=== PATIENT | male | born 1980 | race Caucasian/White ===

== ENCOUNTER 2019-06-06 10:28 | Outpatient (REF) | payer BC, SELFPAY ==
[2019-06-06 12:51] LABS: Bilirubin Negative (Negative); Blood Trace-intact (Negative); Clarity Clear (Clear); Glucose Negative (Negative); Ketones Negative (Negative); Leukocyte Esterase Negative (Negative); Nitrite Negative (Negative); Specific Gravity 1.015 (1.005-1.025); Urobilinogen 0.2 EU/dL (Up TO 0.2)
[2019-06-06 13:00] LABS: Bacteria Negative HPF (Negative); Casts Negative LPF (Negative); Crystals Negative HPF (Negative); Epithelial Cells Negative HPF (Negative); Mucus Negative (Negative); RBC 0-2 HPF (0-2); WBC 0-2 HPF (0-5)
[2019-06-06 13:01] LABS: C & S Indicated? No
== END 2019-06-06 10:48 ==
LOC: LBN 10:28
PROVIDERS: PCP Emergency Medicine; Visit Provider Emergency Medicine
DX: R31.9 Hematuria, unspecified (principal); R32 Unspecified urinary incontinence; D01.0 Carcinoma in situ of colon
CPT/HCPCS: 81003; 81015

== ENCOUNTER 2020-03-27 13:56 | Outpatient (CLI) | payer BC, SELFPAY ==
--- NOTE | 2020-03-27 13:15 | DI.RAD_ITS ---
EXAM: XR SHOULDER RT COMPLETE 2+V CLINICAL HISTORY: right shoulder. TECHNIQUE: 2D digital imaging was performed. COMPARISON: No exams were available for comparison FINDINGS: BONES: No acute fracture is present. No bony destructive lesion is seen. There is minimal spurring at the tip of the acromion. JOINTS: No dislocation present. SOFT TISSUE: Normal. No calcifications. Visualized portions of the right lung are clear. IMPRESSION: Minimal degenerative changes. DATA REPOSITORY: RADIATION DOSE DELIVERED:
== END 2020-03-27 14:16 ==
PROVIDERS: PCP Emergency Medicine; Referring Provider Emergency Medicine; Visit Provider Student in an Organized Health Care Education/Training Program
DX: M19.011 Primary osteoarthritis, right shoulder (principal); M25.511 Pain in right shoulder
CPT/HCPCS: 73030

== ENCOUNTER 2021-01-22 02:13 | Outpatient (CLI) | payer BC, SELFPAY ==
--- NOTE | 2021-01-22 07:37 | DI.US_ITS ---
APPROVED REPORT EXAM: Comprehensive 2D, Doppler, and color-flow Echocardiogram Patient Location: Out-Patient Motorcycle Assembler: Lauren Velázquez RDCS (AE) Indications: SOB, HTN, COVID Other Information Study Quality: Good Conclusion Left Ventricle : The left ventricular systolic function is normal. The left ventricle is normal size . There is normal left ventricular wall thickness. The left ventricular diastolic function is normal. LVEF is 60%. Right Ventricle : The right ventricle is normal size. The right ventricular systolic function is norm al. The RVSP is 23.9 mmHg. Atria : The left atrium size is normal. The right atrium size is normal. Aortic Valve : Aortic valve is bicuspid. Moderate aortic regurgitation. No hemodynamically significan t valvular aortic stenosis. Great Vessels : The aortic root is normal in size. The ascending aorta is normal in size. Aortic arch is normal in caliber. IVC is normal in size and collapses >50% with inspiration. There is no prior study available for comparison. Wall motion Left Ventricle The left ventricle is normal size. The left ventricular systolic function is normal. There is normal left ventricular wall thickness. There is normal LV segmental wall motion. The left ventricular diast olic function is normal. There is no ventricular septal defect visualized. LVEF is 60%. Right Ventricle The right ventricle is normal size. The right ventricular systolic function is normal. The RVSP is 23 .9 mmHg. Atria The left atrium size is normal. The right atrium size is normal. The interatrial septum is intact wit h no evidence for an atrial septal defect. Aortic Valve Aortic valve is bicuspid. No hemodynamically significant valvular aortic stenosis. Moderate aortic re gurgitation. Mitral Valve The mitral valve is normal in structure. No evidence of mitral valve stenosis. Trace mitral regurgita tion. Tricuspid Valve The tricuspid valve is normal in structure. There is no tricuspid valve stenosis. Trace tricuspid reg urgitation. Pulmonic Valve The pulmonary valve is normal in structure. There is no pulmonic valvular stenosis. Trace pulmonic re gurgitation. Great Vessels The aortic root is normal in size. The ascending aorta is normal in size. Aortic arch is normal in ca liber. IVC is normal in size and collapses >50% with inspiration. Pericardium There is no pericardial effusion. 2D Dimensions IVSD d PLAX 1.00 cm M: 0.6-1.2 LV Vol A2C d MOD 189.3 mL LVPW d PLAX 1.02 cm M: 0.6 - 1.2 LV Vol A4C d MOD 168.8 mL LVID d PLAX 5.52 cm M: 4.2 - 5.8 LA vol/ BSA A2C s A-L 29.9 mL/m2 LVDs 3.65 cm M: 2.5 - 4.0 LA vol/ BSA A4C s A-L 28.0 mL/m2 Ao Root d 3.51 cm M: 3.1 - 3.7 LA Vol/ BSA Biplane s A-L 31.4 mL/m2 RA Area A4C 18.44 cm2 LA Area A4C s MOD 20.91 cm2 RA Vol/ BSA A4C s A-L 23.0 mL/m2 LA Area A2C s MOD 19.95 cm2 Ao Asc Diam d 3.47 cm M: 2.6 - 3.4 LV EF A4C MOD 60.6 % LV EF Teichholz 62.0 % LV EF A2C MOD 59.7 % LVEF (Patricio's) 58.70 % M: 52 - 72 LV EF Biplane MOD 58.7 % LV Volume 131.61 mL M: 62 - 150 SV 107.12 mL LV Volume Index 58.23 mL/m2 M: 34 - 74 SV Index 47.38 mL/m2 LV Vol Biplane MOD 182.5 mL FS 33.75 % M-Mode TAPSE 3.05 cm (M/F) >1.7 LV Diastology MV E' medial 0.092 (>0.07 m/s) E/A Ratio 1.6 LV E/e MED 11.00 (<14) MV E Vmax 1.01 (0.4-1.3 m/s) MV E' lateral 0.105 (>0.1 m/s) MV A Vmax 0.65 (0.4-1.3 m/s) LV E/e LAT 9.60 (<14) MV E/A Ratio 1.52 MV E/E' medial 11.04 MV E/E' lateral 9.63 Aortic Valve LVOT Area 3.63 cm2 AoV Area Vmax 2.31 cm2 LVOT Vmax 1.27 m/s AoV Area/ BSA (Vmax) 1.02 cm2/m2 LVOT Mean Lennox. 0.85 m/s SHRUTI Mean Lennox. 2.13 cm2 LVOT Peak Grad 6.4 mmHg SHRUTI Mean Lennox. Index 0.94 cm2/m2 LVOT Mean Grad 3.4 mmHg AR DT 1982 msec LVOT VTI 0.292 m AR PHT 575 msec LVOT Diam s 2.10 cm AoV Vmax 1.99 m/s Velocity Ratio 0.63 AoV Mean Lennox. 1.46 m/s AoV Peak Grad 15.8 mmHg LVOT SV 105.92 mL AoV Mean Grad 9.3 mmHg AoV VTI 0.412 m AoV Area VTI 2.57 cm2 AoV Area/ BSA (VTI) 1.14 cm/m2 Mitral Valve MV DT 262 (160-240 msec) MV PHT 76 msec MV Area PHT 2.89 cm2 MV VTI 0.360 m MV Area VTI 2.94 (4.0-6.0 cm2) Pulmonary Valve PV Vmax 1.11 (0.5-1.5 m/s) RVOT Peak Gr. 3.88 mmHg PV Peak Grad 4.9 mmHg RVOT Mean Gr. 1.80 mmHg PV Mean Grad 2.5 mmHg RVOT VTI 0.210 m PV VTI 0.252 m RVOT Vmax 0.98 m/s Tricuspid Valve TR Peak Grad 20.8 mmHg TR Vmax 2.29 m/s RA Pressure 3.00 mmHg RVSP (TR) 23.9 mmHg
== END 2021-01-22 02:33 ==
PROVIDERS: PCP Emergency Medicine; Visit Provider Emergency Medicine
DX: I10 Essential (primary) hypertension (principal); U07.1 COVID-19; R06.02 Shortness of breath; I35.1 Nonrheumatic aortic (valve) insufficiency; Q23.1 Congenital insufficiency of aortic valve
CPT/HCPCS: 93306

== ENCOUNTER 2021-03-13 03:01 | Outpatient (CLI) | payer BC, SELFPAY ==
[2021-03-13 09:05] LABS: Anion Gap 9.3 mmol/L (3-11); BUN 16 mg/dL (7-18); C-Reactive Protein 0.08 mg/dL (0.0-0.3); CO2 26.7 mmol/L (21.0-32.0); CREATININE 0.9 mg/dL (0.70-1.30); Calcium 8.7 mg/dL (8.5-10.1); Chloride 108 mmol/L (98-107); Glucose 109 mg/dL (74-106); Potassium 4.1 mmol/L (3.5-5.1); Sodium 144 mmol/L (136-145)
[2021-03-13 09:35] LABS: Calculated LDL 87 mg/dL (<100); Cholesterol 134 mg/dL (<200); HDL Cholesterol 36 mg/dL (40-60); Triglyceride 56 mg/dL (<150)
== END 2021-03-13 03:02 | disposition home or self-care (01) ==
LOC: LBO 03:01
PROVIDERS: PCP Emergency Medicine; Visit Provider Emergency Medicine
DX: I35.1 Nonrheumatic aortic (valve) insufficiency; U07.1 COVID-19; I10 Essential (primary) hypertension
CPT/HCPCS: 36415; 80048; 80061; 86140

== ENCOUNTER 2022-07-22 20:26 | Emergency (ER) | payer BC, SELFPAY ==
[2022-07-22] VITALS (20 sets, daily range): BP systolic 132–175; BP diastolic 85–96; PULSE 69–109; RESP 12–24; TEMP 37.2; O2SAT 94–100
--- NOTE | 2022-07-22 20:15 | RT.EKG_ITS ---
APPROVED REPORT Exam: Resting ECG Reason for Exam: chest pain Patient Location: E HR:90 bpm ECG Measurements Heart Rate 90 AXIS MO 188 P 57 QRSd 97 QRS 15 QT 378 T 37 QTc 464 Conclusion Sinus rhythm...normal P axis, V-rate 60- 99 Physician: no stemi, unchanged
--- NOTE | 2022-07-22 20:37 | ED.GENADUL_ITS ---
Discharge Plan Disposition Patient Disposition: Home Condition: Good Discharge Details Chief Complaint: Chest Pain Clinical Impression: Hypertension, Chest discomfort Primary Care Provider: Efrain Goel ED Provider: Jaylen Fine Home Meds and New Rx's Prescriptions: No Action triamcinolone acetonide 0.1 % cream 1 applic topical BID tacrolimus 0.1 % ointment 1 applic topical BID Discharge Instructions Instructions: Hypertension (ED) Additional Instructions: At this time your cardiac work-up is very reassuring. Your heart markers are all normal. In regards to your blood pressure he can certainly be made worse and elevated by stress, lack of sleep, and diminished diet or exercise. As your blood pressure has notably normalized just during your time here, I do not think that antihypertensive medication is indicated at this stage. Please follow-up closely with your primary care provider for reassessment. If you notice any worsening of your symptoms, or any new symptoms such as vomiting, diarrhea, fever, chills, shortness of breath, chest pain, numbness, weakness, or fainting , please return immediately to the emergency department for reevaluation. Please follow up with your primary care provider as soon as possible for reassessment and reevaluation. As always, it was a pleasure participating in your medical care today. Referrals: Efrain Goel [Primary Care Provider] - Medical Decision Making 41-year-old male with no significant past medical history except for bicuspid aortic valve, previous appendiceal cancer, who presents today for evaluation of elevated blood pressure. 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 Over the last day or so he has noticed his blood pressure has been increasing slightly, he states that he has been taking his blood pressure every 30 minutes to every hour to monitor it. This is also been going on tonight, his blood pressure at 180 systolic, and he states that this made him notably nervous and concerned. At the same time he also got what he described as a few quick brief twinges of pain in the left chest. These lasted just a few seconds and resolved on their own. No exertional component, no dyspnea, no shortness of breath, no tearing or ripping sensation. Symptoms completely resolved after those initial brief events and he is symptom-free now. Denies PE risk factors such as recent long car rides, immobilization, recent surgery, prior history of DVT or PE, family history of PE or DVT, morbid obesity, exogenous estrogen and smoking, hemoptysis, history of cancer. Patient denies any history of tobacco use. No other complaints at this time. No previous or family history of cardiac ischemia or disease. Exam demonstrates a well-appearing, albeit nervous male. Vital signs stable aside from mild hypertension. No evidence clinically to suggest aortic dissection, PE or aneurysm based on symptoms and clinical appearance. Suspect stress is a component of his symptoms, however out of an abundance of precaution we will evaluate for other cardiac etiology. EKG is notably benign with no evidence of STEMI or significant ST changes whatsoever. We will monitor closely and reassess. HPI General Date/Time Provider Initiated Documentation: 07/22/22 20:29 . HPI Narrative: 41-year-old male with no significant past medical history except for bicuspid aortic valve, previous appendiceal cancer, who presents today for evaluation of elevated blood pressure. 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 Over the last day or so he has noticed his blood pressure has been increasing slightly, he states that he has been taking his blood pressure every 30 minutes to every hour to monitor it. This is also been going on tonight, his blood pressure at 180 systolic, and he states that this made him notably nervous and concerned. At the same time he also got what he described as a few quick brief twinges of pain in the left chest. These lasted just a few seconds and resolved on their own. No exertional component, no dyspnea, no shortness of breath, no tearing or ripping sensation. Symptoms completely resolved after those initial brief events and he is symptom-free now. Denies PE risk factors such as recent long car rides, immobilization, recent surgery, prior history of DVT or PE, family history of PE or DVT, morbid obesity, exogenous estrogen and smoking, hemoptysis, history of cancer. Patient denies any history of tobacco use. No other complaints at this time. No previous or family history of cardiac ischemia or disease. Related Data Home Medications Medication Instructions Recorded Confirmed tacrolimus 0.1 % topical ointment 1 applic topical BID 01/06/21 07/22/22 triamcinolone acetonide 0.1 % 1 applic topical BID 01/06/21 07/22/22 topical cream Allergies Allergy/AdvReac Type Severity Reaction Status Date / Time No Known Allergies Allergy Verified 03/10/22 18:46 Review of Systems All systems reviewed & are unremarkable except as noted in HPI and below PFSH All Active Problems (Updated 07/22/22 @ 22:01 by Jaylen Fine DO) Hypertension (Chronic) Chest discomfort (Acute) Aortic regurgitation (Acute) needs yearly echo COVID-19 (Acute) Hypertension (Chronic) Impingement syndrome of right shoulder (Acute) Biceps tendinitis of right shoulder (Acute) Nontraumatic type 1 superior labral [id number] (SLAP) tear of right shoulder (Acute) No-show for appointment (Acute) Vasectomy evaluation (Acute) Bilateral shoulder pain (Acute) Bilateral knee pain (Acute) Shoulder pain, right (Acute) 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 Needs yearly CT and f/u Family History Son Asthma Social History Smoking/Tobacco Use Status: Never Second Hand Exposure: No Smoking risk assessment performed?: Yes Alcohol Intake: current Alcohol Intake frequency: a few times a week Alcohol type: beer and hard liquor Drug use: Never Substance use type: does not use Caregiver/Support person: No Household members: spouse and children Housing: house Communication Needs: None Pets and animals: Yes Pets and animals: dog(s) Sexually active: Yes Do you think of yourself as: straight/heterosexual Current gender identity: male What is your relationship status?: How often do you talk on the phone with friends or family?: decline to answer How often do you get together with friends or relatives?: decline to answer How often do you attend episcopalian or roman catholic services?: decline to answer Do you belong to any clubs or organized social groups?: decline to answer Panel score (0-1 are the most socially isolated patients): 1 Negrita/Shinto: none Special negrita needs: No Seatbelt use: always Helmet use: Yes Helmet use: sometimes Drive intox or ride w/intox fuel oil truck 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 3.ENT: Atraumatic external nose and ears. Moist MM. Neck: Symmetric, trachea midline, No thyromegaly. 4.CVS: +S1/S2, No murmurs or gallops. Peripheral pulses 2+ and equal in all extremities. Brisk capillary refill in all extremities. 5.RESP: Unlabored respiratory effort. Clear to auscultation bilaterally. No wheezes rales or rhonchi 6.GI: Soft, Nontender/Nondistended, No hepatosplenomegaly. No guarding or rebound. 7.MSK: Normocephalic/Atraumatic, Extremities w/o deformity or ttp No cyanosis or clubbing, Normal movement of all extremities 8.Skin: Warm, Dry. No rashes or lesions. 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 Sensation grossly intact, no focal neurologic deficits. 10.Psych: (AAO) x3. Appropriate mood and affect
[2022-07-22 20:52] LABS: Abs Immature Grans 0.02 10^3/uL (0.0-0.06); Absolute Basophil Count 0.06 10^3/uL (0.0-0.2); Absolute Eosinophil Count 0.18 10^3/uL (0.0-0.7); Absolute Lymphocyte Count 3.17 10^3/uL (1.2-3.4); Absolute Monocyte Count 0.51 10^3/uL (0.1-0.8); Absolute Neutrophil Count 5.26 10^3/uL (1.2-6.7); Basophils % 0.7; HGB 14.2 g/dL (13.5-17.5); Immature Grans % 0.2; Lymphocytes % 34.5; MCH 30.2 pg (27.0-33.0); MCHC 34.6 % (32.0-36.0); MCV 87 fL (80-95); MPV 9.3 fL (8.0-11.0); Monocytes % 5.5; Neutrophils % 57.1; Platelet Count 268 10^3/uL (130-400); RDW 11.6 % (11.8-14.1); RDW-SD 37.4 fL
[2022-07-22 21:11] LABS: ALT 29 U/L (16-63); AST 15 U/L (15-37); Albumin 4.4 g/dL (3.4-5.0); Alkaline Phosphatase 65 U/L (46-116); Anion Gap 9.3 mmol/L (3-11); BUN 17 mg/dL (7-18); Bilirubin, Total 0.5 mg/dL (0.2-1.0); CO2 27.7 mmol/L (21.0-32.0); Chloride 103 mmol/L (98-107); Estimated GFR 97.58 (mL/min/1.73m2); Glucose 141 mg/dL (74-106); Potassium 3.4 mmol/L (3.5-5.1); Sodium 140 mmol/L (136-145); Total Protein 8.1 g/dL (6.4-8.2); Troponin I < 50 ng/L (<or=60)
[2022-07-22 21:21] LABS: Lipase 86 U/L (73-393); NT-proBNP 54 pg/mL (<300); TSH (W/Ref FT4) 4.53 uIU/mL (0.36-3.74)
[2022-07-22 22:24] LABS: FREE T4 0.79 ng/dL (0.76-1.46)
== END 2022-07-22 22:13 | disposition home or self-care (01) ==
PROVIDERS: Emergency Provider Student in an Organized Health Care Education/Training Program; PCP Physician Assistant
DX: I10 Essential (primary) hypertension (principal); R07.89 Other chest pain
CPT/HCPCS: 80053; 83690; 93005; 99283; 83880; 84439; 84443; 84484; 85025; 93010; 99284

== ENCOUNTER 2024-02-29 10:28 | Outpatient (REF) | payer BC, SELFPAY | END 2024-02-29 10:29 | disposition home or self-care (01) | LOC: LBN 10:28 | PROVIDERS: PCP Physician Assistant; Visit Provider Physician Assistant | DX: J02.9 Acute pharyngitis, unspecified (principal); R68.89 Other general symptoms and signs | CPT/HCPCS: 87070 ==

== ENCOUNTER 2024-05-12 09:17 | Outpatient (CLI) | payer BC, SELFPAY ==
[2024-05-12 08:20] LABS: BUN 20 mg/dL (7-18); CREATININE 1.1 mg/dL (0.70-1.30); Chloride 106 mmol/L (98-107); Estimated GFR 85.95 (mL/min/1.73m2); Glucose 117 mg/dL (74-106); Potassium 3.8 mmol/L (3.5-5.1); Sodium 143 mmol/L (136-145)
== END 2024-05-12 09:18 | disposition home or self-care (01) ==
LOC: LBO 09:17
PROVIDERS: PCP Physician Assistant; Visit Provider Internal Medicine Cardiovascular Disease
DX: I35.1 Nonrheumatic aortic (valve) insufficiency (principal)
CPT/HCPCS: 36415; 80048

== ENCOUNTER 2024-05-26 11:03 | Outpatient (CLI) | payer BC, SELFPAY ==
[2024-05-26 09:25] LABS: Anion Gap 10.8 mmol/L (3-11); BUN 17 mg/dL (7-18); CO2 26.2 mmol/L (21.0-32.0); Calcium 8.8 mg/dL (8.5-10.1); Chloride 105 mmol/L (98-107); Estimated GFR 96.37 (mL/min/1.73m2); Glucose 119 mg/dL (74-106); Potassium 3.8 mmol/L (3.5-5.1); Sodium 142 mmol/L (136-145)
--- OUTSIDE RECORDS SUMMARY | 2024-05-26 11:05 | XMS_ITS | Encounter Summary ---
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 Not very hard 02/25/2023 Exercise Vital Sign Answer Date Recorde d On average, how many days pe r week do you engage in moderate to strenuous exercise (like a brisk walk)? 5 days 02/25/2023 On average, how many minutes do you engage in exercise at this level? 20 min 02/25/2023 Hunger Vital Sign Answer Date Recorded Within the past 12 months, y ou worried that your food would run out before you got the money to buy more. Sometimes true Within the past 12 months, t he food you bought just didn't last and you didn't have money to get more. Never true PRAPARE - Transportation Answer Date Re corded In the past 12 months, has l ack of transportation kept you from medical appointments or from getting medications? No 01/28 In the past 12 months, has l ack of transportation kept you from meetings, work, or from getting things needed for daily living? No 02/25/2023 Housing Stability Vital Sign Answer Graham e Recorded In the last 12 months, was t here a time when you were not able to pay the mortgage or rent on time? No 02/25/2023 In the last 12 months, how many places have you lived? 2 02/25/2023 In the last 12 months, was t here a time when you did not have a steady place to sleep or slept in a group home (including now)? No 02/25/2023 Education Answer Date Recorded What is the highest level of school you have completed or the highest degree you have received? Some college, no degree 02/25/2023 Sex and Gender Information Value Date Recorded Sex Assigned at Male 02/17/2021 6:32 AM EDT Gender Identity Male 09/27/2023 9:31 AM EDT Sexual Orientation Straight 02/17/2021 6: 32 AM EDT documented as of this encounter Plan of Treatment Not on file documented as of this encounter Visit Diagnoses Not on filedocumented in this encounter Care Teams Store Grocery Merchandiser Relationship Specialty Start Date End Date Pearl Lloyd APRN [address] [facility] [place] [address] PCP - General 05/05/22 documented as of this encounter
--- OUTSIDE RECORDS SUMMARY | 2024-05-26 11:05 | XMS_ITS | Encounter Summary ---
[place] [address] Care Team Providers Care Mobile Development Manager Name Role Phone Pearl Lloyd APRN Primary Care Provider Reason for Referral * Diagnostic Test (Routine) - Closed Specialty Diagnoses / Procedures Referred By Contac t Referred To Contact Cardiology Diagnoses Aortic valve insufficiency, etiology of cardiac valve disease unspecified Bicuspid aortic valve Procedures Echocardiogram Transthoracic Luigi Graff MD [facility] [address] [facility] [place] [address] Referral ID Status Reason Start Date Expiration Date V isits Requested Visits Authorized [id number] Closed Specialty Service Requested 06/28/2023 05/27/2024 1 1 Reason for Visit * Diagnostic Test (Routine) - Closed Specialty Diagnoses / Procedures Referred By Contac t Referred To Contact Cardiology Diagnoses Aortic valve insufficiency, etiology of cardiac valve disease unspecified Bicuspid aortic valve Procedures Echocardiogram Transthoracic Luigi Graff MD [facility] [address] [facility] [place] [address] Referral ID Status Reason Start Date Expiration Date V isits Requested Visits Authorized [id number] Closed Specialty Service Requested 06/28/2023 05/27/2024 1 1 Encounter Details Date Type Department Care Team (Latest Contact Info) Description 10/13/2023 12:45 PM EDT - 10/13/2023 11:59 PM EDT Hospital Encounter Non-Invasive [place] [address] Luigi Graff MD [facility] [place] [address] Aortic valve insufficiency, etiology of cardiac valve disease unspecified; Bicuspid aortic valve Discharge Disposition: Home Social History Tobacco Use Types Packs/Day Years [...] place to sleep or slept in a detention (including now)? No 02/25/2023 Education Answer Date [...] AM EDT documented as of this encounter Medications at Time of Discharge Medication Sig Dispensed Refills Start Date End Date triamcinolone (Kenalog) 0.1 % CreamIndications:Psoria sis Apply topically to the affected areas of the trunk and extremities for 14 days. Take 1 week off, repeat as needed. 453.6 g 1 09/30/2021 tacrolimus (PROTOPIC) 0.1 % Ointment Apply twice daily to the affected area of the face 100 g 3 01/01/2021 documented as of this encounter Progress Notes * Luigi Graff MD - 10/13/2023 11:59 PM EDT Pilo hoffman, Would you give shabana a call? Pls let him know I remeasured his echo and while the LV has dilated abit, it does not make criteria for aortic valve surgery at this time. I would like him to come backin six months and repeat an echo at that time. He should be expecting the call and news. Thanks much, ew documented in this encounter Plan of Treatment Not on file documented as of this encounter Procedures Procedure Name Priority Date/Time Associated Diagnosis Comments ECHO COMPLETE Routine 10/13/2023 1:54 PM EDT Aortic valve insufficiency, etiology of cardiac valve disease unspecified Bicuspid aortic valve documented in this encounter Results * ECHO COMPLETE (10/13/2023 1:54 PM EDT) EF 63 HEARTLAB SYSTEM Anatomical Region Laterality Modality Cardiac Other 10/13/2023 1:10 PM EDT Narrative 10/13/2023 2:55 PM EDT [address] [place] [address] ? Echocardiogram Report Name: SHABANA ZAMAN ?Study Date: 10/13/2023 01:10 PMBP: 148/89 mmHg ? Patient Location: : 1980 ? Height: 183 cm ? Account: [id number] Age: 42 yrs ? Weight: 113 kg Gender: Male ?BSA: 2.3 m2 Ordering Physician: LUIGI GRAFF Referring Physician: LUIGI GRAFF Performed By: Dom Carey RDCS Reason For Study: Aortic valve insufficiency, etiology of cardiac valve disease unspecified/Bicuspid aortic valve Exam Location: [facility]. Interpretation Summary Left ventricle is of normal size. Wall thickness is normal. There is no ventricular septal defect. Left ventricular systolic function is normal. The left ventricular ejection fraction is 58% by Patricio's biplane. There are no segmental wall motion abnormalities. Right ventricle is mildly dilated. Right ventricular systolic function is normal. The right atrium is mildly dilated. The aortic valve is bicuspid with fusion of the left and right coronary cusps. There is no aortic stenosis by planimetry (4.1 cm2). . The peak instantaneous gradient across the aortic valve is 26.2 mmHg. The mean gradient across the aortic valve is 15.2 mmHg. There is moderate to severe aortic regurgitation with diastolic flow reversal in the descending thoracic aorta however not clearly in the abdominal aorta. The aortic root is dilated. The diameter at the level of the sinuses of Valsalva is 4.0 cm. The ascending aorta is dilated. The maximum diameter of the proximal ascending aorta is 4.1 cm. Compared to 05/26/2023, no significant changes. Procedure Complete-[id number]. Satisfactory quality. There is normal sinus rhythm. Left Ventricle Left ventricle is of normal size. Wall thickness is normal. There is no ventricular septal defect. Left ventricular systolic function is normal. The left ventricular ejection fraction is 58% by Patricio's biplane. There are no segmental wall motion abnormalities. Right Ventricle Right ventricle is mildly dilated. Right ventricular systolic function is normal. Left Atrium The left atrium is normal. No abnormality of the interatrial septum is identified. Right Atrium The right atrium is mildly dilated. Aortic Valve The aortic valve is bicuspid. There is fusion of the Left and right cusps. There is no aortic stenosis. The peak instantaneous gradient across the aortic valve is 26.2 mmHg. The mean gradient across the aortic valve is 15.2 mmHg. The aortic valve area calculated using planimetry is 4.1 cm2. There is moderate to severe aortic regurgitation. Flow reversal in the descending thoracic aorta suggests severe aortic regurgitation. The regurgitant jet is directed eccentrically across the anterior leaflet of the mitral valve. Mitral Valve The mitral valve is structurally and functionally normal. There is no mitral regurgitation. Tricuspid Valve The tricuspid valve is structurally and functionally normal. There is no tricuspid regurgitation. Pulmonic Valve The pulmonic valve appears to be structurally and functionally normal. There is trace pulmonic valve regurgitation. Great Arteries The aortic root is dilated. The diameter at the level of the sinuses of Valsalva is 4.0 cm. The ascending aorta is dilated. The maximum diameter of the proximal ascending aorta is 4.1 cm. The transverse aorta is not dilated. The main pulmonary artery is of normal size. Venous Inferior vena cava is normal in size. Inferior vena cava collapse greater than 50% with respiration. Pericardium/Pleural The pericardium appears normal. Hemodynamics Pulmonary artery hypertension could not be assessed due to inadequate tricuspid regurgitation jet. Left ventricular filling pressure is increased. Ejection Fraction ?2D Measurements ? Volumes LV Biplane EF: 58.4 % ? IVSd: 1.1 cm ? LA Volume Index: ?LVIDd: 6.3 cm ?LVPWd: 0.97 cm ? 32.7 ml/m2 ?RWT: 0.31 {ratio} ?RA A4Cs_phl: 20.6 cm2 ? RA ESV Indexed: ?LV mass(C)d: 280.5 grams ?LV mass(C)dI: 119.8 grams/m2 ?? 24.5 ml/m2 ?Ao root diam: 4.0 cm ? EDV Biplane: 174.0 ml ?Ao root diam index: 1.7 ?EDV BP Indexed: ?asc Aorta Diam: 4.1 cm ? 74.3 ml/m2 ?LVOT diam: 2.2 cm ?ESV Biplane: 72.4 ml ? ESV BP Indexed: ? 30.9 ml/m2 ? SV(LVOT): 97.2 ml ? LV Stroke Volume: 97.0 ml ? SI(LVOT): 41.5 ml/m2 Doppler LV V1 VTI: 25.6 cm LVOT max Velocity: 133.7 cm/sec Ao V2 VTI: 55.8 cm Ao Max: 255.7 cm/sec Ao valve max: 26.2 mmHg Ao valve mean: 15.2 mmHg MV E max lennox: 124.3 cm/sec MV A max lennox: 92.7 cm/sec MV E/A: 1.3 MVA(P1/2t): 2.7 cm2 Lat Peak E' Lennox: 9.2 cm/sec E/ e' (lat): 13.4 Med Peak E' Lennox: 7.8 cm/sec E/e' (med): 15.9 E/e' Average: 14.7 SHRUTI(I,D): 1.7 cm2 Dimensionless index Aov: 0.46 SHRUTI Planimetery: 4.1 cm2 AI P1/2t: 396.3 msec AI radius: 0.46 cm I ?WMSI = 1.00 ? % Normal = 100 ?Segments ??Size X - Cannot ?2 - ?4 - ?1-2 ? small Interpret ?1 - Normal ?? Hypokinetic 3 - Akinetic Dyskinetic ?? 3-5 ? moderate 5 - ? 6-14 ?large Aneurysmal ?15-16 ?? diffuse Procedure Note Kevin Flores MD - 10/13/2023 1 [place] [address] Echocardiogram Report Name: SHABANA ZAMAN Study Date: 401:10 PMBP: 148/89 mmHg Patient Location: : 1980 Height: 183 cm Account: [id number] Age: 42 yrs Weight: 113 kg Gender: Male BSA: 2.3 m2 Ordering Physician: LUIGI GRAFF Referring Physician: LUIGI GRAFF Performed By: Dom Carey RDCS Reason For Study: Aortic valve insufficiency, etiology of cardiac valvedisease unspecified/Bicuspid aortic valve Exam Location: [facility]. Interpretation Summary Left ventricle is of normal size. Wall thickness is normal. There is no ventricular septal defect. Left ventricular systolic function is normal.The left ventricular ejection fraction is 58% by Patricio's biplane. There are nosegmental wall motion abnormalities. Right ventricle is mildly dilated. Right ventricular systolic function isnormal. The right atrium is mildly dilated. The aortic valve is bicuspid with fusion of the left and right coronarycusps. There is no aortic stenosis by planimetry (4.1 cm2). . The peakinstantaneous gradient across the aortic valve is 26.2 mmHg. The mean gradient acrossthe aortic valve is 15.2 mmHg. There is moderate to severe aortic regurgitationwith diastolic flow reversal in the descending thoracic aorta however notclearly in the abdominal aorta. The aortic root is dilated. The diameter at the level of the sinuses ofValsalva is 4.0 cm. The ascending aorta is dilated. The maximum diameter of theproximal ascending aorta is 4.1 cm. Compared to 05/26/2023, no significant changes. Procedure Complete-[id number]. Satisfactory quality. There is normal sinus rhythm. Left Ventricle Left ventricle is of normal size. Wall thickness is normal. There is no ventricular septal defect. Left ventricular systolic function is normal.The left ventricular ejection fraction is 58% by Patricio's biplane. There are nosegmental wall motion abnormalities. Right Ventricle Right ventricle is mildly dilated. Right ventricular systolic function isnormal. Left Atrium The left atrium is normal. No abnormality of the interatrial septum isidentified. Right Atrium The right atrium is mildly dilated. Aortic Valve The aortic valve is bicuspid. There is fusion of the Left and right cusps.There is no aortic stenosis. The peak instantaneous gradient across the aorticvalve is 26.2 mmHg. The mean gradient across the aortic valve is 15.2 mmHg. Theaortic valve area calculated using planimetry is 4.1 cm2. There is moderate tosevere aortic regurgitation. Flow reversal in the descending thoracic aortasuggests severe aortic regurgitation. The regurgitant jet is directed eccentricallyacross the anterior leaflet of the mitral valve. Mitral Valve The mitral valve is structurally and functionally normal. There is nomitral regurgitation. Tricuspid Valve The tricuspid valve is structurally and functionally normal. There is notricuspid regurgitation. Pulmonic Valve The pulmonic valve appears to be structurally and functionally normal.There is trace pulmonic valve regurgitation. Great Arteries The aortic root is dilated. The diameter at the level of the sinuses ofValsalva is 4.0 cm. The ascending aorta is dilated. The maximum diameter of theproximal ascending aorta is 4.1 cm. The transverse aorta is not dilated. The mainpulmonary artery is of normal size. Venous Inferior vena cava is normal in size. Inferior vena cava collapse greaterthan 50% with respiration. Pericardium/Pleural The pericardium appears normal. Hemodynamics Pulmonary artery hypertension could not be assessed due to inadequatetricuspid regurgitation jet. Left ventricular filling pressure is increased. Ejection Fraction 2D Measurements Volumes LV Biplane EF: 58.4 % IVSd: 1.1 cm LA VolumeIndex: LVIDd: 6.3 cm LVPWd: 0.97 cm 32.7 ml/m2 RWT: 0.31 {ratio} RA A4Cs_phl: 20.6cm2 RA ESV Indexed: LV mass(C)d: 280.5 grams LV mass(C)dI: 119.8 grams/m2 24.5 ml/m2 Ao root diam: 4.0 cm EDV Biplane:174.0 ml Ao root diam index: 1.7 EDV BP Indexed: asc Aorta Diam: 4.1 cm 74.3 ml/m2 LVOT diam: 2.2 cm ESV Biplane: 72.4ml ESV BP Indexed: 30.9 ml/m2 SV(LVOT): 97.2ml LV Stroke Volume:97.0 ml SI(LVOT): 41.5ml/m2 Doppler LV V1 VTI: 25.6 cm LVOT max Velocity: 133.7 cm/sec Ao V2 VTI: 55.8 cm Ao Max: 255.7 cm/sec Ao valve max: 26.2 mmHg Ao valve mean: 15.2 mmHg MV E max lennox: 124.3 cm/sec MV A max lennox: 92.7 cm/sec MV E/A: 1.3 MVA(P1/2t): 2.7 cm2 Lat Peak E' Lennox: 9.2 cm/sec E/ e' (lat): 13.4 Med Peak E' Lennox: 7.8 cm/sec E/e' (med): 15.9 E/e' Average: 14.7 SHRUTI(I,D): 1.7 cm2 Dimensionless index Aov: 0.46 SHRUTI Planimetery: 4.1 cm2 AI P1/2t: 396.3 msec AI radius: 0.46 cm I WMSI = 1.00 % Normal = 100 SegmentsSize X - Cannot 2 - 4 - 1-2small Interpret 1 - Normal Hypokinetic 3 - Akinetic Dyskinetic 3-5moderate 5 - 6-14large Aneurysmal 15-16diffuse Luigi Graff MD ECHO ORDERABLES documented in this encounter Visit Diagnoses Diagnosis Aortic valve insufficiency, etiology of cardiac valve disease unspecified Bicuspid aortic valve Congenital insufficiency of aortic valve documented in this encounter Care Teams Mobile Development Manager Relationship Specialty Start Date End Date Pearl Lloyd APRN [address] [place] [address] PCP - General 05/05/22 documented as of this encounter
--- OUTSIDE RECORDS SUMMARY | 2024-05-26 11:05 | XMS_ITS | Encounter Summary ---
[place] [address] Care Team Providers Care Quickbooks Bookkeeper Name Role Phone Pearl Lloyd APRN Primary Care Provider Reason for Visit * Auth/Cert (Routine) Specialty Diagnoses / Procedures Referred By Contac t Referred To Contact Diagnoses Encounter for screening for malignant neoplasm of colon Personal history of colon polyps Cammal Within 3 months IVCS Indication-Screening, personal hx of appendiceal ca-right jos 2018 Procedures PRO COLONOSCOPY, DIAGNOSTIC PRO COLONOSCOPY, BIOPSY PRO COLONOSCOPY, REMV LESN, SNARE PRO ANES, LWR INTESTINE, SCREENING COLONOSCOPY COLONOSCOPY,SCREENING (WRVU 3.26) Savage Berumen MD [facility] [place] [address] [facility] Referral ID Status Reason Start Date Expiration Date Visits Re quested Visits Authorized [id number] 1 1 Encounter Details Date Type Department Care Team (Latest Contact Info) Description 04/05/2023 9:41 AM EDT - 04/05/2023 11:26 AM EDT Hospital En[place] [address] Savage Berumen MD [facility] [place] [address] Discharge Disposition: Home Social History Tobacco Use [...] place to sleep or slept in a halfway (including now)? No 02/25/2023 Education Answer Date [...] AM EDT documented as of this encounter Last Filed Vital Signs Vital Sign Reading Time Taken Comments Blood Pressure 130/87 04/05/2023 11:10 AM EDT Pulse 78 04/05/2023 10:40 AM EDT Temperature - - Respiratory Rate 18 04/05/2023 11:10 AM EDT Oxygen Saturation 95% 04/05/2023 11:10 AM EDT Inhaled Oxygen Concentration - - Weight 111.1 kg (245 lb) 04/05/2023 9:50 AM EDT Height - - Body Mass Index 33.23 02/26/2023 8:39 AM EDT documented in this encounter Discharge Instructions * Discharge Instructions* Hawa Alberts RN - 04/05/2023 10:59 AM EDT Colonoscopy: What to Expect at Home Your Recovery Your doctor will talk to you about when you will need your next colonoscopy. Your doctor can help you decide how often you need to be checked. This will depend on the results of your test and your risk for colorectal cancer. After the test, you may be bloated or have gas pains. You may need to pass gas. If a biopsy was done or a polyp was removed, you may have streaks of blood in your stool (feces) for a few days. Problems such as heavy rectal bleeding may not occur until several weeks after the test. This isn't common. But it can happen after polyps are removed. This care sheet gives you a general idea about how long it will take for you to recover. But each person recovers at a different pace. Follow the steps below to get better as quickly as possible. How can you care for yourself at home? Activity Rest when you feel tired. You can do your normal activities when it feels okay to do so. Diet Follow your doctor's directions for eating. Unless your doctor has told you not to, drink plenty of fluids. This helps to replace the fluids that were lost during the colon prep. Do not drink alcohol. Medicines Your doctor will tell you if and when you can restart your medicines. He or she will also give you instructions about taking any new medicines. If you take blood thinners, such as warfarin (Coumadin), clopidogrel (Plavix), or aspirin, be sure to talk to your doctor. He or she will tell you if and when to start taking those medicines again. Make sure that you understand exactly what your doctor wants you to do. If polyps were removed or a biopsy was done during the test, your doctor may tell you not to take aspirin or other anti-inflammatory medicines for a few days. These include ibuprofen (Advil, Motrin) and naproxen (Aleve). Other instructions For your safety, do not drive or operate machinery until the medicine wears off and you can think clearly. Your doctor may tell you not to drive or operate machinery until the day after your test. Do not sign legal documents or make major decisions until the medicine wears off and you can think clearly. The anesthesia can make it hard for you to fully understand what you are agreeing to. Additional Information for Sedation Patients For patients who received sedation: You may have received medications before and/or during your procedure which effects your judgement and reaction time. Do not drive, operate machinery, drink alcoholic beverages or make important decisions for 24 hours. Be careful on stairs as you may be unsteady on your feet. You may eat a regular diet as tolerated. Do not smoke if you are alone. IV site: Slight redness or tenderness is normal, you can use a warm compress if you would like. If tenderness and/or redness increase or if foul drainage occurs, please contact your Doctor. Please call [phone] before 8pm Mon-Fri with problems, questions or concerns. If you call after 8pm or on weekends, call the Hospital at [phone] and ask to speak to the Welfare Worker funeral pre need consultant and the grinder mill operator will contact that person for you. When should you call for help? Call 228 anytime you think you may need emergency care. For example, call if: You passed out (lost consciousness). You pass maroon or bloody stools. You have trouble breathing. Call your doctor now or seek immediate medical care if: You have pain that does not get better after you take pain medicine. You are sick to your stomach or cannot drink fluids. You have new or worse belly pain. You have blood in your stools. You have a fever. You cannot pass stools or gas. Watch closely for changes in your health, and be sure to contact your doctor if you have any problems. Where can you learn more? [facility] View your After Visit Summary and more online at [email or web address] If you would like to provide feedback about your hospital experience, please call the Office of Patient and Family Relations at . If you have received this After Visit Summary in error, please immediately return it in person to the department, or notify the [facility] Privacy Office by calling toll free at between the hours of 8AM and 5PM to arrange for our retrieval of the documents at no cost to you. Content Version: 12.2 ?? 0595-3606 [email or web address]. Care instructions adapted under license by [facility]. If you have questions about a medical condition or this instruction, always ask your healthcare professional. [employer] disclaims any warranty or liability for your use of this information. 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 ASA 3 - Patient with moderate systemic disease with functional limitations Sedation Plan: moderate (conscious sedation) Risks and benefits of the procedure explained to the patient. Consent form signed and included in the patient's chart. Amber Zayas, PGY-4, Gastroenterology documented in this encounter Plan of Treatment Not on file documented as of this encounter Procedures Procedure Name Priority Date/Time Associated Diagnosis Comments Colonoscopy, Diagnostic ([id number]) 04/05/2023 10:01 AM EDT Cammal Within 3 months IVCS Indication-Screening , personal hx of appendiceal ca-right jos 2018 COLONOSCOPY Routine 04/05/2023 9:46 AM EDT documented in this encounter Results * COLONOSCOPY (04/05/2023 9:46 AM EDT) COLONOSCOPY [facility] Endoscopy Procedure Date: 04/05/2023 9:46 AM ? Patient Name: Demian Zaman ? Date of : 1980 ? Age: 42 ? Order #: [id number] ? Instrument Name: [id number] ? Procedure: ? Colonoscopy Indications: ? Screening for colorectal malignant ? neoplasm Providers: ? Savage Berumen MD, Kathy Almazan, ? Rose George Referring MD: ?Pearl Vela. Prema Medicines: ? Midazolam 6 mg IV, Fentanyl 200 ? micrograms IV Complications: ? No immediate complications. Procedure: ? Pre-Anesthesia Assessment: ? - Prior to the procedure, a History ? and Physical was performed, and ? patient medications and allergies ? were reviewed. The patient is ? competent. The risks and benefits ? of the procedure and the sedation ? options and risks were discussed ? with the patient. All questions ? were answered and informed consent ? was obtained. Patient ? identification and proposed ? procedure were verified by the ? physician in the pre-procedure ? area. Mental Status Examination: ? alert and oriented. Airway ? Examination: normal oropharyngeal ? airway and neck mobility. ? Respiratory Examination: clear to ? auscultation. CV Examination: ? normal. Prophylactic Antibiotics: ? The patient does not require ? prophylactic antibiotics. Prior ? Anticoagulants: The patient has ? taken no anticoagulant or ? antiplatelet agents. ASA Grade ? Assessment: II - A patient with ? mild systemic disease. After ? reviewing the risks and benefits, ? the patient was deemed in ? satisfactory condition to undergo ? the procedure. The anesthesia plan ? was to use moderate sedation / ? analgesia (conscious sedation). ? Immediately prior to administration ? of medications, the patient was ? re-assessed for adequacy to receive ? sedatives. The heart rate, ? respiratory rate, oxygen ? saturations, blood pressure, ? adequacy of pulmonary ventilation, ? and response to care were monitored ? throughout the procedure. The ? physical status of the patient was ? re-assessed after the procedure. ? The procedure, indications, ? benefits, risks and alternatives ? were explained to the patient. ? Specifically discussed were ? potential complications including, ? but not limited to, bleeding, ? perforation, infection, missing a ? cancer, and adverse medication ? reactions. The patient was placed ? in the left lateral decubitus ? position, and a digital rectal exam ? was performed. The Colonoscope was ? inserted in the anus and under ? direct visualization, advanced to ? the ileocolonic anastomosis. ? Careful inspection was made as the ? colonoscope was withdrawn. The ? colonoscopy was performed without ? difficulty. The patient tolerated ? the procedure well. The quality of ? the bowel preparation was excellent. ? Findings: ? The perianal and digital rectal examinations were ? normal. ? The colon (entire examined portion) appeared normal ? to the ileo-colonic anastomosis ? The jesenia-terminal ileum appeared normal. ? Moderate Sedation: ? I was present during the intraservice time as ? documented by the sedation RN. Impression: ?- The entire examined colon is ? normal. ? - The examined portion of the ileum ? was normal. ? - No specimens collected. Recommendation: ?- Repeat exam in five years ? Procedure Code(s): ? --- Professional --- ? 96235, Colonoscopy, flexible; ? diagnostic, including collection of ? specimen(s) by brushing or washing, ? when performed (separate procedure) CPT copyright 2021 [employer]. All rights reserved. The codes documented in this report are preliminary and upon butcher chicken and fish review may be revised to meet current compliance requirements. Attending Participation: ? I personally performed the entire procedure. ? ___ Savage Berumen MD 04/05/2023 10:47:44 AM This report has been signed electronically. Number of Addenda: 0 Note Initiated On: 04/05/2023 9:46 AM PROVATION 04/05/2023 9:46 AM EDT Pearl Lloyd APRN GENERAL SURGICAL [employer] DERABLES PROVATION documented in this encounter Visit Diagnoses Not on filedocumented in this encounter Active and Recently Administered Medications Times are shown in EDT. PRN Medication Order 04/03/2023 04/04/2023 04/05/2023 fentaNYL (pf) (50 mcg/mL) multi-dose injection (CANCELED) PRN, Starting on Wed04/05/23 at 1012, Until Wed04/05/23 at 1327, Intra-Operative (Intra-Procedure), Routine 1012 (Given - Provid er: Kathy Almazan RN)1015 (Given - Provider: Kathy Almazan RN)1018 (Given - Provider: Kathy Almazan RN)1021 (Given - Provider: Kathy Almazan RN)1024 (Given - Provider: Kathy Almazan RN)1029 (Given - Provider: Kathy Almazan RN)1033 (Given - Provider: Kathy Almazan RN) midazolam (pf) (Versed) (1 mg/mL) multi-dose injection (CANCELED) PRN, Starting on Wed04/05/23 at 1012, Until Wed04/05/23 at 1327, Intra-Operative (Intra-Procedure), Routine 1012 (Given - Provid er: Kathy Almazan RN)1015 (Given - Provider: Kathy Almazan RN)1018 (Given - Provider: Kathy Almazan RN)1021 (Given - Provider: Kathy Almazan RN)1024 (Given - Provider: Kathy Almazan RN)1029 (Given - Provider: Kathy Almazan RN) documented in this encounter Care Teams Quickbooks Bookkeeper Relationship Specialty Start Date End Date Pearl Lloyd APRN [address] [place] [address] PCP - General 05/05/22 documented as of this encounter
--- OUTSIDE RECORDS SUMMARY | 2024-05-26 11:05 | XMS_ITS | Encounter Summary ---
[place] [address] Care Team Providers Care Inverted Block Operator Name Role Phone Pearl Lloyd APRN Primary Care Provider [phone] Reason for Referral * Diagnostic Test (Routine) - Closed Specialty Diagnoses / Procedures Referred By Contac t Referred To Contact Cardiology Diagnoses Bicuspid aortic valve Procedures Echocardiogram Transthoracic Luigi Graff MD [facility] [place] [address] [place] [address] [facility] [place] [address] Referral ID Status Reason Start Date Expiration Date V isits Requested Visits Authorized [id number] Closed Specialty Service Requested 05/26/2023 05/25/2024 1 1 Reason for Visit * Diagnostic Test (Routine) - Closed Specialty Diagnoses / Procedures Referred By Contac t Referred To Contact Cardiology Diagnoses Bicuspid aortic valve Procedures Echocardiogram Transthoracic Luigi Graff MD [facility] [place] [address] [facility] [place] [address] Referral ID Status Reason Start Date Expiration Date V isits Requested Visits Authorized [id number] Closed Specialty Service Requested 05/26/2023 05/25/2024 1 1 Encounter Details Date Type Department Care Team (Latest Contact Info) Description 05/26/2023 10:00 AM EST - 05/26/2023 11:59 PM EST Hospital Encounter Non-Invasive Cardiology Lab [facility] [place] [place] [phone] Luigi Graff MD [facility] [place] [address] Bicuspid aortic valve Discharge Disposition: Home Social [...] place to sleep or slept in a alf (including now)? No 02/25/2023 Education Answer Date [...] 3 01/01/2021 documented as of this encounter Plan of Treatment Not on file documented as of this encounter Procedures Procedure Name Priority Date/Time Associated Diagnosis Comments ECHO COMPLETE Routine 05/26/2023 10:54 AM EST Bicuspid aortic valve documented in this encounter Results * ECHO COMPLETE (05/26/2023 10:54 AM EST) Anatomical Region Laterality Modality Cardiac Other 05/26/2023 9:46 AM EST Narrative 05/26/2023 2:15 PM EST 1 [place] [address] ? Echocardiogram Report Name: SHABANA ZAMAN ?Study Date: 05/26/2023 09:46 AMBP: 155/99 mmHg ? Patient Location: : 1980 ? Height: 183 cm ? Account: [id number] Age: 42 yrs ? Weight: 113 kg Gender: Male ?BSA: 2.3 m2 Ordering Physician: LUIGI GRAFF Referring Physician: LUIGI GRAFF Performed By: Christine Morton RDCS Reason For Study: Bicuspid aortic valve Exam Location: [facility]. Interpretation Summary -Left ventricular systolic function is normal. The left ventricular ejection fraction is 55% by visual assessment. There are no segmental wall motion abnormalities. -The right ventricle is of normal size. Right ventricular systolic function is normal. Unable to estimate RVSP. -The aortic valve is bicuspid. There is fusion of the left and right cusps. There is no aortic stenosis. There is srythyjn-is-rwzvpp aortic regurgitation. The regurgitant jet is directed eccentrically across the anterior leaflet of the mitral valve. There is diastolic flow reversal in the descending thoracic aorta. There is no flow reversal in the abdominal aorta. -The aortic root at the level of the sinuses of Valsalva is mildly dilated (4.1 cm). The ascending aorta is mildly dilated (3.9 cm). -In comparison to an echo performed on 06/2022 the aorta is stable in size, the aortic regurgitation appears similar, and the left ventricular size and function remain unchanged. Procedure Complete-[id number]. Satisfactory quality. Left Ventricle Wall thickness is normal. There is no left ventricular outflow tract obstruction. There is no ventricular septal defect. Left ventricle is of normal size. Left ventricular systolic function is normal. Left ventricular ejection fraction is estimated visually at 55%. There are no segmental wall motion abnormalities. Right Ventricle The right ventricle is of normal size. Right ventricular systolic function is normal. Left Atrium The left atrium is normal. No abnormality of the interatrial septum is identified. Right Atrium The right atrium is normal. Aortic Valve The aortic valve is bicuspid. The aortic valve is mildly thickened. The peak instantaneous gradient across the aortic valve is 20 mmHg. The mean gradient across the aortic valve is 11. The aortic valve area calculated using the continuity equation is 2.0 cm2. There is no aortic stenosis. There is moderate to severe aortic regurgitation. Flow reversal in the descending thoracic aorta suggests severe aortic regurgitation. Mitral Valve The mitral valve is structurally normal. There is no mitral stenosis. There is trace mitral regurgitation. Tricuspid Valve The tricuspid valve is structurally normal. There is trace tricuspid regurgitation. Pulmonic Valve The pulmonic valve appears to be structurally normal. There is mild pulmonic valve regurgitation. Great Arteries The aortic root is dilated. The diameter at the level of the sinuses of Valsalva is 4.0 cm. The ascending aorta is dilated. The maximum diameter of the proximal ascending aorta is 4.0 cm. No abnormalities of the pulmonary artery are identified. Venous Inferior vena cava is dilated. Inferior vena cava collapse greater than 50% with respiration. Pericardium/Pleural There is a trivial pericardial effusion. Hemodynamics Pulmonary artery hypertension could not be assessed due to inadequate tricuspid regurgitation jet. The estimated right atrial pressure is 8mmHg. Left ventricular diastolic function is normal. Left ventricular filling pressure is normal. Ejection Fraction ?2D Measurements ? Volumes EF(MOD-bp): 53.8 % ?IVSd: 1.1 cm ? LAV(MOD- bp) Indexed: ?LVIDd: 5.8 cm ?LVIDs: 4.2 cm ?24.3 ml/m2 ?LVPWd: 1.1 cm ?RA A4Cs_phl: 17.9 cm2 ? EDV(MOD-bp) Indexed: ?LV mass(C)d: 256.9 grams ?LV mass(C)dI: 110.0 grams/m2 ?? 68.7 ml/m2 ?Ao root diam: 4.0 cm ? ESV(MOD-bp) Indexed: ?Ao root diam index: 1.7 ?31.7 ml/m2 ?asc Aorta Diam: 4.0 cm ? SV(LVOT): 97.1 ml ?LVOT diam: 2.1 cm ?TAPSE_phl: 2.2 cm ?SI(LVOT): 41.6 ml/m2 Doppler LV V1 VTI: 27.6 cm Ao V2 VTI: 48.0 cm Ao Max: 224.6 cm/sec Ao valve max: 20.2 mmHg Ao valve mean: 11.3 mmHg MV E max lennox: 129.0 cm/sec MV A max lennox: 82.3 cm/sec MV E/A: 1.6 MV dec time: 0.28 sec Lat Peak E' Lennox: 10.2 cm/sec E/ e' (lat): 12.6 Med Peak E' Lennox: 7.0 cm/sec E/e' (med): 18.5 E/e' Average: 15.6 SHRUTI(I,D): 2.0 cm2 Dimensionless index Aov: 0.57 I ?WMSI = 1.00 ? % Normal = 100 ?Segments ??Size X - Cannot ?2 - ?4 - ?1-2 ? small Interpret ?1 - Normal ?? Hypokinetic 3 - Akinetic Dyskinetic ?? 3-5 ? moderate 5 - ? 6-14 ?large Aneurysmal ?15-16 ?? diffuse Procedure Note Lena Sandoval MD - 05/26/2023 1 [place] [address] Echocardiogram Report Name: SHABANA ZAMAN Study Date: 309:46 AMBP: 155/99 mmHg Patient Location: : 1980 Height: 183 cm Account: [id number] Age: 42 yrs Weight: 113 kg Gender: Male BSA: 2.3 m2 Ordering Physician: LUIGI GRAFF Referring Physician: LUIGI GRAFF Performed By: Christine Morton RDCS Reason For Study: Bicuspid aortic valve Exam Location: [facility]. Interpretation Summary -Left ventricular systolic function is normal. The left ventricularejection fraction is 55% by visual assessment. There are no segmental wall motion abnormalities. -The right ventricle is of normal size. Right ventricular systolicfunction is normal. Unable to estimate RVSP. -The aortic valve is bicuspid. There is fusion of the left and rightcusps. There is no aortic stenosis. There is vdedopjq-jx-yadsku aortic regurgitation.The regurgitant jet is directed eccentrically across the anterior leaflet ofthe mitral valve. There is diastolic flow reversal in the descending thoracicaorta. There is no flow reversal in the abdominal aorta. -The aortic root at the level of the sinuses of Valsalva is mildly dilated(4.1 cm). The ascending aorta is mildly dilated (3.9 cm). -In comparison to an echo performed on 06/2022 the aorta is stable in size,the aortic regurgitation appears similar, and the left ventricular size andfunction remain unchanged. Procedure Complete-[id number]. Satisfactory quality. Left Ventricle Wall thickness is normal. There is no left ventricular outflow tractobstruction. There is no ventricular septal defect. Left ventricle is of normal size.Left ventricular systolic function is normal. Left ventricular ejectionfraction is estimated visually at 55%. There are no segmental wall motionabnormalities. Right Ventricle The right ventricle is of normal size. Right ventricular systolic functionis normal. Left Atrium The left atrium is normal. No abnormality of the interatrial septum isidentified. Right Atrium The right atrium is normal. Aortic Valve The aortic valve is bicuspid. The aortic valve is mildly thickened. Thepeak instantaneous gradient across the aortic valve is 20 mmHg. The meangradient across the aortic valve is 11. The aortic valve area calculated usingthe continuity equation is 2.0 cm2. There is no aortic stenosis. There ismoderate to severe aortic regurgitation. Flow reversal in the descending thoracicaorta suggests severe aortic regurgitation. Mitral Valve The mitral valve is structurally normal. There is no mitral stenosis.There is trace mitral regurgitation. Tricuspid Valve The tricuspid valve is structurally normal. There is trace tricuspid regurgitation. Pulmonic Valve The pulmonic valve appears to be structurally normal. There is mildpulmonic valve regurgitation. Great Arteries The aortic root is dilated. The diameter at the level of the sinuses ofValsalva is 4.0 cm. The ascending aorta is dilated. The maximum diameter of theproximal ascending aorta is 4.0 cm. No abnormalities of the pulmonary artery are identified. Venous Inferior vena cava is dilated. Inferior vena cava collapse greater than50% with respiration. Pericardium/Pleural There is a trivial pericardial effusion. Hemodynamics Pulmonary artery hypertension could not be assessed due to inadequatetricuspid regurgitation jet. The estimated right atrial pressure is 8mmHg. Leftventricular diastolic function is normal. Left ventricular filling pressure isnormal. Ejection Fraction 2D Measurements Volumes EF(MOD-bp): 53.8 % IVSd: 1.1 cm LAV(MOD-bp)Indexed: LVIDd: 5.8 cm LVIDs: 4.2 cm 24.3 ml/m2 LVPWd: 1.1 cm RA A4Cs_phl: 17.9cm2 EDV(MOD-bp)Indexed: LV mass(C)d: 256.9 grams LV mass(C)dI: 110.0 grams/m2 68.7 ml/m2 Ao root diam: 4.0 cm ESV(MOD-bp)Indexed: Ao root diam index: 1.7 31.7 ml/m2 asc Aorta Diam: 4.0 cm SV(LVOT): 97.1ml LVOT diam: 2.1 cm TAPSE_phl: 2.2 cm SI(LVOT): 41.6ml/m2 Doppler LV V1 VTI: 27.6 cm Ao V2 VTI: 48.0 cm Ao Max: 224.6 cm/sec Ao valve max: 20.2 mmHg Ao valve mean: 11.3 mmHg MV E max lennox: 129.0 cm/sec MV A max lennox: 82.3 cm/sec MV E/A: 1.6 MV dec time: 0.28 sec Lat Peak E' Lennox: 10.2 cm/sec E/ e' (lat): 12.6 Med Peak E' Lennox: 7.0 cm/sec E/e' (med): 18.5 E/e' Average: 15.6 SHRUTI(I,D): 2.0 cm2 Dimensionless index Aov: 0.57 I WMSI = 1.00 % Normal = 100 SegmentsSize X - Cannot 2 - 4 - 1-2small Interpret 1 - Normal Hypokinetic 3 - Akinetic Dyskinetic 3-5moderate 5 - 6-14large Aneurysmal 15-16diffuse Luigi Graff MD ECHO ORDERABLES documented in this encounter Visit Diagnoses Diagnosis Bicuspid aortic valve Congenital insufficiency of aortic valve documented in this encounter Care Teams Inverted Block Operator Relationship Specialty Start Date End Date Pearl Lloyd APRN [address] [place] [address] PCP - General 05/05/22 documented as of this encounter
--- OUTSIDE RECORDS SUMMARY | 2024-05-26 11:05 | XMS_ITS | Encounter Summary ---
[place] [address] Care Team Providers Care Safety And Occupational Health Manager Name Role Phone Pearl Lloyd APRN Primary Care Provider Encounter Details Date Type Department Care Team (Late st Contact Info) Description 03/05/2023 Telephone [place] [phone] Lulu Clement Social History Tobacco Use Types Packs/Day Years [...] place to sleep or slept in a senior care (including now)? No 02/25/2023 Education Answer Date [...] AM EDT documented as of this encounter Miscellaneous Notes * Telephone Encounter - Lulu Clement - 03/05/2023 2:51 PM EDT Demian Zaman [id number] Diagnosis/Indication: Screening, personal hx of appendiceal ca-right jos 2018 Please review patient chart to confirm if previous Endoscopy procedure was performed within system. If yes, take note of Anesthesia type used. If previous procedure found, and with MAC/propofol Anesthesia support was used, schedule this procedure with Anesthesia and skip the Anesthesia portion of questions. If not performed within system, not performed at all, or performed with IVCS, ask Anesthesia questions. SCHEDULING QUESTIONS (ask all patient these questions) Have you ever had a/an Colonoscopy before? No If yes, did you have any problems with the procedure (such as waking up during the procedure, pain or difficulties afterwards, etc.)? No What type of sedation was used: None Do you take any blood thinners or have you been diagnosed with a bleeding disorder that increases your risk of bleeding with procedures? No Do you have a Pacemaker or Defibrillator device? If yes, send pool message to Cardiology with patient information and date or procedure. No Are you a diabetic? If yes, call PCP/managing provider to discuss use of prep and any questions or concerns related to. No Do you take any iron supplements or vitamins that contain iron? No Do you have a preference regarding the gender of your provider? No ANESTHESIA QUESTIONS (YES to any question, please book with Anesthesia support) Have you ever been diagnosed with Pulmonary Hypertension and/or Congential Heart Disease? No Have you been diagnosed with A-Fib (atrial fibrillation) that is NOT being well controled with medications? No Have you ever had an allergic or adverse reaction to Fentanyl or Versed? No Have you had a problem with sedation or anesthesia? (Waking up during procedure, extreme confusion after, etc.) No Do you have a diagnosis of Obstructive Sleep Apnea that requires the use of a c- pap machine? No Do you use an oxygen tank at home? No Do you use a rescue inhaler more than twice per day? (COPD, severe asthma) No Do you experience breathing problems when you lay flat for a period of time? No Do you take prescription narcotic pain medications, including suboxone or methodone? No SCHEDULING CONFIRMATIONS: Please note any and all parts of your conversation with the patient here. We offer all new patients an opportunity to have an appointment with one of our associate care providers to learn more about your upcoming procedure, ask questions and get answers. These appointmentsare offered via telehealth. Would you be interested in scheduling this appointment? (Only ask if NEW referral patient; skip this question if [facility] provider ordered the procedure.) No Is there any other information or concerns you would like to us to share with your care team in relation to your upcoming scheduled procedure? No You must have a responsible libertarian who will drive you to your procedure, stay on campus for the entire duration of your procedure, and drive you home from your procedure. Who will likely be your hazardous materials tanker driver for the procedure? Please Verify the height and weight, and adjust if height and/or weight have changed Estimated body mass index is 33.63 kg/m?? as calculated from the following: Height as of 02/26/23: 182.9 cm (6'). Weight as of 02/26/23: 112.5 kg (248 lb). Age:42 y.o. documented in this encounter Plan of Treatment Not on file documented as of this encounter Visit Diagnoses Not on filedocumented in this encounter Care Teams Safety And Occupational Health Manager Relationship Specialty Start Date End Date Pearl Lloyd APRN [address] [place] [address] PCP - General 05/05/22 documented as of this encounter
--- OUTSIDE RECORDS SUMMARY | 2024-05-26 11:05 | XMS_ITS | Encounter Summary ---
Author Organization [facility] [place] [address] Care Team Providers Care Yardage Caller Name Role Phone Pearl Lloyd APRN Primary Care Provider Reason for Referral * Diagnostic Test (Routine) - Closed Specialty Diagnoses / Procedures Referred By Contac t Referred To Contact Cardiology Diagnoses Aortic valve insufficiency, etiology of cardiac valve disease unspecified Bicuspid aortic valve Procedures Echocardiogram Transthoracic Luigi Graff MD [facility] [place] [address] [place] [address] [facility] [place] [address] Referral ID Status Reason Start Date Expiration Date V isits Requested Visits Authorized [id number] Closed Specialty Service Requested 06/28/2023 05/27/2024 1 1 Encounter Details Date Type Department Care Team (Late st Contact Info) Description 05/27/2023 Orders Only Cardiology at [address] [phone] Luigi Graff MD [facility] [place] [address] Aortic valve insufficiency, etiology of cardiac valve disease unspecified (Primary Dx); Bicuspid aortic valve Social History Tobacco Use Types Packs/Day Years [...] place to sleep or slept in a long term (including now)? No 02/25/2023 Education Answer Date [...] on file documented as of this encounter Results * ECHO COMPLETE (10/13/2023 1:54 PM EDT) EF 63 [facility] Anatomical Region Laterality Modality Cardiac Other 10/13/2023 1:10 PM EDT Narrative 10/13/2023 2:55 PM EDT [address] [place] [address] ? Echocardiogram Report Name: SHABANA ZAMAN ?Study Date: 10/13/2023 01:10 PMBP: 148/89 mmHg ? Patient Location: 4A : 1980 ? Height: 183 cm ? Account: [id number] Age: 42 yrs ? Weight: 113 kg Gender: Male ?BSA: 2.3 m2 Ordering Physician: LUIGI GRAFF Referring Physician: LUIGI GRAFF Performed By: Dom Carey RDCS Reason For Study: Aortic valve insufficiency, etiology of cardiac valve disease unspecified/Bicuspid aortic valve Exam Location: [facility]. Interpretation Summary Left ventricle is of normal [...] Compared to 05/26/2023, no significant changes. Procedure Complete-[id number]. Satisfactory quality. There is normal sinus rhythm. [...] Note Kevin Flores MD - 10/13/2023 1 [place] [address] Echocardiogram Report Name: SHABANA ZAMAN Study Date: 401:10 PMBP: 148/89 mmHg Patient Location: : 1980 Height: 183 cm Account: [id number] Age: 42 yrs Weight: 113 kg Gender: Male BSA: 2.3 m2 Ordering Physician: LUIGI GRAFF Referring Physician: LUIGI GRAFF Performed By: Dom Carey RDCS Reason For Study: Aortic valve insufficiency, etiology of cardiac valvedisease unspecified/Bicuspid aortic valve Exam Location: [facility]. Interpretation Summary Left ventricle is of normal [...] Compared to 05/26/2023, no significant changes. Procedure Complete-[id number]. Satisfactory quality. There is normal sinus rhythm. [...] valve insufficiency, etiology of cardiac valve disease unspecified- Primary Bicuspid aortic valve Congenital insufficiency of aortic valve Aortic valve insufficiency, etiology of cardiac valve disease unspecified Bicuspid aortic valve Congenital insufficiency of aortic valve documented in this encounter Care Teams Yardage Caller Relationship Specialty Start Date End Date Pearl Lloyd APRN [address] [place] [address] PCP - General 05/05/22 documented as of this encounter
--- OUTSIDE RECORDS SUMMARY | 2024-05-26 11:05 | XMS_ITS | Encounter Summary ---
[place] [address] Care Team Providers Care General Practitioner Name Role Phone Pearl Lloyd APRN Primary Care Provider Reason for Referral * Diagnostic Test (Routine) - Closed Specialty Diagnoses / Procedures Referred By Contac t Referred To Contact Cardiology Diagnoses Bicuspid aortic valve Procedures Echocardiogram Transthoracic Santino Constantino MD [facility] [place] [address] [facility] [place] [address] Referral ID Status Reason Start Date Expiration Date V isits Requested Visits Authorized [id number] Closed Specialty Service Requested 04/07/2024 06/05/2024 1 1 * Diagnostic Test (Routine) - New Request Specialty Diagnoses / Procedures Referred By Contac t Referred To Contact Cardiology Diagnoses Bicuspid aortic valve Procedures Echocardiogram Transthoracic Santino Constantino MD [facility] [place] [address] [facility] [place] [address] Referral ID Status Reason Start Date Expiration Date Visits Requested Visits Authorized [id number] New Request Specialty Service Requested 10/13/2023 10/12/2024 1 1 Encounter Details Date Type Department Care Team (Late st Contact Info) Description 10/13/2023 3:20 PM EDT Office Visit [place]iology [place] [address] [place] [phone] Santino Constantino MD [facility] [place] [address] Bicuspid aortic valve Social History Tobacco Use [...] place to sleep or slept in a chcf (including now)? No 02/25/2023 Education Answer Date [...] Sign Reading Time Taken Comments Blood Pressure 166/98 10/13/2023 3:07 PM EDT Pulse 71 10/13/2023 3:07 PM EDT Temperature - - Respiratory Rate - - Oxygen Saturation 99% 10/13/2023 3:07 PM EDT Inhaled Oxygen Concentration - - Weight 113.4 kg (250 lb) 10/13/2023 3:07 PM EDT Height 182.9 cm (6') 10/13/2023 3:07 PM EDT Body Mass Index 33.91 10/13/2023 3:07 PM EDT documented in this encounter Progress Notes * Santino Constantino MD - 10/13/2023 3:20 PM EDT HPI: Shabana Zaman is a 42 y.o. year old male with a bicuspid aortic valve. No stenosis. Moderate regurgitation. Ascending aorta @ 3.9cm (previously 3.5), aortic root @ 4.1 cm. He comes in for follow uptoday. No cp / sob / syncope. 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 He has been noting high bps. Low 140's / high 130's. Has been trying to loose weight, eat healthier, and exercise. Echo performed today shows preserved lvef, LVIDD 6.3cm, LVIDS 4.5, EF 58%. LVIDD has increased from5.8 on previous study. EF previous 55%. 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 Take 1 week off, repeat as needed. 453.6 g 1 tacrolimus (PROTOPIC) 0.1 % Ointment Apply twice daily to the affected area of the face (Patient not taking: Reported on 02/26/2023) 100 g 3 No current facility-administered medications on file prior to visit. reviewed ROS Negative for blood in stool or urine. No fevers or chills. No recent syncope. Otherwise all other systems were reviewed and found to be negative. Physical Examination General: no acute distress Behavioral: Alert and oriented to person place and time Heent: Cranial nerves 2-12 grossly intact, JVP not elevated, no carotid bruits CV: RRR normal s1 and s2 3/6 diastolic murmur noted Lungs: CTA bilaterally Abd: soft, nt, bs positive, no pulsatile masses Extrem: no lower extremity edema Pulses: radial Pulses = bilaterally Skin: warm, dry without rashes Neuro: muscle strength grossly = bilaterally Assessement and Plan: 42 year old male with bicuspid aortic valve with mod regurgitation. Mildly dilated ascending aorta and root. 1. Bicuspid av -- no symptoms. Mod-severe regurg. Some dilation of LV by lvidd but LVIDS 4.5cm, EF > 55%. Monitor -- repeat echo in six months. 2. HTN: borderline elevated, will get echo data on aorta, and encourage lifestyle (exercise weight loss) to help. If aorta continues to get bigger, then will add medicine, but if stable will give some time for exercise and weight loss. 3. F/u 6 months with echo documented in this encounter Plan of Treatment Scheduled Orders Name Type Priority Associated Diagnoses Order Schedule Echocardiogram Transthoracic Echocardiography Routine Bicuspid aortic valve Expected: 10/13/2023, Expires: 10/12/2024 documented as of this encounter Results * ECHO COMPLETE (04/27/2024 12:05 PM EDT) EF 59 [facility]ART[facility] SYSTEM Anatomical Region Laterality Modality Cardiac Other 04/27/2024 11:0 0 AM EDT Narrative 04/27/2024 1:50 PM EDT 1 [place] [address] ? Echocardiogram Report Name: SHABANA ZAMAN ?Study Date: 04/27/2024 11:00 AMBP: 161/100 mmHg : 1980 ? Height: 72 in ? Account: [id number] Age: 43 yrs ? Weight: 250 lb Gender: Male ?BSA: 2.3 m2 Ordering Physician: Santino Constantino MD Referring Physician: Santino Constantino MD Performed By: Dom Carey RDCS Reason For Study: Bicuspid aortic valve Exam Location: [facility]. Interpretation Summary 1. Normal left ventriclar wall thickness, mildly dilated chamber size. The left ventricular ejection fraction is 59% by Patricio's biplane. There are no segmental wall motion abnormalities 2.Right ventricle is mildly dilated with normal systolic function is normal. 3.The left atrium is moderately dilated. 4. Bicuspid aortic valve with fusion of the left and right coronary cusps. There is no aortic stenosis by planimetry (4.6 cm2). The mean gradient across the aortic valve is 17 mmHg. There is moderate to severe aortic regurgitation with diastolic flow reversal in the descending thoracic aorta,not clearly in the abdominal aorta. 4. The aortic root is dilated: sinuses of Valsalva 4.3 cm, proximal ascending aorta is 4.1 cm. Compared to 10/13/2023: Degree of AR, LV systolic function are similar. Sinuses of Valsalva measured 4.00 cm previously. Procedure Complete-[id number]. Satisfactory quality. There is normal sinus rhythm. Left Ventricle Left ventricle is mildly dilated. Wall thickness is normal. There is no ventricular septal defect. Left ventricular systolic function is normal. The left ventricular ejection fraction is 59% by Patricio's biplane. There are no segmental wall motion abnormalities. Right Ventricle Right ventricle is mildly dilated. Right ventricular systolic function is normal. Left Atrium The left atrium is moderately dilated. No abnormality of the interatrial septum is identified. Right Atrium The right atrium is mildly dilated. Aortic Valve The aortic valve is bicuspid. There is fusion of the Left and right cusps. There is no aortic stenosis. The peak instantaneous gradient across the aortic valve is 30.5 mmHg. The mean gradient across the aortic valve is 17.0 mmHg. The aortic valve area calculated using the continuity equation is 1.9 cm^2. The aortic valve area calculated using planimetry is 4.6 cm2. The highest gradient is obtained from the right sternal border window using the imaging probe. There is moderate to severe aortic regurgitation. Flow reversal in the descending thoracic aorta suggests severe aortic regurgitation. The regurgitant jet is directed eccentrically across the anterior leaflet of the mitral valve. Mitral Valve The mitral valve is structurally and functionally normal. There is trace mitral regurgitation. Tricuspid Valve The tricuspid valve is structurally and functionally normal. There is trace tricuspid regurgitation. Pulmonic Valve The pulmonic valve appears to be structurally and functionally normal. There is no valvular pulmonic stenosis. There is trace pulmonic valve regurgitation. Great Arteries The aortic root is dilated. The diameter at the level of the sinuses of Valsalva is 4.3 cm. The ascending aorta is dilated. The maximum diameter of the proximal ascending aorta is 4.1 cm. The transverse aorta is not dilated. The main pulmonary artery is of normal size. Venous Inferior vena cava is dilated. Inferior vena cava collapse greater than 50% with respiration. Pericardium/Pleural The pericardium appears normal. There is a small pericardial effusion. Hemodynamics The estimated right atrial pressure is 8mmHg. The peak right ventricular systolic pressure is 27 mmHg. Plus RA presssure. Left ventricular filling pressure is increased. There is Grade II LV diastolic dysfunction (abnormal relaxation with elevated left ventricular filling pressure). Ejection Fraction ?2D Measurements ? Volumes EF (HM)_phl: 56.0 % ? IVSd: 1.1 cm ? LA Volume Index: LV Biplane EF: 59.3 % ? LVIDd: 6.0 cm ?LVPWd: 1.1 cm ?44.9 ml/m2 ?RWT: 0.38 {ratio} ?RA A4Cs_phl: 22.6 cm2 ? RA ESV Indexed: ?LV mass(C)d: 278.2 grams ?LV mass(C)dI: 118.8 grams/m2 ?? 28.7 ml/m2 ?Ao root diam: 4.3 cm ? EDV Biplane: 161.0 ml ?Ao root diam index: 1.8 ?EDV BP Indexed: ?asc Aorta Diam: 4.1 cm ? 68.7 ml/m2 ?LVOT diam: 2.2 cm ?ESV Biplane: 65.6 ml ? ESV BP Indexed: ? 28.0 ml/m2 ? EDV(HM) Indexed: ? 104.2 ml/m2 ? ESV(HM) Indexed: ? 46.5 ml/m2 ? SV(LVOT): 113.7 ml ? LV Stroke Volume: ? 114.0 ml ? SI(LVOT): 48.5 ml/m2 Doppler LV V1 VTI: 29.9 cm LVOT max Velocity: 136.7 cm/sec Ao V2 VTI: 59.1 cm Ao Max Lennox: 276.0 cm/sec Ao valve max: 30.5 mmHg Ao valve mean: 17.0 mmHg MV E max lennox: 132.1 cm/sec MV A max lennox: 102.7 cm/sec MV E/A: 1.3 MVA(P1/2t): 3.2 cm2 Lat Peak E' Lennox: 8.6 cm/sec E/e' (lat): 15.4 Med Peak E' Lennox: 7.8 cm/sec E/e' (med): 16.9 E/e' Average: 16.1 SHRUTI(I,D): 1.9 cm2 Dimensionless index Aov: 0.51 TR max lennox: 261.5 cm/sec RVSP(TR): 35.3 mmHg I ?WMSI = 1.00 ? % Normal = 100 ?Segments ??Size X - Cannot ?? 1 - Normal ?? 2 - ? 3 - Akinetic 4 - ?1-2 ? small Interpret ? Hypokinetic ?Dyskinetic ?? 3-5 ? moderate 5 - ? 6-14 ?large Aneurysmal ?15-16 ?? diffuse Procedure Note Kathleen Mcmillan MD - 04/27/2024 [address] [place] [id number] Echocardiogram Report Name: MONISHA, SHABANA Nielson Study Date: 1:00 AMBP: 161/100 mmHg : 1980 Height: 72 in Account: [id number] Age: 43 yrs Weight: 250 lb Gender: Male BSA: 2.3 m2 Ordering Physician: Santino Constantino MD Referring Physician: Santino Constantino MD Performed By: Dom Carey RDCS Reason For Study: Bicuspid aortic valve Exam Location: [facility]. Interpretation Summary 1. Normal left ventriclar wall thickness, mildly dilated chamber size. Theleft ventricular ejection fraction is 59% by Patricio's biplane. There are nosegmental wall motion abnormalities 2.Right ventricle is mildly dilated with normal systolic function isnormal. 3.The left atrium is moderately dilated. 4. Bicuspid aortic valve with fusion of the left and right coronary cusps.There is no aortic stenosis by planimetry (4.6 cm2). The mean gradient acrossthe aortic valve is 17 mmHg. There is moderate to severe aortic regurgitation withdiastolic flow reversal in the descending thoracic aorta,not clearly in theabdominal aorta. 4. The aortic root is dilated: sinuses of Valsalva 4.3 cm, proximalascending aorta is 4.1 cm. Compared to 10/13/2023: Degree of AR, LV systolic function are similar.Sinuses of Valsalva measured 4.00 cm previously. Procedure Complete-[id number]. Satisfactory quality. There is normal sinus rhythm. Left Ventricle Left ventricle is mildly dilated. Wall thickness is normal. There is no ventricular septal defect. Left ventricular systolic function is normal.The left ventricular ejection fraction is 59% by Patricio's biplane. There are nosegmental wall motion abnormalities. Right Ventricle Right ventricle is mildly dilated. Right ventricular systolic function isnormal. Left Atrium The left atrium is moderately dilated. No abnormality of the interatrialseptum is identified. Right Atrium The right atrium is mildly dilated. Aortic Valve The aortic valve is bicuspid. There is fusion of the Left and right cusps.There is no aortic stenosis. The peak instantaneous gradient across the aorticvalve is 30.5 mmHg. The mean gradient across the aortic valve is 17.0 mmHg. Theaortic valve area calculated using the continuity equation is 1.9 cm^2. Theaortic valve area calculated using planimetry is 4.6 cm2. The highest gradient isobtained from the right sternal border window using the imaging probe. There is moderateto severe aortic regurgitation. Flow reversal in the descending thoracicaorta suggests severe aortic regurgitation. The regurgitant jet is directed eccentrically across the anterior leaflet of the mitral valve. Mitral Valve The mitral valve is structurally and functionally normal. There is tracemitral regurgitation. Tricuspid Valve The tricuspid valve is structurally and functionally normal. There istrace tricuspid regurgitation. Pulmonic Valve The pulmonic valve appears to be structurally and functionally normal.There is no valvular pulmonic stenosis. There is trace pulmonic valve regurgitation. Great Arteries The aortic root is dilated. The diameter at the level of the sinuses ofValsalva is 4.3 cm. The ascending aorta is dilated. The maximum diameter of theproximal ascending aorta is 4.1 cm. The transverse aorta is not dilated. The mainpulmonary artery is of normal size. Venous Inferior vena cava is dilated. Inferior vena cava collapse greater than50% with respiration. Pericardium/Pleural The pericardium appears normal. There is a small pericardial effusion. Hemodynamics The estimated right atrial pressure is 8mmHg. The peak right ventricularsystolic pressure is 27 mmHg. Plus RA presssure. Left ventricular filling pressureis increased. There is Grade II LV diastolic dysfunction (abnormal relaxationwith elevated left ventricular filling pressure). Ejection Fraction 2D Measurements Volumes EF (HM)_phl: 56.0 % IVSd: 1.1 cm LA VolumeIndex: LV Biplane EF: 59.3 % LVIDd: 6.0 cm LVPWd: 1.1 cm 44.9 ml/m2 RWT: 0.38 {ratio} RA A4Cs_phl: 22.6cm2 RA ESV Indexed: LV mass(C)d: 278.2 grams LV mass(C)dI: 118.8 grams/m2 28.7 ml/m2 Ao root diam: 4.3 cm EDV Biplane:161.0 ml Ao root diam index: 1.8 EDV BP Indexed: asc Aorta Diam: 4.1 cm 68.7 ml/m2 LVOT diam: 2.2 cm ESV Biplane: 65.6ml ESV BP Indexed: 28.0 ml/m2 EDV(HM)Indexed: 104.2 ml/m2 ESV(HM)Indexed: 46.5 ml/m2 SV(LVOT): 113.7ml LV StrokeVolume: 114.0 ml SI(LVOT): 48.5ml/m2 Doppler LV V1 VTI: 29.9 cm LVOT max Velocity: 136.7 cm/sec Ao V2 VTI: 59.1 cm Ao Max Lennox: 276.0 cm/sec Ao valve max: 30.5 mmHg Ao valve mean: 17.0 mmHg MV E max lennox: 132.1 cm/sec MV A max lennox: 102.7 cm/sec MV E/A: 1.3 MVA(P1/2t): 3.2 cm2 Lat Peak E' Lennox: 8.6 cm/sec E/e' (lat): 15.4 Med Peak E' Lennox: 7.8 cm/sec E/e' (med): 16.9 E/e' Average: 16.1 SHRUTI(I,D): 1.9 cm2 Dimensionless index Aov: 0.51 TR max lennox: 261.5 cm/sec RVSP(TR): 35.3 mmHg I WMSI = 1.00 % Normal = 100 SegmentsSize X - Cannot 1 - Normal 2 - 3 - Akinetic 4 - 1-2small Interpret Hypokinetic Dyskinetic 3-5moderate 5 - 6-14large Aneurysmal 15-16diffuse Santino Constantino MD ECHO ORDERABLES documented in this encounter Visit Diagnoses Diagnosis Bicuspid aortic valve Congenital insufficiency of aortic valve Bicuspid aortic valve Congenital insufficiency of aortic valve documented in this encounter Care Teams General Practitioner Relationship Specialty Start Date End Date Pearl Lloyd APRN [address] [place] [address] PCP - General 05/05/22 documented as of this encounter
--- OUTSIDE RECORDS SUMMARY | 2024-05-26 11:05 | XMS_ITS | Encounter Summary ---
Author Organization [facility] Address [facility] [place] [address] Care Team Providers Care Hat And Cap Opener Name Role Phone Pearl Lloyd APRN Primary Care Provider Encounter Details Date Type Department Care Team (Latest Contact Info) Description 10/13/2023 11:00 AM EDT Clinical Support Internal Medicine at [facility] [address] [place] [phone] Encounter for immunization Social History Tobacco Use Types Packs/Day Years [...] place to sleep or slept in a half-way (including now)? No 02/25/2023 Education Answer Date [...] AM EDT documented as of this encounter Progress Notes * Guerita James CCMA - 10/13/2023 11:00 AM EDT Pt name and verified. Pt here for tdap vaccine. No further apts needed, VIS sheet given and pt tolerated well. documented in this encounter Plan of Treatment Not on file documented as of this encounter Visit Diagnoses Diagnosis Encounter for immunization Need for other specified prophylactic vaccination against single bacterial disease documented in this encounter Care Teams Hat And Cap Opener Relationship Specialty Start Date End Date Pearl Lloyd APRN [address] [place] [address] PCP - General 05/05/22 documented as of this encounter
--- OUTSIDE RECORDS SUMMARY | 2024-05-26 11:05 | XMS_ITS | Encounter Summary ---
[place] [address] Care Team Providers Care Broom Handle Dipper Name Role Phone Pearl Lloyd APRN Primary Care Provider Reason for Referral * Diagnostic Test (Routine) - Pending Review Specialty Diagnoses / Procedures Referred By Contac t Referred To Contact Cardiology Diagnoses Aortic valve insufficiency, etiology of cardiac valve disease unspecified Bicuspid aortic valve Procedures Echocardiogram Transthoracic Santino Constantino MD [facility] [place] [address] [facility] [place] [address] Referral ID Status Reason Start Date Expiration Date Visits Requested Visits Authorized [id number] Pending Review Specialty Service Requested 10/22/2023 10/21/2024 1 1 Encounter Details Date Type Department Care Team (Late st Contact Info) Description 10/15/2023 Telephone Cardiology at [address] [phone] Kassie Prasad, RN Social History Tobacco Use [...] encounter Miscellaneous Notes * Telephone Encounter - Kassie Prasad RN - 10/15/2023 11:09 AM EDT Patient was called with results of his TTE per Dr. Constantino. At this time plan is for a repeat TTE and appt. in 6 months. Aortic valve surgery is not recommended at this time as he does not meet the criteria. Patient verbalized understanding. No questions posed. Kassie Dowell RNsuperintendent oil field drilling [facility] documented in this encounter Plan of Treatment Scheduled Orders Name Type Priority Associated Diagnoses Order Schedule Echocardiogram Transthoracic Echocardiography Routine Aortic valve insufficiency, etiology of cardiac valve disease unspecified Bicuspid aortic valve Expected: 10/22/2023, Expires: 10/21/2024 documented as of this encounter Visit Diagnoses Diagnosis Aortic valve insufficiency, etiology of cardiac valve disease unspecified- Primary Bicuspid aortic valve Congenital insufficiency of aortic valve documented in this encounter Care Teams Broom Handle Dipper Relationship Specialty Start Date End Date Pearl Lloyd APRN [address] [place] [address] PCP - General 05/05/22 documented as of this encounter
--- OUTSIDE RECORDS SUMMARY | 2024-05-26 11:05 | XMS_ITS | Encounter Summary ---
Author Organization [facility] Address [facility] [place] [address] Care Team Providers Care Director Skills Name Role Phone Pearl Lloyd APRN Primary Care Provider [phone] Encounter Details Date Type Department Care Team (Latest Contact Info) Description 04/26/2024 Travel Social History Tobacco Use Types Packs/Day Years [...] place to sleep or slept in a [facility] (including now)? No 02/25/2023 Education Answer Date [...] on filedocumented in this encounter Care Teams Director Skills Relationship Specialty Start Date End Date Pearl Lloyd APRN [address] [place] [address] PCP - General 05/05/22 documented as of this encounter
--- OUTSIDE RECORDS SUMMARY | 2024-05-26 11:05 | XMS_ITS | Encounter Summary ---
[place] [address] Care Team Providers Care Beater Room Helper Name Role Phone Pearl Lloyd APRN Primary Care Provider Reason for Visit * Auth/Cert (Routine) Specialty Diagnoses / Procedures Referred By Contac t Referred To Contact Diagnoses Encounter for screening for malignant neoplasm of colon Personal history of colon polyps [place] Within 3 months IVCS Indication-Screening, personal hx of appendiceal ca-right jos 2018 Procedures PRO COLONOSCOPY, DIAGNOSTIC PRO COLONOSCOPY, BIOPSY PRO COLONOSCOPY, REMV LESN, SNARE PRO ANES, LWR INTESTINE, SCREENING COLONOSCOPY COLONOSCOPY,SCREENING (WRVU 3.26) Savage Berumen MD [facility] [place] [address] [facility] Referral ID Status Reason Start Date Expiration Date Visits Re quested Visits Authorized [id number] 1 1 Encounter Details Date Type Department Care Team (Late st Contact Info) Description 04/05/2023 10:00 AM EDT - 04/05/2023 11:00 AM EDT [place] [address] Savage Berumen MD [facility] [place] [address] [facility] Social History Tobacco Use Types Packs/Day Years [...] place to sleep or slept in a correction (including now)? No 02/25/2023 Education Answer Date [...] Sign Reading Time Taken Comments Blood Pressure 133/88 04/05/2023 11:00 AM EDT Pulse 78 04/05/2023 10:40 AM EDT Temperature - - Respiratory Rate 18 04/05/2023 11:00 AM EDT Oxygen Saturation 93% 04/05/2023 11:00 AM EDT Inhaled Oxygen Concentration - - [...] occurs, please contact your Doctor. Please call [phone] before 8pm Mon-Fri with problems, questions or concerns. If you call after 8pm or on weekends, call the Hospital at [phone] and ask to speak to the Electrical Drafter electrical and electronic assembler and the pasteuriser operator will contact that person for you. When should you call for help? Call [phone] anytime you think you may need emergency [...] any problems. Where can you learn more? [facility] View your After Visit Summary and more online at [email or web address] If you would like to provide feedback about your hospital experience, please call the Office of Patient and Family Relations at . If you have received this After Visit Summary in error, please immediately return it in person to the department, or notify the [facility] Privacy Office by calling toll free at between the hours of 8AM and 5PM to arrange for our retrieval of the documents at no cost to you. Content Version: 12.2 ?? [id number] [employer]. Care instructions adapted under license by [facility]. If you have questions about a medical condition or this instruction, always ask your healthcare professional. [employer] disclaims any warranty or liability for your [...] valve Q23.1 Nontraumatic type 1 superior labral xroxirfa-xu-lvzvpwvgs (SLAP) tear of right shoulder S43.431A Chest [...] Priority Date/Time Associated Diagnosis Comments Colonoscopy, Diagnostic (53400) 04/05/2023 10:01 AM EDT [place] Within 3 months IVCS Indication-Screening , personal hx of appendiceal ca-right jos 2018 COLONOSCOPY Routine 04/05/2023 9:46 AM EDT documented in this encounter Results * COLONOSCOPY (04/05/2023 9:46 AM EDT) COLONOSCOPY [facility] Procedure Date: 04/05/2023 9:46 AM ? Patient Name: Demian Zaman ? Date of : 1980 ? Age: 42 ? Order #: [id number] ? Instrument Name: [id number] ? Procedure: ? Colonoscopy Indications: ? Screening for colorectal malignant ? neoplasm Providers: ? Savage Berumen MD, Kathy Almazan, ? Rose Doris Referring MD: ?Pearl Lloyd Medicines: ? Midazolam 6 mg IV, Fentanyl [...] ? to the ileo-colonic anastomosis ? The jeseina-terminal ileum appeared normal. ? Moderate Sedation: ? I was present during the intraservice time as ? documented by the sedation RN. Impression: ?- The entire examined colon is ? normal. ? - The examined portion of the ileum ? was normal. ? - No specimens collected. Recommendation: ?- Repeat exam in five years ? Procedure Code(s): ? --- Professional --- ? 94842, Colonoscopy, flexible; ? diagnostic, including collection of ? specimen(s) by brushing or washing, ? when performed (separate procedure) CPT copyright 2021 [employer]. All rights reserved. The codes documented in this report are preliminary and upon radio communications mechanician review may be revised to meet current [...] Diagnoses Not on filedocumented in this encounter Administered Medications Inactive Administered Medications - up to 3 most recent administrations Medication Order MAR Action Action Date Dose Rate Site fentaNYL (pf) (50 mcg/mL) multi-dose injection PRN, Starting on Wed04/05/23 at 1012, Until Wed04/05/23 at 1327, Intra-Operative (Intra-Procedure), Routine Given 04/05/2023 10:33 AM EDT 25 mcg Given 04/05/2023 10:29 AM EDT 25 mcg Given 04/05/2023 10:24 AM EDT 25 mcg midazolam (pf) (Versed) (1 mg/mL) multi-dose injection PRN, Starting on Wed04/05/23 at 1012, Until Wed04/05/23 at 1327, Intra-Operative (Intra-Procedure), Routine Given 04/05/2023 10:29 AM EDT 1 mg Given 04/05/2023 10:24 AM EDT 1 mg Given 04/05/2023 10:21 AM EDT 1 mg documented in this encounter Active and Recently Administered [...] RN) documented in this encounter Care Teams Beater Room Helper Relationship Specialty Start Date End Date Pearl Lloyd, ELECTRIC MOTOR ASSEMBLER [address] [place] [address] PCP - General 05/05/22 documented as of this encounter
--- OUTSIDE RECORDS SUMMARY | 2024-05-26 11:05 | XMS_ITS | Encounter Summary ---
Author Organization [facility] Address [facility] [place] [address] Care Team Providers Care Speech Correction Assistant Name Role Phone Pearl Lloyd APRN Primary Care Provider Encounter Details Date Type Department Care Team (Late st Contact Info) Description 05/12/2024 Orders Only Cardiology at [address] [address] Santino Constantino MD [facility] [address] Hypertension, unspecified type (Primary Dx) Social History Tobacco Use Types Packs/Day Years [...] place to sleep or slept in a snf (including now)? No 02/25/2023 Education Answer Date [...] as of this encounter Plan of Treatment Scheduled Orders Name Type Priority Associated Diagnoses Orde r Schedule Basic Metabolic Panel Non-fasting Lab Routine Hypertension, unspecified type Expected: 05/16/2024, Expires: 05/16/2025 documented as of this encounter Visit Diagnoses Diagnosis Hypertension, unspecified type- Primary documented in this encounter Care Teams Speech Correction Assistant Relationship Specialty Start Date End Date Pearl Lloyd APRN [address] [place] [address] PCP - General 05/05/22 documented as of this encounter
--- OUTSIDE RECORDS SUMMARY | 2024-05-26 11:05 | XMS_ITS | Clinical Summary ---
Author Organization [facility] [place] [address] Care Team Providers Care Supervisor Cigar Processing Name Role Phone Prema Pearl Vela APRN Primary Care Provider Allergies No known active allergies Medications Medication Sig Dispensed Refills Start Date End Date Status tacrolimus (PROTOPIC) 0.1 % Ointment Apply twice daily to the affected area of the face 100 g 3 01/01/2021 Active triamcinolone (Kenalog) 0.1 % CreamIndications:Ps oriasis Apply topically to the affected areas of the trunk and extremities for 14 days. Take 1 week off, repeat as needed. 453.6 g 1 09/30/2021 Active valsartan (Diovan) 80 mg tablet Take 1 tablet by mouth daily. 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 07/30/2017 Encounters Date Type Department Care Team Description 05/12/2024 Abstract Cardiology at [address] [phone] Kassie Prasad, RN 05/12/2024 Orders Only Cardiology at [address] [address] Santino Constantino MD Hypertension, unspecified type (Primary Dx) 04/27/2024 3:55 PM EDT Laboratory Appointment Lab [address] [place] [address] Aortic valve insufficiency, etiology of cardiac valve disease unspecified 04/27/2024 1:20 PM EDT Office Visit Cardiology at [address] [phone] Santino Constantino MD Aortic valve insufficiency, etiology of cardiac valve disease unspecified 04/27/2024 10:32 AM EDT - 04/27/2024 11:59 PM EDT Hospital Encounter Non[place] [address] Santino Constantino MD Bicuspid aortic valve Discharge Disposition: Home 04/26/2024 Travel from Last 3 Months Immunizations Name Administration Dates Next Due Influenza Quadrivalent, Preservative Free 2010 Td Adult (Decavac, Tenivac) 06/17/2010 Tdap (Adacel, Boostrix) 10/13/2023,06/17/2010 Social History Tobacco Use Types Packs/Day Years [...] place to sleep or slept in a jail (including now)? No 02/25/2023 Education Answer Date Recorded What is the highest level of school you have completed or the highest degree you have received? Some college, no degree 02/25/2023 Sex and Gender Information Value Date Recorded Sex Assigned at Male 02/17/2021 6:32 AM EDT Gender Identity Male 09/27/2023 9:31 AM EDT Sexual Orientation Straight 02/17/2021 6: 32 AM EDT Last Filed Vital Signs Vital Sign Reading Time Taken Comments Blood Pressure 167/100 04/27/2024 1:09 PM EDT retake 163/98 Pulse 84 04/27/2024 1:09 PM EDT Temperature 36.8 ??C (98.3 ??F) 02/26/2023 8 :39 AM EDT Respiratory Rate 18 04/05/2023 11:1 0 AM EDT Oxygen Saturation 97% 04/27/2024 1:0 9 PM EDT Inhaled Oxygen Concentration - - Weight 117.2 kg (258 lb 6.4 oz) 04/27/2024 1:09 PM EDT Height 182.9 cm (6') 04/27/2024 1:09 PM EDT Body Mass Index 35.05 04/27/2024 1:09 PM EDT Plan of Treatment Health Maintenance Due Date Last Done Comments CT Colonography 1981 FIT DNA 1981 FIT 1981 Sigmoidoscopy 1980 Hepatitis B vaccine (0-59 yrs) (1) 2000 Covid-19 Vaccine (1 - 2023-2 5 season) 2024 Influenza (Flu) vaccine (1 o f 1 - Influenza standard series) 02/27/2024 04/13/2011 Lipid Screening 04/02/2027 04/02/2022 Diabetes Screening (HgbA1C o r Glucose) 04/27/2027 04/27/2024, 04/02/2022, 04/02/2022, Additional history exists Colonoscopy 04/05/2028 04/05/2023, 04/05/2023 Colorectal Cancer Screening 04/05/2028 Sigmoidoscopy (10 year) with FIT yearly 04/05/2033 04/05/2023, 04/05/2023 Tetanus/Diphtheria/Pertussis Vaccines (4 - Td or Tdap) 10/12/2033 10/13/2023, 06/17/2010, 06/17/2010 HIV screen Completed 04/02/2022 Hepatitis C Screening Completed 04/02/2022 Procedures Procedure Name Priority Date/Time Associated Diagnosis Comments LAB SCAN 05/12/2024 12:00 AM EST BASIC METABOLIC PANEL Routine 04/27/2024 2:10 PM EDT Aortic valve insufficiency, etiology of cardiac valve disease unspecified ECHO COMPLETE Routine 04/27/2024 12:05 PM EDT Bicuspid aortic valve COLONOSCOPY Routine 04/05/2023 9:46 AM EDT HC HIV SCREEN, 4TH GENERATION Routine 04/02/2022 9:45 AM EDT Healthcare maintenance LIPID PANEL (REFLEX DIRECT LDL) Routine 04/02/2022 9:45 AM EDT Healthcare maintenance HC HEPATITIS C ANTIBODY Routine 04/02/2022 9:45 AM EDT Healthcare maintenance from Last 3 Months or Most Recently Relevant to Health Maintenance Results * Scan Doc: Lab (05/12/2024 12:00 AM EST) Narrative 05/12/2024 12:00 AM EST Ordered by an unspecified provider. Scanning Provider MEDIA MGR SCAN EXT O RDR/RSLT * Basic Metabolic Panel Non-fasting (04/27/2024 2:10 PM EDT) Glucose 103 65 - 199 mg/dL 04/27/2024 3:[address] [facility] Comment:Glucose Concentratio n >=200 mg/dL plus symptoms is consistent with Diabetes Mellitus. Blood Urea Nitrogen 15 10 - 20 mg/dL 04/27/2024 3:[address] [facility] Creatinine 0.86 0.80 - 1.50 mg/dL 04/27/2024 3:[address] [facility] Sodium 142 135 - 145 mMol/L 04/27/2024 3:34 PM [facility] Potassium 3.5 3.5 - 5.0 mMol/L 04/27/2024 3:34 PM [facility] Chloride 106 98 - 107 mMol/L 04/27/2024 3:34 PM [facility] Carbon Dioxide 25 22 - 31 mMol/L 04/27/2024 3:34 PM [facility] Anion Gap 11 5 - 15 mMol/L 04/27/2024 3:34 PM [facility] Calcium 8.9 8.5 - 10.5 mg/dL 04/27/2024 3:[facility] Est Glomerular Filtration Rate - Male 111 mL/min/1. 73 m?? 04/27/2024 3:[facility] Comment: This patient's estimated GFR was calculated using the 2020 CKD-EPI equation. The estimated GFR can vary from the measured GFR by up to 30% in the absence of rapidly changing kidney function. Assessment of the estimated GFR is not appropriate when creatinine concentrations are rapidly changing. For clinical situations in which a more precise estimate of GFR is necessary, consider alternative methods of GFR estimation such as a 24-hour urine creatinine clearance. Assignment of CKD stage 1 - 5 for patients with an eGFR near the transition point between stages may be based on clinical assessment of muscle mass and symptoms in addition to eGFR. Link: eGFR Calculator [employer] Fasting Status No 04/27/2024 3:[address] [facility] Blood VENOUS BLOOD SPECIMEN / Unknown Venipuncture / Unknown 04/27/2024 2:10 PM EDT 04/27/2024 2:10 PM EDT Santino Constantino MD CHEMISTRY ORDERABLES [facility] [place] [place] [address] * ECHO COMPLETE (04/27/2024 12:05 PM EDT) EF 59 HEARTLAB SYSTEM Anatomical Region Laterality Modality Cardiac Other 04/27/2024 11:0 0 AM EDT Narrative 04/27/2024 1:50 PM EDT [address] [place] [address] ? Echocardiogram Report Name: SHABANA ZAMAN ?Study Date: 04/27/2024 11:00 AMBP: 161/100 mmHg : 1980 ? Height: 72 in ? Account: [id number] Age: 43 yrs ? Weight: 250 lb Gender: Male ?BSA: 2.3 m2 Ordering Physician: Santino Constantino MD Referring Physician: Santino Constantino MD Performed By: Dom Carey RDCS Reason For Study: Bicuspid aortic valve Exam Location: [facility]. Interpretation Summary 1. Normal left ventriclar wall [...] of Valsalva measured 4.00 cm previously. Procedure Complete-92671. Satisfactory quality. There is normal sinus rhythm. [...] valve mean: 17.0 mmHg MV E max elnnox: 132.1 cm/sec MV A max lennox: 102.7 [...] Note Kathleen Mcmillan MD - 04/27/2024 [address] [place] [address] Echocardiogram Report Name: SHABANA ZAMAN Study Date: 411:00 AMBP: 161/100 mmHg : 1980 Height: 72 in Account: [id number] Age: 43 yrs Weight: 250 lb Gender: Male BSA: 2.3 m2 Ordering Physician: Santino Constantino MD Referring Physician: Santino Constantino MD Performed By: Dom Carey RDCS Reason For Study: Bicuspid aortic valve Exam Location: [facility]. Interpretation Summary 1. Normal left ventriclar wall [...] of Valsalva measured 4.00 cm previously. Procedure Complete-02758. Satisfactory quality. There is normal sinus rhythm. [...] 1.3 MVA(P1/2t): 3.2 cm2 Lat Peak E' Elnnox: 8.6 cm/sec E/e' (lat): 15.4 Med Peak [...] Aneurysmal 15-16diffuse Santino Constantino MD ECHO ORDERABLES * COLONOSCOPY (04/05/2023 9:46 AM EDT) COLONOSCOPY [facility] Endoscopy Procedure Date: 04/05/2023 9:46 AM ? Patient Name: Shabana Zaman ? Date of : 1980 ? Age: 42 ? Order #: [id number] ? Instrument Name: [id number]- [id number] ? Procedure: ? Colonoscopy Indications: ? Screening for colorectal malignant ? neoplasm Providers: ? Savage Berumen MD, Kathy Almazan, ? Rose George Referring MD: ?Pearl Lloyd Medicines: ? Midazolam [...] Procedure Code(s): ? --- Professional --- ? 71923, Colonoscopy, flexible; ? diagnostic, including collection of ? specimen(s) by brushing or washing, ? when performed (separate procedure) CPT copyright 2021 [employer]. All rights reserved. The codes documented in this report are preliminary and upon sap technical developer review may be revised to meet current compliance requirements. Attending Participation: ? I personally performed the entire procedure. ? ___ Savage Berumen MD 04/05/2023 10:47:44 AM This report has been signed electronically. Number of Addenda: 0 Note Initiated On: 04/05/2023 9:46 AM PROVATION 04/05/2023 9:46 AM EDT Pearl Lloyd APRN GENERAL SURGICAL OR DERABLES Performing Organization Address City/[facility] Co de Phone Number PROVATION * Hepatitis C Antibody (04/02/2022 9:45 AM EDT) Hepatitis C Antibody Negative Negative [facility] Blood 04/02/2022 9:45 AM EDT 04/02/2022 3:49 PM EDT Narrative Resulting Agency Comment Spec In Lab Lynnette Wright APRN CHEMISTRY ORDERABLES Performing Organization Address [facility]/ZIP Co de Phone Number [facility] [place] [address] * HIV Screen, 4th Generation ([facility]/CGP/APD/NLH) (04/02/2022 9:45 AM EDT) HIV Ab/Ag Screen Negative Negative [facility] Comment: This 4th Generation HIV test screens for the presence of the HIV-1 p24 antigen as well as antibodies reactive against HIV-1 and HIV-2. A negative screen does not rule out an acute HIV infection. If acute HIV infection is suspected, testing should be repeated in 2 - 3 weeks or HIV nucleic acid testing performed. HIV Comment Low Risk of HIV Infection [facility] Blood 04/02/2022 9:45 AM EDT 04/02/2022 3:49 PM EDT Narrative Resulting Agency Comment Spec In Lab Lynnette Wright APRN CHEMISTRY ORDERABLES [facility] [place] [address] * Lipid Panel (Reflex Direct LDL) (04/02/2022 9:45 AM EDT) Cholesterol, Total 118 mg/dL [facility] Comment: Lower Risk: <200 mg/dL Average Risk: 200-239 mg/dL Higher Risk: >pn=018 mg/dL Triglyceride 86 mg/dL [facility] Comment: Average Risk/Lower Risk: <150 mg/dL Borderline High Risk: 150-199 mg/dL High Risk: 200-499 mg/dL Very High Risk: >ro=656 mg/dL HDL Cholesterol 38 mg/dL [facility]ORY Comment: Males: ?? Higher Risk: <40 mg/dL Females: ?? Higher Risk: <50 mg/dL LDL Cholesterol 63 mg/dL [facility] Comment: Lowest Risk: <100 mg/dL Lower Risk: 100-129 mg/dL Borderline High Risk: 130-159 mg/dL High Risk: 160-189 mg/dL Very High Risk: >uy=197 mg/dL Cholesterol/HDL Ratio 3.1 ratio LABORATORY Lipid Interpretation See Note LABORATORY Comment: Lipid management should be guided by a patient? s ASCVD risk, goals and preferences. ACC/AHA Guidelines recommend high intensity statin if clinical ASCVD or LDL greater than or equal to 190 mg/dL. http://tinyurl.com/ULU-IPG-Stovbqonk Adults aged 40-75 with LDL 70-189 mg/dL should have their 10 year ASCVD risk estimated with the ACC/AHA ASCVD risk track layer http://tools.acc.org/UHYYK-Oxjh-Qbqjomicf/ Statin should be discussed if risk greater than or equal to 7.5% in non-diabetics. With diabetes, moderate intensity statin is recommended if risk less than 7.5%, high intensity if risk greater than or equal to 7.5%. Annual lipid monitoring on statins is not necessary. Evaluate secondary causes of Triglycerides greater than 500 mg/dL or LDL greater than 190 mg/dL: See table 6 of ACC/AHA Guideline. Lifestyle modification is a critical component of ASCVD risk reduction. Blood 04/02/2022 9:45 AM EDT 04/02/2022 9:51 AM EDT Narrative Resulting Agency Comment Spec In Lab Lynnette Wright APRN CHEMISTRY ORDERABLES [facility] [address] [place] [address] from Last 3 Months or Most Recently Relevant to Health Maintenance Advance Directives * Full Code (Latest Code Status on File) Date Activated Date Inactivated Comments 08/25/2017 4:02 PM 08/28/2017 12:31 PM Question Answer Comments Does patient have capacity to make decision: Yes * Full Code Date Activated Date Inactivated Comments 08/25/2017 10:35 AM 08/25/2017 4:02 PM Question Answer Comments Does patient have capacity to make decision: Yes Care Teams Supervisor Cigar Processing Relationship Specialty Start Date End Date Pearl Lloyd APRN [address] [place] [address] PCP - General 05/05/22
--- OUTSIDE RECORDS SUMMARY | 2024-05-26 11:05 | XMS_ITS | Encounter Summary ---
Author Organization [facility] Address [facility] [place] [address] Care Team Providers Care Installment Loan Collector Name Role Phone Pearl Lloyd APRN Primary Care Provider Encounter Details Date Type Department Care Team (Latest Contact Info) Description 05/25/2023 Travel Social History Tobacco Use Types Packs/Day [...] place to sleep or slept in a penitentiary (including now)? No 02/25/2023 Education Answer Date [...] on filedocumented in this encounter Care Teams Installment Loan Collector Relationship Specialty Start Date End Date Pearl Lloyd APRN [address] [address] PCP - General 05/05/22 documented as of this encounter
--- OUTSIDE RECORDS SUMMARY | 2024-05-26 11:05 | XMS_ITS | Encounter Summary ---
Author Organization [place] [address] Care Team Providers Care Field Crop Harvest Contractor Name Role Phone Pearl Lloyd APRN Primary Care Provider Reason for Referral * Diagnostic Test (Routine) - New Request Specialty Diagnoses / Procedures Referred By Dianelys t Referred To Contact Cardiology Diagnoses Aortic valve insufficiency, etiology of cardiac valve disease unspecified Procedures Echocardiogram Transthoracic Luigi Graff MD [facility] [place] [place] [address] [facility] [place] [address] Referral ID Status Reason Start Date Expiration Date Visits Requested Visits Authorized [id number] New Request Specialty Service Requested 04/27/2025 1 1 Encounter Details Date Type Department Care Team (Late st Contact Info) Description 04/27/2024 1:20 PM EDT Office Visit Cardiology at [address] [address] Luigi Graff MD [facility] [place] [address] Aortic valve insufficiency, etiology of cardiac valve disease unspecified Social History Tobacco Use Types Packs/Day Years [...] Pulse 84 04/27/2024 1:09 PM EDT Temperature - - Respiratory Rate - - Oxygen Saturation 97% 04/27/2024 1:0 9 PM EDT Inhaled Oxygen Concentration - - Weight 117.2 kg (258 lb 6.4 oz) 04/27/2024 1:09 PM EDT Height 182.9 cm (6') 04/27/2024 1:09 PM EDT Body Mass Index 35.05 04/27/2024 1:09 PM EDT documented in this encounter Progress Notes * Luigi Graff MD - 04/27/2024 1:20 PM EDT HPI: Demian Zaman is a 42 y.o. year old male with a bicuspid aortic valve. No stenosis. Moderate regurgitation. Ascending aorta @ 3.9cm (previously 3.5), aortic root @ 4.1 cm. He comes in for follow uptoday. No cp / sob / syncope. 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 Has been trying to loose weight, eat healthier, and exercise. Ecjho shows mildly dilated LV, EF 59%, bicuspid AV MG 17mmhg, moderate-severe aortic insufficiency, and dilated aortic root @ 4.3 (prev 4) cm, prox ascending @ 4.1. 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 Physical Examination Patient Vitals for the past 24 hrs: Pulse BP SpO2 04/27/24 1309 84 (!) 167/100 97 % General: no acute distress Behavioral: Alert and [...] strength grossly = bilaterally Assessement and Plan: 43 year old male with bicuspid aortic valve with mod regurgitation. Mildly dilated ascending aorta and root. 1. Bicuspid av -- no symptoms. Mod-severe regurg. Some dilation of LV by lvidd but LVIDS 4.5cm, EF > 55%. Monitor -- repeat echo in six months. Aortic root today @ 4.3cm, ascending @ 4.1. 2. HTN: start valsartan once daily 3. F/u 6 months with echo documented in this encounter Miscellaneous Notes * Addendum Note - Luigi Graff MD - 04/27/2024 1:20 PM EDTAddended by: LUIGI GRAFF on: 04/27/2024 01:49 PM Modules accepted: Orders documented in this encounter Plan of Treatment Scheduled Orders Name Type Priority Associated Diagnoses Orde r Schedule Basic Metabolic Panel Non-fasting Lab Routine Aortic valve insufficiency, etiology of cardiac valve disease unspecified Expected: 05/04/2024, Expires: 04/27/2025 Echocardiogram Transthoracic Echocardiography Routine Aortic valve insufficiency, etiology of cardiac valve disease unspecified Expected: 10/25/2024, Expires: 04/27/2025 documented as of this encounter Results * Basic Metabolic Panel Non-fasting (04/27/2024 2:10 PM EDT) Glucose 103 65 - 199 mg/dL 04/27/2024 3:34 PM [facility] Comment:Glucose Concentratio n >=200 mg/dL plus symptoms is consistent with Diabetes Mellitus. Blood Urea Nitrogen 15 10 - 20 mg/dL 04/27/2024 3:34 PM [facility] Creatinine 0.86 0.80 - 1.50 mg/dL 04/27/2024 3:34 PM [facility] Sodium 142 135 - 145 mMol/L 04/27/2024 3:34 PM [facility] Potassium 3.5 3.5 - 5.0 mMol/L 04/27/2024 3:34 PM [facility] Chloride 106 98 - 107 mMol/L 04/27/2024 3:34 PM [facility] Carbon Dioxide 25 22 - 31 mMol/L 04/27/2024 3:34 PM [facility] Anion Gap 11 5 - 15 mMol/L 04/27/2024 3:34 PM [facility] Calcium 8.9 8.5 - 10.5 mg/dL 04/27/2024 3:34 PM [facility] Est Glomerular Filtration Rate - Male 111 mL/min/1. 73 m?? 04/27/2024 3:34 PM [facility] Comment: This patient's estimated GFR was [...] Fasting Status No 04/27/2024 3:34 PM EDT [facility] Blood VENOUS BLOOD SPECIMEN / Unknown Venipuncture / Unknown 04/27/2024 2:10 PM EDT 04/27/2024 2:10 PM EDT Luigi Graff MD CHEMISTRY ORDERABLES [facility] [place] [address] documented in this encounter Visit Diagnoses Diagnosis Aortic valve insufficiency, etiology of cardiac valve disease unspecified documented in this encounter Care Teams Field Crop Harvest Contractor Relationship Specialty Start Date End Date Pearl Lloyd APRN [address] [place] [address] PCP - General 05/05/22 documented as of this encounter
--- OUTSIDE RECORDS SUMMARY | 2024-05-26 11:05 | XMS_ITS | Encounter Summary ---
Author Organization [facility] [place] [address] Care Team Providers Care Farmer General Name Role Phone Pearl Lloyd APRN Primary Care Provider Reason for Referral * Diagnostic Test (Routine) - Closed Specialty Diagnoses / Procedures Referred By Contac t Referred To Contact Cardiology Diagnoses Bicuspid aortic valve Procedures Echocardiogram Transthoracic Santino Constantino MD [facility] [place] [address] [facility] [place] [address] Referral ID Status Reason Start Date Expiration Date V isits Requested Visits Authorized [id number] Closed Specialty Service Requested 04/07/2024 06/05/2024 1 1 Reason for Visit * Diagnostic Test (Routine) - Closed Specialty Diagnoses / Procedures Referred By Contac t Referred To Contact Cardiology Diagnoses Bicuspid aortic valve Procedures Echocardiogram Transthoracic Santino Constantino MD [facility] [place] [address] [facility] [place] [address] Referral ID Status Reason Start Date Expiration Date V isits Requested Visits Authorized [id number] Closed Specialty Service Requested 04/07/2024 06/05/2024 1 1 Encounter Details Date Type Department Care Team (Latest Contact Info) Description 04/27/2024 10:32 AM EDT - 04/27/2024 11:59 PM EDT Hospital Encounter Non-Invasive Cardiology Lab [facility] [place] [phone] Santino Constantino MD [facility] [place] [address] Bicuspid aortic valve Discharge Disposition: Home Social [...] Sig Dispensed Refills Start Date End Date valsartan (Diovan) 80 mg tablet Take 1 tablet by mouth daily. 90 tablet 3 04/27/2024 triamcinolone (Kenalog) 0.1 % CreamIndications:Psori asis Apply topically to the affected areas of [...] Date/Time Associated Diagnosis Comments ECHO COMPLETE Routine 04/27/2024 12:05 PM EDT Bicuspid aortic valve documented in this encounter Results * ECHO COMPLETE (04/27/2024 12:05 PM EDT) EF 59 [facility] Anatomical Region Laterality Modality Cardiac Other 04/27/2024 11:0 0 AM EDT Narrative 04/27/2024 1:50 PM EDT [address] [place] [id number] ? Echocardiogram Report Name: SHABANA ZAMAN ?Study Date: 04/27/2024 11:00 AMBP: 161/100 mmHg : 1980 ? Height: 72 in ? Account: [id number] Age: 43 yrs ? Weight: 250 lb Gender: Male ?BSA: 2.3 m2 Ordering Physician: Santino Constantino MD Referring Physician: Santino Constantino MD Performed By: Dom Carey RDCS Reason For Study: Bicuspid aortic valve Exam Location: [facility]. Interpretation Summary 1. Normal left ventriclar [...] of Valsalva measured 4.00 cm previously. Procedure Complete-[id number]. Satisfactory quality. There is normal sinus rhythm. [...] Note Kathleen Mcmillan MD - 04/27/2024 1 [place] [address] Echocardiogram Report Name: SHABANA ZAMAN Study Date: 1:00 AMBP: 161/100 mmHg : 1980 Height: 72 in Account: [id number] Age: 43 yrs Weight: 250 lb Gender: Male BSA: 2.3 m2 Ordering Physician: Santino Constantino MD Referring Physician: Santino Constantino MD Performed By: Dom Carey RDCS Reason For Study: Bicuspid aortic valve Exam Location: [facility]. Interpretation Summary 1. Normal left ventriclar [...] of Valsalva measured 4.00 cm previously. Procedure Complete-[id number]. Satisfactory quality. There is normal sinus rhythm. [...] valve documented in this encounter Care Teams Farmer General Relationship Specialty Start Date End Date Pearl Lloyd APRN [address] [place] [address] PCP - General 05/05/22 documented as of this encounter
--- OUTSIDE RECORDS SUMMARY | 2024-05-26 11:05 | XMS_ITS | Encounter Summary ---
[place] [address] Care Team Providers Care Glassworker Name Role Phone Pearl Lloyd APRN Primary Care Provider Encounter Details Date Type Department Care Team (Latest Contact Info) Description 04/27/2024 3:55 PM EDT Laboratory Appointment Lab [address] [place] [phone] Aortic valve insufficiency, etiology of cardiac valve [...] Procedure Name Priority Date/Time Associated Diagnosis Comments BASIC METABOLIC PANEL Routine 04/27/2024 2:10 PM EDT Aortic valve insufficiency, etiology of cardiac valve disease unspecified documented in this encounter Results * Basic Metabolic Panel Non-fasting (04/27/2024 2:10 PM EDT) Glucose 103 65 - 199 mg/dL 04/27/2024 3:34 PM EDT [facility] Comment:Glucose Concentratio n >=200 mg/dL plus symptoms is consistent with Diabetes Mellitus. Blood Urea Nitrogen 15 10 - 20 mg/dL 04/27/2024 3:34 PM EDT [facility] Creatinine 0.86 0.80 - 1.50 mg/dL 04/27/2024 3:34 PM EDT [facility] Sodium 142 135 - 145 mMol/L 04/27/2024 3:34 PM EDT [facility] Potassium 3.5 3.5 - 5.0 mMol/L 04/27/2024 3:34 PM EDT [facility] Chloride 106 98 - 107 mMol/L 04/27/2024 3:34 PM EDT [facility] Carbon Dioxide 25 22 - 31 mMol/L 04/27/2024 3:34 PM EDT [facility] Anion Gap 11 5 - 15 mMol/L 04/27/2024 3:34 PM EDT [facility] Calcium 8.9 8.5 - 10.5 mg/dL 04/27/2024 3:34 PM EDT [facility] Est Glomerular Filtration Rate - Male 111 mL/min/1. 73 m?? 04/27/2024 3:34 PM EDT [facility] Comment: This patient's estimated [...] Fasting Status No 04/27/2024 3:34 PM EDT [facility] Blood VENOUS BLOOD SPECIMEN / Unknown Venipuncture / Unknown 04/27/2024 2:10 PM EDT 04/27/2024 2:10 PM EDT Santino Constantino MD CHEMISTRY ORDERABLES [facility] [place] [address] documented in this encounter Visit Diagnoses Diagnosis Aortic valve insufficiency, etiology of cardiac valve disease unspecified documented in this encounter Care Teams Glassworker Relationship Specialty Start Date End Date Pearl Lloyd APRN [address] [place] [address] PCP - General 05/05/22 documented as of this encounter
--- OUTSIDE RECORDS SUMMARY | 2024-05-26 11:05 | XMS_ITS | Encounter Summary ---
Author Organization [facility] [place] [address] Care Team Providers Care Tray Filler Name Role Phone Pearl Lloyd APRN Primary Care Provider Encounter Details Date Type Department Care Team (Latest Contact Info) Description 10/07/2023 Travel Social History Tobacco Use Types Packs/Day [...] on filedocumented in this encounter Care Teams Tray Filler Relationship Specialty Start Date End Date Pearl Lloyd APRN [address] [place] [address] PCP - General 05/05/22 documented as of this encounter
--- OUTSIDE RECORDS SUMMARY | 2024-05-26 11:05 | XMS_ITS | Encounter Summary ---
Author Organization [facility] Address [facility] [place] [address] Care Team Providers Care Sales And Production Manager Name Role Phone Pearl Lloyd APRN Primary Care Provider Encounter Details Date Type Department Care Team (Latest Contact Info) Description 10/13/2023 Travel Social History Tobacco Use Types Packs/Day [...] on filedocumented in this encounter Care Teams Sales And Production Manager Relationship Specialty Start Date End Date Pearl Lloyd APRN [address] [place] [address] PCP - General 05/05/22 documented as of this encounter
--- OUTSIDE RECORDS SUMMARY | 2024-05-26 11:05 | XMS_ITS ---
[place] [address] Care Team Providers Care State Assessed Properties Director Name Role Phone Pearl Lloyd APRN Primary Care Provider Active Problems Problem Noted Date Diagnosed Date Nontraumatic type 1 superior labral zkndjzpw-kd-auzaatdji (SLAP) tear of right shoulder 02/26/2023 Chest discomfort 02/26/2023 Aortic regurgitation 02/26/2023 Bicuspid aortic valve 02/25/2021 Malignant neoplasm of appendix 09/27/2017 Mass of appendix 07/30/2017 Current Oncology Plans No current plan information found. Past Plans No past plan information found. Radiation Treatments * No radiation treatments are documented for this patient in [facility]. Treatments may have been administered in another system. Lifetime Dose Tracking * Chemical Lifetime Dose Automatic Entry Manual Entr y DLP (Dose Length Product) 842 mGy-cm 842 mGy-cm 0 mGy-cm CTDI (CT Dose Index) Min 14.2 mGy 14.2 mGy 0 m Gy CTDI (CT Dose Index) Max 14.2 mGy 14.2 mGy 0 m Gy
--- OUTSIDE RECORDS SUMMARY | 2024-05-26 11:05 | XMS_ITS | Encounter Summary ---
Author Organization [facility] [place] [address] Care Team Providers Care Inspector Publications Name Role Phone Pearl Lloyd APRN Primary Care Provider [phone] Encounter Details Date Type Department Care Team (Late st Contact Info) Description 05/26/2023 8:00 AM EST Office Visit Cardiology at [address] [address] Santino Constantino MD [facility] [place] [address] Bicuspid aortic valve Social History Tobacco Use [...] Sign Reading Time Taken Comments Blood Pressure 155/99 05/26/2023 9:24 AM EST Pulse 67 05/26/2023 9:24 AM EST Temperature - - Respiratory Rate - - Oxygen Saturation 100% 05/26/2023 9:24 AM EST Inhaled Oxygen Concentration - - Weight 112.5 kg (248 lb) 05/26/2023 9:24 AM EST Height 182.9 cm (6') 05/26/2023 9:24 AM EST Body Mass Index 33.63 05/26/2023 9:24 AM EST documented in this encounter Progress Notes * Santino Constantino MD - 05/26/2023 8:00 AM EST HPI: Demian Zaman is a 42 y.o. year old male with a bicuspid aortic valve. No stenosis. Moderate regurgitation. Ascending aorta @ 3.9cm (previously 3.5), aortic root @ 4.1 cm. He comes in for follow uptoday. No cp / sob / syncope. 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 He has been noting high bps. Low 140's / high 130's. Has been trying to loose weight, eat healthier, and exercise. 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 Mildly dilated ascending aorta and root. 1. Bicuspid av -- no symptoms. Mod regurg. Repeat echo one year. 2. HTN: borderline elevated, will get echo [...] as of this encounter Visit Diagnoses Diagnosis Bicuspid aortic valve Congenital insufficiency of aortic valve documented in this encounter Care Teams Inspector Publications Relationship Specialty Start Date End Date Pearl Lloyd APRN [address] [place] [address] PCP - General 05/05/22 documented as of this encounter
--- OUTSIDE RECORDS SUMMARY | 2024-05-26 11:05 | XMS_ITS | Encounter Summary ---
[place] [address] Care Team Providers Care Divider Operator Name Role Phone Pearl Lloyd APRN Primary Care Provider Encounter Details Date Type Department Care Team (Late st Contact Info) Description 02/26/2023 Telephone [place] [phone] Lulu Clement Social History Tobacco Use Types [...] place to sleep or slept in a usp (including now)? No 02/25/2023 Education Answer Date [...] * Telephone Encounter - Lulu Clement - 02/26/2023 10:41 AM EDT Pt called re: referral scheduling. Let pt know that I would call him back as soon as I heard back from triage review. documented in this encounter Plan of Treatment Not on file documented as of this encounter Visit Diagnoses Not on filedocumented in this encounter Care Teams Divider Operator Relationship Specialty Start Date End Date Pearl Lloyd APRN [address] [place] [address] PCP - General 05/05/22 documented as of this encounter
--- OUTSIDE RECORDS SUMMARY | 2024-05-26 11:06 | XMS_ITS | Encounter Summary ---
Author [facility] [place] [address] Care Team Providers Care Professor Of Journalism Name Role Phone Kenrick Zavala DO Primary Care Provider [phone] Encounter Details Date Type Department Care Team (Late st Contact Info) Description 09/06/2017 Orders [place] [address] Elder Addison MD [facility] [place] [address] Social History Tobacco Use Types Packs/Day Years Used Date Smoking Tobacco: Never Smokeless Tobacco: Never Sex and Gender Information Value Date Recorded Sex Assigned at Male 02/17/2021 6:32 AM EDT Gender Identity Male 09/27/2023 9:31 AM EDT Sexual Orientation Straight 02/17/2021 6: 32 AM EDT documented as of this encounter Plan of Treatment Not on file documented as of this encounter Visit Diagnoses Not on filedocumented in this encounter Care Teams Professor Of Journalism Relationship Specialty Start Date End Date Kenrick Zavala DO [address] [place], [place] [id number] PCP - General 02/10/13 08/21/21 documented as of this encounter
--- OUTSIDE RECORDS SUMMARY | 2024-05-26 11:06 | XMS_ITS | Encounter Summary ---
Author Organization [facility] Address [facility] [place] [address] Care Team Providers Care Outsole Tacker Name Role Phone Kenrick Zavala DO Primary Care Provider [phone] Encounter Details Date Type Department Care Team (Late st Contact Info) Description 09/06/2017 Telephone [place] [phone] Elder Addison MD [facility] [place] [address] Social History Tobacco Use Types Packs/Day Years Used Date Smoking Tobacco: Never Smokeless Tobacco: Never Sex and Gender Information Value Date Recorded Sex Assigned at Male 02/17/2021 6:32 AM EDT Gender Identity Male 09/27/2023 9:31 AM EDT Sexual Orientation Straight 02/17/2021 6: 32 AM EDT documented as of this encounter Miscellaneous Notes * Telephone Encounter - Elder Addison MD - 09/06/2017 8:52 AM EDT I called Demian to let him know the results of the pathology report on the ileocolectomy specimen. I left him a vm to call me at his convenience. I then called his Margaux and left a vm too. 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 Margins were negativefor neoplastic epithelium and acellular mucin. The tumor was well-differentiated and grade 1. It was large however and measured 13.2 x 4.3 x 0.2 cm. No tumor deposits were identified. The tumor invaded the submucosa. There was no lymphovascular invasion or perineural invasion. All the margins were uninvolved. There was only one lymph node in the specimen which was negative-I have asked the pathologist to review the specimen again for additional lymph nodes as this was a radical ileocolectomy. We will plan to discuss his case at the upcoming GI tumor board. Augustin Addison MD 09/06/2017 8:56 AM This note was created using [employer]) voice recognition software. documented in this encounter Plan of Treatment Not on file documented as of this encounter Visit Diagnoses Not on filedocumented in this encounter Care Teams Outsole Tacker Relationship Specialty Start Date End Date Kenrick Zavala DO [address] [place] [address] PCP - General 02/10/13 08/21/21 documented as of this encounter
--- OUTSIDE RECORDS SUMMARY | 2024-05-26 11:06 | XMS_ITS | Encounter Summary ---
Author Organization [facility] [place] [address] Care Team Providers Care Unit Support Representative Name Role Phone Efrain Goel Primary Care Provider [phone] Reason for Visit * Reason Onset Date Comments Medication Refill 09/30/2021 Encounter Details Date Type Department Care Team (Late st Contact Info) Description 09/30/2021 Refill Dermatology at [facility] [address] [place] [phone] Randa Alegre MD [facility] [address] [place] [address] Psoriasis Social History Tobacco Use Types Packs/Day Years Used Date Smoking Tobacco: Never Cigarettes Smokeless Tobacco: Never Alcohol Use Standard Drinks/Week Comments Yes 0 (1 standard drink = 0.6 oz pur e alcohol) Twice weekly Sex and Gender Information Value Date Recorded Sex Assigned at Male 02/17/2021 6:32 AM EDT Gender Identity Male 09/27/2023 9:31 AM EDT Sexual Orientation Straight 02/17/2021 6: 32 AM EDT documented as of this encounter Plan of Treatment Not on file documented as of this encounter Visit Diagnoses Diagnosis Psoriasis Other psoriasis documented in this encounter Care Teams Unit Support Representative Relationship Specialty Start Date End Date Efrain Goel PA [facility] [address] [place] [address] PCP - General Family Medicine 08/22/21 05/04/22 documented as of this encounter
--- OUTSIDE RECORDS SUMMARY | 2024-05-26 11:06 | XMS_ITS | Encounter Summary ---
Author Organization [facility] Address [facility] [place] [address] Care Team Providers Care Bull Gang Supervisor Name Role Phone Pearl Lloyd APRN Primary Care Provider Encounter Details Date Type Department Care Team (Latest Contact Info) Description 02/25/2023 Travel Social History Tobacco Use Types Packs/Day [...] place to sleep or slept in a assisted (including now)? No 02/25/2023 Education Answer Date [...] on filedocumented in this encounter Care Teams Bull Gang Supervisor Relationship Specialty Start Date End Date Pearl Lloyd APRN [address] [place] [address] PCP - General 05/05/22 documented as of this encounter
--- OUTSIDE RECORDS SUMMARY | 2024-05-26 11:06 | XMS_ITS | Encounter Summary ---
[place] [address] Care Team Providers Care Deli Cutter Slicer Name Role Phone Kenrick Zavala DO Primary Care Provider Reason for Referral * Diagnostic Test (Routine) - Closed Specialty Diagnoses / Procedures Referred By Dianelys núñez Referred To Contact Radiology Diagnoses Malignant neoplasm of appendix Procedures CT Chest Abdomen Pelvis w Contrast (Generic) Elder Addison MD [facility] [place] [address] [facility] [place] [address] Referral ID Status Reason Start Date Expiration Date V isits Requested Visits Authorized [id number] Closed Specialty Service Requested 03/13/2020 09/08/2020 1 1 Reason for Visit * Reason Comments Follow-up Encounter Details Date Type Department Care Team (Late st Contact Info) Description 02/21/2019 2:00 PM EDT Office [place] [address] Elder Addison MD [facility] [place] [address] (work) Malignant neoplasm of appendix Social History Tobacco Use Types Packs/Day Years Used Date Smoking Tobacco: Never Smokeless Tobacco: Never Sex and Gender Information Value Date Recorded Sex Assigned at Male 02/17/2021 6:32 AM EDT Gender Identity Male 09/27/2023 9:31 AM EDT Sexual Orientation Straight 02/17/2021 6: 32 AM EDT documented as of this encounter Last Filed Vital Signs Vital Sign Reading Time Taken Comments Blood Pressure 135/78 02/21/2019 1:57 PM EDT Pulse 81 02/21/2019 1:57 PM EDT Temperature 36.8 ??C (98.2 ??F) 02/21/2019 1:57 PM ED T Respiratory Rate 12 02/21/2019 1:57 PM EDT Oxygen Saturation 98% 02/21/2019 1:57 PM EDT Inhaled Oxygen Concentration - - Weight 104.4 kg (230 lb 1.6 oz) 02/21/2019 1:57 PM EDT Height 185.4 cm (6' 1) 02/21/2019 1:57 PM EDT Body Mass Index 30.36 02/21/2019 1:57 PM EDT documented in this encounter Progress Notes * Elder Addison MD - 02/21/2019 2:00 PM EDT Images from the original note were not included. Surgical Oncology Office Note Date: 02/21/2019 Primary and referring physician: Kenrick Zavala DO Reason for evaluation: Surveillance oncology appointment coordinated with CT abdomen pelvis. 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 He was diagnosed with acystic mass arising from the appendix that was found during a workup for nocturia. His nocturia symptoms which were relatively mild-4 episodes over the past year and a half resolved. 07/26/17 CT abdomen and pelvis with urogram protocol revealed a large cystic mass in the RLQ concerning for appendiceal mucocele, mucinous cystadenoma or cyst adenocarcinoma versus a benign gastrointestinal cyst. 08/03/17 he underwent surgical oncology consultation. No symptoms to suggest prior or recent abdominal pain/appendicitis. Operation: On 08/25/17 he underwent laparoscopic exploration with radical [id number] with ligation of the ileocolic pedicle at the base of the SMA/SMV. Intraop findings as follows: Findings: There was a large malignant appearing mass arising from the appendix that appeared to involve the cecum and at least the mesoappendix with adenopathy. A formal ileocolectomy was performed and radical lymphadenectomy taking the ileocolic pedicle at the base of the mesentery. The specimen was retrieved through a medium Luis wound protector and sent to pathology. See photo below. A [id number]-[id number], functional end-to-end ileocolostomy anastomosis was created using a 75 mm ITZEL stapler ([employer]) and the common [place] enterotomy was closed in 2 layers with an inner layer of 3-0 PDS canal stitch and outer layer of 3-0 silk Lembert stitches. The large mesenteric defect was deliberately not c losed. ? Hospital Course: Uncomplicated. Able to be discharged to home on POD#4. Pathology: 08/25/17 Acc# [id number] ? ADDENDUM DISCUSSION Following interdepartmental consensus, an additional lymph node search was performed, ??the result of which is documented below: Diagnosis: Twenty seven lymph nodes negative for malignancy (0 / 27). Gross desctription: Lymph nodes: ? (90-95) single intact nodes; (96) one node bisected: (97) one node ??trisected; (98-99) one node trisected. Electronically signed by: ??Arik TAYLOR PhD, Jesús Zamorano Verified: ??09/07/2017 ?Pathologist Performed at: ??-[facility] Dept. of Pathology, [place], [place] ? Surgical Pathology DIAGNOSIS Ileo right colectomy with mesentery, resection: Low-grade appendiceal mucinous neoplasm, pT1N0. Margins negative for neoplastic ??epithelium and accelular mucin. The entire appendix was submitted and examined. See ??synoptic report. Synoptic report: Specimen Parts: ?? terminal ileum, cecum, appendix, ascending colon Specimen ?Procedure: ??Appendectomy and right colectomy Tumor ?Tumor Site: ??Diffusely involving appendix ?Histologic Type: ?? Low-grade appendiceal mucinous neoplasm ?Histologic Grade: ?? G1: Well differentiated ?Tumor Size: ?? 13.2 x 4.3 x 0.2 Centimeters (cm) ?Tumor Deposits: ?? Not identified ?Tumor Extent ? Tumor Extension: ?? Tumor invades submucosa ?Accessory Findings ? Lymphovascular Invasion: ?? Not identified ? Perineural Invasion: ?? Not identified Margins ?Proximal Margin: ?? Uninvolved by invasive carcinoma ? Status of Mucinous Neoplasm at Proximal Margin: ?Uninvolved by appendiceal ?mucinous neoplasm ?Mesenteric Margin: ?? Uninvolved by invasive carcinoma ? Status of Mucinous Neoplasm at Mesenteric Margin: ?Uninvolved by ?appendiceal mucinous neoplasm ? Distance of Invasive Carcinoma from Closest Mesenteric Margin: ? 0.2 ?Centimeters (cm) Lymph Nodes ?Number of Lymph Nodes Involved: ?0 ?Number of Lymph Nodes Examined: ?27 DIAGNOSIS Pathologic Stage Classification (pTNM, AJCC 8th Edition) ?Primary Tumor (pT): ?? pT1 ?Regional Lymph Nodes (pN): ?? pN0 Additional Findings ?Additional Pathologic Findings: ?? None identified Objective: Vitals: Blood pressure 135/78, pulse 81, temperature 36.8 ??C (98.2 ??F), temperature source Oral, resp. rate 12, height 185.4 cm (6' 1), weight 104.4 kg (230 lb 1.6 oz), SpO2 98 %. His weight before surgery was 215 pounds. General: Demian looks great. Exam was deferred today. See below. Assessment and plans: On 09/14/17 I presented his case at the GI Tumor Board and we reviewed the preop CT imaging and the pathology report. The histology showed a low grade mucinous epithelium within the wall of the appendix-the muscularis mucosa. Dr. Rodriguez commented from the pathology perspective that on the most recent staging classification-the 8th edition of the AJCC staging this would be classified as a low grade mucinous neoplasm confined to the submucosae with mucin within the appendiceal wall consistent with pTis rather than a pT1 lesion. This is great news as this essentially suggests that this is a carcinoma in situ rather than an invasive carcinoma. There was no evidence of p enetration/spillage, both at the time of laparoscopy and microscopically, through the appendiceal serosa. The group felt that no additional therapy therefore would be needed or recommended but that surveillance could be considered with annual CT imaging. He comes into the surgery clinic today after undergoing surveillance CT imaging- CT showed no signs of local or distant recurrence. This is great news and I told him we can continue to follow this with just the annual CT scans. He is otherwise doing well with no GI complaints. 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 He is very pleased to hear that the CT looks clean. I look forward to seeing him back in 1 years time. Augustin Addison MD 02/21/2019 2:10 PM This note was created using [place]) voice recognition software. documented in this encounter Plan of Treatment Not on file documented as of this encounter Results * CT Chest Abdomen Pelvis w Contrast (Generic) (03/15/2020 1:00 PM EDT) Anatomical Region Laterality Modality Abdomen, Pelvis Computed Tomogra phy Impressions 03/15/2020 1:51 PM EDT Stable exam. No evidence of metastasis or disease recurrence. Thank you for letting us participate in the care of this patient. For questions regarding this report, please contact the number below. ? Narrative 03/15/2020 1:51 PM EDT EXAMINATION: CT CHEST ABDOMEN PELVIS W CONTRAST (GENERIC) CLINICAL HISTORY: Low grade mucinous appendiceal neoplasm s/p ileocolectomy - evaluate for local/distant recurrence TECHNIQUE: Helical CT of the chest, abdomen, and pelvis was performed following the intravenous administration of contrast. 120 cc of Omnipaque 350. Oral contrast was administered. COMPARISON: 06/14/2019 FINDINGS: Chest: Lungs and large airways: The lungs are clear. No pulmonary nodules or areas of airspace consolidation. Pleura: No effusion. Heart/vasculature: Normal. Lymph nodes: No enlarged lymph nodes. Mediastinum and celia: Normal. Abdomen/pelvis: Liver: Normal size and attenuation without lesions. Bile ducts: Nondilated. Gallbladder: No calcified gallstones. Normal caliber wall. Pancreas: Normal attenuation without ductal dilatation. Spleen: Normal. Adrenals: Normal. Kidneys: Symmetric enhancement. No collecting system obstruction bilaterally. Urinary Bladder: Normal. Vasculature: No aneurysm. Lymph Nodes: ??No enlarged lymph nodes. Bowel: As noted previously post RIGHT hemicolectomy. No complication. No local tumor recurrence. No small bowel obstruction. Peritoneum and mesentery: No ascites, free air, or loculated fluid collection. No mesenteric inflammation. Abdominal wall: Normal. Reproductive organs: Normal. Osseous structures: No suspicious lesions. Procedure Note Killian Adams MD - 03/15/2020 EXAMINATION: CT CHEST ABDOMEN PELVIS W CONTRAST (GENERIC) CLINICAL HISTORY: Low grade mucinous appendiceal neoplasm s/pileocolectomy - evaluate for local/distant recurrence TECHNIQUE: Helical CT of the chest, abdomen, and pelvis was performedfollowing the intravenous administration of contrast. 120 cc of Omnipaque 350.Oral contrast was administered. COMPARISON: 06/14/2019 FINDINGS: Chest: Lungs and large airways: The lungs are clear. No pulmonary nodules orareas of airspace consolidation. Pleura: No effusion. Heart/vasculature: Normal. Lymph nodes: No enlarged lymph nodes. Mediastinum and celia: Normal. Abdomen/pelvis: Liver: Normal size and attenuation without lesions. Bile ducts: Nondilated. Gallbladder: No calcified gallstones. Normal caliber wall. Pancreas: Normal attenuation without ductal dilatation. Spleen: Normal. Adrenals: Normal. Kidneys: Symmetric enhancement. No collecting system obstructionbilaterally. Urinary Bladder: Normal. Vasculature: No aneurysm. Lymph Nodes: No enlarged lymph nodes. Bowel: As noted previously post RIGHT hemicolectomy. No complication. Nolocal tumor recurrence. No small bowel obstruction. Peritoneum and mesentery: No ascites, free air, or loculated fluidcollection. No mesenteric inflammation. Abdominal wall: Normal. Reproductive organs: Normal. Osseous structures: No suspicious lesions. IMPRESSION Stable exam. No evidence of metastasis or disease recurrence. Thank you for letting us participate in the care of this patient. Forquestions regarding this report, please contact the number below. 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
--- OUTSIDE RECORDS SUMMARY | 2024-05-26 11:06 | XMS_ITS | Encounter Summary ---
[place] [address] Care Team Providers Care Information Consultant Name Role Phone Kenrick Zavala DO Primary Care Provider [phone] Encounter Details Date Type Department Care Team (Late st Contact Info) Description 04/17/2021 Telephone [place] [phone] Carlota Alvarez Social History Tobacco Use Types Packs/Day Years [...] encounter Miscellaneous Notes * Telephone Encounter - Carlota Alvarez - 04/17/2021 3:00 PM EDT I called Demian to cancel his appointment with Dr Addison on Wednesday, 04/22. I explained he is out onextended leave. Demian has opted to cancel his CT scan that day as well and would like to be rescheduled when Dr Addison returns and if it's too long, he would consider seeing another provider in May if Dr Addison not back by then. documented in this encounter Plan of Treatment Not on file documented as of this encounter Visit Diagnoses Not on filedocumented in this encounter Care Teams Information Consultant Relationship Specialty Start Date End Date Kenrick Zavala DO [address] [place] [address] [address] [facility] [address] [place] [address] PCP - General 02/10/13 08/21/21 documented as of this encounter
--- OUTSIDE RECORDS SUMMARY | 2024-05-26 11:06 | XMS_ITS | Encounter Summary ---
[place] [address] Care Team Providers Care Teletypist Name Role Phone Kenrick Zavala DO Primary Care Provider [phone] Reason for Referral * Diagnostic Test (Routine) - Closed Specialty Diagnoses / Procedures Referred By Contac t Referred To Contact Cardiology Diagnoses Nonrheumatic aortic (valve) insufficiency Procedures Echocardiogram Transthoracic([facility]) Marin Sawyer MD [facility] [place] [address] [facility] [place] [address] Referral ID Status Reason Start Date Expiration Date V isits Requested Visits Authorized [id number] Closed Specialty Service Requested 03/05/2021 03/05/2022 1 1 Reason for Visit * Consultation (Routine) - Closed Specialty Diagnoses / Procedures Referred By Contac t Referred To Contact Cardiology Diagnoses Nonrheumatic aortic (valve) insufficiency UNEXPECTED FINDING: MODERATE AORTIC REGURGITATION; PT REQUESTS REFERRAL *SCANNED DOCS* Kenrick Zavala DO [address] [place] [address] [facility] [address] [address] [place] [phone] Referral ID Status Reason Start Date Expiration Date V isits Requested Visits Authorized [id number] Closed Consult, Test & Treat Connection Center PCP Updated and/or Approved 02/03/2021 02/03/2022 6 6 Encounter Details Date Type Department Care Team (Late st Contact Info) Description 03/05/2021 11:00 AM EDT Office Visit Cardiology at [address] [phone] Luigi Graff MD [facility] [place] [address] Marin Sawyer MD [facility] [place] [address] Nonrheumatic aortic (valve) insufficiency (Primary Dx) Social History Tobacco Use Types [...] Sign Reading Time Taken Comments Blood Pressure 141/85 03/05/2021 11:07 AM EDT Pulse 80 03/05/2021 11:07 AM EDT Temperature - - Respiratory Rate - - Oxygen Saturation 100% 03/05/2021 11:07 AM EDT Inhaled Oxygen Concentration - - Weight 107.3 kg (236 lb 8 oz) 03/05/2021 11:07 A M EDT Height 182.9 cm (6') 03/05/2021 11:07 AM EDT rep orted Body Mass Index 32.08 03/05/2021 11:07 AM EDT documented in this encounter Progress Notes * Marin Sawyer - 03/05/2021 11:00 AM EDT Images from the original note were not included. [facility] [place] [address] CARDIOLOGY OUTPATIENT NOTE PRIMARY CARE PROVIDER: Kenrick Zavala DO REFERRING PROVIDER: Kenrick Zavala Reason for visit: Aortic regurgitation Subjective: History of Present Illness: Mr. Zaman is a 40 year old man with a bicuspid aortic valve with moderate AR, mucinous appendicealneoplasm s/p ileocolectomy, COVID 10/2020, psoriasis who presents for discussion regarding his valvular heart disease. He reports being asymptomatic with regard to his heart. He is going through a stressful time right now, living with his parents until their new house gets built as well as having stress related to his possible valvular heart disease. He has recovered well from COVID-19 but still has some clear productive sputum from time to time. Overall he is on the mend. Last year he was hiking the [place] with no limiting shortness of breath. He hasn't been exercising much recently though and his diet has gotten worse at his parents house. Used to eat primarily a mediterranean diet. Denies light headedness, dizziness, syncope, angina, dyspnea on exertion, orthopnea, PND, LE edema,nausea, vomiting, diaphoresis, claudication. Past Medical History: Past Medical History: Diagnosis Date ??? Mass of appendix ??? Psoriasis Past Surgical History: Past Surgical History: Procedure Laterality Date ??? APPENDECTOMY ??? 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 Walks around but no dedicated exercise at the moment. Never smoked 1-2 drinks per night twice a week Current Outpatient Medications Medication Sig Dispense Refill ??? triamcinolone (KENALOG) 0.1 % Cream Apply topically to the affected areas of the trunk and extremities for 14 days. Take 1 week off, repeat as needed. 453.6 g 1 ??? tacrolimus (PROTOPIC) 0.1 % Ointment Apply twice daily to the affected area of the face 100 g 3 No current facility-administered medications for this visit. Objective: Physical Exam AOx3, no acute distress PERRL, EOMI, MMM RRR, I/ systolic murmur, no diastolic murmur, no carotid bruits Clear lungs No LE edema 2+ DP and PT pulses Patient Vitals for the past 24 hrs: Pulse BP SpO2 03/05/21 1107 80 141/85 100 % *manual* 120/70 Recent Results (from the past 72 hour(s)) EKG 12 Lead Result Value Ventricular rate 69 Atrial Rate 69 P-R Interval 168 QRS Duration 84 Q-T Interval 392 QTC Calculated (Bezet) 420 Calculated P [place] 69 Calculated R [place] 8 Calculated T [place] 27 INTERPRETATION Normal sinus rhythm Normal ECG No previous ECGs available Confirmed by MD Dougie, Luigi ([id number]) on 03/05/2021 11:50:26 AM Results: Echo 01/22/2021: LVESD 3.65 cm, Ascending aorta 3.47 Assessment and Plan: Mr. Zaman is a 40 year old man with a bicuspid aortic valve with moderate AR, mucinous appendicealneoplasm s/p ileocolectomy, COVID 10/2020, psoriasis who presents for discussion regarding his valvular heart disease. Mr. Zaman has asymptomatic moderate aortic regurgitation. I counseled him regarding the expected course of requiring an aortic valve replacement. He was counseled to have his children screened for bicuspid aortic valve as well with an echocardiogram. He was counseled to get back into exercise (without activity restrictions) and encouraged that a mediterranean diet is a good thing. His blood pressure was 120/70 at the end of our conversation which is good. #Bicuspid aortic valve with moderate AR without LV dilation or ascending aorta dilation. -Annual echocardiogram -Follow-up in [address] Graff -He will report any symptom development Marin Sawyer MD E Tailer PGY-6 03/05/21 I spent at least 60 minutes of time on this patient encounter on the date of service performing activities related to: ?preparing to see the patient (eg, review of tests) ?obtaining and/or reviewing separately obtained history ?performing a medically appropriate examination and/or evaluation ?counseling and educating the patient/family/caregiver ?ordering medications, tests, or procedures?referring and communicating with other health critical care technician (when not separately reported) ?documenting clinical information in the electronic or other health record?independently interpreting results (not separately reported) and communicating results to the patient/family/caregiver ?care coordination (not separately reported) documented in this encounter Plan of Treatment Not on file documented as of this encounter Results * ECHO COMPLETE (07/08/2022 1:05 PM EST) EF 56 [employer] SYSTEM Anatomical Region Laterality Modality Cardiac Other 07/08/2022 12:0 5 PM EST Narrative 07/08/2022 1:21 PM EST ? Echocardiogram Report Name: SHABANA ZAMAN ?Study Date: 07/08/2022 12:05 PMBP: 141/90 mmHg ? Patient Location: 4A : 1980 ? Height: 183 cm ? Account: [id number] Age: 41 yrs ? Weight: 111 kg Gender: Male ?BSA: 2.3 m2 Ordering Physician: LUIGI GRAFF Referring Physician: LUIGI GRAFF Performed By: Kassie Knowles RDCS Reason For Study: Nonrheumatic aortic valve insufficiency Exam Location: [facility]. Interpretation Summary -Left ventricular systolic function is normal. The left ventricular ejection fraction is 56% by Patricio's biplane. There are no segmental wall motion abnormalities. -The right ventricle is of normal size. Right ventricular systolic function is normal. Unable to estimate RVSP. -The aortic valve is bicuspid. There is fusion of the left and right cusps. There is no aortic stenosis. There is moderate aortic regurgitation. The regurgitant jet is directed eccentrically across the anterior leaflet of the mitral valve. -The aortic root at the level of the sinuses of Valsalva is mildly dilated (4.1 cm). The ascending aorta is mildly dilated (3.9 cm). -In comparison to an echo performed on 01/22/21 (outside study, comparison made from report), the ascending aorta is larger (previously 3.5 cm). Procedure Complete-[id number]. Satisfactory quality. Left Ventricle There is no ventricular septal defect. Left ventricle is of normal size. Wall thickness is normal. Left ventricular systolic function is normal. The left ventricular ejection fraction is 56% by Patricio's biplane. There are no segmental wall motion abnormalities. Right Ventricle The right ventricle is of normal size. Right ventricular systolic function is normal. Left Atrium The left atrium is normal. There is no evidence for a patent foramen ovale. Right Atrium The right atrium is normal. Aortic Valve The aortic valve is bicuspid. There is fusion of the Left and right cusps. There is no aortic stenosis. The aortic valve area calculated using planimetry is 3.3 cm2. There is moderate aortic regurgitation. The regurgitant jet is directed [...] valve regurgitation. Great Arteries The aortic root at the level of the sinuses of Valsalva is mildly dilated. (4.1 cm). The ascending aorta is mildly dilated. (3.9 cm). Venous Inferior vena cava is normal in size. Inferior vena cava collapse greater than 50% with respiration. Pericardium/Pleural The pericardium appears normal. Hemodynamics Pulmonary artery hypertension could not be assessed due to inadequate tricuspid regurgitation jet. Left ventricular filling pressure is indeterminate. Left ventricular diastolic function is indeterminate. Ejection Fraction ?2D Measurements ? Volumes EF(MOD-bp): 55.6 % ?IVSd: 1.1 cm ? LA Volume Index: ?LVIDd: 5.2 cm ?LVIDs: 3.4 cm ?28.4 ml/m2 ?LVPWd: 1.1 cm ?RA A4Cs_phl: 16.8 cm2 ? EDV (MOD-bp) Index: 70.2 ?LV mass(C)d: 219.7 grams ? ESV (MOD-bp) Index: 31.2 ?LV mass(C)dI: 94.6 grams/m2 ?SV(LVOT): 93.2 ml ?Ao Sinus Diam_phl: 4.1 cm ?LV Stroke Volume: 90.0 ml ?asc Aorta Diam: 3.9 cm ?LVOT diam: 2.1 cm ?SI(LVOT): 40.1 ml/m2 Doppler LV V1 VTI: 26.0 cm LVOT max Velocity: 114.0 cm/sec Ao V2 VTI: 44.8 cm Ao Max: 209.3 cm/sec Ao valve max: 17.5 mmHg Ao valve mean: 9.3 mmHg MV E max lennox: 113.0 cm/sec MV A max lennox: 89.7 cm/sec MV E/A: 1.3 MV dec time: 0.20 sec Lat Peak E' Lennox: 9.9 cm/sec E/ e' (lat): 11.4 Med Peak E' Lennox: 7.7 cm/sec E/e' (med): 14.6 E/e' Average: 13.0 SHRUTI(I,D): 2.1 cm2 Dimensionless index Aov: 0.58 SHRUTI Planimetery: 3.3 cm2 I ?WMSI = 1.00 ? % Normal = 100 ?Segments ??Size X - Cannot ?2 - ?4 - ?1-2 ? small Interpret ?1 - Normal ?? Hypokinetic 3 - Akinetic Dyskinetic ?? 3-5 ? moderate 5 - ? 6-14 ?large Aneurysmal ?15-16 ?? diffuse Procedure Note Uriel Pedraza MD - 07/08/2022 Echocardiogram Report Name: SHABANA ZAMAN Study Date: :05 PMBP: 141/90 mmHg Patient Location: : 1980 Height: 183 cm Account: [id number] Age: 41 yrs Weight: 111 kg Gender: Male BSA: 2.3 m2 Ordering Physician: LUIGI GRAFF Referring Physician: LUIGI GRAFF Performed By: Kassie Knowles RDCS Reason For Study: Nonrheumatic aortic valve insufficiency Exam Location: [facility]. Interpretation Summary -Left ventricular systolic function is normal. The left ventricularejection fraction is 56% by Patricio's biplane. There are no segmental wall motion abnormalities. -The right ventricle is of normal size. Right ventricular systolicfunction is normal. Unable to estimate RVSP. -The aortic valve is bicuspid. There is fusion of the left and rightcusps. There is no aortic stenosis. There is moderate aortic regurgitation. Theregurgitant jet is directed eccentrically across the anterior leaflet of the mitralvalve. -The aortic root at the level of the sinuses of Valsalva is mildly dilated(4.1 cm). The ascending aorta is mildly dilated (3.9 cm). -In comparison to an echo performed on 01/22/21 (outside study, comparisonmade from report), the ascending aorta is larger (previously 3.5 cm). Procedure Complete-13022. Satisfactory quality. Left Ventricle There is no ventricular septal defect. Left ventricle is of normal size.Wall thickness is normal. Left ventricular systolic function is normal. Theleft ventricular ejection fraction is 56% by Patricio's biplane. There are nosegmental wall motion abnormalities. Right Ventricle The right ventricle is of normal size. Right ventricular systolic functionis normal. Left Atrium The left atrium is normal. There is no evidence for a patent foramenovale. Right Atrium The right atrium is normal. Aortic Valve The aortic valve is bicuspid. There is fusion of the Left and right cusps.There is no aortic stenosis. The aortic valve area calculated using planimetryis 3.3 cm2. There is moderate aortic regurgitation. The regurgitant jet isdirected eccentrically across the anterior leaflet of the mitral valve. Mitral Valve The mitral valve is structurally and functionally normal. There is tracemitral regurgitation. Tricuspid Valve The tricuspid valve is structurally normal. There is trace tricuspid regurgitation. Pulmonic Valve The pulmonic valve appears to be structurally and functionally normal.There is trace pulmonic valve regurgitation. Great Arteries The aortic root at the level of the sinuses of Valsalva is mildly dilated.(4.1 cm). The ascending aorta is mildly dilated. (3.9 cm). Venous Inferior vena cava is normal in size. Inferior vena cava collapse greaterthan 50% with respiration. Pericardium/Pleural The pericardium appears normal. Hemodynamics Pulmonary artery hypertension could not be assessed due to inadequatetricuspid regurgitation jet. Left ventricular filling pressure is indeterminate.Left ventricular diastolic function is indeterminate. Ejection Fraction 2D Measurements Volumes EF(MOD-bp): 55.6 % IVSd: 1.1 cm LA VolumeIndex: LVIDd: 5.2 cm LVIDs: 3.4 cm 28.4 ml/m2 LVPWd: 1.1 cm RA A4Cs_phl: 16.8cm2 EDV (MOD-bp)Index: 70.2 LV mass(C)d: 219.7 grams ESV (MOD-bp)Index: 31.2 LV mass(C)dI: 94.6 grams/m2 SV(LVOT): 93.2ml Ao Sinus Diam_phl: 4.1 cm LV Stroke Volume:90.0 ml asc Aorta Diam: 3.9 cm LVOT diam: 2.1 cm SI(LVOT): 40.1ml/m2 Doppler LV V1 VTI: 26.0 cm LVOT max Velocity: 114.0 cm/sec Ao V2 VTI: 44.8 cm Ao Max: 209.3 cm/sec Ao valve max: 17.5 mmHg Ao valve mean: 9.3 mmHg MV E max lennox: 113.0 cm/sec MV A max lennox: 89.7 cm/sec MV E/A: 1.3 MV dec time: 0.20 sec Lat Peak E' Lennox: 9.9 cm/sec E/ e' (lat): 11.4 Med Peak E' Lennox: 7.7 cm/sec E/e' (med): 14.6 E/e' Average: 13.0 SHRUTI(I,D): 2.1 cm2 Dimensionless index Aov: 0.58 SHRUTI Planimetery: 3.3 cm2 I WMSI = 1.00 % Normal = 100 SegmentsSize X - Cannot 2 - 4 - 1-2small Interpret 1 - Normal Hypokinetic 3 - Akinetic Dyskinetic 3-5moderate 5 - 6-14large Aneurysmal 15-16diffuse Luigi Graff MD ECHO ORDERABLES documented in this encounter Visit Diagnoses Diagnosis Nonrheumatic aortic (valve) insufficiency- Primary Nonrheumatic aortic (valve) insufficiency documented in this encounter Care Teams Teletypist Relationship Specialty Start Date End Date Kenrick Zavala DO [address] [place] [address] PCP - General 02/10/13 08/21/21 documented as of this encounter
--- OUTSIDE RECORDS SUMMARY | 2024-05-26 11:06 | XMS_ITS | Encounter Summary ---
Author Organization [facility] Address [facility] [place] [address] Care Team Providers Care Long Term Care Social Worker Name Role Phone Pearl Lloyd APRN Primary Care Provider Reason for Visit * Reason Comments Annual Exam Lots of mucus in my chest walking and running or hiking does bother but when talking I run out of breath Encounter Details Date Type Department Care Team (Late st Contact Info) Description 02/26/2023 8:30 AM EDT Office Visit Family Medicine at [facility] [address] [place] [id number] Hilario Giles MD [facility] [place] [address] PE (physical exam), annual; Dyspnea, unspecified type Social History Tobacco Use Types Packs/Day Years [...] Sign Reading Time Taken Comments Blood Pressure 146/39 02/26/2023 8:39 AM EDT Pulse 64 02/26/2023 8:39 AM EDT Temperature 36.8 ??C (98.3 ??F) 02/26/2023 8:39 AM ED T Respiratory Rate 18 02/26/2023 8:39 AM EDT Oxygen Saturation 100% 02/26/2023 8:39 AM EDT Inhaled Oxygen Concentration - - Weight 112.5 kg (248 lb) 02/26/2023 8:39 AM EDT Height 182.9 cm (6') 02/26/2023 8:39 AM EDT Body Mass Index 33.63 02/26/2023 8:39 AM EDT documented in this encounter Progress Notes * Hilario Giles MD - 02/26/2023 8:30 AM EDT S: Patient says that in the past 1 or 2 months, he has felt a sense of dyspnea. Interestingly, he has good exercise tolerance and works out regularly and does not feel short of breath when engaged inphysical exertion. Instead his symptoms seem to be worse at rest. He also says that there is a lot of phlegm and mucus in his throat and he wonders if this contributes to his symptoms. Patient has a mild occasional cough that is dry. He does not wheeze. He does not have obvious allergy symptoms such as scratchy throat or nasal congestion or itchy eyes. He does state that he had significant mucus and some of these issues with dyspnea last summer and it was attributed to the aftermath of a COVID infection in October 2021. The symptoms did not improve over the fall/winter/spring before recurring this summer. Patient does not report orthopnea or lower extremity edema. He has never smoked cigarettes. Past medical history is significant for cancer of the appendix. He says that he does worry about cancer a lot. In the past couple of years, he has gained significant weight and he wonders if this contributes tohis dyspnea symptoms. He has been trying to eat in a very healthy fashion and exercise regularly and has lost about pounds recently. 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 Take 1 week off, repeat as needed., Disp: 453.6 g, Rfl: 1 tacrolimus (PROTOPIC) 0.1 % Ointment, Apply twice daily to the affected area of the face (Patient not taking: Reported on 02/26/2023), Disp: 100 g, Rfl: 3 O: BP (!) 146/39 Pulse 64 Temp 36.8 ??C (98.3 ??F) (Temporal) Resp 18 Ht 182.9 cm (6') Wt112.5 kg (248 lb) SpO2 100% BMI 33.63 kg/m?? orophx non inj; uvula midline Neck supple without tender adenopathy TMs pearly hanson Nares clear Cor RRR without murmur Lungs CTA without r/rh/wh Skin with no lesions suspicious for malignancy A/P: #1 dyspnea. Seems related to upper airways mucus/postnasal drip. Exam of heart and lungs is reassuring and there are no alarming symptoms. We will check a chest x-ray. If this is normal, then I recommend that he try Flonase nasal spray for a few weeks if it improves his symptoms. Follow-up if symptoms test. If this is related to allergies, they might improve with the change in seasons. 2. Adult physical exam. Not due for any preventive medicine testing. Patient checks blood pressuresat home and says that averages are less than 140 and less than 90. Commended him on exercising regularly and eating in a healthy fashion. 3. History of appendix cancer. Patient has had trouble scheduling his colonoscopy and I asked my certified legal secretary specialist to schedule that for him. On the day of this encounter, I spent a total of at least 30 minutes ([id number]) providing this patient's care. This includes time spent xsnx-ro-maio with the patient performing evaluation, examination, and counseling . It also includes non bulr-dx-tlqz time preparing to see the patient, coordinating care, and documenting clinical information in the electronic health record. documented in this encounter Plan of Treatment Not on file documented as of this encounter Results * XR Chest PA & Lateral (Generic) (02/26/2023 9:50 AM EDT) Anatomical Region Laterality Modality Chest N/A Digital Radiogra phy Impressions 02/26/2023 10:44 AM EDT No acute cardiopulmonary pathology. I have personally reviewed the image(s) and the resident's interpretation and agree with the findings, Soren Bob MD at 02/26/2023 10:44 AM Thank you for letting us participate in the care of this patient. ??If you are a health care provider and have any questions regarding this report, please contact the number below. ??For patients who have questions please contact the health special needs child caregiver that requested your imaging first. ? Electronically signed by: Soren Bob MD, [facility] ([phone]), at 02/26/2023 10:44 AM Narrative 02/26/2023 10:44 AM EDT EXAMINATION: XR CHEST PA AND LATERAL (GENERIC) CLINICAL HISTORY: dyspnea TECHNIQUE: PA and lateral views of the chest COMPARISON: CT chest abdomen pelvis with contrast 03/15/2020. FINDINGS: The cardiomediastinal silhouette is within normal limits. The hilar contours are normal. No discrete mass, focal consolidation or pleural effusion. No pneumothorax. Procedure Note Soren Bob MD - 02/26/2023 EXAMINATION: XR CHEST PA AND LATERAL (GENERIC) CLINICAL HISTORY: dyspnea TECHNIQUE: PA and lateral views of the chest COMPARISON: CT chest abdomen pelvis with contrast 03/15/2020. FINDINGS: The cardiomediastinal silhouette is within normal limits. The hilarcontours are normal. No discrete mass, focal consolidation or pleural effusion. Nopneumothorax. IMPRESSION No acute cardiopulmonary pathology. I have personally reviewed the image(s) and the resident's interpretationand agree with the findings, Soren Bob MD at 02/26/2023 10:44 AM Thank you for letting us participate in the care of this patient. If youare a health care provider and have any questions regarding this report,please contact the number below. For patients who have questions please contactthe health special needs child caregiver that requested your imaging first. Hilario Giles MD IMG DX ORDERABLES documented in this encounter Visit Diagnoses Diagnosis PE (physical exam), annual Routine general medical examination at a health care facility Dyspnea, unspecified type Dyspnea, unspecified type documented in this encounter Care Teams Long Term Care Social Worker Relationship Specialty Start Date End Date Pearl Lloyd APRN [address] [facility] [address] PCP - General 05/05/22 documented as of this encounter
--- OUTSIDE RECORDS SUMMARY | 2024-05-26 11:06 | XMS_ITS | Encounter Summary ---
[place] [address] Care Team Providers Care Zig Zag Spring Machine Operator Name Role Phone Kenrick Zavala DO Primary Care Provider Reason for Referral * Diagnostic Test (Routine) - Closed Specialty Diagnoses / Procedures Referred By Dianelys núñez Referred To Contact Radiology Diagnoses Malignant neoplasm of appendix Procedures CT Abdomen & Pelvis w Contrast Elder Addison MD [facility] [place] [address] [facility] [place] [address] Referral ID Status Reason Start Date Expiration Date V isits Requested Visits Authorized [id number] Closed Specialty Service Requested 07/07/2022 09/04/2022 1 1 Reason for Visit * Reason Comments Follow-up Encounter Details Date Type Department Care Team (Late st Contact Info) Description 07/21/2021 10:30 AM EST Office [place] [address] Elder Addison MD [facility] [place] [address] Malignant neoplasm of appendix Social History Tobacco [...] Sign Reading Time Taken Comments Blood Pressure 149/95 07/21/2021 10:20 AM EST Pulse 74 07/21/2021 10:20 AM EST Temperature - - Respiratory Rate 16 07/21/2021 10:20 AM EST Oxygen Saturation 100% 07/21/2021 10:20 AM EST Inhaled Oxygen Concentration - - Weight 110.2 kg (243 lb) 07/21/2021 10:20 AM EST Height - - Body Mass Index 32.96 03/05/2021 11:07 AM EDT documented in this encounter Progress Notes * Elder Addison MD - 07/21/2021 10:30 AM EST Images from the original note were not included. Surgical Oncology Office Note Date: 07/21/2021 Primary and referring physician: Kenrick Zavala DO Reason for evaluation: Surveillance oncology follow up with coordinated with CT abdomen pelvis. 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 He was diagnosed with a cystic mass arising from the appendix that was found during a workup for nocturia. His nocturiasymptoms which were relatively mild-4 episodes over the [...] 08/25/17 he underwent laparoscopic exploration with radical [id number] with ligation of the ileocolic pedicle at [...] sent to pathology. See photo below. A pljr-mx-fihh, functional end-to-end ileocolostomy anastomosis was created using a 75 mm ITZEL stapler ([employer]) and the common [place] enterotomy was closed in 2 layers with an inner layer of 3-0 PDS canal stitch and outer layer of 3-0 silk Lembert stitches. The large mesenteric defect was deliberately not c losed. ? Hospital Course: Uncomplicated. Able to be discharged to home on POD#4. Pathology: 08/25/17 Acc# [id number] ? ADDENDUM DISCUSSION Following interdepartmental consensus, an additional lymph node search was performed, ??the result of which is documented below: Diagnosis: Twenty seven lymph nodes negative for malignancy (0 / ). Gross desctription: Lymph nodes: ? (90-95) single intact nodes; (96) one node bisected: (97) one node ??trisected; (98-99) one node trisected. Electronically signed by: ??Arik TAYLOR PhD, Jesús Zamorano Verified: ??09/07/2017 ?Pathologist Performed at: ??-[facility] Dept. of Pathology, [place], [place] ? Surgical Pathology DIAGNOSIS Ileo right [...] ?? None identified Objective: Vitals: Blood pressure (!) 149/95, pulse 74, resp. rate 16, weight 110.2 kg (243 lb), SpO2 100 %. 07/21/2021 he weighed 243 pounds. His weight before surgery was 215 pounds. Abdomen was soft, nondistended and nontender. No palpable masses. Laparoscopic scars with no hernias. . Assessment and plans: On 09/14/17 I presented [...] could be considered with annual CT imaging. Demian was seen back in the surgery clinic today for his annual oncologic surveillance appointment after undergoing CT abdomen and pelvis. The radiographic report shows no signs of local recurrence. I reviewed the images personally and it all looks good-no recurrence. He has been through quite a lot since I last saw him. He and his Margaux rescheduled to build a house and then apparently there were all these problems with not only the cost and the contractor but mold issues. He developed Covid and october of last year and had what sounds like a very prolonged recovery from that. He and his were planning to hike the [address] but given the Covid pneumonia he was really unable to do any hiking this past summer. He is otherwise though feeling well now. No GI complaints. Next year will be his fifth year of surveillance and so after that CT abdomen and pelvis and follow-up appointment we can hopefully stop any further surveillance. Augustin Addison MD 07/21/2020 This note was created using [employer]) voice recognition software. documented in this encounter Plan of Treatment Not on file documented as of this encounter Results * CT Abdomen & Pelvis w Contrast (07/21/2022 10:17 AM EST) Anatomical Region Laterality Modality Abdomen, Pelvis Computed Tomogra phy Impressions 07/21/2022 11:44 AM EST 1. ??Stable CT of the abdomen and pelvis examination. 2. ??Status post ascending colectomy with patent ileocolic anastomosis. 3. ??No CT evidence of recurrent or metastatic disease within the abdomen and pelvis. Thank you for letting us participate in the care of this patient. ??If you are a health care provider and have any questions regarding this report, please contact the number below. ??For patients who have questions please contact the health caregivers non medical that requested your imaging first. ? Electronically signed by: Ronny Batista DO, [facility] ([phone]), at 07/21/2022 11:44 AM Narrative 07/21/2022 11:44 AM EST EXAMINATION: CT ABDOMEN AND PELVIS W CONTRAST CLINICAL HISTORY: 41-year-old male with gastrointestinal cancer. ??Restaging. History of appendiceal neoplasm status post colectomy 2017. ??Surveillance. Restaging. ??Evaluation for recurrence. TECHNIQUE: Helical CT of the abdomen and pelvis was performed following the intravenous administration of contrast. Administered 120.0 ml of OMNIPAQUE 350.00 mg/ml. Oral contrast was administered. COMPARISON: Comparison is made to multiple prior CT of the abdomen and pelvis examinations, the most recent which is dated July 21, 2021. FINDINGS: Risk Assessment Consultant Images: Noncontributory. Lower chest: Visualized structures within the inferior thorax within normal limits. Liver: Normal. Bile ducts: Normal. Gallbladder: Normal. Pancreas: Normal. Spleen: Normal. Adrenals: Normal. Kidneys: There is a stable 6 mm hypoattenuating focus in the lower pole of the left kidney, too small to actually characterize given stability, likely residua small renal cyst. ??The right kidney images normally. Urinary Bladder: Normal. Vasculature: The aorta is normal in course and caliber. ??The origin the mesenteric and renal arteries are within normal limits. ??The inferior vena cava is normal in course and caliber. ??The superior mesenteric, splenic, and portal veins are patent. ??Timing of contrast administration limits evaluation of the hepatic veins. ??The renal veins are patent. Lymph Nodes: There are no pathologically enlarged lymph nodes. Bowel: Limited evaluation the distal esophagus is unremarkable. ??The stomach is partially distended. ??The duodenum is normal in course and caliber. ??There has been prior ascending colectomy with an ileocecal anastomosis in the right upper quadrant. ??There is focal dilatation of the juxta anastomotic segment, similar to prior. ??The remainder of the bowel is nondilated. Peritoneum and mesentery: No ascites, free air, or loculated fluid collection. No mesenteric inflammation. Abdominal wall: Normal. Reproductive organs: The prostate gland is within normal limits. Osseous structures: There are no suspicious osseous lesions. ??There are a few Schmorl's nodes within the thoracolumbar spine. Procedure Note Ronny Batista, - 07/21/2022 EXAMINATION: CT ABDOMEN AND PELVIS W CONTRAST CLINICAL HISTORY: 41-year-old male with gastrointestinal cancer.Restaging. History of appendiceal neoplasm status post colectomy 2018. Surveillance. Restaging. Evaluation for recurrence. TECHNIQUE: Helical CT of the abdomen and pelvis was performed followingthe intravenous administration of contrast. Administered 120.0 ml ofOMNIPAQUE 350.00 mg/ml. Oral contrast was administered. COMPARISON: Comparison is made to multiple prior CT of the abdomen andpelvis examinations, the most recent which is dated July 21, 2021. FINDINGS: Risk Assessment Consultant Images: Noncontributory. Lower chest: Visualized structures within the inferior thorax withinnormal limits. Liver: Normal. Bile ducts: Normal. Gallbladder: Normal. Pancreas: Normal. Spleen: Normal. Adrenals: Normal. Kidneys: There is a stable 6 mm hypoattenuating focus in the lower pole ofthe left kidney, too small to actually characterize given stability, likelyresidua small renal cyst. The right kidney images normally. Urinary Bladder: Normal. Vasculature: The aorta is normal in course and caliber. The origin the mesenteric and renal arteries are within normal limits. The inferior venacava is normal in course and caliber. The superior mesenteric, splenic, andportal veins are patent. Timing of contrast administration limits evaluation ofthe hepatic veins. The renal veins are patent. Lymph Nodes: There are no pathologically enlarged lymph nodes. Bowel: Limited evaluation the distal esophagus is unremarkable. Thestomach is partially distended. The duodenum is normal in course and caliber. Therehas been prior ascending colectomy with an ileocecal anastomosis in the rightupper quadrant. There is focal dilatation of the juxta anastomotic segment,similar to prior. The remainder of the bowel is nondilated. Peritoneum and mesentery: No ascites, free air, or loculated fluidcollection. No mesenteric inflammation. Abdominal wall: Normal. Reproductive organs: The prostate gland is within normal limits. Osseous structures: There are no suspicious osseous lesions. There are afew Schmorl's nodes within the thoracolumbar spine. IMPRESSION 1. Stable CT of the abdomen and pelvis examination. 2. Status post ascending colectomy with patent ileocolic anastomosis. 3. No CT evidence of recurrent or metastatic disease within the abdomenand pelvis. Thank you for letting us participate in the care of this patient. If youare a health care provider and have any questions regarding this report,please contact the number below. For patients who have questions please contactthe health caregivers non medical that requested your imaging first. 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
--- OUTSIDE RECORDS SUMMARY | 2024-05-26 11:06 | XMS_ITS | Encounter Summary ---
Author Organization [facility] Address [facility] [place] [address] Care Team Providers Care Crop Grain Or Livestock Farm Manager Name Role Phone Efrain Goel Primary Care Provider Reason for Visit * Reason Comments Other Chest congestion for over 2 months- swollen lymph node Encounter Details Date Type Department Care Team (Late st Contact Info) Description 08/21/2021 4:00 PM EST Office Visit Family Medicine at [facility] [address] [place] [id number] Efrain Goel PA [facility] [address] [facility] [address] Localized enlarged lymph nodes; Paresthesias; Skin lesion; Cough, persistent Social History Tobacco Use Types Packs/Day Years [...] Sign Reading Time Taken Comments Blood Pressure 138/78 08/21/2021 4:07 PM EST Pulse 87 08/21/2021 4:07 PM EST Temperature 37 ??C (98.6 ??F) 08/21/2021 4:07 PM EST Respiratory Rate - - Oxygen Saturation 96% 08/21/2021 4:07 PM EST Inhaled Oxygen Concentration - - Weight 106.6 kg (235 lb) 08/21/2021 4:07 PM EST Height 182.9 cm (6' 0.01) 08/21/2021 4:07 PM ES T Body Mass Index 31.86 08/21/2021 4:07 PM EST documented in this encounter Progress Notes * Efrain Goel PA - 08/21/2021 4:00 PM EST ASSESSMENT & PLAN Demian was seen today for other. Diagnoses and all orders for this visit: Localized enlarged lymph nodes Paresthesias Intermittent. Left upper extremity mid-upper arm to about wrist. No hand involvement. Unable to pinpoint specific nerve distribution. Rec being mindful of possible impinging positions such as arm bent while sleeping (rec towel wrapped as splint) and rest elbow on hard surface. No neck pain to suggest radiculopathy and since it is not b/l and no LE involvement, systemic cause less likely but couldconsider A1c, B12, TSH if it persists. Could also consider neuro referral for EMG. Skin lesion Describes 2 non-erythematous non-painful welts appearing for 30 minutes at a time a few times. Non-pruritic. Only appear in ink of tattoo. Will have him try to take pictures next time it happens. Cough, persistent Cough vs clearing throat. Suspect PND after recent chest cold vs GERD/silent- GERD. Afebrile and non-smoker. Will trial flonase x 4 weeks and consider PPI trial if no improvement. Return in about 4 weeks (around 09/18/2021) for OV - f/u left arm tingling, lymph node. SUBJECTIVE Demian Zaman is a 40 y.o. male here for: # Right before Xmas had chest cold, coughing up phlegm A month later still had sxs. Went to . Had CXR that per clinic read showed inflammation of right lobe of lung. However radiologist report did not note anything. THey rec'd f/u with PCP. Got Z-napoleon. Been another month now and still have congestion and coughing up clear phlegm. Wednesday woke up and had sore lump on throat. Can still feel it now although it has gone down. Wants to make sure it's just a lymph node. Was told to take a probiotic. Had COVID last October. Wanted to do repeat CXR. Dx'd with bicuspid valve. Feels a little out of breath walking around at work but can run on treadmill no issue for 20 minutes with WEST. No fevers, congestion, PND. On/off runny nose Every morning having bloody boogers during day. Never smoker. #left arm tingling X 1 month Every day. Sometimes feels like hands are swollen. Will shake it out. Worse once he starts to focus on it. 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 Feels like sensation of having BP cuff blowing up. Left thumb gets sore a lot. No neck pain. Occ soreness. Etoh: 4-6 drinks per week. 2-3 drinks a couple night per week. Drug: none No OTC supplements or vitamins. 6 episodes of welts apeparing over tattoos on left arm. Non pruritic. Warm to touch. Last 30 minutes and disappear on own. Current view: Showing all answers Show Only Relevant Answers Q - Phq2->9 90d Screen Question 08/21/2021 3:37 PM EST - Filed by Patient The next several questions relate to your overall emotional well-being. You will be asked about your current mental health. For example, this includes feelings of anger, depression, or anxiety. Over the LAST 2 WEEKS, how often have you been bothered by little interest or pleasure in doing things? Not at all Over the LAST 2 WEEKS, how often have you been bothered by feeling down, depressed, or hopeless? Not at all PHQ-2 Score (range: 0 - 6) 0 (Brief screen negative) Thank you for taking the time to respond to these questions. Your health team looks forward to reviewing your answers. Q - Audit/Radha Screener Question 08/21/2021 3:38 PM EST - Filed by Patient In the past year have you had 5 or more drinks in a day containing alcohol? Yes How often did you have a drink containing alcohol in the past year? Consider a 'drink' to be a can or bottle of beer, a glass of wine, a wine cooler, or one cocktail or a shot of hard liquor (like scotch, gin, or vodka). 2 to 3 times a week How many drinks containing alcohol did you have on a typical day when you were drinking in the pastyear? 1 to 2 drinks How often did you have five or more drinks on one occasion in the past year? Less than monthly How often during the last year have you found that you were not able to stop drinking once you had started? Never How often during the last year have you failed to do what was normally expected of you because of drinking? Never How often during the last year have you needed a first drink in the morning to get yourself going after a heavy drinking session? Never How often during the last year have you had a feeling of guilt or remorse after drinking? Never How often during the last year have you been unable to remember what happened the night before because of your drinking? Never Have you or someone else been injured because of your drinking? No Has a relative or friend or doctor or other health worker been concerned about your drinking or suggested you cut down? No Audit Final Scores (range: -1 - 40) 4 (Low Risk) In the past year have you used marijuana, an illegal drug or a prescription medication for non medical reasons? No Q - Gad2->7 90d Screen Question 08/21/2021 3:39 PM EST - Filed by Patient Over the LAST 2 WEEKS, how often have you been bothered by feeling nervous, anxious or on edge? Several days Over the LAST 2 WEEKS, how often have you been bothered by not being able to stop or control worrying? Not at all GAD2 Subscore (range: 0 - 6) 1 (Brief screen negative) Medications 08/21/21 1607 Medication Sig Taking? triamcinolone (KENALOG) 0.1 % Cream Apply topically to the affected areas of the trunk and extremities for 14 days. Take 1 week off, repeat as needed. Yes tacrolimus (PROTOPIC) 0.1 % Ointment Apply twice daily to the affected area of the face Yes OBJECTIVE BP 138/78 (BP Location (NBP): Right arm, Patient Position: Sitting, BP Cuff Sizes: Large Adult (32-43 cm)) Pulse 87 Temp 37 ??C (98.6 ??F) Ht 182.9 cm (6' 0.01) Wt 106.6 kg (235 lb) SpO2 96% BMI 31.86 kg/m?? No LMP for male patient. General: Well appearing male, no acute distress Psych: Normal affect, speech and thought content Eyes: Conjunctiva normal. No scleral icterus Cardiovascular: RRR, nml S1, S2; no murmurs, rubs, gallops Pulmonary: CTAB, no rales, ronchi or wheezes Skin: No concerning rashes, lesions on exposed skin MSK: No lower extremity edema Please see Assessment/Plan at beginning of note. documented in this encounter Plan of Treatment Not on file documented as of this encounter Visit Diagnoses Diagnosis Localized enlarged lymph nodes Enlargement of lymph nodes Paresthesias Disturbance of skin sensation Skin lesion Unspecified disorder of skin and subcutaneous tissue Cough, persistent Cough documented in this encounter Care Teams Crop Grain Or Livestock Farm Manager Relationship Specialty Start Date End Date Efrain Goel PA [facility] [address] PCP - General Family Medicine 08/22/21 05/04/22 documented as of this encounter
--- OUTSIDE RECORDS SUMMARY | 2024-05-26 11:06 | XMS_ITS | Encounter Summary ---
Author Organization [facility] Address [facility] [place] [address] Care Team Providers Care Steel Wheel Engraver Name Role Phone Pearl Lloyd APRN Primary Care Provider Encounter Details Date Type Department Care Team (Late st Contact Info) Description 07/08/2022 2:00 PM EST Office Visit Cardiology at [address] [address] Santino Constantino MD [facility] [place] [address] Bicuspid aortic valve Social History Tobacco Use [...] Sign Reading Time Taken Comments Blood Pressure 130/82 07/08/2022 2:09 PM EST Pulse 72 07/08/2022 2:09 PM EST Temperature - - Respiratory Rate - - Oxygen Saturation 100% 07/08/2022 2:09 PM EST Inhaled Oxygen Concentration - - Weight 114.8 kg (253 lb) 07/08/2022 2:09 PM EST Height 182.9 cm (6') 07/08/2022 2:09 PM EST Body Mass Index 34.31 07/08/2022 2:09 PM EST documented in this encounter Progress Notes * Santino Constantino MD - 07/08/2022 2:00 PM EST HPI: Demian Zaman is a 41 y.o. year old male with a bicuspid aortic valve. No stenosis. Moderate regurgitation. Ascending aorta @ 3.9cm (previously 3.5), aortic root @ 4.1 cm. He comes in for follow uptoday. No cp / sob / syncope. 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 Doing great without symptoms. PMHX Patient Active Problem List Diagnosis Code ??? Mass of appendix K38.8 ??? 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 Bicuspid aortic valve Q23.1 MEDS: Current Outpatient Medications on File Prior to Visit Medication Sig Dispense Refill ??? triamcinolone (Kenalog) 0.1 % Cream Apply topically [...] the past 24 hrs: Pulse BP SpO2 07/08/22 1409 72 130/82 100 % General: no acute distress Behavioral: Alert [...] strength grossly = bilaterally Assessement and Plan: 41 year old male with bicuspid aortic valve with mod regurgitation. Mildly dilated ascending aorta and root. 1. Bicuspid av -- no symptoms. Mod regurg. Repeat echo one year. 2. Follow up 1 year documented in this encounter Plan of Treatment Not on file documented as of this encounter Visit Diagnoses Diagnosis Bicuspid aortic valve Congenital insufficiency of aortic valve documented in this encounter Care Teams Steel Wheel Engraver Relationship Specialty Start Date End Date Pearl Lloyd APRN [address] [place] [address] PCP - General 05/05/22 documented as of this encounter
--- OUTSIDE RECORDS SUMMARY | 2024-05-26 11:06 | XMS_ITS | Encounter Summary ---
Author Organization [place] [address] Care Team Providers Care Electronics Technician Name Role Phone Kenrick Zavala DO Primary Care Provider [phone] Reason for Referral * Diagnostic Test (Routine) - Closed Specialty Diagnoses / Procedures Referred By Dianelys núñez Referred To Contact Radiology Diagnoses Malignant neoplasm of appendix Procedures CT Abdomen & Pelvis w Contrast Elder Addison MD [facility] [place] [address] [facility] [place] [address] Referral ID Status Reason Start Date Expiration Date V isits Requested Visits Authorized [id number] Closed Specialty Service Requested 07/16/2021 09/13/2021 1 1 Reason for Visit * Diagnostic Test (Routine) - Closed Specialty Diagnoses / Procedures Referred By Dianelys núñez Referred To Contact Radiology Diagnoses Malignant neoplasm of appendix Procedures CT Abdomen & Pelvis w Contrast Elder Addison MD [facility] [place] [address] [facility] [place] [address] Referral ID Status Reason Start Date Expiration Date V isits Requested Visits Authorized [id number] Closed Specialty Service Requested 07/16/2021 09/13/2021 1 1 Encounter Details Date Type Department Care Team (Late st Contact Info) Description 07/21/2021 8:33 AM EST - 07/21/2021 11:59 PM EST Hospital [place] [id number] Elder Addison MD [facility] [place] [address] Malignant neoplasm of appendix Discharge Disposition: Home Social History Tobacco Use [...] Sig Dispensed Refills Start Date End Date tacrolimus (PROTOPIC) 0.1 % Ointment Apply twice daily to the affected area of the face 100 g 3 01/01/2021 triamcinolone (KENALOG) 0.1 % CreamIndications:Psori asis Apply topically to the affected areas of the trunk and extremities for 14 days. Take 1 week off, repeat as needed. 453.6 g 1 01/01/2021 09/30/2021 documented as of this encounter Plan of Treatment Not on file documented as of this encounter Procedures Procedure Name Priority Date/Time Associated Diagnosis Comments CT ABDOMEN AND PELVIS W CONTRAST Routine 07/21/2021 9:12 AM EST Malignant neoplasm of appendix documented in this encounter Results * CT Abdomen & Pelvis w Contrast (07/21/2021 9:12 AM EST) Anatomical Region Laterality Modality Abdomen, Pelvis Computed Tomogra phy 07/21/2021 9:28 AM EST Impressions 07/21/2021 9:34 AM EST IMPRESSION: No evidence of metastatic disease. Thank you for letting us participate in the care of this patient. ??If you are a health care provider and have any questions regarding this report, please contact the number below. ??For patients who have questions please contact the health child care nurse that requested your imaging first. ? Electronically signed by: Yariel Moody MD, 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 ??Annual CT for oncologic surveillance TECHNIQUE: Helical CT of the abdomen and pelvis was performed following the intravenous administration of contrast. Administered 77.0 ml of OMNIPAQUE 350.00 mg/ml. Oral contrast was administered. COMPARISON: February 2020 FINDINGS: Lower chest: Mild bilateral gynecomastia. No pleural or pericardial effusion. Liver: normal Biliary system: normal Pancreas: normal Spleen: normal Adrenal glands: normal Kidneys: Normal right kidney. No hydronephrosis. Tiny hypodense lesion within the left kidney is unchanged, likely a cyst. Bowel: Stomach is not dilated. No bowel obstruction or bowel wall thickening. Status post right ileocecectomy. No mass within the right lower quadrant. Mesentery, omentum, and peritoneum: No pneumoperitoneum or fluid. Pelvic organs: normal Lymph nodes: not enlarged Vasculature: normal Retroperitoneum: no mass or hemorrhage Bones and soft tissues: Intact vertebral body heights and alignment. Calcification of the posterior aspect L5-S1 herniated disc is unchanged. No destructive osseous lesion. 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 Annual CT for oncologic surveillance TECHNIQUE: Helical CT of the abdomen and pelvis was performed followingthe intravenous administration of contrast. Administered 77.0 ml of [id number] mg/ml. Oral contrast was administered. COMPARISON: February 2020 FINDINGS: Lower chest: Mild bilateral gynecomastia. No pleural or pericardialeffusion. Liver: normal Biliary system: normal Pancreas: normal Spleen: normal Adrenal glands: normal Kidneys: Normal right kidney. No hydronephrosis. Tiny hypodense lesionwithin the left kidney is unchanged, likely a cyst. Bowel: Stomach is not dilated. No bowel obstruction or bowel wallthickening. Status post right ileocecectomy. No mass within the right lowerquadrant. Mesentery, omentum, and peritoneum: No pneumoperitoneum or fluid. Pelvic organs: normal Lymph nodes: not enlarged Vasculature: normal Retroperitoneum: no mass or hemorrhage Bones and soft tissues: Intact vertebral body heights and alignment. Calcification of the posterior aspect L5-S1 herniated disc is unchanged.No destructive osseous lesion. IMPRESSION IMPRESSION: No evidence of metastatic disease. Thank you for letting us participate in the care of this patient. If youare a health care provider and have any questions regarding this report,please contact the number below. For patients who have questions please contactthe health child care nurse that requested your imaging first. Electronically signed by: Yariel Moody MD, 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 documented in this encounter Administered Medications Inactive Administered Medications - up to 3 most recent administrations Medication Order MAR Action Action Date Dose Rate Site iohexoL (Omnipaque) (350 mg/mL) solution 0-200 mL 0-200 mL, Intravenous, ONCE PRN, 1 dose, Starting on 07/21/21 at 0912, Until Wed07/21/21 at 0913, Per Protocol, Warning Vesicant/Irritant Medication , Radiology Contrast, Routine Given 07/21/2021 9:13 AM EST 77 mLs iohexoL (Omnipaque) (350 mg/mL) solution 0-50 mL 0-50 mL, Oral, ONCE PRN, 1 dose, Starting on Wed07/21/21 at 0912, Until Wed07/21/21 at 0913, Per Protocol, Warning Vesicant/Irritant Medication , Radiology Contrast, Routine Given 07/21/2021 9:13 AM EST 50 mLs documented in this encounter Care Teams Electronics Technician Relationship Specialty Start Date End Date Kenrick Zavala DO [address] [place] [address] [address] [place] [address] PCP - General 02/10/13 08/21/21 documented as of this encounter
--- OUTSIDE RECORDS SUMMARY | 2024-05-26 11:06 | XMS_ITS | Encounter Summary ---
Author Organization [facility] [place] [address] Care Team Providers Care Pv Design Engineer Name Role Phone Pearl Lloyd APRN Primary Care Provider Encounter Details Date Type Department Care Team (Latest Contact Info) Description 07/07/2022 Travel Social History Tobacco Use Types Packs/Day [...] on filedocumented in this encounter Care Teams Pv Design Engineer Relationship Specialty Start Date End Date Pearl Lloyd APRN [address] [place] [address] PCP - General 05/05/22 documented as of this encounter
--- OUTSIDE RECORDS SUMMARY | 2024-05-26 11:06 | XMS_ITS | Encounter Summary ---
Author Organization [facility] [place] [address] Care Team Providers Care Bridge Tender Name Role Phone Efrain Goel Primary Care Provider Encounter Details Date Type Department Care Team (Late st Contact Info) Description 08/22/2021 Telephone Family Medicine at [facility] [address] [place] [phone] Fiona Haywood Social History Tobacco Use Types Packs/Day Years [...] encounter Miscellaneous Notes * Telephone Encounter - Fiona Haywood - 08/22/2021 10:20 AM EST Left VM to help schedule OV with PERF[employer] Fan around 09/18/21 for f/u left arm tingling, lymph node documented in this encounter Plan of Treatment Not on file documented as of this encounter Visit Diagnoses Not on filedocumented in this encounter Care Teams Bridge Tender Relationship Specialty Start Date End Date Efrain Goel PA [facility] [address] [facility] [address] PCP - General Family Medicine 08/22/21 05/04/22 documented as of this encounter
--- OUTSIDE RECORDS SUMMARY | 2024-05-26 11:06 | XMS_ITS | Encounter Summary ---
[place] [address] Care Team Providers Care Cultural Historian Name Role Phone Kenrick Zavala DO Primary Care Provider Reason for Visit * Consultation (Routine) - Closed Specialty Diagnoses / Procedures Referred By Dianelys núñez Referred To Contact Rheumatology Diagnoses Psoriasis Randa Alegre MD [facility] DR [facility] [place] [address] [facility] Rheumatology [address] [place] [phone] Referral ID Status Reason Start Date Expiration Date V isits Requested Visits Authorized [id number] Closed Consult, Test & Treat 01/01/2021 01/01/2022 1 1 Encounter Details Date Type Department Care Team (Late st Contact Info) Description 02/17/2021 8:30 AM EDT Office [place] [address] Elisabeth Ferris DO [facility] [place] [place] [address] Rebekah Reina MD [facility] [place] [address] Arthralgia of both knees Social History Tobacco Use Types Packs/Day Years [...] Sign Reading Time Taken Comments Blood Pressure 139/84 02/17/2021 8:26 AM EDT Pulse 81 02/17/2021 8:26 AM EDT Temperature 36.6 ??C (97.9 ??F) 02/17/2021 8:26 AM ED T Respiratory Rate - - Oxygen Saturation 99% 02/17/2021 8:26 AM EDT Inhaled Oxygen Concentration - - Weight 106.1 kg (234 lb) 02/17/2021 8:26 AM EDT Height 185.4 cm (6' 0.99) 02/17/2021 8:26 AM ED T Body Mass Index 30.88 02/17/2021 8:26 AM EDT documented in this encounter Progress Notes * Rebekah Reina - 02/17/2021 8:30 AM EDT Rheumatology Outpatient Consultation Note Reason for Consult: Demian Zaman is a 40 y.o. male who we are seeing at the request of Randa Alegre for evaluation of suspected psoriatic arthritis. HPI: The patient is a 40 year old male with the PMH of psoriasis, mucinous appendiceal neoplasm s/p ileocolectomy and recent COVID infection in 10/2020 who has been referred to rheumatology for evaluationof suspected psoriatic arthritis. Pt has had pain in the knees and shoulders for last 5 years. There is no h/o trauma. Since the onset, the pain level has remained stable and it gets worse on doing alot. Both the knees get painful but the left knee is more bothersome. The pain gets worse with walking and it is worse in evening. The knees get cracking and popping on movement. Sometimes, the kneesgive out for a few seconds and he feels the knees are 'unsupported'. Pt went for hiking yesterday and today when he woke up, he felt stiff in his left knee and it improved as he walked around. Usually when he wakes up in the morning, he does not feel very stiff. His left shoulder is bothersome sometimes but it is episodic. He went to [facility] couple of years ago for evaluation of left shoulder and the knee pain. He had a few x-rays and was told it was related to a 'bone spur' and 'early arthritis'. He was supposed to follow-up with them but he was not able to do so due to the pandemic. He denies having any involvement of his hands, wrists or feet. There is no history of red, hot or swollen joints, Raynaud's, sicca symptoms, photosensitivity Medical History: Past Medical History: Diagnosis Date ??? Mass of appendix ??? Psoriasis Surgical History: Past Surgical History: Procedure Laterality Date ??? PRO LAP, SURG, COLECTOMY, W/REMVL TERM ILEUM N/A 08/25/2017 @LAPAROSCOPIC ASSISTED COLECTOMY, PARTIAL, REM.TERMINAL ILEUM (WRVU 22.95) performed by Elder Addison MD at [facility] Family Hx: Could not be obtained as patient is adopted. Social History: Social History Tobacco Use ??? Smoking status: Never Smoker ??? Smokeless tobacco: Never Used Substance Use Topics ??? Alcohol use: Not on file ??? Drug use: Not on file Allergies: No Known Allergies ROS (positive in bold): General: Fever, chills, night sweats, weight loss/gain HEENT: Oral ulcers, dry eyes, dry mouth, red/itchy eyes Card: Chest pain, palpitations Pulm: SOB, cough GI: Abd pain, nausea, vomiting, diarrhea, dysphagia, reflux : Dysuria, urgency, hematuria, genital ulcers MS: Arthritis, arthralgia, muscle aches Neuro: Weakness, numbness, tingling, headache Skin: Raynaud's, rash, hair loss, photosensitivity, hair changes Psych: Depression, anxiety, difficulty sleeping Rheumatic history (x) means positive Iritis Dactylitis Pleuritis Pericarditis Oral / Nasal Ulcers PE/DVT Spontaneous Discoid SLE STD Raynaud???s Psoriasis Seizures Anemia Leucopenia Thrombocytopenia Psychosis from a medical condition Physical Examination: BP 139/84 Pulse 81 Temp 36.6 ??C (97.9 ??F) (Temporal) Ht 185.4 cm (6' 0.99) Wt 106.1 kg (234 lb) SpO2 99% BMI 30.88 kg/m?? General: Well appearing, NAD HEENT: Mucous membranes are moist, no oral mucosal ulcerations Neck: Supple, no lymphadenopathy, full range of motion Cardiovascular: RRR, no m/r/g, normal S1/S2, 2+ pulses Lungs: CTA b/l no w/r/r Abdomen: Soft, nontender, nondistended, normal active bowel sounds, no hepatosplenomegaly Back: Nontender over the spine Neuro: Alert and oriented x3. Cranial nerves II through XII grossly intact. Strength 5/5 throughout, Sensation to light touch is grossly normal throughout. Skin: Scattered erythematous plaques seen on extremities Nails: No nail pitting Extremities: Shoulders: FROM, non-tender to palpation Elbows:FROM Wrists: FROM, no swelling, non-tender Hands: No synovitis, no MCP compression tenderness, full claw and fist Hips: FROM, no tenderness Knees: FROM, no effusion, pes anserine tenderness on left side Ankles: FROM, non-tender, no effusion Feet: No MTP compression tenderness Laboratory Data: Reviewed Assessment: 40 year old male with the PMH of psoriasis, mucinous appendiceal neoplasm s/p ileocolectomy and recent COVID infection in 10/2020 is being evaluated suspected psoriatic arthritis. Pt has had pain in the knees and shoulders for last 5 years. There is no h/o trauma. No involvement of his hands, wrists or feet and there is no history of red, hot or swollen joints, Raynaud's, sicca symptoms, photosensitivity, frequent oral/nasal ulcerations, inflammatory back pain, dactylitis, uveitis, enthesitis, IBD or any systemic symptoms. Physical examination does not show any evidence of synovitis, nail pitting or skin thickening. He has scattered small erythematous patches on extremities. No recent labs or MSK imaging to review. With a history of psoriasis, psoriatic arthritis must be considered in the differential diagnosis. However, description of patient's joint issues seems mechanical at this time. He does not have any other ancillary symptoms which go along with psoriatic arthritis such as inflammatory back pain, uveitis, enthesitis or dactylitis. It seems his left knee is the most symptomatic joint at this time butit again seems mechanical and the physical examination only shows left-sided pes anserine bursitis.He could have an underlying meniscal pathology especially with a history of popping and knee givingout. He had knee x-rays done at [facility] which we would request. If symptoms continue or get worse, an MRI of the left knee could be considered. At this time, patient is interested in any further work-upand he would let us know if the symptoms progress or if he develops any new symptoms. Follow-up with rheumatology as needed. The patient was seen and discussed with Dr Ferris. Rebekah Reina MD Rheumatology Fellow Pager: [phone] CC: Kenrick Zavala DO * Elisabeth Ferris DO - 02/17/2021 8:30 AM EDT ATTENDING ADDENDUM The patient's history was reviewed, and I interviewed and examined the patient with Dr. Reina. I agree with his summary, findings, and plan. documented in this encounter Plan of Treatment Not on file documented as of this encounter Procedures Procedure Name Priority Date/Time Associated Diagnosis Comments EKG 12-LEAD Routine 03/05/2021 11:21 AM EDT documented in this encounter Results * EKG 12 Lead (03/05/2021 11:21 AM EDT) Ventricular rate 69 BPM MUSE SYSTEM Atrial Rate 69 BPM MUSE SYSTEM P-R Interval 168 ms MUSE SYSTEM QRS Duration 84 ms MUSE SYSTEM Q-T Interval 392 ms MUSE SYSTEM QTC Calculated (Bezet) 420 ms MUSE SYSTEM Calculated P [place] 69 degrees MUSE SYSTEM Calculated R [place] 8 degrees MUSE SYSTEM Calculated T [place] 27 degrees MUSE SYSTEM INTERPRETATION Normal sinus rhythm Normal ECG No previous ECGs available Confirmed by MD Dougie, Santino ([id number]) on 03/05/2021 11:50:26 AM MUSE SYSTEM 03/05/2021 11:2 1 AM EDT 03/05/2021 11:50 AM EDT Unknown ECG ORDERABLES MUSE SYSTEM documented in this encounter Visit Diagnoses Diagnosis Arthralgia of both knees documented in this encounter Care Teams Cultural Historian Relationship Specialty Start Date End Date Kenrick Zavala DO [address] [place] [address] PCP - General 02/10/13 08/21/21 documented as of this encounter
--- OUTSIDE RECORDS SUMMARY | 2024-05-26 11:06 | XMS_ITS | Encounter Summary ---
Author Organization [facility] [place] [address] Care Team Providers Care Revenue Accountant Name Role Phone Pearl Lloyd APRN Primary Care Provider [phone] Encounter Details Date Type Department Care Team (Latest Contact Info) Description 07/21/2022 Travel Social History Tobacco Use Types Packs/Day [...] on filedocumented in this encounter Care Teams Revenue Accountant Relationship Specialty Start Date End Date Pearl Lloyd APRN [address] [place] [address] PCP - General 05/05/22 documented as of this encounter
--- OUTSIDE RECORDS SUMMARY | 2024-05-26 11:06 | XMS_ITS | Encounter Summary ---
Author Organization [facility] [place] [address] Care Team Providers Care New Car Salesperson Name Role Phone Kenrick Zavala DO Primary Care Provider [phone] Reason for Referral * Diagnostic Test (Routine) - Closed Specialty Diagnoses / Procedures Referred By Dianelys núñez Referred To Contact Radiology Diagnoses Malignant neoplasm of appendix Procedures CT Abdomen & Pelvis w Contrast Elder Addison MD [facility] [place] [address] [facility] [place] [address] Referral ID Status Reason Start Date Expiration Date V isits Requested Visits Authorized [id number] Closed Specialty Service Requested 02/09/2019 04/09/2019 1 1 Reason for Visit * Diagnostic Test (Routine) - Closed Specialty Diagnoses / Procedures Referred By Dianelys núñez Referred To Contact Radiology Diagnoses Malignant neoplasm of appendix Procedures CT Abdomen & Pelvis w Elder Tarango MD [facility] [place] [address] [facility] [place] [address] Referral ID Status Reason Start Date Expiration Date V isits Requested Visits Authorized [id number] Closed Specialty Service Requested 02/09/2019 04/09/2019 1 1 Encounter Details Date Type Department Care Team (Late st Contact Info) Description 02/21/2019 9:31 AM EDT - 02/21/2019 11:59 PM EDT Hospital [place] [id number] Elder Addison MD [facility] [place] [address] Malignant neoplasm of appendix Discharge Disposition: Home [...] CT ABDOMEN AND PELVIS W CONTRAST Routine 02/21/2019 12:02 PM EDT Malignant neoplasm of appendix documented in this encounter Results * CT Abdomen & Pelvis w Contrast (02/21/2019 12:02 PM EDT) Anatomical Region Laterality Modality Abdomen, Pelvis Computed Tomogra phy Impressions 02/21/2019 1:05 PM EDT Stable exam. No evidence of abdominal or pelvic disease recurrence. Thank you for letting us participate in the care of this patient. For questions regarding this report, please contact the number below. ? Narrative 02/21/2019 1:05 PM EDT EXAMINATION: ??CT ABDOMEN AND PELVIS W CONTRAST CLINICAL HISTORY: ??Annual CT to assess for local or distant ??recurrence of appendiceal cancer s/p ileocolectomy 07/2017. TECHNIQUE: Helical CT of the abdomen and pelvis was performed following the intravenous administration of contrast. Administered 113.0 ml of OMNIPAQUE 350.00 mg/ml. Oral contrast was administered. COMPARISON: 02/22/2018 FINDINGS: Lower chest: Normal. Liver: Normal size and attenuation without lesions. Bile ducts: Nondilated. Gallbladder: No calcified gallstones. Normal caliber wall. Pancreas: Normal attenuation without ductal dilatation. Spleen: Normal. Adrenals: Normal. Kidneys: Normal. Symmetric renal enhancement. No renal collecting system obstruction bilaterally Urinary Bladder: Normal. Vasculature: No aneurysm. Lymph Nodes: No enlarged lymph nodes. Bowel: As noted previously, post RIGHT hemicolectomy. No complication. The postoperative bed is stable. No small bowel obstruction or areas of abnormal small bowel wall thickening. Peritoneum and mesentery: No ascites, free air, or loculated fluid collection. No mesenteric inflammation. Abdominal wall: Normal. Reproductive organs: Normal. Osseous structures: No suspicious lesions. Procedure Note Killian Adams MD - 02/21/2019 EXAMINATION: CT ABDOMEN AND PELVIS W CONTRAST CLINICAL HISTORY: Annual CT to assess for local or distant recurrenceof appendiceal cancer s/p ileocolectomy 07/2017. TECHNIQUE: Helical CT of the abdomen and pelvis was performed followingthe intravenous administration of contrast. Administered 113.0 ml ofOMNIPAQUE 350.00 mg/ml. Oral contrast was administered. COMPARISON: 02/22/2018 FINDINGS: Lower chest: Normal. Liver: Normal size and attenuation without lesions. Bile ducts: Nondilated. Gallbladder: No calcified gallstones. Normal caliber wall. Pancreas: Normal attenuation without ductal dilatation. Spleen: Normal. Adrenals: Normal. Kidneys: Normal. Symmetric renal enhancement. No renal collecting system obstruction bilaterally Urinary Bladder: Normal. Vasculature: No aneurysm. Lymph Nodes: No enlarged lymph nodes. Bowel: As noted previously, post RIGHT hemicolectomy. No complication.The postoperative bed is stable. No small bowel obstruction or areas ofabnormal small bowel wall thickening. Peritoneum and mesentery: No ascites, free air, or loculated fluidcollection. No mesenteric inflammation. Abdominal wall: Normal. Reproductive organs: Normal. Osseous structures: No suspicious lesions. IMPRESSION Stable exam. No evidence of abdominal or pelvic disease recurrence. Thank you for letting us [...] MAR Action Action Date Dose Rate Site iohexol (OMNIPAQUE) 350 mg/mL solution 0-200 mL 0-200 mL, Intravenous, ONCE PRN, 1 dose, Starting on Wed02/21/19 at 1149, Until Wed02/21/19 at 1202, Per Protocol, Warning Vesicant/Irritant Medication , Radiology Contrast, Routine Given 02/21/2019 12:02 PM EDT 113 mLs iohexol (OMNIPAQUE) 350 mg/mL solution 0-50 mL 0-50 mL, Oral, ONCE PRN, 1 dose, Starting on 02/21/19 at 1149, Until Tu02/21/19 at 1202, Per Protocol, Warning Vesicant/Irritant Medication , Radiology Contrast, Routine Given 02/21/2019 12:02 PM EDT 50 mLs documented in this encounter Care Teams New Car Salesperson Relationship Specialty Start Date End Date Kenrick Zavala DO [address] [place] [address] PCP - General 02/10/13 08/21/21 documented as of this encounter
--- OUTSIDE RECORDS SUMMARY | 2024-05-26 11:06 | XMS_ITS | Encounter Summary ---
Author Organization [place] [address] Care Team Providers Care Home Health Speech Therapist Name Role Phone Pearl Lloyd APRN Primary Care Provider Reason for Referral * Diagnostic Test (Routine) - Closed Specialty Diagnoses / Procedures Referred By Dianelys núñez Referred To Contact Radiology Diagnoses Malignant neoplasm of appendix Procedures CT Abdomen & Pelvis w Contrast Elder Addison MD [facility] [place] [address] [facility] [place] [address] Referral ID Status Reason Start Date Expiration Date V isits Requested Visits Authorized [id number] Closed Specialty Service Requested 07/07/2022 09/04/2022 1 1 Reason for Visit * Diagnostic Test (Routine) - Closed Specialty Diagnoses / Procedures Referred By Dianelys núñez Referred To Contact Radiology Diagnoses Malignant neoplasm of appendix Procedures CT Abdomen & Pelvis w Contrast Elder Addison MD [facility] [place] [place] [address] [facility] [place] [address] Referral ID Status Reason Start Date Expiration Date V isits Requested Visits Authorized [id number] Closed Specialty Service Requested 07/07/2022 09/04/2022 1 1 Encounter Details Date Type Department Care Team (Late st Contact Info) Description 07/21/2022 8:08 AM EST - 07/21/2022 11:59 PM EST Hospital [place] [phone] Elder Addison MD [facility] [place] [address] Malignant neoplasm of appendix Discharge Disposition: Home [...] CT ABDOMEN AND PELVIS W CONTRAST Routine 07/21/2022 10:17 AM EST Malignant neoplasm of appendix documented [...] who have questions please contact the health rn acute care that requested your imaging first. ? Electronically signed by: Ronny Batista DO, [facility] ([phone]), at 07/21/2022 11:44 AM Narrative 07/21/2022 11:44 AM EST EXAMINATION: CT ABDOMEN AND PELVIS W CONTRAST CLINICAL HISTORY: 41-year-old male with gastrointestinal cancer. ??Restaging. History of appendiceal neoplasm status post colectomy 2018. ??Surveillance. Restaging. ??Evaluation for recurrence. TECHNIQUE: Helical CT of the abdomen and pelvis was performed following the intravenous administration of contrast. Administered 120.0 ml of OMNIPAQUE 350.00 mg/ml. Oral contrast was administered. COMPARISON: Comparison is made to multiple prior CT of the abdomen and pelvis examinations, the most recent which is dated July 21, 2021. FINDINGS: [employer] Images: Noncontributory. Lower chest: Visualized structures within [...] which is dated July 21, 2021. FINDINGS: [employer] Senior [employer] Images: Noncontributory. Lower chest: Visualized structures within [...] patients who have questions please contactthe health rn acute care that requested your imaging first. Electronically signed by: Ronny Batista DO, 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 documented in this encounter Administered Medications Inactive Administered Medications - up to 3 most recent administrations Medication Order MAR Action Action Date Dose Rate Site barium sulfate (Readi-Cat) 2.0 % (w/v) oral liquid 450-900 mL 450-900 mL, Oral, ONCE PRN, 1 dose, Starting on 07/21/22 at 1017, Until Tu07/21/22 at 1017, Per Protocol, Radiology Contrast, Routine Given 07/21/2022 10:17 AM EST 900 mLs iohexoL (Omnipaque) (350 mg/mL) solution 0-200 mL 0-200 mL, Intravenous, ONCE PRN, 1 dose, Starting on 07/21/22 at 1017, Until Tu07/21/22 at 1017, Per Protocol, Warning Vesicant/Irritant Medication , Radiology Contrast, Routine Given 07/21/2022 10:17 AM EST 120 mLs documented in this encounter Care Teams Home Health Speech Therapist Relationship Specialty Start Date End Date Pearl Lloyd APRN [address] [place] [address] PCP - General 05/05/22 documented as of this encounter
--- OUTSIDE RECORDS SUMMARY | 2024-05-26 11:06 | XMS_ITS | Encounter Summary ---
Author Organization [facility] Address [facility] [place] [address] Care Team Providers Care Form Designer Name Role Phone Efrain Goel Primary Care Provider Encounter Details Date Type Department Care Team (Late st Contact Info) Description 11/10/2021 4:20 PM EDT TH Visit (TeleHealth) Family Medicine at [facility] [address] [place] [phone] Hilario Giles MD [facility] [address] [place] [address] Hematospermia Social History Tobacco Use Types Packs/Day Years [...] as of this encounter Progress Notes * Hilario Giles MD - 11/10/2021 4:20 PM EDT Subjective: 9 days ago, the patient had gross hematospermia in 1 episode. He has not noticed it since. He does not report any symptoms of sexual dysfunction or changes in his pattern of urination. Hewent to the urgent care in [place] and a UA was normal. He was offered referral to urology. Patient Active Problem List Diagnosis Code ??? Mass of appendix K38.8 ??? 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 Bicuspid aortic valve Q23.1 Decision Making/Plan: Hematospermia. Advised him that this is generally considered a benign phenomenon and does not need further evaluation. He agrees to be in touch if he has recurrent episodes. No further evaluation is needed presently. Patient verbally consents to this telephone visit and understands that this visit may be billed, similar to a clinic office visit. I provided care to the patient today via telehealth. documented in this encounter Plan of Treatment Not on file documented as of this encounter Visit Diagnoses Diagnosis Hematospermia documented in this encounter Care Teams Form Designer Relationship Specialty Start Date End Date Efrain Goel PA [facility] [address] [facility] [address] PCP - General Family Medicine 08/22/21 05/04/22 documented as of this encounter
--- OUTSIDE RECORDS SUMMARY | 2024-05-26 11:06 | XMS_ITS | Encounter Summary ---
[facility] [place] [address] Care Team Providers Care Communication Assistant Name Role Phone Kenrick Zavala DO Primary Care Provider [phone] Encounter Details Date Type Department Care Team (Late st Contact Info) Description 01/03/2019 Abstract [place] [address] Elder Addison MD [facility] [place] [address] Social History Tobacco Use Types Packs/Day Years [...] on filedocumented in this encounter Care Teams Communication Assistant Relationship Specialty Start Date End Date Kenrick Zavala DO [address] [place], [place] [id number] PCP - General 02/10/13 08/21/21 documented as of this encounter
--- OUTSIDE RECORDS SUMMARY | 2024-05-26 11:06 | XMS_ITS | Encounter Summary ---
Author Organization [facility] [place] [address] Care Team Providers Care Geology Scientist Name Role Phone Kenrick Zavala DO Primary Care Provider Encounter Details Date Type Department Care Team (Late st Contact Info) Description 02/28/2021 Orders Only Cardiology at [address] [phone] Sarahy Chun RN Nonrheumatic aortic (valve) insufficiency Social History Tobacco Use Types Packs/Day Years [...] as of this encounter Visit Diagnoses Diagnosis Nonrheumatic aortic (valve) insufficiency documented in this encounter Care Teams Geology Scientist Relationship Specialty Start Date End Date Kenrick Zavala DO [address] [place], [place] [address] PCP - General 02/10/13 08/21/21 documented as of this encounter
--- OUTSIDE RECORDS SUMMARY | 2024-05-26 11:06 | XMS_ITS | Encounter Summary ---
[place] [address] Care Team Providers Care Front Office Spec Name Role Phone Kenrick Zavala DO Primary Care Provider [phone] Reason for Referral * Diagnostic Test (Routine) - Closed Specialty Diagnoses / Procedures Referred By Dianelys t Referred To Contact Radiology Diagnoses Urinary incontinence, unspecified type Carcinoma in situ of colon Procedures CT Abdomen & Pelvis w Contrast Kenrick Zavala DO [address] [place] [address] [facility] [place] [address] Referral ID Status Reason Start Date Expiration Date V isits Requested Visits Authorized [id number] Closed Specialty Service Requested 06/06/2019 08/04/2019 1 1 Reason for Visit * Diagnostic Test (Routine) - Closed Specialty Diagnoses / Procedures Referred By Contac t Referred To Contact Radiology Diagnoses Urinary incontinence, unspecified type Carcinoma in situ of colon Procedures CT Abdomen & Pelvis w Contrast Kenrick Zavala DO [address] [place] [address] [facility] [place] [address] Referral ID Status Reason Start Date Expiration Date V isits Requested Visits Authorized [id number] Closed Specialty Service Requested 06/06/2019 08/04/2019 1 1 Encounter Details Date Type Department Care Team (Late st Contact Info) Description 06/14/2019 3:09 PM EST - 06/14/2019 11:59 PM EST Hospital [place] [address] Kenrick Zavala, DO [address] [place] [address] Urinary incontinence, unspecified type; Carcinoma in situ of colon Discharge Disposition: Home Social History Tobacco Use [...] CT ABDOMEN AND PELVIS W CONTRAST Routine 06/14/2019 5:47 PM EST Urinary incontinence, unspecified type Carcinoma in situ of colon documented in this encounter Results * CT Abdomen & Pelvis w Contrast (06/14/2019 5:47 PM EST) Anatomical Region Laterality Modality Abdomen, Pelvis Computed Tomogra phy Impressions 06/14/2019 5:57 PM EST Stable exam. No evidence of abdominal or pelvic disease recurrence Thank you for letting us participate in the care of this patient. For questions regarding this report, please contact the number below. ? Electronically signed by: ZAINA Davidson [facility] ([phone]), at 06/14/2019 5:57 PM Narrative 06/14/2019 5:57 PM EST EXAMINATION: CT ABDOMEN AND PELVIS W CONTRAST CLINICAL HISTORY: Urinary incontinence, Carcinoma in situ of colon, hx appendx carcinoma TECHNIQUE: Helical CT of the abdomen and pelvis was performed following the intravenous administration of contrast. Administered 119.0 ml of OMNIPAQUE 350.00 mg/ml. Oral contrast was administered. COMPARISON: 02/21/2019 FINDINGS: Lower chest: Normal. Liver: Normal size and attenuation without lesions. Bile ducts: Nondilated. Gallbladder: No calcified gallstones. Normal caliber wall. Pancreas: Normal attenuation without ductal dilatation. Spleen: Normal. Adrenals: Normal. Kidneys: Normal. Symmetric renal enhancement. No renal collecting system obstruction bilaterally Urinary Bladder: Normal. Vasculature: No aneurysm. Lymph Nodes: No enlarged lymph nodes. Bowel: Nondilated, no wall thickening. ??As noted previously, post RIGHT hemicolectomy. No complication. Stable postoperative bed. Peritoneum and mesentery: No ascites, free air, or loculated fluid collection. No mesenteric inflammation. Abdominal wall: Normal. Reproductive organs: Normal. Osseous structures: No suspicious lesions. Procedure Note Killian Adams MD - 06/14/2019 EXAMINATION: CT ABDOMEN AND PELVIS W CONTRAST CLINICAL HISTORY: Urinary incontinence, Carcinoma in situ of colon, hx appendx carcinoma TECHNIQUE: Helical CT of the abdomen and pelvis was performed followingthe intravenous administration of contrast. Administered 119.0 ml ofOMNIPAQUE 350.00 mg/ml. Oral contrast was administered. COMPARISON: 02/21/2019 FINDINGS: Lower chest: Normal. Liver: Normal size and attenuation without lesions. Bile ducts: Nondilated. Gallbladder: No calcified gallstones. Normal caliber wall. Pancreas: Normal attenuation without ductal dilatation. Spleen: Normal. Adrenals: Normal. Kidneys: Normal. Symmetric renal enhancement. No renal collecting system obstruction bilaterally Urinary Bladder: Normal. Vasculature: No aneurysm. Lymph Nodes: No enlarged lymph nodes. Bowel: Nondilated, no wall thickening. As noted previously, post RIGHT hemicolectomy. No complication. Stable postoperative bed. Peritoneum and mesentery: No ascites, free air, or loculated fluidcollection. No mesenteric inflammation. Abdominal wall: Normal. Reproductive organs: Normal. Osseous structures: No suspicious lesions. IMPRESSION Stable exam. No evidence of abdominal or pelvic disease recurrence Thank you for letting us participate in the care of this patient. Forquestions regarding this report, please contact the number below. Kenrick Zavala DO Fani CT ORDERABLES documented in this encounter Visit Diagnoses Diagnosis Urinary incontinence, unspecified type Carcinoma in situ of colon documented in this encounter Administered Medications Inactive Administered Medications - up to 3 most recent administrations Medication Order MAR Action Action Date Dose Rate Site iohexol (OMNIPAQUE) 350 mg/mL solution 0-200 mL 0-200 mL, Intravenous, ONCE PRN, 1 dose, Starting on Wed06/14/19 at 1747, Until Wed06/14/19 at 1747, Per Protocol, Warning Vesicant/Irritant Medication , Radiology Contrast, Routine Given 06/14/2019 5:47 PM EST 119 mLs iohexol (OMNIPAQUE) 350 mg/mL solution 0-50 mL 0-50 mL, Oral, ONCE PRN, 1 dose, Starting on 06/14/19 at 1747, Until Wed06/14/19 at 1747, Per Protocol, Warning Vesicant/Irritant Medication , Radiology Contrast, Routine Given 06/14/2019 5:47 PM EST 50 mLs documented in this encounter Care Teams Front Office Spec Relationship Specialty Start Date End Date Kenrick Zavala DO [address] [place] [address] PCP - General 02/10/13 08/21/21 documented as of this encounter
--- OUTSIDE RECORDS SUMMARY | 2024-05-26 11:06 | XMS_ITS | Encounter Summary ---
Author Organization [facility] Address [facility] [place] [address] Care Team Providers Care Sheet Ironworker Name Role Phone Kenrick Zavala DO Primary Care Provider Encounter Details Date Type Department Care Team (Late st Contact Info) Description 07/25/2021 Telephone [place] [phone] Elder Addison MD [facility] [place] [address] Social History Tobacco Use Types Packs/Day Years [...] Telephone Encounter - Elder Addison MD - 07/25/2021 2:28 PM EST Images from the original note were not included. I called Demian as he had reached out to me via the [facility] portal to ask about this incidental finding of a tiny hypodense lesion within the left kidney is unchanged, likely a cyst. I reassured him that this is benign and the this is just another thing that we will keep track of going forward on his subsequent CT scans. Augustin Addison MD 07/25/2021 2:35 PM 07/21/2021 EXAMINATION: CT ABDOMEN AND PELVIS W CONTRAST ?? 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 Annual CT for oncologic surveillance ? TECHNIQUE: Helical CT of the abdomen and pelvis was performed following the intravenous administration of contrast. Administered 77.0 ml of OMNIPAQUE 350.00 mg/ml. Oral contrast was administered. ?? COMPARISON: February 2020 ?? FINDINGS: ?? Lower chest: Mild bilateral gynecomastia. No pleural or pericardial effusion. ?? Liver: normal ?? Biliary system: normal ?? Pancreas: normal ?? Spleen: normal ?? Adrenal glands: normal ?? Kidneys: Normal right kidney. No hydronephrosis. Tiny hypodense lesion within the left kidney is unchanged, likely a cyst. ?? Bowel: Stomach is not dilated. No bowel obstruction or bowel wall thickening. Status post right ileocecectomy. No mass within the right lower quadrant. ?? Mesentery, omentum, and peritoneum: No pneumoperitoneum or fluid. ?? Pelvic organs: normal ?? Lymph nodes: not enlarged ?? Vasculature: normal ?? Retroperitoneum: no mass or hemorrhage ?? Bones and soft tissues: Intact vertebral body heights and alignment. Calcification of the posterior aspect L5-S1 herniated disc is unchanged. No destructive osseous lesion. ?? IMPRESSION IMPRESSION: ?? No evidence of metastatic disease. Janae Cohen, RN routed this conversation to Me Demian Zaman to Me TB ?? 07/25/21 8:[address] Addison, I have a couple questions I was hoping I could get some input on. #1 When I when I was trying to login I opened my test results and noticed a note about a tiny lesion on my kidney, most likely a cyst. Has that been there before? Is it something to worry about? Is it somwthing to watch? #2 My PCP shenaetihayes and therr are no other Dr's I trust except for you. Is there a PCP that you could or wouldrecommend? I had a chest xray last night and the Dr said there was a spot that she didn't think was anything serious but needed a radiologist to check it out. She's out today and that dept can't give me my results and my PCP is out. I can't deal with not knowing. Thanks! This encounter is not documented in this encounter Plan of Treatment Not on file documented as of this encounter Visit Diagnoses Not on filedocumented in this encounter Care Teams Sheet Ironworker Relationship Specialty Start Date End Date Kenrick Zavala DO [address] [place] [address] PCP - General 02/10/13 08/21/21 documented as of this encounter
--- OUTSIDE RECORDS SUMMARY | 2024-05-26 11:06 | XMS_ITS | Encounter Summary ---
Author Organization [facility] Address [facility] [place] [address] Care Team Providers Care Junior Art Director Name Role Phone Pearl Lloyd APRN Primary Care Provider Encounter Details Date Type Department Care Team (Latest Contact Info) Description 02/26/2023 Travel Social History Tobacco Use Types Packs/Day [...] place to sleep or slept in a fci (including now)? No 02/25/2023 Education Answer Date [...] on filedocumented in this encounter Care Teams Junior Art Director Relationship Specialty Start Date End Date Pealr Lloyd APRN [address] [place] [address] PCP - General 05/05/22 documented as of this encounter
--- OUTSIDE RECORDS SUMMARY | 2024-05-26 11:06 | XMS_ITS | Encounter Summary ---
[place] [address] Care Team Providers Care Director Of Residence Life Name Role Phone Kenrick Zavala DO Primary Care Provider Reason for Referral * Diagnostic Test (Routine) - Closed Specialty Diagnoses / Procedures Referred By Dianelys núñez Referred To Contact Radiology Diagnoses Malignant neoplasm of appendix Procedures CT Abdomen & Pelvis w Contrast Elder Addison MD [facility] [place] [address] [facility] [place] [address] Referral ID Status Reason Start Date Expiration Date V isits Requested Visits Authorized [id number] Closed Specialty Service Requested 07/16/2021 09/13/2021 1 1 Encounter Details Date Type Department Care Team (Late st Contact Info) Description 03/15/2020 4:00 PM EDT TH Visit (TeleHealth) [place] [address] Elder Addison MD [facility] [place] [address] Malignant neoplasm of appendix Social History Tobacco Use Types Packs/Day Years Used Date Smoking Tobacco: Never Smokeless Tobacco: Never Sex and Gender Information Value Date Recorded Sex Assigned at Male 02/17/2021 6:32 AM EDT Gender Identity Male 09/27/2023 9:31 AM EDT Sexual Orientation Straight 02/17/2021 6: 32 AM EDT documented as of this encounter Progress Notes * Elder Addison MD - 03/15/2020 4:00 PM EDT Images from the original note were not included. Surgical Oncology Office Note Date: 03/16/2020 Primary and referring physician: Kenrick Zavala DO Reason for evaluation: Surveillance oncology TeleHealth follow up with coordinated with CT abdomen pelvis. 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 He was diagnosed with a cystic [...] 08/25/17 he underwent laparoscopic exploration with radical fzyz-rzjwd-orcthnpay with ligation of the ileocolic pedicle at [...] sent to pathology. See photo below. A opfj-rs-ujkb, functional end-to-end ileocolostomy anastomosis was created using a 75 mm ITZEL stapler (Evernote) and the common Doddridge enterotomy was closed in 2 layers with an inner layer of 3-0 PDS canal stitch and outer layer of 3-0 silk Lembert stitches. The large mesenteric defect was deliberately not c losed. ? Hospital Course: Uncomplicated. Able to be discharged to home on POD#4. Pathology: 08/25/17 Acc# [id number] ? ADDENDUM DISCUSSION Following interdepartmental consensus, an [...] Jesús Zamorano Verified: ??09/07/2017 ?Pathologist Performed at: ??-[facility], [place], [place] ? Surgical Pathology DIAGNOSIS Ileo right [...] Pathologic Findings: ?? None identified Objective: Vitals: There were no vitals taken for this visit. His weight before surgery was 215 pounds. Deferred due to Telehealth. Assessment and plans: On 09/14/17 I presented [...] could be considered with annual CT imaging. I called Demian to let him know the results of his recent surveillance CT- no evidence of recurrence. He's doing well with no GI complaints. Good appetite and no weight loss. We discussed a plan to repeat CT for surveillance - CT ordered for 2020. TeleHealth follow up: Time spent: 5 min Patient location: Home in [place] Augustin Addison MD 03/16/2020 3:23 PM This note was created using Jo[employer] voice recognition software. documented in this encounter [...] who have questions please contact the health care information associate that requested your imaging first. ? 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 ??Annual CT for oncologic surveillance TECHNIQUE: Helical [...] administration of contrast. Administered 77.0 ml of EGQJUEXJI755.00 mg/ml. Oral contrast was administered. COMPARISON: February [...] patients who have questions please contactthe health care information associate that requested your imaging first. 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
--- OUTSIDE RECORDS SUMMARY | 2024-05-26 11:06 | XMS_ITS | Encounter Summary ---
Author Organization [facility] [place] [address] Care Team Providers Care Documentation Coordinator Name Role Phone Kenrick Zavala DO Primary Care Provider Reason for Referral * Diagnostic Test (Routine) - Closed Specialty Diagnoses / Procedures Referred By Dianelys núñez Referred To Contact Radiology Diagnoses Malignant neoplasm of appendix Procedures CT Abdomen & Pelvis w Contrast Elder Addison MD [facility] [place] [place] [address] [facility] [place] [address] Referral ID Status Reason Start Date Expiration Date V isits Requested Visits Authorized [id number] Closed Specialty Service Requested 02/07/2018 04/07/2018 1 1 Encounter Details Date Type Department Care Team (Late st Contact Info) Description 09/27/2017 10:30 AM EDT Office [place] [address] Elder Addison MD [facility] [place] [address] Malignant neoplasm of appendix Social [...] Sign Reading Time Taken Comments Blood Pressure 118/78 09/27/2017 10:41 AM EDT Pulse 87 09/27/2017 10:41 AM EDT Temperature 36.7 ??C (98 ??F) 09/27/2017 10:41 AM EDT Respiratory Rate 16 09/27/2017 10:41 AM EDT Oxygen Saturation 99% 09/27/2017 10:41 AM EDT Inhaled Oxygen Concentration - - Weight 99.8 kg (220 lb) 09/27/2017 10:40 AM EDT Height - - Body Mass Index 29.03 08/25/2017 9:53 AM EST documented in this encounter Progress Notes * Elder Addison MD - 09/27/2017 10:30 AM EDT Images from the original note were not included. Surgical Oncology Office Note Date: 09/27/2017 Primary and referring physician: Kenrick Zavala DO Reason for evaluation: First postop visit s/p laparoscopic exploration with laparoscopic radical ymuc-dojcq-mbdggxayo with ligation of the ileocolic pedicle at the base of the SMA/SMV. 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 He was recently diagnosed with a cystic mass arising from [...] 08/25/17 he underwent laparoscopic exploration with radical udpj-kxtau-dqjoxhasq with ligation of the ileocolic pedicle at [...] sent to pathology. See photo below. A ydbd-px-kzdg, functional end-to-end ileocolostomy anastomosis was created using a 75 mm ITZEL stapler (BiOWiSH) and the common [place] enterotomy was closed in 2 layers with an inner layer of 3-0 PDS canal stitch and outer layer of 3-0 silk Lembert stitches. The large mesenteric defect was deliberately not c losed. ? Hospital Course: Uncomplicated. Able to be discharged to home on POD#4. Pathology: 08/25/17 Acc# [id number] ? ADDENDUM DISCUSSION Following interdepartmental consensus, an [...] Jesús Zamorano Verified: ??09/07/2017 ?Pathologist Performed at: ??-[facility] Dept. of Pathology, [place], [place] ? Surgical Pathology DIAGNOSIS Ileo right [...] ?? None identified Objective: Vitals: Blood pressure 118/78, pulse 87, temperature 36.7 ??C (98 ??F), resp. rate 16, weight 99.8 kg (220 lb), SpO2 99 %. His weight before surgery was 215 pounds. General: Demian is very well appearing. He ambulates onto the exam table without difficulty. He is accompanied to this visit by his -Margaux. Abdomen: Soft, non distended, incisional tenderness appropriate, the port site incisions look goodwith no signs of erythema or fluctulence. Extremities: No peripheral edema and symmetric bilaterally. Assessment and plans: Demian really seems to be doing great. His bowels are moving. He is eating without nausea. He has been back at work for about 2 weeks now working full-time. He had an ear infection and was seen in Dr. Zavala's clinic a week or 2 ago but since then that is also resolved nicely. He comes into the surgery clinic today accompanied by his -Margaux. No concerns on exam. Okay to resume normal activity and exercise without restrictions. 09/14/17 I presented his case at the [...] invasive carcinoma. There was no evidence of penetration/spillage, both at the time of laparoscopy and microscopically, through the appendiceal serosa. The group felt that no additional therapy therefore would be needed or recommended but that surveillance could be consi dered with annual CT imaging. We discussed the plan to obtain a CT scan in 4 or 5 months-toward the end of the summer and this will be the baseline CT going forward with a plan to do annual imaging thereafter until year 5. He is at low risk for recurrence as this was a carcinoma in situ and it is great to see him doing so well. Augustin Addison MD 09/27/2017 11:03 AM This note was created using [employer] voice recognition software. documented in this encounter Plan of Treatment Not on file documented as of this encounter Results * CT Abdomen & Pelvis w Contrast (02/22/2018 10:46 AM EDT) Anatomical Region Laterality Modality Abdomen, Pelvis Computed Tomogra phy Impressions 02/22/2018 10:54 AM EDT Post RIGHT hemicolectomy. No complication. No intra-abdominal or pelvic disease. 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 ??Evaluate for recurrence surveillance TECHNIQUE: Helical CT of the abdomen and pelvis was performed following the intravenous administration of contrast. 114 cc of Omnipaque 350 was given. Oral contrast was administered. COMPARISON: ??07/26/2017 from an outside hospital, preoperative exam FINDINGS: Lower chest: Normal. Liver: Normal size and attenuation without lesions. Bile ducts: Nondilated. Gallbladder: No calcified gallstones. Normal caliber wall. Pancreas: Normal attenuation without ductal dilatation. Spleen: Normal. Adrenals: Normal. Kidneys: Normal. No renal collecting system obstruction bilaterally Vasculature: No aneurysm. Lymph Nodes: No enlarged lymph nodes. Bowel: Post RIGHT hemicolectomy. No complication. No small bowel obstruction. Peritoneum and mesentery: No ascites, free air, or loculated fluid collection. No mesenteric inflammation. Abdominal wall: Normal. Urinary Bladder: Normal. Reproductive organs: Normal. Osseous structures: No suspicious lesions. Procedure Note Killian Adams MD - 02/22/2018 EXAMINATION: CT ABDOMEN AND PELVIS W CONTRAST CLINICAL HISTORY: History of appendiceal carcinoma in situ s/p rightcolectomy 08/25/17. Evaluate for recurrence surveillance TECHNIQUE: Helical CT of the abdomen and pelvis was performed followingthe intravenous administration of contrast. 114 cc of Omnipaque 350 was given.Oral contrast was administered. COMPARISON: 07/26/2017 from an outside hospital, preoperative exam FINDINGS: Lower chest: Normal. Liver: Normal size and attenuation without lesions. Bile ducts: Nondilated. Gallbladder: No calcified gallstones. Normal caliber wall. Pancreas: Normal attenuation without ductal dilatation. Spleen: Normal. Adrenals: Normal. Kidneys: Normal. No renal collecting system obstruction bilaterally Vasculature: No aneurysm. Lymph Nodes: No enlarged lymph nodes. Bowel: Post RIGHT hemicolectomy. No complication. No small bowelobstruction. Peritoneum and mesentery: No ascites, free air, or loculated fluidcollection. No mesenteric inflammation. Abdominal wall: Normal. Urinary Bladder: Normal. Reproductive organs: Normal. Osseous structures: No suspicious lesions. IMPRESSION Post RIGHT hemicolectomy. No complication. No intra-abdominal or pelvicdisease. 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
--- OUTSIDE RECORDS SUMMARY | 2024-05-26 11:06 | XMS_ITS | Encounter Summary ---
Author Organization [facility] [place] [address] Care Team Providers Care Sound Recordist Name Role Phone Kenrick Zavala DO Primary Care Provider Reason for Referral * Diagnostic Test (Routine) - Closed Specialty Diagnoses / Procedures Referred By Dianelys t Referred To Contact Radiology Diagnoses Malignant neoplasm of appendix Procedures CT Chest Abdomen Pelvis w Contrast (Generic) Elder Addison MD [facility] [place] [address] [facility] [place] [address] Referral ID Status Reason Start Date Expiration Date V isits Requested Visits Authorized [id number] Closed Specialty Service Requested 03/13/2020 09/08/2020 1 1 Reason for Visit * Diagnostic Test (Routine) - Closed Specialty Diagnoses / Procedures Referred By Dianelys t Referred To Contact Radiology Diagnoses Malignant neoplasm of appendix Procedures CT Chest Abdomen Pelvis w Contrast (Generic) Elder Addison MD [facility] [place] [address] [facility] [place] [address] Referral ID Status Reason Start Date Expiration Date V isits Requested Visits Authorized [id number] Closed Specialty Service Requested 03/13/2020 09/08/2020 1 1 Encounter Details Date Type Department Care Team (Late st Contact Info) Description 03/15/2020 12:35 PM EDT - 03/15/2020 11:59 PM EDT Hospital [place] [phone] Elder Addison MD [facility] [place] [address] Malignant neoplasm of appendix Discharge Disposition: Home [...] Sig Dispensed Refills Start Date End Date ketoconazole (NIZORAL) 2 % CreamIndications:Seborrh eic dermatitis Apply twice daily to affected areas of face.As needed.Can mix with a small amt of Desonide For up to 7 days in a row. 60 g 11 07/20/2019 03/05/2021 triamcinolone (KENALOG) 0.1 % CreamIndications:Allergi c contact dermatitis, unspecified trigger Apply topically to the affected areas of the rash for two weeks. 80 g 3 07/20/2019 01/01/2021 desonide (DESOWEN) 0.05 % CreamIndications:Seborrh eic dermatitis Apply to affected areas of face twice daily as needed. No more than 14 days per month 60 g 11 07/20/2019 03/05/2021 documented as of this encounter Plan of Treatment Not on file documented as of this encounter Procedures Procedure Name Priority Date/Time Associated Diagnosis Comments CT CHEST ABDOMEN PELVIS W CONTRAST (GENERIC) Routine 03/15/2020 1:00 PM EDT Malignant neoplasm of appendix documented in this encounter Results * CT Chest Abdomen [...] the number below. ? Electronically signed by: Killian Adams MD, [facility] ([phone]), at 03/15/2020 1:51 PM Narrative 03/15/2020 1:51 PM EDT EXAMINATION: CT [...] contact the number below. 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 documented in this encounter Administered Medications Inactive Administered Medications - up to 3 most recent administrations Medication Order MAR Action Action Date Dose Rate Site iohexoL (Omnipaque) 350 mg/mL solution 0-200 mL 0-200 mL, Intravenous, ONCE PRN, 1 dose, Starting on Wed03/15/20 at 1246, Until Wed03/15/20 at 1328, Per Protocol, Warning Vesicant/Irritant Medication , Radiology Contrast, Routine Given 03/15/2020 1:28 PM EDT 120 mLs iohexoL (Omnipaque) 350 mg/mL solution 0-50 mL 0-50 mL, Oral, ONCE PRN, 1 dose, Starting on Wed03/15/20 at 1246, Until Wed03/15/20 at 1328, Per Protocol, Warning Vesicant/Irritant Medication , Radiology Contrast, Routine Given 03/15/2020 1:28 PM EDT 50 mLs documented in this encounter Care Teams Sound Recordist Relationship Specialty Start Date End Date Kenrick Zavala DO [address] [place] [address] [facility] [address] [place] [address] PCP - General 02/10/13 08/21/21 documented as of this encounter
--- OUTSIDE RECORDS SUMMARY | 2024-05-26 11:06 | XMS_ITS | Encounter Summary ---
[place] [address] Care Team Providers Care Steel Tier Name Role Phone Efrain Goel Primary Care Provider Encounter Details Date Type Department Care Team (Latest Contact Info) Description 04/17/2022 1:45 PM EDT - 04/17/2022 11:59 PM EDT Hospital En[place] [phone] Carl Lopez APRN [facility] [address] [place] [address] Blood in semen; Pain in left testicle Discharge Disposition: Home Social History Tobacco Use [...] Procedure Name Priority Date/Time Associated Diagnosis Comments US SCROTUM Routine 04/17/2022 2:06 PM EDT Blood in semen Pain in left testicle documented in this encounter Results * US Scrotum (04/17/2022 2:06 PM EDT) Anatomical Region Laterality Modality Pelvis Ultrasound 04/17/2022 2:07 PM EDT Impressions 04/17/2022 3:21 PM EDT 1. RIGHT testicle: 4.6 cm x 2.7 x 3.3 cm. There is normal color Doppler vascularity and normal echotexture. No intratesticular masses no calcifications. There is normal appearance to the epididymis, body and tail appear corrugated status post vastectomy. No hydrocele or varicocele. 2. LEFT testicle 4.5 x 2.5 x 3.0 cm. Normal color Doppler vascularity. Normal echotexture to the testicle without evidence for interstitial testicular masses. LEFT epididymis with corrugated appearance status post vastectomy. Normal vascularity no hydrocele or varicocele. No intratesticular masses Given history of hematospermia, in a 41-year-old male would consider transrectal ultrasound, or magnetic resonance imaging to evaluate the prostate. Alternatively urethral cystoscopy could be performed. Referral to urology is recommended. Thank you for letting us participate in the care of this patient. If you are a health care provider and have any questions regarding this report, please contact the number above. For patients who have questions, please contact the health care transitions nurse that requested your imaging first. ?Nat Lyman, Staff Physician Electronically Signed Final Report ?? 04/17/2022 03:20 pm Narrative 04/17/2022 3:21 PM EDT Scrotal ? (Signed Final 04/17/2022 03:20 pm) PATIENT INFO: ID #: ? [id number] ?: ??[birth year] (41 yrs)(M) Name: ? SHABANA Naga ZAMAN ?Visit Date: 04/17/2022 02:07 pm PERFORMED BY: Performed By: ? Alonso Antonio RDMS Attending: ?Nura TAYLOR, Nat Augustin Referred By: ?CARL LOPEZ Location: ? [place] SERVICE(S) PROVIDED: [facility] - Scrotum and Contents with Limited Vascular ?[id number], [id number] evaluation - [id number] INDICATIONS: left testicle pain, intermittient with bloody ejaculate COMPARISON: No prior studies for comparison. RIGHT TESTICLE: Measurement(cm) ? L: ??4.7 ?AP: ?? 2.7 ? TV: ??3.3 Vol (ml): ?21.9 Vascularity: ?Normal color Doppler vascularity Comment: ?Normal texture, no intratesticular mass. RIGHT EPIDIDYMIS: Head: ?Normal Body: ?Corrugated S/p vasectomy Tail: ?Corrugated s/p vasectomy Vascularity: ?? Normal RIGHT OTHER: Hydrocele: ? No hydrocele seen Varicocele: ?Not visualized LEFT TESTICLE: Measurement(cm) ? L: ??4.5 ?AP: ?? 2.5 ? TV: ??3.0 Vol (ml): ?17.7 Vascularity: ?Normal color Doppler vascularity Comment: ?Normal texture LEFT EPIDIDYMIS: Head: ?Normal Body: ?Corrugated S/p vasectomy Vascularity: ?? Normal LEFT OTHER: Hydrocele: ? No hydrocele seen Varicocele: ?Not visualized Procedure Note Nat Lyman MD - 04/17/2022 Scrotal (Signed Final 04/17/2022 03:20 pm) PATIENT INFO: ID #: [id number] : [birth year] (41 yrs)(M) Name: SHABANA ZAMAN Visit Date: 04/17/2022 02:07 pm PERFORMED BY: Performed By: Alonso Antonio RDMS Attending: Nat Lyman MD Referred By: CARL LOPEZ Location: [place] SERVICE(S) PROVIDED: [facility] - Scrotum and Contents with Limited Vascular 15356, [id number] evaluation - [id number] INDICATIONS: left testicle pain, intermittient with bloody ejaculate COMPARISON: No prior studies for comparison. RIGHT TESTICLE: Measurement(cm) L: 4.7 AP: 2.7 TV: 3.3 Vol (ml): 21.9 Vascularity: Normal color Doppler vascularity Comment: Normal texture, no intratesticular mass. RIGHT EPIDIDYMIS: Head: Normal Body: Corrugated S/p vasectomy Tail: Corrugated s/p vasectomy Vascularity: Normal RIGHT OTHER: Hydrocele: No hydrocele seen Varicocele: Not visualized LEFT TESTICLE: Measurement(cm) L: 4.5 AP: 2.5 TV: 3.0 Vol (ml): 17.7 Vascularity: Normal color Doppler vascularity Comment: Normal texture LEFT EPIDIDYMIS: Head: Normal Body: Corrugated S/p vasectomy Vascularity: Normal LEFT OTHER: Hydrocele: No hydrocele seen Varicocele: Not visualized IMPRESSION 1. RIGHT testicle: 4.6 cm x 2.7 x 3.3 cm. There is normal color Doppler vascularity and normal echotexture. No intratesticular masses no calcifications. There is normal appearance to the epididymis, body and tail appear corrugated status post vastectomy. No hydrocele or varicocele. 2. LEFT testicle 4.5 x 2.5 x 3.0 cm. Normal color Doppler vascularity. Normal echotexture to the testicle without evidence for interstitial testicular masses. LEFT epididymis with corrugated appearance status post vastectomy. Normal vascularity no hydrocele or varicocele. No intratesticular masses Given history of hematospermia, in a 41-year-old male would consider transrectal ultrasound, or magnetic resonance imaging to evaluate the prostate. Alternatively urethral cystoscopy could be performed. Referral to urology is recommended. Thank you for letting us participate in the care of this patient. If you are a health care provider and have any questions regarding this report, please contact the number above. For patients who have questions, please contact the health care transitions nurse that requested your imaging first. Nat Lyman, Staff Physician Electronically Signed Final Report 04/17/2022 03:20 pm Carl Lopez APRN IMG US GEN ORDERABLE S documented in this encounter Visit Diagnoses Diagnosis Blood in semen Hematospermia Pain in left testicle Unspecified disorder of male genital organs documented in this encounter Care Teams Steel Tier Relationship Specialty Start Date End Date Efrain Goel PA [facility] [place] [address] PCP - General Family Medicine 08/22/21 05/04/22 documented as of this encounter
--- OUTSIDE RECORDS SUMMARY | 2024-05-26 11:06 | XMS_ITS | Encounter Summary ---
Author Organization [facility] [place] [address] Care Team Providers Care Engineering Mechanic Name Role Phone Pearl Lloyd APRN Primary Care Provider [phone] Encounter Details Date Type Department Care Team (Latest Contact Info) Description 07/08/2022 Travel Social History Tobacco Use Types Packs/Day [...] on filedocumented in this encounter Care Teams Engineering Mechanic Relationship Specialty Start Date End Date Pearl Lloyd APRN [address] [place] [address] PCP - General 05/05/22 documented as of this encounter
--- OUTSIDE RECORDS SUMMARY | 2024-05-26 11:06 | XMS_ITS | Encounter Summary ---
[place] [address] Care Team Providers Care Special Effects Specialist Name Role Phone Kenrick Zavala DO Primary Care Provider Reason for Referral * Diagnostic Test (Routine) - Closed Specialty Diagnoses / Procedures Referred By Dianelys núñez Referred To Contact Radiology Diagnoses Malignant neoplasm of appendix Procedures CT Abdomen & Pelvis w Contrast Elder Addison MD [facility] [place] [address] [facility] [place] [address] Referral ID Status Reason Start Date Expiration Date V isits Requested Visits Authorized [id number] Closed Specialty Service Requested 02/09/2019 04/09/2019 1 1 Reason for Visit * Reason Comments Follow-up Encounter Details Date Type Department Care Team (Late st Contact Info) Description 02/22/2018 10:30 AM EDT Office [place] [address] [facility] [place] [address] Malignant neoplasm of appendix Social [...] Sign Reading Time Taken Comments Blood Pressure 125/73 02/22/2018 11:05 AM EDT Pulse 63 02/22/2018 11:05 AM EDT Temperature 36.8 ??C (98.2 ??F) 02/22/2018 11:05 AM E DT Respiratory Rate - - Oxygen Saturation 99% 02/22/2018 11:05 AM EDT Inhaled Oxygen Concentration - - Weight 98.9 kg (218 lb) 02/22/2018 11:05 AM EDT Height - - Body Mass Index 28.76 08/25/2017 9:53 AM EST documented in this encounter Progress Notes * Elder Addison MD - 02/22/2018 10:30 AM EDT Images from the original note were not included. Surgical Oncology Office Note Date: 02/22/2018 Primary and referring physician: Kenrick Zavala DO Reason for evaluation: Status post laparoscopic exploration with laparoscopic radical zzpy-kbobd-lwnbsatcb with ligation of the ileocolic pedicle at the base of the SMA/SMV. 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 He was diagnosed with acystic mass [...] 08/25/17 he underwent laparoscopic exploration with radical nocx-dmicm-oyfphtuos with ligation of the ileocolic pedicle at [...] sent to pathology. See photo below. A chev-gm-ehuw, functional end-to-end ileocolostomy anastomosis was created using a 75 mm ITZEL stapler ([employer]) and the common [place] enterotomy was closed in 2 layers with an inner layer of 3-0 PDS canal stitch and outer layer of 3-0 silk Lembert stitches. The large mesenteric defect was deliberately not c losed. ? Hospital Course: Uncomplicated. Able to be discharged to home on POD#4. Pathology: 08/25/17 Acc# [id number] ? ADDENDUM DISCUSSION Following interdepartmental consensus, an [...] Jesús Zamorano Verified: ??09/07/2017 ?Pathologist Performed at: ??-[facility] Dept. of [place]ology, [place], [place] ? Surgical Pathology DIAGNOSIS Ileo right [...] ?? None identified Objective: Vitals: Blood pressure 125/73, pulse 63, temperature 36.8 ??C (98.2 ??F), weight 98.9 kg (218 lb), SpO2 99 %. His weight before [...] surgery clinic today after undergoing surveillance CT imaging. He and his -Margaux just got back from a weeks vacation in the [facility]. He was by himself today. We reviewed the CT report and images together. There is no evidence of local or distant metastatic recurrence. This is great news. We will plan to repeat the imaging in one years time. I spent 10 minutes of this 10 minute clinic appointment reviewing the CT images as well as the report with Demian and fortunately there is no evidence for distant or local recurrence. We will plan to repeat CT imaging in one years time and then annually until year 5 to monitor for recurrence. He knows to call me if he develops any symptoms of nausea, progressive weight loss or abdominal pains but I suspect he will be symptom free and remained recurrence free. Augustin Addison MD 02/22/2018 11:23 AM This note was created using [employer] voice recognition software. documented in this encounter [...] contact the number below. 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
--- OUTSIDE RECORDS SUMMARY | 2024-05-26 11:06 | XMS_ITS | Encounter Summary ---
Author Organization Formerly [facility], [facility] Address [facility] [place] [address] Care Team Providers Care Conveyor Mechanic Name Role Phone Efrain Goel Primary Care Provider Reason for Visit * Reason Onset Date Comments Appointment 08/18/2021 Triage 08/18/2021 Encounter Details Date Type Department Care Team (Late st Contact Info) Description 08/18/2021 Telephone [address] Medicine [address] [facility] [address] [place] [phone] Efrain Goel PA [facility] DR [facility] [place], [place] [id number] Appointment; Triage Social History Tobacco Use Types Packs/Day Years [...] encounter Miscellaneous Notes * Telephone Encounter - Linda Lambert RN - 08/18/2021 2:42 PM EST Caller: Demian Zaman Patient identified by name and Chief complaint: Chest Congestion and Swollen Lymph Nodes Onset: Chest Congestion - 2 months / Right Neck Swollen Lymph Node - 2 days Description of symptoms: Right Side Neck - 1/2 to 1 inch palpable lymph node. Tender to touch. No redness or increased skin warmth. Chest Congestion with nonproductive cough - 07/19 given Z Guevara but no symptoms improvement. Mucinex x1 week not helpful. Cough intermittent daily with clear sputum production. No fever/chills, SOB, PND or orthopnea. No n/v/d No runny nose, nasal congestion No loss of taste or smell During phone call strong voice. Talking in full sentences. Respirations non labored. No wheezing heard. 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 - no Chemo or RT needed per patient To establish care with Sukhwinder Goel 03/12/22 Telehealth screen: [x] Established patient [x] Will be in [place] or [place] at time of visit [x] Has access to Internet smart phone or computer with camera [] Would need phone visit HTI Screen: positive if any sx apply [x] Cough - not new [] Fever [] Shortness of breath [] Fatigue [] Muscle or body aches [] Headache [] New loss of taste or smell [] Sore Throat [] Congestion or runny nose [] Nausea or vomiting [] Diarrhea Pediatrics: [] Retractions/belly breathing [] Skin/Lip color changes [] Wheezing [] Stridor [] Eating/Drinking normally [] Voiding normally Discussed briefly with PERFECTO Samuels. OK to book 08/21/21 1600 Same Day Appointment. My message sent to patient confirming appointment. * Telephone Encounter - Sujey Camara - 08/18/2021 9:56 AM EST Please call patient to discuss Emergency Room Follow Up Reason for the Emergency Room visit: Swollen lymph nodes and chest congestion Name of the facility [facility] Symptomatic now: Yes Other information:[facility] via a virtual visit. Patient states he still hasswollen lymph nodes and chest congestion and would like to be seen by Dr. Goel or his associates on a Wednesday FILEMON. Patient was signed up to Dr. Goel recently and has his New Patient appointment scheduled in September, but would like to be seen in office sooner for his symptoms Caller and Relationship (if other than patient): Demian Zaman, self Best time to call back: Any Okay to leave a message: Y Okay to send - message: N Nurse contacted via: Message: Y Call: N Pager: N documented in this encounter Plan of Treatment Not on file documented as of this encounter Visit Diagnoses Not on filedocumented in this encounter Care Teams Conveyor Mechanic Relationship Specialty Start Date End Date Efrain Goel PA [facility] DR [facility] [address] PCP - General Family Medicine 08/22/21 05/04/22 documented as of this encounter
--- OUTSIDE RECORDS SUMMARY | 2024-05-26 11:06 | XMS_ITS | Encounter Summary ---
[place] [address] Care Team Providers Care Grain Drier Name Role Phone Kenrick Zavala DO Primary Care Provider [phone] Encounter Details Date Type Department Care Team (Late st Contact Info) Description 11/25/2017 Abstract [place] [address] Carlota Alvarez Social History Tobacco Use Types [...] on filedocumented in this encounter Care Teams Grain Drier Relationship Specialty Start Date End Date Kenrick Zavala DO [address] [place] [address] PCP - General 02/10/13 08/21/21 documented as of this encounter
--- OUTSIDE RECORDS SUMMARY | 2024-05-26 11:06 | XMS_ITS | Encounter Summary ---
[place] [address] Care Team Providers Care Pasta Press Operator Name Role Phone Pearl Lloyd APRN Primary Care Provider Reason for Referral * Diagnostic Test (Routine) - Closed Specialty Diagnoses / Procedures Referred By Contac t Referred To Contact Cardiology Diagnoses Nonrheumatic aortic (valve) insufficiency Procedures Echocardiogram Transthoracic([facility]) Marin Sawyer MD [facility] [place] [address] [facility] [place] [address] Referral ID Status Reason Start Date Expiration Date V isits Requested Visits Authorized [id number] Closed Specialty Service Requested 03/05/2021 03/05/2022 1 1 Reason for Visit * Diagnostic Test (Routine) - Closed Specialty Diagnoses / Procedures Referred By Contac t Referred To Contact Cardiology Diagnoses Nonrheumatic aortic (valve) insufficiency Procedures Echocardiogram Transthoracic([facility]) Marin Sawyer MD [facility] [place] [address] [facility] [place] [address] Referral ID Status Reason Start Date Expiration Date V isits Requested Visits Authorized [id number] Closed Specialty Service Requested 03/05/2021 03/05/2022 1 1 Encounter Details Date Type Department Care Team (Latest Contact Info) Description 07/08/2022 11:55 AM EST - 07/08/2022 11:59 PM EST Hospital Encounter Non-[place] [address] Luigi Graff MD [facility] [place] [address] Nonrheumatic aortic (valve) insufficiency Discharge Disposition: Home Social History Tobacco Use [...] Date/Time Associated Diagnosis Comments ECHO COMPLETE Routine 07/08/2022 1:05 PM EST Nonrheumatic aortic (valve) insufficiency documented in this encounter Results * ECHO COMPLETE (07/08/2022 1:05 PM EST) EF 56 HEARTLAB SYSTEM Anatomical Region Laterality Modality Cardiac Other 07/08/2022 12:0 5 PM EST Narrative 07/08/2022 1:21 PM EST ? Echocardiogram Report Name: SHABANA ZAMAN ?Study Date: 07/08/2022 12:05 PMBP: 141/90 mmHg ? Patient Location: 4A : 1980 ? Height: 183 cm ? Account: [id number] Age: 41 yrs ? Weight: 111 kg Gender: Male ?BSA: 2.3 m2 Ordering Physician: LUIGI GRAFF Referring Physician: LUIGI GRAFF Performed By: Kassie Knowles RDCS Reason For Study: Nonrheumatic aortic valve insufficiency Exam Location: [facility]. Interpretation Summary -Left ventricular systolic function [...] aorta is larger (previously 3.5 cm). Procedure Complete-21460. Satisfactory quality. Left Ventricle There is no [...] Echocardiogram Report Name: SHABANA ZAMAN Study Date: 2:05 PMBP: 141/90 mmHg Patient Location: : 1980 Height: 183 cm Account: [id number] Age: 41 yrs Weight: 111 kg Gender: Male BSA: 2.3 m2 Ordering Physician: DAJUAN, LUIGI M Referring Physician: LUIGI GRAFF Performed By: Kassie Knowles RDCS Reason For Study: Nonrheumatic aortic valve insufficiency Exam Location: [facility]. Interpretation Summary -Left ventricular systolic function [...] aorta is larger (previously 3.5 cm). Procedure Complete-38552. Satisfactory quality. Left Ventricle There is no [...] insufficiency documented in this encounter Care Teams Pasta Press Operator Relationship Specialty Start Date End Date Pearl Lloyd APRN [address] [place] [address] PCP - General 05/05/22 documented as of this encounter
--- OUTSIDE RECORDS SUMMARY | 2024-05-26 11:06 | XMS_ITS | Encounter Summary ---
Author Organization [facility] Address [facility] [place] [address] Care Team Providers Care Drafter Refrigeration Name Role Phone Pearl Lloyd APRN Primary Care Provider Encounter Details Date Type Department Care Team (Latest Contact Info) Description 02/26/2023 9:44 AM EDT - 02/26/2023 11:59 PM EDT Hospital Encounter XRay at [address] [place] [address] Hilario Giles MD [facility] DR [facility]IJ[facility] [place] [address] Dyspnea, unspecified type Discharge Disposition: Home Social History Tobacco Use [...] place to sleep or slept in a longterm (including now)? No 02/25/2023 Education Answer Date [...] Procedure Name Priority Date/Time Associated Diagnosis Comments XR CHEST PA AND LATERAL Routine 02/26/2023 9:50 AM EDT Dyspnea, unspecified type documented in this encounter Results * XR Chest PA [...] who have questions please contact the health memory care director that requested your imaging first. ? Narrative 02/26/2023 10:44 AM EDT EXAMINATION: XR [...] patients who have questions please contactthe health memory care director that requested your imaging first. Hilario Giles MD IMG DX ORDERABLES documented in this encounter Visit Diagnoses Diagnosis Dyspnea, unspecified type documented in this encounter Care Teams Drafter Refrigeration Relationship Specialty Start Date End Date Pearl Lloyd APRN [address] [place] [address] PCP - General 05/05/22 documented as of this encounter
--- OUTSIDE RECORDS SUMMARY | 2024-05-26 11:06 | XMS_ITS | Encounter Summary ---
Author Organization Formerly [facility] [place] [address] Care Team Providers Care Ecommerce Marketing Specialist Name Role Phone Kenrick Zavala DO Primary Care Provider [phone] Reason for Referral * Diagnostic Test (Routine) - Closed Specialty Diagnoses / Procedures Referred By Dianelys núñez Referred To Contact Radiology Diagnoses Malignant neoplasm of appendix Procedures CT Abdomen & Pelvis w Contrast Elder Addison MD [facility] [place] [address] [facility] [place] [address] Referral ID Status Reason Start Date Expiration Date V isits Requested Visits Authorized [id number] Closed Specialty Service Requested 02/07/2018 04/07/2018 1 1 Reason for Visit * Diagnostic Test (Routine) - Closed Specialty Diagnoses / Procedures Referred By Dianelys núñez Referred To Contact Radiology Diagnoses Malignant neoplasm of appendix Procedures CT Abdomen & Pelvis w Elder Tarango MD [facility] [place] [place] [address] [facility] [place] [address] Referral ID Status Reason Start Date Expiration Date V isits Requested Visits Authorized [id number] Closed Specialty Service Requested 02/07/2018 04/07/2018 1 1 Encounter Details Date Type Department Care Team (Late st Contact Info) Description 02/22/2018 8:05 AM EDT - 02/22/2018 11:59 PM EDT Hospital [place] [address] Elder Addison MD [facility] [place] [address] Malignant neoplasm of appendix Discharge Disposition: Home [...] CT ABDOMEN AND PELVIS W CONTRAST Routine 02/22/2018 10:46 AM EDT Malignant neoplasm of appendix documented in [...] or pelvicdisease. 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 documented in this encounter Administered Medications Inactive Administered Medications - up to 3 most recent administrations Medication Order MAR Action Action Date Dose Rate Site iohexol (OMNIPAQUE) 350 mg/mL solution 0-200 mL 0-200 mL, Intravenous, ONCE PRN, 1 dose, Starting on Wed02/22/18 at 1046, Until Wed02/22/18 at 1046, Per Protocol, Warning Vesicant/Irritant Medication , Radiology Contrast, Routine Given 02/22/2018 10:46 AM EDT 114 mLs documented in this encounter Care Teams Ecommerce Marketing Specialist Relationship Specialty Start Date End Date Kenrick Zavala DO [address] [place] [address] [address] [facility] [address] [place] [address] PCP - General 02/10/13 08/21/21 documented as of this encounter
--- OUTSIDE RECORDS SUMMARY | 2024-05-26 11:06 | XMS_ITS | Encounter Summary ---
[place] [address] Care Team Providers Care Axle And Frame Mechanic Name Role Phone Efrain Goel Primary Care Provider Encounter Details Date Type Department Care Team (Latest Contact Info) Description 04/02/2022 9:10 AM EDT Laboratory Appointment Laboratory at [place] [address] Blood in semen; Healthcare maintenance Social History Tobacco Use Types Packs/Day Years [...] Procedure Name Priority Date/Time Associated Diagnosis Comments HEMOGRAM Routine 04/02/2022 9:45 AM EDT Blood in semen DIFFERENTIAL, AUTOMATED Routine 04/02/2022 9:45 AM EDT Blood in semen HC HEPATITIS C ANTIBODY Routine 04/02/2022 9:45 AM EDT Healthcare maintenance HC HIV SCREEN, 4TH GENERATION Routine 04/02/2022 9:45 AM EDT Healthcare maintenance HC VENIPUNCTURE Routine 04/02/2022 9:45 AM EDT Blood in semen HC HEMOGLOBIN A1C Routine 04/02/2022 9:4 5 AM EDT Healthcare maintenance LIPID PANEL (REFLEX DIRECT LDL) Routine 04/02/2022 9:45 AM EDT Healthcare maintenance COMPREHENSIVE METABOLIC PANEL Routine 04/02/2022 9:45 AM EDT Blood in semen documented in this encounter Results * Differential, Automated (04/02/2022 9:45 AM EDT) Neutrophil % 67.5 % [facility] Neutrophil Absolute 5.40 1.70 - 6.10 x10(3)/mcL [facility] Lymph % 24.1 % [facility] Lymphocytes Abs 1.9 0.9 - 3.2 x10(3)/mcL [facility] Monocyte % 6.3 % [facility] Monocyte Abs 0.5 0.3 - 0.9 x10(3)/mcL [facility] Eos % 1.6 % [facility] Eosinophils Abs 0.1 0.0 - 0.4 x10(3)/mcL [facility] Basophil % 0.4 % [facility] Baso Absolute 0.0 0.0 - 0.1 x10(3)/mcL [facility] Immature Gran % 0.10 % [facility] Comment: Immature granulocytes(IG's)percentage and absolute count will include metamyelocytes, myelocytes, and promyelocytes. Blood smears from CBCs yielding IG's will be scanned manually for concordance. If this scan disagrees with the automated IG or if promyelocytes are noted, a manual differential will be performed. Immature Gran Absolute 0.01 0.00 - 0.04 x10(3)/mcL [facility] Blood 04/02/2022 9:45 AM EDT 04/02/2022 9:51 AM EDT Narrative Resulting Agency Comment Spec In Lab Lynnette Maldonado Kyle LOUIE HEMATOLOGY ORDERABLE S Performing Organization Address City/[facility]/ZIP Co de Phone Number LABORATORY [address] [place] [address] * Hemogram (04/02/2022 9:45 AM EDT) White Blood Cell 8.0 4.0 - 9.5 x10(3)/mcL [facility] Red Blood Cell 4.65 4.58 - 5.54 x10(6)/mcL [facility] Hemoglobin 14.3 13.7 - 16.5 g/dL [facility] Hematocrit 41.7 40.5 - 48.5 % [facility] Mean Cell Volume 89.7 82.9 - 93.1 fL [facility] Mean Cell Hemoglobin 30.8 27.5 - 32.1 pg [facility] Mean Cell Hemoglobin Concentration 34.3 32.0 - 35.7 g/dL [facility] Platelet 260 145 - 357 x10(3)/mcL [facility] RDW Standard Deviation 39.5 36.0 - 45.0 fL [facility] RDW coefficient of variation 12.0 11.4 - 13.8 % [facility] Mean Platelet Volume 9.7 7.6 - 12.9 fL [facility] Blood 04/02/2022 9:45 AM EDT 04/02/2022 9:51 AM EDT Narrative Resulting Agency Comment Spec In Lab Lynnette Wright APRN HEMATOLOGY ORDERABLE S Performing Organization Address City/[facility]/ZIP Co de Phone Number LABORATORY [address] [place] [address] * (ABNORMAL) Comprehensive metabolic panel (non-fasting) (04/02/2022 9:45 AM EDT) Glucose 105 65 - 199 mg/dL [facility] Comment:Diabetes: >=200 mg/d L plus symptoms Blood Urea Nitrogen 13 10 - 20 mg/dL [facility] Creatinine 0.80 0.80 - 1.50 mg/dL [facility] Sodium 141 135 - 145 mmol/L [facility] Potassium 3.7 3.5 - 5.0 mmol/L [facility] Comment: Please note: ??Patients with WBC >100,000 may have falsely elevated Potassium levels. ??For accurate Potassium quantification in these patients send serum separator tube (gold top) for subsequent determinations. ??Contact the Clinical Chemistry Laboratory if there are any questions. Chloride 101 98 - 107 mmol/L [facility] Carbon Dioxide 24 22 - 31 mmol/L [facility] Anion Gap 16(H) 5 - 15 mmol/L [facility] Calcium 9.0 8.5 - 10.5 mg/dL [facility] Protein, Total 7.3 6.1 - 8.0 g/dL [facility] Albumin 4.7 3.2 - 5.2 g/dL [facility] Aspartate Aminotransferase 15 0 - 39 unit/L [facility] Alanine Aminotransferase 12 0 - 55 unit/L [facility] Alkaline Phosphatase 67 40 - 130 unit/L [facility] Bilirubin, Total 0.9 0.2 - 1.3 mg/dL [facility] Est Glomerular Filtration Rate 115 >=60 mL/min/1. 73 m?? [facility] Comment: This patient's estimated GFR was [...] urine creatinine clearance. Assignment of CKD stage 1-5 for patients with an eGFR near the transition point between stages may be based on clinical assessment of muscle mass and symptoms in addition to eGFR. Blood 04/02/2022 9:45 AM EDT 04/02/2022 9:51 AM EDT Narrative Resulting Agency Comment Spec In Lab Lynnette Wright APRN CHEMISTRY ORDERABLES Performing Organization Address City/[facility] Co de Phone Number [facility] [address] [place] [address] * Hepatitis C Antibody (04/02/2022 9:45 AM EDT) Hepatitis C Antibody Negative Negative [facility] Blood 04/02/2022 9:45 AM EDT 04/02/2022 3:49 PM EDT Narrative Resulting Agency Comment Spec In Lab Lynnette Jiangk RUG CUTTER HELPER CHEMISTRY ORDERABLES Performing Organization Address [facility] de Phone Number [facility] [address] [place] [place] [address] * Lipid Panel (Reflex Direct LDL) (04/02/2022 9:45 AM EDT) Cholesterol, Total 118 mg/dL [facility] Comment: Lower Risk: <200 mg/dL Average Risk: 200-239 mg/dL Higher Risk: >dv=520 mg/dL Triglyceride 86 mg/dL [facility] Comment: Average Risk/Lower Risk: <150 mg/dL Borderline High Risk: 150-199 mg/dL High Risk: 200-499 mg/dL Very High Risk: >qj=074 mg/dL HDL Cholesterol 38 mg/dL [facility] Comment: Males: ?? Higher Risk: <40 mg/dL Females: ?? Higher Risk: <50 mg/dL LDL Cholesterol 63 mg/dL [facility] Comment: Lowest Risk: <100 mg/dL Lower Risk: 100-129 mg/dL Borderline High Risk: 130-159 mg/dL High Risk: 160-189 mg/dL Very High Risk: >wj=001 mg/dL Cholesterol/HDL Ratio 3.1 ratio [facility] Lipid Interpretation See Note LAB[facility]ORY Comment: Lipid management should be guided by a patient? s ASCVD risk, goals and preferences. ACC/AHA Guidelines recommend high intensity statin if clinical ASCVD or LDL greater than or equal to 190 mg/dL. [email or web address]/[email or web address]-ICO-Fsprwgpzr Adults aged 40-75 with LDL 70-189 mg/dL should have their 10 year ASCVD risk estimated with the ACC/AHA ASCVD risk civil estimator http://tools.acc.org/SNBZQ-Wyju-Lmpseftee/ Statin should be discussed if risk greater [...] Wright APRN CHEMISTRY ORDERABLES Performing Organization Address [facility] Co de Phone Number [facility] [address] [place] [id number] * HIV Screen, 4th Generation ([facility]/CGP/APD/NLH) (04/02/2022 9:45 AM EDT) HIV Ab/Ag Screen Negative Negative [facility] Comment: This 4th Generation HIV test [...] HIV Comment Low Risk of HIV Infection [facility] Blood 04/02/2022 9:45 AM EDT 04/02/2022 3:49 PM EDT Narrative Resulting Agency Comment Spec In Lab Lynnette Wright APRN CHEMISTRY ORDERABLES Performing Organization Address [facility]/ZIP Co de Phone Number [facility] [place] [address] * Hemoglobin A1c (04/02/2022 9:45 AM EDT) Hemoglobin A1c 5.1 4.3 - 5.6 % [facility] Estimated Average Glucose 100 mg/dL [facility] Blood 04/02/2022 9:45 AM EDT 04/02/2022 9:51 AM EDT Narrative Resulting Agency Comment Spec In Lab Lynnette Wright RUG CUTTER HELPER CHEMISTRY ORDERABLES [facility] [address] [place] [address] documented in this encounter Visit Diagnoses Diagnosis Blood in semen Hematospermia Healthcare maintenance Routine general medical examination at a health care facility documented in this encounter Care Teams Axle And Frame Mechanic Relationship Specialty Start Date End Date Efrain Goel PA [facility] [address] [place] [address] PCP - General Family Medicine 08/22/21 05/04/22 documented as of this encounter
--- OUTSIDE RECORDS SUMMARY | 2024-05-26 11:06 | XMS_ITS | Encounter Summary ---
Author Organization [facility] Address [facility] [place] [address] Care Team Providers Care Patient Relations Manager Name Role Phone Efrain Goel Primary Care Provider [phone] Reason for Visit * Reason Comments Follow-up Encounter Details Date Type Department Care Team (Late st Contact Info) Description 09/23/2021 2:00 PM EDT Office Visit Family Medicine at [facility] [address] [place] [phone] Zachery Parmar, JACY [facility] [place] [address] Numbness and tingling in left arm; PND (post-nasal drip); Episodic tension-type headache, intractable Social History Tobacco Use Types Packs/Day Years [...] Sign Reading Time Taken Comments Blood Pressure 122/70 09/23/2021 1:42 PM EDT Pulse 98 09/23/2021 1:42 PM EDT Temperature 36.3 ??C (97.3 ??F) 09/23/2021 1:42 PM ED T Respiratory Rate - - Oxygen Saturation 97% 09/23/2021 1:42 PM EDT Inhaled Oxygen Concentration - - Weight 108 kg (238 lb) 09/23/2021 1:42 PM EDT Height 182.9 cm (6' 0.01) 09/23/2021 1:42 PM ED T Body Mass Index 32.27 09/23/2021 1:42 PM EDT documented in this encounter Progress Notes * Zachery Parmar, COMPUTER AIDED DESIGN OPERATOR - 09/23/2021 2:00 PM EDT Subjective Patient ID: Demian Zaman is a 40 y.o. male. HPI 1 month follow up for left arm tingling, coughing phlegm, and flonase use. Over the past month the left arm tingling is progressively getting better. Had been daily occurrence, now rare and not a severe. Last episode over 5-days ago. Improved after changing sleeping positions. Coughing hasn't improved, though did start to when he was on Flonase and using a humidifier. Stopped flonase for SNOW onset a couple weeks into tx. Feels la sudden onset of sharp pain that starts in his forehead and then radiates up into his scalp. Would happen at worst 4-5 x per day. Now muchbetter. He did go to chiropractor before they started, hasn't been back sense. Has been sleeping atparents while house is being built. New pillow and this is led to neck pain that precipitated visitto chiropractor. Overall, he is feeling fewer musculoskeletal type pains. Review of Systems Constitutional: Negative for activity change, chills, fatigue and fever. HENT: Positive for congestion, postnasal drip and rhinorrhea. Negative for sinus pressure, sinus pain, sore throat and voice change. Eyes: Negative for photophobia and visual disturbance. Respiratory: Negative for cough, shortness of breath and wheezing. Cardiovascular: Negative for chest pain, palpitations and leg swelling. Gastrointestinal: Negative for diarrhea, nausea and vomiting. Musculoskeletal: Positive for neck pain and neck stiffness. Negative for back pain, gait problem and myalgias. Neurological: Positive for headaches. Negative for dizziness, tremors, weakness and light-headedness. Objective Physical Exam Constitutional: General: He is not in acute distress. Appearance: Normal appearance. He is normal weight. He is not ill-appearing or toxic-appearing. Pulmonary: Effort: Pulmonary effort is normal. Breath sounds: Normal breath sounds. Musculoskeletal: General: No swelling, tenderness, deformity or signs of injury. Neurological: Mental Status: He is alert. Sensory: No sensory deficit. Motor: No weakness. Assessment and Plan 40-year old male with left arm tingling, PND, and tension type SNOW - No follow up needed on left arm unless symptoms return. Encouraged ongoing stretching/positioning - I do not think Flonase contributed to SNOW and he will restart. If phlegm does not improve, will return to clinic. Would consider PPI at that point. - Tension type SNOW, showed ROM and stretches. He will do these at home F/u PRN documented in this encounter Plan of Treatment Not on file documented as of this encounter Visit Diagnoses Diagnosis Numbness and tingling in left arm Disturbance of skin sensation PND (post-nasal drip) Postnasal drip Episodic tension-type headache, intractable Episodic tension type headache documented in this encounter Care Teams Patient Relations Manager Relationship Specialty Start Date End Date Efrain Goel PA [facility] [address] PCP - General Family Medicine 08/22/21 05/04/22 documented as of this encounter
--- OUTSIDE RECORDS SUMMARY | 2024-05-26 11:06 | XMS_ITS | Encounter Summary ---
[place] [address] Care Team Providers Care Med Surg Nurse Name Role Phone Kenrick Zavala DO Primary Care Provider [phone] Reason for Referral * Consultation (Routine) - Closed Specialty Diagnoses / Procedures Referred By Dianelys núñez Referred To Contact Rheumatology Diagnoses Psoriasis Randa Alegre MD [facility] [address] [place] [address] [facility] Rheumatology [address] [place] [phone] Referral ID Status Reason Start Date Expiration Date V isits Requested Visits Authorized [id number] Closed Consult, Test & Treat 01/01/2021 01/01/2022 1 1 Reason for Visit * Reason Comments Rash Encounter Details Date Type Department Care Team (Late st Contact Info) Description 01/01/2021 11:00 AM EDT Office Visit Dermatology at [facility] [address] [place] [address] Randa Alegre MD [facility] [address] [facility] [place] [address] Psoriasis Social History Tobacco Use Types Packs/Day Years Used Date Smoking Tobacco: Never Smokeless Tobacco: Never Sex and Gender Information Value Date Recorded Sex Assigned at Male 02/17/2021 6:32 AM EDT Gender Identity Male 09/27/2023 9:31 AM EDT Sexual Orientation Straight 02/17/2021 6: 32 AM EDT documented as of this encounter Progress Notes * Randa Alegre - 01/01/2021 11:00 AM EDT Images from the original note were not included. DEPARTMENT OF DERMATOLOGY Medical Dermatology Clinic Provider: Randa Alegre MD Patient's preferred name Demian Preferred contact method for results []myDH []Letter [x]Phone: Detailed phone message OK? yes Are there any other people with whom we may discuss your care? PAST MEDICAL HISTORY If no, type N. If yes, type date, location, treatment Melanoma N Dysplastic nevi N SCC N BCC N AKs N UV Exposure & Protection N Other relevant past medical history (i.e. eczema, psoriasis, birthmarks, immunosuppression) FAMILY HISTORY If yes, details Melanoma N NMSC N Other relevant family history N SOCIAL HISTORY Occupation: [employer] Hobbies: Other: PRE-PROCEDURE SCREENING If no, type N. If yes, include details below Allergy to lidocaine, epinephrine, Dermabond, chlorhexidine, or adhesives: Bleeding disorder or blood thinners: Implanted devices (Pacemaker, defibrillator, deep brain stimulator, cochlear implant): History of Present Illness: Demian Zaman is a 40 y.o. year old. Patient returns to clinic today for evaluation of a rash on the face and trunk. The rash can be itchy and painful at times. He has been treating with ketoconazole cream daily and desonide cream when the rash is flaring which was recommended at the prior visit. Last visit at [facility] Derm: 07/20/2019 Last visit with this provider: 07/20/2019 Medications: Reviewed in eD-H Allergies: Reviewed in eD-H Skin Examination: Focused skin examination of the face, trunk and extremities was normal with the exception of the findings below Assessment/Plan # Psoriasis - on the nasolabial fold, frontal hairline there are light pink scaly thin plaques. On the trunk there are nummular thin pink scaly plaques AARON was negative for fungal elements - Rx: Triamcinolone 0.1% cream: Apply twice daily to affected areas of the trunk and extremities for 14 days, then take 1 week off, repeat as needed - Discussed risks of prolonged topical corticosteroid use including atrophy, striae, hypopigmentation, tachyphylaxis. - Recommend Salicylic acid wash and toner for daily facial cleanser - Rx: Tacrolimus (Protopic) 0.1% Ointment: Apply twice daily to the affected areas on the face - Discussed risks, including irritation and discomfort with initial application which is expected to improve with continued use, as well as potential for flushing to site of application with use of alcohol. If irritation is experienced, patient instructed to place small amount in refrigerator before applying - Will plan on rheumatology referral for joint pains, question psoriatic arthritis Other items to document in the assessment/plan if relevant ??? N/A RTC: 3 month psoriasis []Note routed to typing secretary [x]Recall has been placed in scheduling system []Appointment scheduled at checkout Scribe attestation: HEATHER Sood has performed the documentation for this encounter in the presence of and acting as a scribe for Randa Alegre MD I performed the above scribed service and agree with the accuracy of the documentation in this encounter. Reviewed and signed by: Randa Alegre MD Dermatology [facility] Patient seen and evaluated with staff manufacturing process technician: Joanna Carter MD Dermatology [facility] * Joanna Carter MD - 01/01/2021 11:00 AM EDT I directly supervised Dr. Alegre during this office visit. Dr. Alegre presented the history and physical exam to me. I then saw and examined this patient with Dr. Alegre . We reviewed the history andpertinent details and I confirmed the physical findings. I agree with the details of the history and physical exam as documented in Dr. Del Rio note. JOANNA CARTER MD Staff Physician documented in this encounter Plan of Treatment Scheduled Referrals Name Type Priority Associated Diagnoses Order Schedule Referral to Rheumatology Outpatient Referral Routine Psoriasis Ordered: 01/01/2021 documented as of this encounter Visit Diagnoses Diagnosis Psoriasis Other psoriasis documented in this encounter Care Teams Med Surg Nurse Relationship Specialty Start Date End Date Kenrick Zavala DO [address] [place] [address] PCP - General 02/10/13 08/21/21 documented as of this encounter
--- OUTSIDE RECORDS SUMMARY | 2024-05-26 11:06 | XMS_ITS | Encounter Summary ---
[place] [address] Care Team Providers Care Personnel Records Clerk Name Role Phone Kenrick Zavala DO Primary Care Provider [phone] Encounter Details Date Type Department Care Team (Late st Contact Info) Description 07/19/2020 [place] [address] Covid, Eligible none Social History Tobacco Use Types Packs/Day Years [...] on filedocumented in this encounter Care Teams Personnel Records Clerk Relationship Specialty Start Date End Date Kenrick Zavala DO [address] [place] [address] PCP - General 02/10/13 08/21/21 documented as of this encounter
--- OUTSIDE RECORDS SUMMARY | 2024-05-26 11:06 | XMS_ITS | Encounter Summary ---
Author Organization [facility] [place] [address] Care Team Providers Care Court Liaison Name Role Phone Kenrick Zavala DO Primary Care Provider Reason for Visit * Reason Comments Medication Refill Encounter Details Date Type Department Care Team (Late st Contact Info) Description 07/20/2019 11:30 AM EST Office Visit Dermatology at [facility] [address] [place] [phone] Maria Luisa Alegre MD [facility] [address] [place] [address] Allergic contact dermatitis, unspecified trigger; Seborrheic dermatitis Social History Tobacco Use Types Packs/Day Years Used Date Smoking Tobacco: Never Smokeless Tobacco: Never Sex and Gender Information Value Date Recorded Sex Assigned at Male 02/17/2021 6:32 AM EDT Gender Identity Male 09/27/2023 9:31 AM EDT Sexual Orientation Straight 02/17/2021 6: 32 AM EDT documented as of this encounter Progress Notes * Maria Luisa Gill - 07/20/2019 11:30 AM EST Images from the original note were not included. DERMATOLOGY - NEW PATIENT NOTE Date of service: 07/20/2019 Demian Zaman : 1980, 38 y.o. Chief Complaint: Chief Complaint Patient presents with ??? Medication Refill HPI: Demian Zaman is a 38 y.o. male with the following concerns: here today for refills for Ketoconazole cream and desonide cream for his diagnosis of seborrheic dermatitis. He states that he has a new rash that started last night after he wore a new shirt that was provided from his work. It is a wrinkle resistant shirt that he washed before wearing and wore an undershirt. Relevant Skin History: - Skin cancer (including type): none - Seborrheic dermatitis on face ?? Family History: Melanoma: no ?? Social History: - works at [employer]: No current outpatient medications on file. No current facility-administered medications for this visit. Allergies: No Known Allergies Review of Systems: - General: Feels well. - Skin: No other skin concerns. Examination: - Constitutional: Patient was alert, well-appearing and in no noticeable distress. - Skin: Skin examination of the face, chest, and abdomen was normal with the exception of the findings listed below. - A female nurse was present and on standby during my examination. Diagnosis/Skin findings/Assessment/Plan: # Allergic contact dermatitis - scattered erythematous papules on the chest - Advised to avoid wrinkle resistant shirts - Start Rx: Triamcinolone cream BID x 2 weeks - RTC if not improving # Seborrheic dermatitis on face - Clear today on exam - Chronic disease that can be managed. Denies scalp involvement. - Well-controlled on current regimen - Ketoconazole as needed, Desonide for flares (apply sparingly to face) - Rx: Ketoconazole and Desonide refilled. RTC: 1 year Note initiated by HEATHER Kent. I, HEATHER Kent, have performed the documentation for this encounter in the presence of and acting as a scribe for Maria Luisa Gill MD. I performed the services which were documented by the scribe, and I agree with the accuracy of the documentation in this encounter. Maria Luisa Gill MD Reviewed and signed by Maria Luisa Gill MD Resident in Dermatology [facility] Patient seen in conjunction with staff tractor crane operator: Mark Zhong MD Section of Dermatology [facility] * Mark Zhong MD - 07/20/2019 11:30 AM EST I directly supervised the Dermatology resident during this office visit. The resident presented thehistory and physical exam to me. I then saw and examined this patient with the resident. We reviewed the history and pertinent details and I confirmed the physical findings. I agree with the details of the history and physical exam as documented in the resident's note. MARK ZHONG MD Staff Physician documented in this encounter Miscellaneous Notes * Addendum Note - Maria Luisa Gill - 07/20/2019 11:30 AM ESTAddended by: MARIA LUISA GILL on: 07/24/2019 08:04 AM Modules accepted: Level of Service documented in this encounter Plan of Treatment Not on file documented as of this encounter Visit Diagnoses Diagnosis Allergic contact dermatitis, unspecified trigger Seborrheic dermatitis Seborrheic dermatitis, unspecified documented in this encounter Care Teams Court Liaison Relationship Specialty Start Date End Date Kenrick Zavala DO [address] [place] [address] PCP - General 02/10/13 08/21/21 documented as of this encounter
--- OUTSIDE RECORDS SUMMARY | 2024-05-26 11:06 | XMS_ITS | Encounter Summary ---
[place] [address] Care Team Providers Care Chief Physical Therapist Name Role Phone Pearl Lloyd APRN Primary Care Provider Reason for Referral * Consultation (Routine) - Closed Specialty Diagnoses / Procedures Referred By Contradha t Referred To Contact Gastroenterology Diagnoses Malignant neoplasm of appendix Elder Addison MD [facility] [place] [address] [facility] [address] [place] [address] Referral ID Status Reason Start Date Expiration Date V isits Requested Visits Authorized [id number] Closed Test Only 07/21/2022 07/21/2023 1 1 Encounter Details Date Type Department Care Team (Late st Contact Info) Description 07/21/2022 11:00 AM EST Office [place] [address] Elder Addison MD [facility] [place] [address] Malignant neoplasm of appendix Social [...] Sign Reading Time Taken Comments Blood Pressure 151/93 07/21/2022 11:04 AM EST Pulse 72 07/21/2022 11:04 AM EST Temperature 36.5 ??C (97.7 ??F) 07/21/2022 11:[address] Respiratory Rate 18 07/21/2022 11:04 AM EST Oxygen Saturation 98% 07/21/2022 11:04 AM EST Inhaled Oxygen Concentration - - Weight 116.1 kg (256 lb) 07/21/2022 11:04 AM EST Height - - Body Mass Index 34.72 07/08/2022 2:09 PM EST documented in this encounter Progress Notes * Elder Addison MD - 07/21/2022 11:00 AM EST Images from the original note were not included. Surgical Oncology Office Note Date: 07/21/2021 Primary and referring physician: Pearl Lloyd APRN Reason for evaluation: Surveillance oncology follow up with coordinated with CT abdomen pelvis. 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 He was diagnosed with a cystic [...] 08/25/17 he underwent laparoscopic exploration with radical [id number] with ligation of the ileocolic pedicle at [...] sent to pathology. See photo below. A cjvn-[id number], functional end-to-end ileocolostomy anastomosis was created using a 75 mm ITZEL stapler ([employer]) and the common [place] enterotomy was closed in 2 layers with an inner layer of 3-0 PDS canal stitch and outer layer of 3-0 silk Lembert stitches. The large mesenteric defect was deliberately not c losed. ? Hospital Course: Uncomplicated. Able to be discharged to home on POD#4. Pathology: 08/25/17 Acc# [id number] ? ADDENDUM DISCUSSION Following interdepartmental consensus, an [...] Jesús Zamorano Verified: ??09/07/2017 ?Pathologist Performed at: ??-[facility]. [place], [place], [place] ? Surgical Pathology DIAGNOSIS Ileo right [...] None identified Objective: Vitals: Blood pressure (!) 151/93, pulse 72, temperature 36.5 ??C (97.7 ??F), resp. rate 18, ppjeab782.1 kg (256 lb), SpO2 98 %. 07/21/2022 he weighed 256 pounds. 07/21/2021 he weighed 243 pounds. His weight [...] radiographic report shows no signs of local recurrence on my read. The final report is pending. This is his fifth year of surveillance and as long as the CT report looks good then he will not need any further oncologic imaging surveillance. I do think he would benefit from having a screening colonoscopy-not because of anything that we see on CT imaging but that it might be a good idea to check by colonoscopy and as long as everything looks good then he can be on schedule for the neck screening study when he turns 51. I put a referral in for colonoscopy and will plan to call him with the CT report. Augustin Addison MD 07/21/2020 This note was created using [employer] voice recognition software. 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
--- OUTSIDE RECORDS SUMMARY | 2024-05-26 11:06 | XMS_ITS | Encounter Summary ---
[place] [address] Care Team Providers Care Food And Beverage Checker Name Role Phone Efrain Goel Primary Care Provider Reason for Referral * Consultation (Routine) - Closed Specialty Diagnoses / Procedures Referred By Dianelys núñez Referred To Contact Urology Diagnoses Blood in semen 04/23/22 - BLOOD IN SEMEN Carl Lopez APRN [facility] [address] [place] [address] [facility] [place] [address] Referral ID Status Reason Start Date Expiration Date V isits Requested Visits Authorized [id number] Closed Specialty Service Requested 04/21/2022 04/21/2023 1 1 Reason for Visit * Reason Comments Annual Exam Encounter Details Date Type Department Care Team (Late st Contact Info) Description 04/02/2022 8:00 AM EDT Office Visit Family Medicine at [facility] [address] [place] [address] Carl Lopez APRN [facility] [address] [place] [address] Blood in semen; Pain in left testicle; Healthcare maintenance; Annual physical exam Social History Tobacco Use Types Packs/Day Years [...] Sign Reading Time Taken Comments Blood Pressure 147/79 04/02/2022 7:59 AM EDT Pulse 83 04/02/2022 7:59 AM EDT Temperature 36.6 ??C (97.9 ??F) 04/02/2022 7:59 AM ED T Respiratory Rate 16 04/02/2022 7:59 AM EDT Oxygen Saturation 99% 04/02/2022 7:59 AM EDT Inhaled Oxygen Concentration - - Weight 107.7 kg (237 lb 6.4 oz) 04/02/2022 7:59 AM EDT Height 182.9 cm (6' 0.01) 04/02/2022 7:59 AM ED T Body Mass Index 32.19 04/02/2022 7:59 AM EDT documented in this encounter Progress Notes * Carl Lopez, RECORDER HELPER SEISMOGRAPH - 04/02/2022 8:00 AM EDT Subjective: Patient ID: Shabana Zaman is a 41 y.o. male presenting for annual preventative exam. Chief Complaint Patient presents with ??? Annual Exam Concerns to discuss today: Left testicle pain- first time happened in October, TH with Dr. 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 Denies trauma to the area. No swelling no urine problems, no blood in urine, no lumps or bumps. 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 triamcinolone (Kenalog) 0.1 % Cream Apply topically to the affected areas of the trunk and extremities for 14 days. Take 1 week off, repeat as needed. 453.6 g 1 ??? tacrolimus (PROTOPIC) 0.1 % Ointment Apply twice daily to the affected area of the face 100 g 3 No current facility-administered medications for this visit. Review of Systems: Review of Systems -Female 50 to 75 04/02/2022 Constitutional None of the above Ear / nose / throat / mouth None of the above Eyes None of the above Respiratory Thick mucous or spit (Sputum or Phlegm) Cardiovascular None of the above Gastrointestinal Blood in stools, Constipation, Change in stools Skin, hair None of the above Musculoskeletal Joint stiffness, Muscle stiffness Neurological Headaches Hematologic / Lymphatic Don't know PHQ9 Questionnaires Data (Clinic and Pt Entered): Today's value PHQ-9 QUESTIONNAIRE (AMB) 04/02/2022 Little interest or pleasure (Patient) Not at all Down, depressed, hopeless (Patient) Several days assessed-patient not depressed I reviewed and updated the problem list and med list in [facility] Objective: BP 147/79 (BP Location (NBP): Left arm, Patient Position: Sitting, BP Cuff Sizes: Large Adult (32-43 cm)) Pulse 83 Temp 36.6 ??C (97.9 ??F) (Temporal) Resp 16 Ht 182.9 cm (6' 0.01) Wt 107.7 kg (237 lb 6.4 oz) SpO2 99% BMI 32.19 kg/m?? Patient reported measures: Pain:0 Physical Health:Very Good Physical Exam Constitutional: General: He is not in acute distress. Appearance: Normal appearance. He is normal weight. HENT: Head: Normocephalic and atraumatic. Nose: Nose normal. Mouth/Throat: Mouth: Mucous membranes are moist. Pharynx: Oropharynx is clear. Eyes: Pupils: Pupils are equal, round, and reactive to light. Neck: Vascular: No carotid bruit. Cardiovascular: Rate and Rhythm: Normal rate and regular rhythm. Pulses: Normal pulses. Heart sounds: Normal heart sounds. Pulmonary: Effort: Pulmonary effort is normal. No respiratory distress. Breath sounds: Normal breath sounds. Abdominal: General: Abdomen is flat. Bowel sounds are normal. There is no distension. Palpations: Abdomen is soft. There is no mass. Musculoskeletal: General: No swelling, tenderness, deformity or signs of injury. Normal range of motion. Cervical back: Neck supple. No tenderness. Skin: General: Skin is warm and dry. Capillary Refill: Capillary refill takes less than 2 seconds. Neurological: General: No focal deficit present. Mental Status: He is alert and oriented to person, place, and time. Psychiatric: Mood and Affect: Mood normal. Behavior: Behavior normal. Thought Content: Thought content normal. Most recent labs: Lab Results Component Value Date HA1C 5.1 04/02/2022 Lab Results Component Value Date CREATININE 0.80 04/02/2022 Lipid Panel Lab Results Component Value Date CHLPL 118 04/02/2022 HDL 38 04/02/2022 CHOLHDL 3.1 04/02/2022 TRIG 86 04/02/2022 LDLCHOL 63 04/02/2022 Assessment and Plan: 1. Blood in semen Likely benign, normal process, however will work up given previous history of incidentally found appendix cancer several years ago. Recent CT was WNL - Comprehensive metabolic panel (non-fasting); Future - CBC (with Diff); Future - US Scrotum; Future 2. Pain in left testicle Given h/o appendix cancer and patient stress regarding this, can get US scrotum to rule out abnormalities - US Scrotum; Future 3. Healthcare maintenance - Hepatitis C Antibody; Future - Lipid Panel (Reflex Direct LDL); Future - HIV Screen, 4th Generation ([facility]/CGP/APD/NL); Future - Hemoglobin A1c; Future 4. Annual physical exam Age appropriate guidance and screenings discussed including: reduce salt in diet and cooking, reduce exposure to stress, improve dietary compliance and continuecurrent medications Health maintenance activity tracking: Health Maintenance Topic Date Due ??? Covid-19 Vaccine (1) Never done ??? Tdap adult Never done ??? Tetanus vaccine Never done ??? Influenza (Flu) vaccine (1 of 1 - Influenza standard series) Never done ??? Diabetes Screening (HgbA1C or Glucose) 04/02/2025 ??? Lipid Screening 04/02/2027 ??? Hepatitis C Screening Completed ??? HIV screen Completed Follow up as needed with new or worsening concerns, and annually for exam. Carl Lopez APRN documented in this encounter Miscellaneous Notes * Addendum Note - Carl Lopez APRN - 04/02/2022 8:00 AM EDTAddended by: CARL LOPEZ on: 04/21/2022 05:27 PM Modules accepted: Orders documented in this encounter Plan of Treatment Scheduled Referrals Name Type Priority Associated Diagnoses Orde r Schedule Referral to Urology Outpatient Referral Routine Blood in semen Ordered: 04/21/2022 documented as of this encounter Results * US Scrotum (04/17/2022 [...] who have questions, please contact the health customer care agent that requested your imaging first. ?Nat Lyman, Staff Physician Electronically Signed Final Report ?? 04/17/2022 03:20 pm Narrative 04/17/2022 3:21 PM EDT Scrotal ? (Signed Final 04/17/2022 03:20 pm) PATIENT INFO: ID #: ? [id number] ?: ??[birth year] (41 yrs)(M) Name: ? SHABANA C MONISHA ?Visit Date: 04/17/2022 02:07 pm PERFORMED BY: Performed By: ? Alonso Antonio RDMS Attending: ?Nat Lyman MD Referred By: ?CARL LOPEZ Location: ? [place] SERVICE(S) PROVIDED: [facility] - Scrotum and Contents with Limited Vascular ?88613, [id number] evaluation - [id number] INDICATIONS: left testicle pain, intermittient with bloody [...] 04/17/2022 03:20 pm) PATIENT INFO: ID #: [id number] : [birth year] (41 yrs)(M) Name: SHABANA ZAMAN Visit Date: 04/17/2022 02:07 pm PERFORMED BY: Performed By: Alonso Antonio RDMS Attending: Nat Lyman MD Referred By: CARL LOPEZ Location: [place] SERVICE(S) PROVIDED: [facility] - Scrotum and Contents with Limited Vascular 10752, 26489 evaluation - [id number] INDICATIONS: left testicle pain, intermittient with bloody [...] who have questions, please contact the health customer care agent that requested your imaging first. Nat Lyman, Staff Physician Electronically Signed Final Report 04/17/2022 03:20 pm Carl Lopez [facility] ORDERABLE S * Hemoglobin A1c (04/02/2022 9:45 AM EDT) Hemoglobin A1c 5.1 4.3 - 5.6 % [facility] Estimated Average Glucose 100 mg/dL [facility] Blood 04/02/2022 9:45 AM EDT 04/02/2022 9:51 AM EDT Narrative Resulting Agency Comment Spec In Lab Carl Erica Kyle LOUIE CHEMISTRY ORDERABLES Performing Organization Address [facility] de Phone Number [facility] [address] [place] [address] * HIV Screen, 4th Generation ([facility]/CGP/APD/NLH) (04/02/2022 9:45 AM EDT) [facility] HIV Ab/Ag Screen Negative Negative [facility] Comment: This 4th Generation [...] HIV Comment Low Risk of HIV Infection [facility] Blood 04/02/2022 9:45 AM EDT 04/02/2022 3:49 PM EDT Narrative Resulting Agency Comment Spec In Lab Carl Lopez APRN CHEMISTRY ORDERABLES Performing Organization Address [facility] Co de Phone Number [facility] [place] [address] * Lipid Panel (Reflex Direct LDL) (04/02/2022 9:45 AM EDT) Pathologist [facility] Cholesterol, Total 118 mg/dL [facility] Comment: Lower Risk: <200 mg/dL Average Risk: 200-239 mg/dL Higher Risk: >zs=937 mg/dL Triglyceride 86 mg/dL [facility] Comment: Average Risk/Lower Risk: <150 mg/dL Borderline High Risk: 150-199 mg/dL High Risk: 200-499 mg/dL Very High Risk: >ss=488 mg/dL HDL Cholesterol 38 mg/dL [facility] Comment: Males: ?? Higher Risk: <40 mg/dL Females: ?? Higher Risk: <50 mg/dL LDL Cholesterol 63 mg/dL [facility] Comment: Lowest Risk: <100 mg/dL Lower Risk: 100-129 mg/dL Borderline High Risk: 130-159 mg/dL High Risk: 160-189 mg/dL Very High Risk: >ol=673 mg/dL Cholesterol/HDL Ratio 3.1 ratio [facility] Lipid Interpretation See Note [facility] Comment: Lipid management should be guided by a patient? s ASCVD risk, goals and preferences. ACC/AHA Guidelines recommend high intensity statin if clinical ASCVD or LDL greater than or equal to 190 mg/dL. http://Nuevolution.Carsabi/MDA-VMH-Vhotgexjs Adults aged 40-75 with LDL 70-189 mg/dL should have their 10 year ASCVD risk estimated with the ACC/AHA ASCVD risk airport screener http://tools.acc.org/LQHHN-Afua-Ovgeewnsq/ Statin should be discussed if risk greater [...] Narrative Resulting Agency Comment Spec In Lab Carl Lopez APRN CHEMISTRY ORDERABLES [facility] [address] [place] [address] * Hepatitis C Antibody (04/02/2022 9:45 AM EDT) Hepatitis C Antibody Negative Negative [facility] Blood 04/02/2022 9:45 AM EDT 04/02/2022 3:49 PM EDT Narrative Resulting Agency Comment Spec In Lab Carl Lopez JACY CHEMISTRY ORDERABLES [facility] [place] [address] * (ABNORMAL) Comprehensive metabolic panel (non-fasting) (04/02/2022 9:45 AM EDT) Pathologist [facility] Glucose 105 65 - 199 mg/dL [facility] Comment:Diabetes: >=200 mg/d L plus symptoms Blood Urea Nitrogen 13 10 - 20 mg/dL [facility] Creatinine 0.80 0.80 - 1.50 mg/dL [facility] Sodium 141 135 - 145 mmol/L [facility] Potassium 3.7 3.5 - 5.0 mmol/L [facility] Comment: Please note: ??Patients with WBC >100,000 may have falsely elevated Potassium levels. ??For accurate Potassium quantification in these patients send serum separator tube (gold top) for subsequent determinations. ??Contact the Clinical Chemistry Laboratory if there are any questions. Chloride 101 98 - 107 mmol/L [facility] Carbon Dioxide 24 22 - 31 mmol/L [facility] Anion Gap 16(H) 5 - 15 mmol/L [facility] Calcium 9.0 8.5 - 10.5 mg/dL [facility] Protein, Total 7.3 6.1 - 8.0 g/dL [facility] Albumin 4.7 3.2 - 5.2 g/dL [facility] Aspartate Aminotransferase 15 0 - 39 unit/L [facility] Alanine Aminotransferase 12 0 - 55 unit/L [facility] Alkaline Phosphatase 67 40 - 130 unit/L [facility] Bilirubin, Total 0.9 0.2 - 1.3 mg/dL [facility] Est Glomerular Filtration Rate 115 >=60 mL/min/1. 73 m?? [facility] Comment: This patient's estimated GFR was [...] Narrative Resulting Agency Comment Spec In Lab Carl Lopez APRN CHEMISTRY ORDERABLES [facility] [address] [place] [address] documented in this encounter Visit Diagnoses Diagnosis Blood in semen Hematospermia Pain in left testicle Unspecified disorder of male genital organs Healthcare maintenance Routine general medical examination at a health care facility Annual physical exam Routine general medical examination at a health care facility Blood in semen Hematospermia Pain in left testicle Unspecified disorder of male genital organs documented in this encounter Care Teams Food And Beverage Checker Relationship Specialty Start Date End Date Efrain Goel PA [facility] [address] [facility] [place] [address] PCP - General Family Medicine 08/22/21 05/04/22 documented as of this encounter
--- OUTSIDE RECORDS SUMMARY | 2024-05-26 11:06 | XMS_ITS | Encounter Summary ---
Author Organization [facility] Address [facility] [place] [address] Care Team Providers Care Talent Acquisition Lead Name Role Phone Pearl Lloyd APRN Primary Care Provider Reason for Visit * Reason Onset Date Comments Medication Refill 09/19/2021 Encounter Details Date Type Department Care Team (Late st Contact Info) Description 09/19/2021 Refill Dermatology at [facility] [address] [place] [phone] Randa Alegre MD [facility] DR [address] [place] [address] Psoriasis Social History Tobacco Use Types Packs/Day [...] psoriasis documented in this encounter Care Teams Talent Acquisition Lead Relationship Specialty Start Date End Date Pearl Lloyd APRN [address] [place] [address] PCP - General 05/05/22 documented as of this encounter
--- OUTSIDE RECORDS SUMMARY | 2024-05-26 11:06 | XMS_ITS | Encounter Summary ---
Author Organization [facility] [place] [address] Care Team Providers Care [employer] Reading Teacher Name Role Phone Pearl Lloyd APRN Primary Care Provider Encounter Details Date Type Department Care Team (Late st Contact Info) Description 03/26/2022 Telephone Family Medicine at [facility] [address] [place] [phone] Lynnette Wright APRN [facility] [address] [facility] [address] Social History Tobacco Use Types Packs/Day Years [...] encounter Miscellaneous Notes * Telephone Encounter - Aniya Molina RN - 03/26/2022 3:04 PM EDT Caller: Demian Zaman Patient identified by name and Chief complaint: brown ejaculate Onset: 03/23 Description of symptoms: earlier in year had blood in ejaculate, spoke with provider (see TH 11/10/21) who said nothing to worry about. No bright red blood noticed at the beginning of this episode, pt states he and may not have noticed it, but has been brown since 03/23. Denies: trauma or pain to bladder/kidney/groin, fever, unusual semen odor, pain on urination, discolored/decreased urine, genital swelling/discoloration, Pertinent hx: 11/01/21- [facility] urgent care - Hematospermia, and 11/10/21 TH for same. Telehealth screen: [x] Established patient [x] Will be in [place] or [place] at time of visit [x] Has access to Internet smart phone or computer with camera [] Would need phone visit Negative Plan: [] Will review with PCP/COS and call patient back [x] Appointment scheduled date:physical on 04/02/22 w/Lynnette Wright APRN [] Advised to seek urgent care [] Advised to seek emergent care [] Call 911. Home Care Instructions provided per: [x] [place] Telephone Triage Protocols for Nurses 6th edition Recommendations for worsening condition: call clinic Does the Patient agree and understand the instructions provided: yes Note routed to: Lynnette Wright APRN For review. * Telephone Encounter - Aniya Molina RN - 03/26/2022 2:55 PM EDT ----- Message from Ayala Najera sent at 03/26/2022 11:52 AM EDT ----- Regarding: FW: Appointment Request Contact: ----- Message ----- From: Demian Zaman Sent: 03/26/2022 11:27 AM EDT To: [facility] Internal/Family Medicine [place] Subject: Appointment Request Appointment Request From: Demian Zaman With Provider: MONIKA DOHERTY APRN [Family Medicine at [facility]] Preferred Date Range: Any date 03/26/2022 or later Preferred Times: Any Time Reason for visit: Possible referral to urologist Comments: I have had brown colored ejaculate for the past three days. Wondering if its cause for concern? documented in this encounter Plan of Treatment Not on file documented as of this encounter Visit Diagnoses Not on filedocumented in this encounter Care Teams [employer] Reading Teacher Relationship Specialty Start Date End Date Pearl Lloyd APRN [address] [place] [address] PCP - General 05/05/22 documented as of this encounter
--- OUTSIDE RECORDS SUMMARY | 2024-05-26 11:06 | XMS_ITS | Encounter Summary ---
[place] [address] Care Team Providers Care In House Counsel Name Role Phone Kenrick Zavala DO Primary Care Provider Encounter Details Date Type Department Care Team (Late st Contact Info) Description 09/14/2017 Multidisciplinary Ca re Committee [place] [address] Elder Addison MD [facility] [place] [address] Social History Tobacco Use Types Packs/Day Years Used Date Smoking Tobacco: Never Smokeless Tobacco: Never Sex and Gender Information Value Date Recorded Sex Assigned at Male 02/17/2021 6:32 AM EDT Gender Identity Male 09/27/2023 9:31 AM EDT Sexual Orientation Straight 02/17/2021 6: 32 AM EDT documented as of this encounter Progress Notes * Elder Addison MD - 09/14/2017 5:08 AM EDT GI - Tumor Board Note Date Presented: 09/14/2017 Presenting Physician: Elder Addison MD 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 Zaman is a 36 year old man from [place], [place]. He presented to Dr. Zavala for his annual physical exam but with a history of more frequent nocturnal urinary incontinence. A UA was negative. ? 07/26/17 CT abdomen and pelvis showed a non enhancing thin walled fluid collection in the right pericolic gutter that measured 5.4 x 7.7 cm. Differential diagnosis included appendiceal mucocele. 08/25/17 he underwent laparoscopic assisted radical ileo-right colectomy with ligation of ileocolic at base of mesentery. Intraop findings reviewed below: There was a large malignant appearing mass arising from the appendix that appeared to involve the cecum and at least the mesoappendix with adenopathy. A formal ileocolectomy was performed and radical lymphadenectomy taking the ileocolic pedicle at the base of the mesentery. The specimen was retrieved through a medium Luis wound protector and sent to pathology. See photo below. A [id number], functional end-to-end ileocolostomy anastomosis was created using a 75 mm ITZEL stapler (blue Inotec AMD) and the common [place] enterotomy was closed in 2 layers with an inner layer of 3-0 PDS canal stitch and outer layer of 3-0 silk Lembert stitches. The large mesenteric defect was deliberately not closed. 08/25/17 surgical pathology per Acc# [id number] copied below: Surgical Pathology DIAGNOSIS Ileo right colectomy with mesentery, resection: Low-grade appendiceal mucinous neoplasm, pT1N0. Margins negative for neoplastic epithelium and accelular mucin. The entire appendix was submitted and examined. See synoptic report. Synoptic report: Specimen Parts: ?? terminal ileum, cecum, appendix, ascending colon Procedure: ??Appendectomy and right colectomy Tumor ?Tumor Site: [...] Involved: ?0 ?Number of Lymph Nodes Examined: ?28 (note: addendum counted 0/27 + 0/1 from original pathology report) Today, at the GI Tumor Board we reviewed the preop CT imaging and the pathology report. The histology showed a low grade mucinous epithelium within the wall of the appendix-the muscularis mucosa. commented from the pathology perspective that on the most recent staging classification-the 8th edition of the AJCC staging this would be classified as a low grade mucinous neoplasm confined to the submucosae with mucin within the appendiceal wall consistent with pTis rather than a pT1 lesion. This is great news as this essentially suggests that this is a carcinoma in situ rather thanan invasive carcinoma. There is no evidence of penetration, both at the time of laparoscopy and micr oscopically, through the appendiceal serosa. The group felt that no additional therapy therefore would be needed or recommended but that surveillance could be performed with twice annual CT imaging and then after [address] until year 5. Problem List (Comorbidities): Patient Active Problem List Diagnosis Code ??? Mass of appendix K38.9 Imaging: As above. Pathology: As above. Stage: As above. Clinical Data (Exams, Labs, etc.): As above. Histology: As above. Clinical Trial Availability: As above. Options Discussed: As above. Recommendations: As above. DISCLAIMER: The patient was discussed and the tumor board made recommendations but it is ultimatelyup to the treatment provider(s) and the patient to determine the patient???s care. Augustin Addison MD This note was created using August voice recognition software. documented in this encounter Plan of Treatment Not on file documented as of this encounter Visit Diagnoses Not on filedocumented in this encounter Care Teams In House Counsel Relationship Specialty Start Date End Date Kenrick Zavala DO [address] [place] [address] PCP - General 02/10/13 08/21/21 documented as of this encounter
--- OUTSIDE RECORDS SUMMARY | 2024-05-26 11:07 | XMS_ITS | Encounter Summary ---
[place] [address] Care Team Providers Care Accordion Maker Name Role Phone Kenrick Zavala DO Primary Care Provider Reason for Visit * Consultation (FILEMON) - Closed Specialty Diagnoses / Procedures Referred By Contradha t Referred To Contact General Surgery Diagnoses Mucinous cystadenoma of appendix Kenrick Zavala DO [address] [place] [address] Elder Addison MD [facility] [place] [address] Referral ID Status Reason Start Date Expiration Date Visits Re quested Visits Authorized [id number] Closed 07/27/2017 07/27/2018 1 1 Encounter Details Date Type Department Care Team (Late st Contact Info) Description 08/03/2017 1:00 PM EST Office Visit [place] [id number] Elder Addison MD [facility] [place] [address] Mass of appendix Social History Tobacco Use Types [...] Sign Reading Time Taken Comments Blood Pressure 137/66 08/03/2017 12:40 PM EST Pulse 81 08/03/2017 12:40 PM EST Temperature 36.8 ??C (98.2 ??F) 08/03/2017 12:[address] Respiratory Rate 12 08/03/2017 12:40 PM EST Oxygen Saturation 99% 08/03/2017 12:40 PM EST Inhaled Oxygen Concentration - - Weight 97.7 kg (215 lb 6.4 oz) 08/03/2017 12:40 PM EST Height 185.4 cm (6' 1) 08/03/2017 12:40 PM EST Body Mass Index 28.42 08/03/2017 12:40 PM EST documented in this encounter Progress Notes * Elder Addison MD - 08/03/2017 1:00 PM EST Surgical Oncology Consultation Note Date: 07/30/2017 Primary and referring physician: Kenrick Zavala DO Reason for evaluation: Surgery consult requested by Dr. 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 History of the present illness: Mr. Zaman is a 36 year old man from [place], [place]. He presented to Dr. Zavala for his annual physical exam but with a history of more frequent nocturnal urinary incontinence. A UA was negative. 07/26/17 CT abdomen and pelvis showed a non enhancing thin walled fluid collection in the right pericolic gutter that measured 5.4 x 7.7 cm. Differential diagnosis included appendiceal mucocele. Today: He comes into the clinic today accompanied by his -Margaux. He says this all started because it happened to notice that I was waking up at night having to peed the bed-it only happened about 4 times over the past year and a half but I thought it was something that I should have looked at.Dr. Zavala order this CAT scan which showed a mass in my abdomen. He denied any abdominal complaints. No nausea. No early satiety. No decreased appetite his weight has remained stable at 210 pounds. No history of pancreatitis. No history of colitis. No changes in his bowel habits. He has not had any recurrent nocturia symptoms since he saw Dr. Zavala. No dysuria, hematuria orother urinary symptoms. No increased frequency of urination. Past Medical History: 1. Appendiceal mass as above. Past Surgical History: None. Review of systems: A comprehensive ROS questionnaire (scanned into [facility]) was completed by the patient. He is very healthy. Active with no issues or problems identified on the ROS questionnaire. All other systems on the questionnaire were reviewed and were negative. 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 He drinks 1 glass of beer socially on occasion with nohistory of heavy alcohol use. He does not smoke. Family History: He has 2 brothers, no sisters, 2 sons and no daughters. Both his mother and father are alive and well. There is no family history of cancer. Medications: None. Allergies: No known drug allergies. Physical Examination: Vital signs: Blood pressure 137/66, pulse 81, temperature 36.8 ??C (98.2 ??F), temperature source Oral, resp. rate 12, height 185.4 cm (6' 1), weight 97.7 kg (215 lb 6.4 oz), SpO2 99 %. General: He is very well-appearing and looks athletic in no distress. He is here today with his Margaux. Mood: Affect not blunted. Good eye contact. No depressive or anxious signs. Skin: No jaundice, lesions or masses noted. HEENT: Sclera is anicteric. No supraclavicular or cervical adenopathy. I auscultated the neck and heard no carotid bruits bilaterally. Chest: Clear to auscultation bilaterally on posterior chest lemon. Heart: RRR with no murmurs appreciated. Abdomen: Soft, nondistended, completely nontender, no palpable masses or surgical scars. No hernias. No inguinal masses or adenopathy. Extremity exam: No peripheral edema bilaterally. DP palpable bilaterally. Neuro: Gait assessed and no instability. Radiographic studies: 07/26/17 CT abdomen and pelvis ([facility]) reviewed below: No normal appendix is seen and no surgical material to suggest appendectomy. A tubular, low attenuation (21 Hounsfield units), partially inferiorly calcified structure with mild mural enhancement however no thick mott in the right lower quadrant measures 12.6 x 4.7 x 4.6 cm. A possible origin of the appendix from the cecal pole is seen on series 16, image 599. There are multiple calcifications along the dependent and nondependent mott. No adjacent inflammation. The terminal ileum abuts the but is normal without adjacent inflammation. IMPRESSION 1. Normal kidneys, ureters and bladder. 2. UNEXPECTED FINDING: Cystic mass in the right lower quadrant, and given the failure to identify the appendix and the lack of history of appendectomy, primary consideration is a mucocele. Recommend gastroenterology/surgical consultation. Assessment and plans: Mr. 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 He was recently diagnosed with a cystic mass arising from the appendix that was found incidentally during a workup for nocturia. His nocturia symptoms which are relatively mild-4 episodes over the past year and a half have not recurred since he underwent evaluation by Dr. Zavala where the CT scan was obtained. I rev iewed the CT closely as well as the report and the images today in clinic with Demian and his Margaux. There is a thin rim with calcifications and looks to be retrocecal displacing the ileum anteriorly and medially. There is no evidence of mucin deposits elsewhere. The liver looks normal. I agree with the radiologic report which describes the differential considerations to include appendiceal m ucocele, mucinous cystadenoma or cyst adenocarcinoma versus a benign gastrointestinal cyst. Withoutany symptoms to suggest prior or recent abdominal pain/appendicitis suspect that this will represent a noninflammatory process and accordingly laparoscopic appendectomy was recommended. I will plan to excise the base of the appendix and even possible partial cecectomy if necessary to obtain a margin negative resection. We will make sure to not have or experience any spillage as well as do a full laparoscopic exploration. Informed consent was obtained. Surgery is currently scheduled for 08/25/2017. Augustin Addison MD 08/03/2017 1:46 PM This note was created using ROV[employer] voice recognition software. documented in this encounter Plan of Treatment Not on file documented as of this encounter Visit Diagnoses Diagnosis Mass of appendix Other and unspecified diseases of appendix documented in this encounter Care Teams Accordion Maker Relationship Specialty Start Date End Date Lucas, Kenrick, DO [address] [place] [address] PCP - General 02/10/13 08/21/21 documented as of this encounter
--- OUTSIDE RECORDS SUMMARY | 2024-05-26 11:07 | XMS_ITS | Encounter Summary ---
Author Organization [facility] [place] [address] Care Team Providers Care Molding Room Supervisor Name Role Phone Kenrick Zavala DO Primary Care Provider Reason for Visit * Reason Comments Follow-up Encounter Details Date Type Department Care Team (Late st Contact Info) Description 07/08/2017 11:20 AM EST Office Visit Dermatology at [facility] [address] [place] [phone] Wen Arriaga MD [facility] [address] [facility] [address] Seborrheic dermatitis Social History Tobacco Use Types Packs/Day Years Used Date Smoking Tobacco: Never Smokeless Tobacco: Never Sex and Gender Information Value Date Recorded Sex Assigned at Male 02/17/2021 6:32 AM EDT Gender Identity Male 09/27/2023 9:31 AM EDT Sexual Orientation Straight 02/17/2021 6: 32 AM EDT documented as of this encounter Patient Instructions * Patient Instructions* Anson Wong LPN - 07/08/2017 11:20 AM EST Tirso villegas documented in this encounter Progress Notes * Wen Arriaga 07/08/2017 11:20 AM EST DERMATOLOGY - ESTABLISHED PATIENT FOLLOW-UP Date of service: 07/08/2017 Demian Zaman : 1980, 36 y.o. CC: Seborrheic dermatitis on face HPI: Demian Zaman is a 36 y.o. male hx of [place] derm last seen by Dr. Troncoso 4 years ago. Here today refills of Ketoconazole and Desonide. He uses the Desonide 2-3 days in a row only. The area on the right side of his nose is the worst. Relevant Skin History: - Skin cancer (including type): none - Seborrheic dermatitis on face Family History: Melanoma: no Social History: - works at [employer] Medications: Current Outpatient Prescriptions Medication Sig Dispense Refill ??? desonide (DESOWEN) 0.05 % cream Apply to affected areas of face twice daily as needed. 30 g 6 ??? ketoconazole (NIZORAL) 2 % cream Apply twice daily to affected areas of face. 30 g 10 No current facility-administered medications for this visit. Allergies: No Known Allergies Review of Systems: - General: Feels well. - Skin: No other skin concerns. Examination: - Constitutional: Patient was alert, well-appearing and in no noticeable distress. - Skin: Skin examination of the face. Diagnosis/Skin findings/Assessment/Plan: 1. Seborrheic dermatitis on face - Mild scale overlying erythematous patches along nasolabial folds. - Chronic disease that can be managed. Denies scalp involvement. - Recommended rotating OTC antidandruff shampoos - Nizoral, Head and Shoulders, and Selsun blue. Can use on face. - Rx: Ketoconazole and Desonide refilled. Scripts sent [facility] in [place]. - Desonide should not be used more than 14 days total per month, but ideally 5 or less at a time. RTC: As needed. Follow with PCP. Note initiated by ANSON WONG LPN. I am documenting this encounter acting as the scribe for and inthe presence of Wen Arriaga MD I performed the above scribed service and agree with the accuracy of the documentation in this encounter. Reviewed and signed by: Wen Arriaga MD Resident in Dermatology [facility] Staff restaurant front manager: Celsa Mancilla MD Section of Dermatology [facility] * Celsa Mancilla MD - 07/08/2017 11:20 AM EST I was the supervising physician working with dermatology resident Dr. Wen Arriaga in the dermatology clinic during this patient visit. The level of Resident supervision for this patient visit was indirect supervision with direct supervision immediately available. (definition: [facility]ME Policy Statement on Graduate Medical Education, Supervision of Graduate Medical Trainees) I was immediately available to Dr. Arriaga for questions and discussion regarding this visit. I have reviewed her encounter note details and level of service. Celsa Mancilla MD Staff Physician documented in this encounter Plan of Treatment Not on file documented as of this encounter Visit Diagnoses Diagnosis Seborrheic dermatitis Seborrheic dermatitis, unspecified documented in this encounter Care Teams Molding Room Supervisor Relationship Specialty Start Date End Date Kenrick Zavala DO [address] [place] [address] PCP - General 02/10/13 08/21/21 documented as of this encounter
--- OUTSIDE RECORDS SUMMARY | 2024-05-26 11:07 | XMS_ITS | Encounter Summary ---
Author Organization [facility] Address [facility] [place] [address] Care Team Providers Care Ticker Installer Name Role Phone Kenrick Zavala DO Primary Care Provider [phone] Encounter Details Date Type Department Care Team (Late st Contact Info) Description 07/26/2017 - 07/26/2017 11:59 PM EST Hospital Encounter Radiology Library at [facility] [place] [address] Kenrick Zavala DO [address] [place], [place] [id number] Discharge Disposition: Home Social History Tobacco Use [...] up to 7 days in a row. 30 g 10 07/14/2017 02/22/2018 desonide (DESOWEN) 0.05 % CreamIndications:Seborrh eic dermatitis Apply to affected areas of face twice daily as needed. No more than 14 days per month. 30 g 6 07/14/2017 02/22/2018 documented as of this encounter Plan of Treatment Not on file documented as of this encounter Procedures Procedure Name Priority Date/Time Associated Diagnosis Comments FILM LIBRARY STORAGE ONLY CT ABDOMEN AND PELVIS Routine 07/26/2017 12:00 AM EST documented in this encounter Results * Film Library- Storage Only CT Abdomen & Pelvis (07/26/2017 12:00 AM EST) Narrative ZAINA IYER - 07/27/2017 11:05 AM EST This exam is for storage only and is auto-finalizing. Kenrick Zavala DO [facility] FILM LIBRARY ORD ERABLES [place], [place] documented in this encounter Visit Diagnoses Not on filedocumented in this encounter Care Teams Ticker Installer Relationship Specialty Start Date End Date Kenrick Zavala DO [address] [place] [address] PCP - General 02/10/13 08/21/21 documented as of this encounter
--- OUTSIDE RECORDS SUMMARY | 2024-05-26 11:07 | XMS_ITS | Encounter Summary ---
Author Organization Replaced By [facility] Address [facility] [place] [address] Care Team Providers Care Utility Tech Name Role Phone Kenrick Zavala DO Primary Care Provider [phone] Reason for Visit * Auth/Cert Specialty Diagnoses / Procedures Referred By Dianelys núñez Referred To Contact Diagnoses APPENDIX MASS Procedures PRO LAP, APPENDECTOMY LAPAROSCOPIC APPENDECTOMY (WRVU 9.45) Referral ID Status Reason Start Date Expiration Date Visits Re quested Visits Authorized [id number] 1 1 Encounter Details Date Type Department Care Team (Late st Contact Info) Description 08/25/2017 9:07 AM EST - 08/28/2017 10:22 AM EST Hospital Encounter Inter[place] [id number] Elder Addison MD [facility] [place] [address] Discharge Disposition: Home Social History Tobacco Use [...] Sign Reading Time Taken Comments Blood Pressure 112/72 08/28/2017 7:44 AM EST Pulse 74 08/28/2017 7:44 AM EST Temperature 36.8 ??C (98.2 ??F) 08/28/2017 7:44 AM ES T Respiratory Rate 20 08/27/2017 11:40 AM EST Oxygen Saturation 96% 08/28/2017 7:44 AM EST Inhaled Oxygen Concentration - - Weight 97.5 kg (215 lb) 08/25/2017 9:53 AM EST Height 185.4 cm (6' 1) 08/25/2017 9:53 AM EST Body Mass Index 28.37 08/25/2017 9:53 AM EST documented in this encounter Discharge Summaries * Kassie Sanabria MD - 08/28/2017 8:18 AM EST General Surgery Inpatient - Discharge Summary Patient Name: Demian Zaman Patient Age: 36 y.o. Birthdate: 1980 Admit date: 08/25/2017 Discharge date: 08/28/17 Admitting Physician: Elder Addison MD Primary Diagnosis: Mass of appendix Secondary Diagnosis: Active Hospital Problems Diagnosis ??? Mass of appendix Resolved Hospital Problems Diagnosis Date Resolved No resolved problems to display. There are no active non-hospital problems to display for this patient. HPI: Obtained from Dr. Elder Addison's Office Visit Note dated 08/03/17. Reason for evaluation: Surgery consult requested by Dr. 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 ?? History of the present illness: Mr. Zaman is a 36 year old man from [place], [place]. He presented to Dr. Zavala for his annual physical exam but with a history of more frequent nocturnal urinary incontinence. A UA was negative. ? 07/26/17 CT abdomen and pelvis showed a non enhancing thin walled fluid collection in the right pericolic gutter that measured 5.4 x 7.7 cm. Differential diagnosis included appendiceal mucocele. ?? Today: He comes into the clinic today [...] which showed a mass in my abdomen. ?? He denied any abdominal complaints. No nausea. No early satiety. No decreased appetite his weight has remained stable at 210 pounds. No history of pancreatitis. No history of colitis. No changes in his bowel habits. ?? He has not had any recurrent nocturia symptoms since he saw Dr. Zavala. No dysuria, hematuria orother urinary symptoms. No increased frequency of urination. 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 A formal ileocolectomy was performed and radical lymphadenectomy taking the ileocolic pedicle at the base of the mesentery. The specimen was retrieved through a medium Luis wound protector and sent to pathology. See photo below. A [id number], functional end-to-end ileocolostomy anastomosis was created using a 75 mm ITZEL stapler (blue load) and the common Cimarron enterotomy was closed in 2 layers with an inner layer of 3-0 PDS canal stitch and outer layer of 3-0 silk Lembert stitches. The large mesenteric defect was deliberately not closed. Hospital Course: Demian Zaman was taken to the operating room where the above procedures were performed. He tolerated the operation well and without complication. He was admitted post-operatively for clinical monitoring and further management. The patient's hospital course was uncomplicated and he was deemed stable for discharge on post-operative day 3. Hospital Course: 08/25/17 POD 0: OR for above procedures, transferred to floor from PACU 08/26/17 POD 1: mild nausea, avoided CYLINDER DIE MACHINE HELPER, started on reg diet 08/27/17 POD 2: return of bowel function, CYLINDER DIE MACHINE HELPER d/c'd Important Studies and Lab Data: See below. Pathology: Final Surgical Pathology pending. Microbiology: None. Labs: Lab Results Component Value Date WBC 8.5 08/28/2017 HGB 11.3 (L) 08/28/2017 HCT 33.0 (L) 08/28/2017 MCV 88.0 08/28/2017 PLATELET 193 08/28/2017 Lab Results Component Value Date NA 143 08/28/2017 K 3.9 08/28/2017 CL 105 08/28/2017 CO2 26 08/28/2017 BUN 8 (L) 08/28/2017 CREATININE 0.75 (L) 08/28/2017 GLUCOSE 105 08/28/2017 CALCIUM 8.4 (L) 08/28/2017 ESTGFR >60 08/28/2017 No results found for: ALT, AST, GGT, ALKPHOS, BILITOT, BILIDIR, ALBUMIN, PROT Pending Lab Data at Discharge: Final Surgical Pathology pending. Studies: None. Discharge Exam: Last value Range last 12 hrs Temperature Temp: 36.8 ??C (98.2 ??F) Temp: [36.6 ??C (97.9 ??F)-36.8 ??C (98.2 ??F)] Heart Rate Heart Rate: 86 Heart Rate: [86-88] Blood Pressure BP: 119/72 BP: (119-120)/(72-75) Respiratory Rate Resp: 20 Resp: -- SpO2 SpO2: 96 % SpO2: [96 %-98 %] I/Os: I/O last 3 completed shifts: In: 2351.2 [P.O.:2140; IV Piggyback:211.2] Out: 1950 [Urine:1950] Gen: NAD, alert & oriented x3 Pulm: CTAB, no crackles/wheezes Card: RRR, no m/r/g Abd: Non-distended, soft, appropriately tender. Wound: incision clean, dry, intact, no purulent drainage Ext: no edema, 2+ peripheral pulses Discharge Plans: Discharge to: Home VNA: No Discharge Conditions/Prognosis: Stable Discharge Medications: The following medications have been prescribed for you. If you notice any adverse reactions to your medications, please contact your primary care physician immediately or go tothe nearest Emergency Department. Your Medications New Medications Dose Details acetaminophen 500 mg Tab Commonly known as: TYLENOL Take 2 tablets by mouth every 6 hours as needed for Pain. 1000 mg Refills: 0 ibuprofen 600 mg Tab Commonly known as: ADVIL;MOTRIN Take 1 tablet by mouth every 6 hours as needed for Pain. 600 mg Refills: 0 Continued medications, unchanged Dose Details desonide 0.05 % Crea Commonly known as: DESOWEN Apply to affected areas of face twice daily as needed. No more than 14 days per month. Quantity: 30 g Refills: 6 ketoconazole 2 % Crea Commonly known as: NIZORAL Apply twice daily to affected areas of face.As needed.Can mix with a small amt of Desonide For up to 7 days in a row. Quantity: 30 g Refills: 10 Updated Allergies/ADRs: No Known Allergies Scheduled Appointments: No future appointments. Follow up will be scheduled with Dr. Addison in 4 weeks. Outpatient Services/Studies: No discharge procedures on file. Instructions Given to Patient at Discharge:. An After Visit Summary was printed and given to the patient. Patient Instructions [facility] Department of General Surgery Discharge Instructions CALL YOUR PHYSICIAN'S OFFICE IF: ??? You have a fever greater than 101 degrees Farenheit (38.3C) within one month of your surgery. ? ? You have diarrhea or vomiting for >24 hours, stop having bowel movements and/or passing flatus, have pain with urination. ??? You have worsening pain, not controlled with your pain medication. ??? You develop redness, swelling, or new drainage from your wound. Medications: [x] Pain Control [x] Non-narcotic pain medication - We recommend alternating with tylenol 1000mg and ibuprofen 400-600mg every 6 hours (ie; tylenol at 12pm, ibuprofen 3pm, tylenol 6pm, ibuprofen 9pm). - Do not take more than 4,000mg (4g) of tylenol in 24hours. [x] Other Medication(s) - The remainder of your medications are listed in the first section of the After Visit Summary. Driving Restrictions: - No driving if you are too sore from surgery to enter or exit your vehicle comfortably, or if you are too sore to easily check your blind spot. No driving while using narcotic pain medications. Shower: - It is ok to shower. You can shower per usual routine and let soapy water run over your incision. Pat incision dry with a clean, dry towel. Do not submerge the wound under water (no swimming or soaking) for at least 6 weeks, or until approved by your surgeon. Diet: [x] You have been cleared to resume your regular diet - We recommend eating a regular healthy diet (ie; fresh fruits, vegetables and fiber-containing foods will assist in wound healing,) Activity: - It is normal to feel tired after surgery/hospitalization. Be as active as tolerated as this will improve recovery and prevent blood clots. - You should avoid any heavy lifting for 4 weeks after surgery. A gallon of milk is a good estimateof the maximum you should be lifting while your wounds heal. -We recommend taking several slow, short walks each day for the first two weeks, and gradually increase your distance. We recommend at least 4 times a day. Wound/Incision Care: Closure: Your skin incision(s) are closed with: [x] Sutures - If your sutures are visible, they will need to be removed at a follow up appointment.If they are not visible, then they are underneath the skin and will dissolve. You may also have Steristrips covering your skin, which are strips of white tape that should fall off after ~10 days (if not, please remove manually). You may shower with them on. Infection: Observe for changes and alert the clinic if new/worsening redness or drainage. Things to avoid: Do not use creams, oils, or ointments on the wound. Keep wound open to air if it is not draining. Who to call? If you have concerns or questions: - During the day, it is best to call the [facility] to speak with the Surgery nurses. The number is [phone]. - During the night or weekends call the [facility] drum drier operator at [phone] and ask to speak to the surgery resident general manager road production for general surgery. Please note: Your surgeon may not be Produce Manager, especially during the night or on weekends, so be ready to describe yourself and your surgery when you call. Follow up appointments: No future appointments. [x] A request for a follow-up appointment has been made and you should receive information via phone/mail in the next week. If you do not hear anything, please call the clinic at [phone] to confirm or reschedule. Follow up will be scheduled with Dr. Addison in 4 weeks. If you need a prior authorization, please call the General Surgery Clinic nurses [phone] for prior authorizations assistance General Instructions None Follow-up Recommendations for Providers: - Routine post-operative care. CC: Kenrick Zavala, Signed: Kassie Sanabria MD [facility] Surgical Oncology Service Team Pager #[phone] 08/28/2017 7:35 AM documented in this encounter Discharge Instructions * Patient Instructions* Kassie Sanabria MD - 08/27/2017 6:41 PM EST [facility] Department of General Surgery Discharge Instructions CALL YOUR PHYSICIAN'S OFFICE IF: ??? You have a fever greater than 101 degrees Farenheit (38.3C) within one month of your surgery. ? ? You have diarrhea or vomiting for >24 hours, stop having bowel movements and/or passing flatus, have pain with urination. ??? You have worsening pain, not controlled with your pain medication. ??? You develop redness, swelling, or new drainage from your wound. Medications: [x] Pain Control [x] Non-narcotic pain medication - We recommend alternating with tylenol 1000mg and ibuprofen 400-600mg every 6 hours (ie; tylenol at 12pm, ibuprofen 3pm, tylenol 6pm, ibuprofen 9pm). - Do not take more than 4,000mg (4g) of tylenol in 24hours. [x] Other Medication(s) - The remainder of your medications are listed in the first section of the After Visit Summary. Driving Restrictions: - No driving if you are too sore from surgery to enter or exit your vehicle comfortably, or if you are too sore to easily check your blind spot. No driving while using narcotic pain medications. Shower: - It is ok to shower. You can shower per usual routine and let soapy water run over your incision. Pat incision dry with a clean, dry towel. Do not submerge the wound under water (no swimming or soaking) for at least 6 weeks, or until approved by your surgeon. Diet: [x] You have been cleared to resume your regular diet - We recommend eating a regular healthy diet (ie; fresh fruits, vegetables and fiber-containing foods will assist in wound healing,) Activity: - It is normal to feel tired after surgery/hospitalization. Be as active as tolerated as this will improve recovery and prevent blood clots. - You should avoid any heavy lifting for 4 weeks after surgery. A gallon of milk is a good estimateof the maximum you should be lifting while your wounds heal. -We recommend taking several slow, short walks each day for the first two weeks, and gradually increase your distance. We recommend at least 4 times a day. Wound/Incision Care: Closure: Your skin incision(s) are closed with: [x] Sutures - If your sutures are visible, they will need to be removed at a follow up appointment.If they are not visible, then they are underneath the skin and will dissolve. You may also have Steristrips covering your skin, which are strips of white tape that should fall off after ~10 days (if not, please remove manually). You may shower with them on. Infection: Observe for changes and alert the clinic if new/worsening redness or drainage. Things to avoid: Do not use creams, oils, or ointments on the wound. Keep wound open to air if it is not draining. Who to call? If you have concerns or questions: - During the day, it is best to call the General Surgery Clinic to speak with the Surgery nurses. The number is [phone]. - During the night or weekends call the [facility] drum drier operator at [phone] and ask to speak to the surgery resident general manager road production for general surgery. Please note: Your surgeon may not be Produce Manager, especially during the night or on weekends, so be ready to describe yourself and your surgery when you call. Follow up appointments: No future appointments. [x] A request for a follow-up appointment has been made and you should receive information via phone/mail in the next week. If you do not hear anything, please call the clinic at [phone] to confirm or reschedule. Follow up will be scheduled with Dr. Addison in 4 weeks. If you need a prior authorization, please call the General Surgery Clinic nurses [phone] for prior authorizations assistance documented in this encounter Medications at Time of Discharge Medication Sig Dispensed Refills Start Date End Date acetaminophen (TYLENOL) 500 mg Tablet Take 2 tablets by mouth every 6 hours as needed for Pain. 08/28/2017 02/22/2018 ibuprofen (ADVIL;MOTRIN) 600 mg Tablet Take 1 tablet by mouth every 6 hours as needed for Pain. 08/28/2017 02/22/2018 ketoconazole (NIZORAL) 2 % CreamIndications:Seborrh eic dermatitis [...] 07/14/2017 02/22/2018 documented as of this encounter Progress Notes * Joseph Thornton RN - 08/28/2017 10:23 AM EST Discharge orders written, patient understands instructions and follow up visits, patient discharge to home with family. * Elder Addison MD - 08/27/2017 12:41 PM EST Surgical Oncology Inpatient Progress Note Patient Name: Demian Zaman ; Age: 6 1980; 36 y.o. Room/Bed: [address] [place] [address]A Today's Date: 08/27/17 ID: Demian Zaman is a 36 y.o. male w/ no significant PMH now 2 Days Post-Op s/p right hemicolectomy with stapled side to side ileocolic anastomosis for appendiceal mass. OR Findings: -laparoscopic exploration, no evidence of liver of peritoneal lesions -large white fluid filled appendix approximately 12cm adherent to cecum and adjacent to terminal ileum, thus performed formal right hemicolectomy with high ligation of ileocecal pedicle -extracorporeal stapled side to side ileocolic anastomosis, hand sewn closure of common end ?? Hospital Course: 08/25/17 POD 0: OR for above procedures, transferred to floor from PACU 08/26/17 POD 1: mild nausea, avoided CYLINDER DIE MACHINE HELPER, started on reg diet 24 Hour Events/Subjective: -pain controlled off CYLINDER DIE MACHINE HELPER -nausea resolved -tolerating reg diet -denies flatus -voiding Objective VS - (Temp: [36.5 ??C (97.7 ??F)-36.8 ??C (98.2 ??F)] ) Temp: 36.7 ??C (98.1 ??F), (Heart Rate: [74] ) Heart Rate: 74, (BP: (119-122)/(69-72) ) BP: 119/72, (Resp: [14-20] ) Resp: 20, (SpO2: [97 %-100%] ) SpO2: 97 % Physical Exam Gen: no distress HEENT: NC/AT. Sclera anicteric CV - RRR Pulm - breathing comfortably, no respiratory distress Abd - mildly distended, appropriately tender to palpation around incisions C/D/I Ext: SCDs in place. Skin: warm, dry 24 Hour I/O's: I/O last 3 completed shifts: In: 3414.6 [P.O.:1045; I.V.:2369.6] Out: 2475 [Urine:2475] Admit Weight: 97.52 kg Current Weight: Weight: 97.5 kg (215 lb) Labs: Recent Labs 08/27/17 0412 08/26/17 0434 08/25/17 1610 WBC 11.8* 14.1* 17.3* HGB 11.7* 12.2* 13.3* HCT 33.6* 34.6* 37.5* PLATELET 177 189 208 Recent Labs 08/27/17 0412 08/26/17 0434 08/25/17 1610 NA 140 139 144 K 3.8 3.7 3.7 CL 104 102 105 CO2 28 28 25 BUN 9* 10 11 CREATININE 0.81 0.78* 0.89 GLUCOSE 112 115 109 CALCIUM 8.3* 7.8* 8.3* MAGNESIUM 0.83 0.77 0.78 PHOS 2.2* 5.2* 3.4 Imaging: none A/P: Demian Zaman is a 36 y.o. 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 He is recovering appropriately after surgery, awaiting bowel function. # s/p right hemicolectomy -Regular diet -continue to monitor for return of bowel function -replete electrolytes prn -encourage OOB -IS #acute pain -jona tylneol -prn toradol -lidoderm patches -d/c CYLINDER DIE MACHINE HELPER, add prn oxy # PPX: PPI, IS, lovenox, SCDs # LINES: PIV # DISPO: Floor status, Full Code ALANNA HILL MD 08/27/2017 Surgical Oncology [id number] Surgery attending addendum I saw Demian in the afternoon. He was up walking about. He already passed gas and had a bowel movement. He is tolerating a diet. CYLINDER DIE MACHINE HELPER was discontinued in the a.m. No concerns on exam. We discussed the plan for possible discharge tomorrow. I will call him once the pathology report isavailable to review. Augustin Addison MD 08/27/17 * Elder Addison MD - 08/26/2017 4:36 PM EST I saw Demian this morning. He was over on the 4 E. cardiac floor [facility] He was resting comfortably in a chair. His Margaux was at his bedside. We discussed the findings yesterday from the OR as he was quite groggy after the surgery when I discussed this with him in the PACU. I explained the rationale for performing the laparoscopic ileo - right colectomy given the intraoperative findings of the large, possibly malignant appearing mass arising from the appendix involving the cecum. I reassured him that we performed a good cancer operation with radical lymphadenectomy and that we will have to just wait for the pathology report to reviewbefore making any predictions are plans for next steps. So far he had already voided on his own. He was tolerating clears. No concerns on exam. Port site incisions clean in the periumbilical extraction port incision dressing also clean. His pain is well controlled with the CYLINDER DIE MACHINE HELPER so we will leave that on board for now until he starts taking in some p.o. so we can transition him to oral pain medications. Augustin Addison MD 08/26/2017 4:38 PM * Kassie Sanabria MD - 08/26/2017 8:01 AM EST Surgical Oncology Inpatient Progress Note Patient Name: Demian Zaman ; Age: 6 1980; 36 y.o. Room/Bed: [address] [place], [place] [address] Today's Date: 08/26/17 ID: Demian Zaman is a 36 y.o. male w/ no significant PMH now 1 Day Post-Op s/p right hemicolectomy with stapled side to side ileocolic anastomosis for appendiceal mass. OR Findings: -laparoscopic exploration, no evidence of liver of peritoneal lesions -large white fluid filled appendix approximately 12cm adherent to cecum and adjacent to terminal ileum, thus performed formal right hemicolectomy with high ligation of ileocecal pedicle -extracorporeal stapled side to side ileocolic anastomosis, hand sewn closure of common end ?? Hospital Course: 08/25/17 POD 0: OR for above procedures, transferred to floor from PACU 24 Hour Events/Subjective: -OR for above procedures -no overnight events, POC unremarkable -pain well controlled -denies flatus, BM, N/V, chest pain, SOB Objective VS - (Temp: [36.5 ??C (97.7 ??F)-37 ??C (98.6 ??F)] ) Temp: 36.5 ??C (97.7 ??F), (Heart Rate: [69-109] ) Heart Rate: 74, (BP: (107-120)/(60-68) ) BP: 107/64, (Resp: [12-17] ) Resp: 16, (SpO2: [95 %-100 %] ) SpO2: 100 % Physical Exam Gen: NAD HEENT: NC/AT. Sclera anicteric CV - RRR Pulm - breathing comfortably, no respiratory distress Abd - mildly distended, appropriately tender to palpation around incision; dressing c/d/i Ext: SCDs in place. Skin: warm, dry 24 Hour I/O's: I/O last 3 completed shifts: In: 1508.6 [I.V.:1508.6] Out: 1550 [Urine:1500; Blood:50] Admit Weight: 97.52 kg Current Weight: Weight: 97.5 kg (215 lb) Labs: Recent Labs 08/26/17 0434 08/25/17 1610 WBC 14.1* 17.3* HGB 12.2* 13.3* HCT 34.6* 37.5* PLATELET 189 208 Recent Labs 08/26/17 0434 08/25/17 1610 NA 139 144 K 3.7 3.7 CL 102 105 CO2 28 25 BUN 10 11 CREATININE 0.78* 0.89 GLUCOSE 115 109 CALCIUM 7.8* 8.3* MAGNESIUM 0.77 0.78 PHOS 5.2* 3.4 Imaging: none A/P: Demian Zaman is a 36 y.o. 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 He is recovering appropriately after surgery. # s/p right hemicolectomy -Regular diet -continue to monitor for return of bowel function -replete electrolytes prn -encourage OOB -encourage #acute pain -jona tylneol -prn toradol -lidoderm patches -CYLINDER DIE MACHINE HELPER # PPX: PPI, IS, lovenox, SCDs # LINES: PIV # DISPO: Floor status, Full Code Kassie Sanabria MD 08/26/2017 Surgical Oncology [id number] * Thalia Mendieta, RN - 08/25/2017 8:13 PM EST PACU Recovery: Appendectomy & R Hemicolectomy Assessment ongoing. See phase I/II Documentation flow sheet. 1550 Pt arrived to PACU 23 from OR 26 via bed on simple face mask @ 6 lpm. Pt remains sedated &minimally rousable to stimuli so oral & nasal airways in place. Monitors placed, alarms set appropriatly for pt and audible. Report received from general surgery, case complex but uneventful. Pt may have a clear liq diet per verbal report from MD Hill. H&H, BMP, Mag & Phos labs to be completed in PACU. Report received from anesthesia, no events during surgery. Awaiting orders for bed placement, plan is to recover & admit to floor, preferably 4W. Input for the case was 1.5 L ofIV fluid, EBL was 50cc, pt was st cathed at the end of the case for 300cc. 1630 Pt awake and in a lot of pain. CYLINDER DIE MACHINE HELPER set up, PRN Fentanyl and Dilaudid utilized to help make pain tolerable. 1800 Pain under control, 3/10 at rest and 8/10 upon sitting up or bearing down. Pt meets PACU recovery criteria. Assigned bed 432, awaiting housekeeping to clean. 1950 Pt due to void [address] cath or mark removal per protocol. Pt attempts to void x 2 with no luck. 1999 Bladder Scan for 764cc. Explained to pt he is at risk for stretch injury and he either needs to void or be st cathed. Pt does not want an invasive measure and will try again. 2004 Pt only able to void 150cc. Post void residual scan= 654cc. Explained to pt per policy an indwelling mark would be indicated for urinary retention but should he decline a st cath is highly recommended. Pt agrees to st cath only if a male nurse completes it. 2019 St cathed for 700cc by Jaime Addison RN. Pt due to void by 0020. MD Junior Notified #[id number]. 2029 Report called to KERI Cagle. 2044 pt out of PACU to room * Yuniel Junior - 08/25/2017 7:36 PM EST Post-op Check Patient Name: Demian Zaman Patient Age: 36 y.o. Attending Physician: Edler Addison MD Demian Zaman is a 36 y.o. male s/p Procedure(s): @LAPAROSCOPIC ASSISTED COLECTOMY, PARTIAL, REM.TERMINAL ILEUM (WRVU 22.95) S: Pt seen, examined, complaining of mild nausea but relieved with PRN antiemetics. ; denies f/c chest pain, SOB. Pain well controlled on medications. O: Last value Range last 24hrs Temperature Temp: 36.8 ??C (98.2 ??F) Temp: [36.6 ??C (97.9 ??F)-37.2 ??C (99 ??F)] Heart Rate Heart Rate: (!) 105 Heart Rate: [76-109] Blood Pressure BP: 115/68 BP: (104-133)/(55-74) Respiratory Rate Resp: 13 Resp: [12-20] SpO2 SpO2: 97 % SpO2: [92 %-100 %] General: NAD, A/O x 3 HEENT: NC/AT, PERRL, EOMI CVS: RRR, no appreciable murmurs Pulm: CTAB, no w/r/r Abd: soft, appropriately tender to palpation, nondistended benign Extremity: no c/c/e Skin: Warm, Dry Neuro: CN 2-12 grossly intact, nonfocal Incision: Dressings c/d/i. No evidence of hematoma/seroma/infection Recent Labs 08/25/17 1610 WBC 17.3* HGB 13.3* HCT 37.5* PLATELET 208 Recent Labs 08/25/17 1610 NA 144 K 3.7 CL 105 CO2 25 BUN 11 CREATININE 0.89 GLUCOSE 109 CALCIUM 8.3* MAGNESIUM 0.78 PHOS 3.4 A/P: Demian Zaman is a 36 y.o. male patient s/p above procedures currently in stable condition and recovering well after surgery. - Appropriate for floor - Pain well controlled - Hemodynamically stable - UOP adequate - Continue post-op plan Yuniel Junior MD 08/25/2017 7:36 PM P.[id number] documented in this encounter H&P Notes * Elder Addison MD - 08/25/2017 10:54 AM EST Patient Name: Demian Zaman Patient Age: 36 y.o. Birthdate: 1980 Admit date: 08/25/2017 Attending Physician: Elder Addison MD I saw Demian in the [place] area. He is here with his Margaux and his mother. Ok to proceed as planned for laparoscopic appendectomy and exploration with removal of the appendiceal cystic mass. Informed consent was reviewed. There are no changes to my H&P from 08/03/17. Augustin Addison MD 08/25/2017 10:56 AM * Alanna Hill MD - 08/25/2017 10:35 AM EST [facility] Department of General Surgery H&P Note HPI: 36[address] in the setting of new onset nocturia and found to have cystic mass adjacent to appendix, here today for elective appendectomy. Denies fevers, chills, nausea., emesis. PM/SH: Past Medical History: Diagnosis Date ??? Mass of appendix No past surgical history on file. ALL: No Known Allergies MED: No current facility-administered medications on file prior to encounter. Current Outpatient Prescriptions on File Prior to Encounter Medication Sig Dispense Refill ??? ketoconazole (NIZORAL) 2 % Cream Apply twice daily to affected areas of face.As needed.Can mix with a small amt of Desonide For up to 7 days in a row. 30 g 10 ??? desonide (DESOWEN) 0.05 % Cream Apply to affected areas of face twice daily as needed. No more than 14 days per month. 30 g 6 Social history: Social History Social History ??? Marital status: Spouse name: N/A ??? Number of children: N/A ??? Years of education: N/A Occupational History ??? Not on file. Social History Main Topics ??? Smoking status: Never Smoker ??? Smokeless tobacco: Never Used ??? Alcohol use Not on file ??? Drug use: Not on file ??? Sexual activity: Not on file Other Topics Concern ??? Not on file Social History Narrative Family history: He has 2 brothers, no sisters, 2 sons and no daughters. Both his mother and father are alive and well. There is no family history of cancer. ROS: As stated above, otherwise remainder of 10-point system review is negative Physical Exam: Temp: [36.6 ??C (97.9 ??F)] Heart Rate: [95] Resp: [18] BP: (133)/(74) SpO2: [100 %] Heart Rate from SPO2: -- Gen: awake, alert, no distress Neuro: GCS 15, motor and sensation intact CV: RRR Pulm: clear b/l GI: nontender, nondistended MSK: no edema, pulses +2 b/l Diagnostics reviewed: CT abd/pelvis 07/26/17: No dilated loops of small bowel. No normal appendix is seen and no [...] the but is normal without adjacent inflammation. Peritoneum and mesentery: No ascites, free air, or loculated fluid collection. No mesenteric nodularity or inflammation. 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 -consent signed for laparoscopic exploration, appendectomy and partial cecectomy -understands risks and potential complications ALANNA HILL MD 08/25/2017 [id number] Surg Onc [id number] documented in this encounter Miscellaneous Notes * Plan of Care - Kanwal Cortes RN - 08/28/2017 2:46 AM EST Problem: Patient Care Overview Goal: Plan of Care Review Outcome: Ongoing (Interventions Implemented as Appropriate) 08/27/1755508/27/172053 Coping/Psychosocial Plan Of Care Reviewed With -- patient Plan of Care Review Progress progress toward functional goals as expected -- OUTCOME EVALUATION NOTE: OUTCOME SUMMARY: A&O. Refer to flowsheets for VS. Denied Cp or SOB. Incisional pain controlled with tylenol. abdincisions WNL. Dressings c/d/i. Ambulating IND. Cont to monitor. PLAN MOVING FORWARD: D/c pending course Ambulation Monitor BMs INDIVIDUALIZED FALL PREVENTION INTERVENTIONS: Patient-specific fall risk factors per assessment: [current deficits]: Pain, general weakness Assistance [level of assistance required for transfers and ambulation]: IND Supervision [direct monitoring required during toileting and ADLs]: IND Surveillance [continuous indirect monitoring]: Pulse ox, purposeful rounding Patient-specific fall prevention interventions for sensory deficits provided, if applicable: [X] No CPG GOAL OUTCOME EVALUATION: Goal: Fall Prevention-Safe Patient Handling Outcome: Ongoing (Interventions Implemented as Appropriate) 08/27/17203408/27/17205308/27/172199 Matt Fall Risk History of Falling -- 0 -- Secondary Diagnosis -- 15 -- Ambulatory Aids -- 0 -- Intravenous Therapy/Heparin/Saline Lock -- 20 -- Gait/Transferring -- 0 -- Mental Status -- 0 -- Score -- 35 -- OTHER Matt Fall Risk -- Med -- Restraint Interventions Safety Promotion/Fall Prevention -- -- safety round/check completed Positioning Body Position -- supine, head elevated -- Activity Activity Type -- activity adjusted per tolerance -- Activity Assistance Provided independent -- -- Assistive Device Utilized none -- -- Goal: Infection Control Outcome: Ongoing (Interventions Implemented as Appropriate) 08/27/172053 Safety Interventions Isolation Precautions standard precautions maintained Infection Prevention environmental surveillance performed;rest/sleep promoted;single patient room provided Coping Strategies Supportive Measures active listening utilized;self-care encouraged Goal: Discharge Needs Assessment Outcome: Ongoing (Interventions Implemented as Appropriate) 08/28/17239 Discharge Needs Assessment Concerns To Be Addressed denies needs/concerns at this time Discharge Disposition still a patient Goal: Interdisciplinary Rounds/Family Conf Outcome: Ongoing (Interventions Implemented as Appropriate) 08/28/17239 Interdisciplinary Rounds/Family Conf Participants patient;nursing;physician * Plan of Care - Hilario Joseph RN - 08/27/2017 6:09 PM EST Problem: Patient Care Overview Goal: Plan of Care Review Outcome: Ongoing (Interventions Implemented as Appropriate) 08/27/17 0556 08/27/17 1515 Coping/Psychosocial Plan Of Care Reviewed With -- patient Plan of Care Review Progress progress toward functional goals as expected -- OUTCOME EVALUATION NOTE: OUTCOME SUMMARY: A+O x4. Ambulated throughout room. Multiple BM, formed. Some bloody discharge. Some residual abdominal pain, given tylenol. PLAN MOVING FORWARD: Progress towards D/C. Continue to ambulate. INDIVIDUALIZED FALL PREVENTION INTERVENTIONS: Patient-specific fall risk factors per assessment: [current deficits]: IV sites, ECG wires, Assistance [level of assistance required for transfers and ambulation]: Indpendent Supervision [direct monitoring required during toileting and ADLs]: Independent Surveillance [continuous indirect monitoring]: Telemetry, call guerra in reach. Patient-specific fall prevention interventions for sensory deficits provided, if applicable: [X] Yes CPG GOAL OUTCOME EVALUATION: * Plan of Care - Joseph Thornton RN - 08/27/2017 2:28 PM EST Problem: Patient Care Overview Goal: Plan of Care Review Outcome: Ongoing (Interventions Implemented as Appropriate) 08/27/17 0556 Coping/Psychosocial Plan Of Care Reviewed With patient Plan of Care Review Progress progress toward functional goals as expected OUTCOME EVALUATION NOTE: OUTCOME SUMMARY: Patient post op day 2 from and appendectomy and a jos-colectomy had his dilaudid re examiner discontinued.Patient has had a bowel movement and has been ambulating the unit frequently PLAN MOVING FORWARD: Possible discharge for patient tomorrow INDIVIDUALIZED FALL PREVENTION INTERVENTIONS: Patient-specific fall risk factors per assessment: [current deficits]: decond Assistance [level of assistance required for transfers and ambulation]: independent Supervision [direct monitoring required during toileting and ADLs]: Call guerra Surveillance [continuous indirect monitoring]: Hourly rounds Patient-specific fall prevention interventions for sensory deficits provided, if applicable: CPG GOAL OUTCOME EVALUATION: Goal: Fall Prevention-Safe Patient Handling Outcome: Ongoing (Interventions Implemented as Appropriate) 08/26/17 1527 08/26/17199908/27/17 0800 Matt Fall Risk History of Falling -- -- 0 Secondary Diagnosis -- -- 15 Ambulatory Aids -- -- 0 Intravenous Therapy/Heparin/Saline Lock -- -- 20 Gait/Transferring -- -- 0 Mental Status -- -- 0 Score -- -- 35 OTHER Matt Fall Risk -- -- Med Restraint Interventions Safety Promotion/Fall Prevention -- -- activity supervised;fall prevention program maintained;safety round/check completed Positioning Body Position up in chair -- -- Activity Activity Type -- activity adjusted per tolerance -- Activity Assistance Provided -- independent -- Assistive Device Utilized -- none -- Goal: Infection Control Outcome: Ongoing (Interventions Implemented as Appropriate) 08/26/171999 Safety Interventions Isolation Precautions standard precautions maintained Infection Prevention single patient room provided;rest/sleep promoted;environmental surveillance performed Coping Strategies Supportive Measures active listening utilized;relaxation techniques promoted;self-care encouraged;self-responsibility promoted;verbalization of feelings encouraged * Plan of Care - Fiona Doyle RN - 08/27/2017 5:59 AM EST Problem: Patient Care Overview Goal: Plan of Care Review Outcome: Ongoing (Interventions Implemented as Appropriate) 08/27/17 0556 Coping/Psychosocial Plan Of Care Reviewed With patient Plan of Care Review Progress progress toward functional goals as expected OUTCOME EVALUATION NOTE: OUTCOME SUMMARY: Patient accepting of medications and care. C/O of gas pain overnight (team made aware), ambulated in hallway, denied SOB. Pain managed with scheduled Tylenol. 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 Abdominal incisions CDI. VSS. PLAN MOVING FORWARD: Continue to monitor. Discharge home? INDIVIDUALIZED FALL PREVENTION INTERVENTIONS: Patient-specific fall risk factors per assessment: [current deficits]: Hospitalization, IV, 02monitor Assistance [level of assistance required for transfers and ambulation]: Ind Supervision [direct monitoring required during toileting and ADLs]: Eyes on Surveillance [continuous indirect monitoring]: Purposeful hourly rounding Patient-specific fall prevention interventions for sensory deficits provided, if applicable: Call guerra within reach, nonskid socks when OOB, room near nurses station CPG GOAL OUTCOME EVALUATION: * Plan of Care - Nakia Jensen RN - 08/26/2017 6:38 PM EST Problem: Patient Care Overview Goal: Plan of Care Review Outcome: Ongoing (Interventions Implemented as Appropriate) 08/26/17 1828 Coping/Psychosocial Plan Of Care Reviewed With patient Plan of Care Review Progress progress toward functional goals as expected OUTCOME EVALUATION NOTE: OUTCOME SUMMARY: Demian had a good day. Pain tolerable with scheduled tylenol and PRN toradol, refusing to use CYLINDER DIE MACHINE HELPER pumps. Ambulated several times around unit. Tolerating small meals, belching but no flatus or BM. at bedside. Abdominal incision C/D/I. PLAN MOVING FORWARD: Ambulated Pass flatus BM INDIVIDUALIZED FALL PREVENTION INTERVENTIONS: Patient-specific fall risk factors per assessment: [current deficits]: Hospital environment, IVs, monitor wires, CYLINDER DIE MACHINE HELPER pump Assistance [level of assistance required for transfers and ambulation]: Independent Supervision [direct monitoring required during toileting and ADLs]: Call guerra in reach, rings appropriately, purposeful hourly rounding Surveillance [continuous indirect monitoring]: Tele, SpO2 CPG GOAL OUTCOME EVALUATION: On-going Goal: Fall Prevention-Safe Patient Handling Outcome: Ongoing (Interventions Implemented as Appropriate) 08/26/17 0800 08/26/17 1300 08/26/17 1527 Matt Fall Risk History of Falling 0 -- -- Secondary Diagnosis 15 -- -- Ambulatory Aids 0 -- -- Intravenous Therapy/Heparin/Saline Lock 20 -- -- Gait/Transferring 10 -- -- Mental Status 0 -- -- Score 45 -- -- OTHER Matt Fall Risk High -- -- Restraint Interventions Safety Promotion/Fall Prevention muscle strengthening facilitated;safety round/check completed;nonskid shoes/slippers when out of bed;fall prevention program maintained -- -- Positioning Body Position -- -- up in chair Activity Activity Type activity adjusted per tolerance;up in chair;ambulated to bathroom -- -- Activity Assistance Provided -- assistance, stand-by -- Assistive Device Utilized -- none -- * Initial Assessments - Sharon Ayala RN - 08/26/2017 12:31 PM EST Office of Care Management Initial Assessment Sharon Ayala RN reviewed record and discussed patient with Care Team. Source of Information: pt Introduced self/reviewed role; services accepted. Reason for Hospitalization: Past Medical History: Diagnosis Date ??? 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 Social & Family Supports/Community Resources: , sons, parents Behavioral Health History: deniies Substance Use/Abuse: denies Other Pertinent/Service Specific Information: na Health/Prescription Coverage: Primary Insurance: [employer] [place] Secondary Insurance: N/A Prescription Coverage: yes Preferred [facility]acy: [facility] Primary Care Provider: Kenrick Zavala DO [phone] Patient/Caregiver Goals of Treatment: home and follow up with MDs Potential Needs for Transition of Care: Rehab/SNF: declined Home Health: declined DME: none Dialysis: none Community Resources: na Transportation: Anticipated Barriers to Discharge/Special Considerations: none Assessment: 36yowm,a,ox3,pleasent, has supportive family to assist in care at home. Has resources to met medical care needs at present.Pt has declined needing services at this time. Plan: CM to continue to follow and update DC plan as needed A member of the Care Management team will continue to monitor progress, follow for continuity of care and assist with transition of care planning. Sharon Ayala RN Pager: [phone] * Plan of Care - Fiona Doyle RN - 08/26/2017 6:34 AM EST Problem: Patient Care Overview Goal: Plan of Care Review Outcome: Ongoing (Interventions Implemented as Appropriate) 08/26/17 0632 Coping/Psychosocial Plan Of Care Reviewed With patient Plan of Care Review Progress progress toward functional goals as expected OUTCOME EVALUATION NOTE: OUTCOME SUMMARY: Patient arrived to unit from PACU this evening. Oriented to room and call guerra. Abdominal incisionsCDI. Pain well controlled with scheduled pain medications and CYLINDER DIE MACHINE HELPER pump. Denies any SOB. Accepting of care and medications. Rested in bed throughout shift. VSS. PLAN MOVING FORWARD: Continue to monitor INDIVIDUALIZED FALL PREVENTION INTERVENTIONS: Patient-specific fall risk factors per assessment: [current deficits]: Hospitalization, recent surgery, IV Assistance [level of assistance required for transfers and ambulation]: SB Supervision [direct monitoring required during toileting and ADLs]: Eyes on Surveillance [continuous indirect monitoring]: Purposeful hourly rounding Patient-specific fall prevention interventions for sensory deficits provided, if applicable: Call guerra within reach, nonskid socks when OOB, room near nurses station CPG GOAL OUTCOME EVALUATION: * Op Note - Elder Addison MD - 08/25/2017 4:21 PM EST Images from the original note were not included. 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 A formal ileocolectomy was performed and radical lymphadenectomy taking the ileocolic pedicle at the base of the mesentery. The specimen was retrieved through a medium Luis wound protector and sent to pathology. See photo below. A ryjy-hp-enaz, functional end-to-end ileocolostomy anastomosis was created using a 75 mm ITZEL stapler ([employer]) and the common Cimarron enterotomy was closed in 2 layers with an inner layer of 3-0 PDS canal stitch and outer layer of 3-0 silk Lembert stitches. The large mesenteric defect was deliberately not c losed. Anesthesia: General Estimated Blood Loss: * No values recorded between 08/25/2017 12:00 PM and 08/25/2017 3:30 PM * Specimens removed during surgery: Order Name Source Comment Collection Info Order Time SPECIMEN TO PATHOLOGY OR 26 ext. 80070 APPENDIX MASS Ileo right colectomy with mesentery Resection 08/25/2017 2:31 PM Time removed from patient: 2:17 PM Drains: None Surgical Closure: Primary Closure - closure of ALL tissue levels during the original surgery regardless of wires, wickes, drains, or other devices extruding through the incision Disposition: awakened from anesthesia, extubated and taken to the recovery room in a stable condition, having suffered no apparent untoward event. Condition: doing well without problems (Please see the Surgical Encounter Summary for any Implant and Specimen details pertinent to this patient.) HPI/Surgical Indications: Appendiceal mass Procedure Description: Mr. Zaman was taken to the OR 26, positioned supine, Venodyne boots were placed, general anesthesia was administered and he was intubated without difficulty. His abdomen was prepped with ChloraPrep in usual sterile fashion and his left arm was tucked. A Mark catheter was not placed. A nasogastric tube was placed. Sterile drapes were applied after the ChloraPrep and secured to the skin with Ioban. A formal timeout procedure was performed. Ancef and Flagyl were given as well as Unasyn for perioperative antibiotics. A supraumbilical, vertically aligned, Easley port incision was made and dissection was carried downto the base of the umbilicus where the fascia was grasped with a Beht clamp and then using the Easley technique we were able to enter the abdomen under direct vision. The Easley port was secured to the fascia using 0 Vicryl stay stitches. Pneumoperitoneum was achieved. Laparoscopic exploration revealed The large mass in the right lower quadrant arising from what looked like the cecum. There was no ascites. We thoroughly explored the abdomen and there was no evidence of mucin or nodules anywhere. The peritoneal, serosal and mesenteric surfaces were clean. The liver was very healthy-appearing without surface nodularity or malignant appearing nodules. The gallbladder look normal. We inspected the pelvis as well and this also looked completely normal. We then proceeded to place 3 additional ports. A 12 mm port was placed in the left mid rectus location to allow triangulation with a suprapubic 5 mm trocar which were all placed under direct vision. We then placed an additional 5 mm trocar in the right upper abdomen to allow for optimal retraction.We then positioned the patient in the Trendelenburg position with the left side down and reflected the small bowel into the upper abdomen. Small bowel is completely normal. We were able to easily identify the terminal ileum however there was an adhesion between the distal terminal ileum and the right pelvic sidewall. Using hook cautery we were able to dissect the ileum off the retroperitoneum without difficulty. During this dissection we nicely identified the right ureter which was preserved intact. Once we had the ileum nicely mobilized off the retroperitoneum we could see that the large appendiceal mass was quite mobile and not fixed to the adjacent pelvis or right lateral peritoneal structures. We then proceeded to begin the dissection at the mesoappendix however we quickly realized that there was what looks like abnormal concerning for possible underlying malignancy appearing adenopathy within the mesoappendix and given the size of the mass with close approximation to the cecum we proceeded to perform a radical right ileal colectomy. We divided the white line of Toldt and with medialtraction on the colon reflected the left colon into the medial aspect of the abdomen off the retroperitoneum. During this dissection as we approached the hepatic flexure we were able to identify the duodenum which was preserved intact. With the right lateral dissection and retroperitoneal dissection complete we turned our attention to identifying the ileocolic mesentery and with tenting the ileum and its mesentery we are able to nicely identify the ileocolic. Using hook cautery we dissected out the ileocolic at the base of the mesentery circumferentially to allow the vascular load stapler (white load) to be placed to divide theileocolic pedicle at the base of the mesentery. Hemostasis was excellent. We also divided and intervening mesenteric branch to the specimen using the vascular load stapler. Once this was accomplishedwe turned our attention to mobilizing the hepatic flexure and the gastrocolic omentum from the proximal transverse colon. This was accomplished using the Enseal device. We then turned our attention back to the mesenteric dissection and using the Enseal device divided the mesentery from the base of the ileocolic stump to the proximal transverse colon. We encountered the right branch of the middle colic which was preserved intact. We then divided the colon using the Slick stapler (blue load). We then turned our attention back to the ileum or we could clearly see the demarcation from the ligation of the ileocolic and then divided the ileum at a section of healthy ileum approximately 20 cm from the ileocecal valve. This was accomplished with the Slick stapler (white load). The division of the ileum allowed the specimen to be completely from its attachments. We placed a Ray-Evan into the abdomen at the early part of the case to allow for atraumatic retraction and the Ray-Evan was then removed. We then proceeded to extend the supraumbilical incision to down below the umbilicus into superiorlyto accommodate a medium Luis wound protector. The subcutaneous tissues were divided with cautery and the fascia was then divided with cautery to allow the Luis wound protector to be placed. We then were able to nicely remove the specimen via the Luis wound protector extraction port site. We then identified the distal ileum transection site and the proximal transverse colon transection site and exteriorized these through the Luis wound protector. Given the extent of the dissection both the ileum as well as the transverse colon were very mobile and easily brought up in through the abdominal wall via the Luis wound protector. We then performed a side to side ileocolostomy anastomosis using the 75 mm ITZEL stapler (blue load). The common color enterotomy was closed in 2 layers with an inner layer of 3-0 PDS canal stitches and an outer layer of interrupted 3-0 silk Lembert stitches. We oversewed the ileal as well as the colon staple line using 3-0 silk Lembert stitches. This anastomosis was done with the extracorporeal technique as described. Inspection revealed the mesentery to be nicely intact and not twisted. We placed the anastomosis back down into the abdomen. We leftthe mesenteric defect which was very large open intentionally. We closed the extraction port fascia with #1 PDS. Triple antibiotics were instilled into the abdomen prior to the closure. The 12 mm Easley port fascia was closed using the Jostin-Paige device which had been placed prior to releasing the pneumoperitoneum. The stitch was tied down in place to close the fascia. Subcutaneous tissues were irrigated with antibiotic containing saline. The skin incisions were closed with 4-0 Monocryl subcuticular stitches. Mastisol Steri-Strips were applied. Mr. Zaman was awakened from anesthesia, extubated in the operating room and taken to the recovery room after a straight catheter was placed to evacuate the urine from the bladder. I was present fromstart to finish. Infection Bundle used? Yes Colorectal Infection Bundle: Case Acuity: Elective case Chlorhexidine shower night before and am of surgery: Yes Mechanical bowel prep: No Oral antibiotic prep: Yes, Flagyl + Neomycin Chlorhexadine-alcohol skin prep: Yes Pre op IV antibiotics: Other: Unasyn and flagyl Change gloves and new suction and cautery at closure: Yes Sterile closure tray used: No Xertbilzf-kmpjnmccp-zjrrgemjuy abdominal cavity wash: Yes Gjlpoonid-pgtkmwodl-vurjhrwwga wound wash: Yes Attestation: Case Date: 08/25/2017 I was present and I participated during the entire procedure (does not need to include opening and closing). ELDER ADDISON MD 08/25/2017 * Brief Op Note - Alanna Hill MD - 08/25/2017 3:39 PM EST Brief Operative Note Patient Name: Demian Zaman : [id number] MR#: [id number] Case Date: 08/25/2017 Surgeon: Surgeon(s) and Role: * Elder Addison MD - Primary * Alanna Hill MD - Resident-Surgeon Chief Preoperative diagnosis: APPENDIX MASS Postoperative diagnosis: APPENDIX MASS Procedure(s) (LRB): @LAPAROSCOPIC ASSISTED COLECTOMY, PARTIAL, REM.TERMINAL ILEUM (WRVU 22.95) (N/A) Anesthesia: General Findings: -laparoscopic exploration, no evidence of liver of peritoneal lesions -large white fluid filled appendix approximately 12cm adherent to cecum and adjacent to terminal ileum, thus performed formal right hemicolectomy with high ligation of ileocecal pedicle -extracorporeal stapled side to side ileocolic anastomosis, hand sewn closure of common end Complications: none Estimated Blood Loss: 50 mL Specimens removed during surgery: Order Name Source Comment Collection Info Order Time SPECIMEN TO PATHOLOGY OR 26 ext. [id number] APPENDIX MASS Ileo right colectomy with mesentery Resection 08/25/2017 2:31 PM Time removed from patient: 2:17 PM Fluids: 1500cc LR PRBCs: none (See Anesthesia Record/Report for Other Blood Products) Urine Output: 300 mL Drains: none Disposition: awakened from anesthesia, extubated and taken to the recovery room in a stable condition, having suffered no apparent untoward event. Condition: doing well without problems (Please see the Surgical Encounter Summary for any Implant and Specimen details pertinent to this patient.) Infection Bundle used? Yes Colorectal Infection Bundle: Case Acuity: Elective case Chlorhexidine shower night before and am of surgery: Yes Mechanical bowel prep: Yes Oral antibiotic prep: Yes, Flagyl + Neomycin Chlorhexadine-alcohol skin prep: Yes Pre op IV antibiotics: Kefzol + Flagyl Change gloves and new suction and cautery at closure: Yes Sterile closure tray used: No Uccxguazg-odzssktbk-jczddaidbv abdominal cavity wash: Yes Lejblkwmt-ngccbvipi-brkwvvipvn wound wash: Yes documented in this encounter Plan of Treatment Not on file documented as of this encounter Procedures Procedure Name Priority Date/Time Associated Diagnosis Comments PROMOTIONS EXECUTIVE PRODUCER SCAN 08/29/2017 12:00 AM EST PROMOTIONS EXECUTIVE PRODUCER SCAN 08/29/2017 12:00 AM EST ECG SCAN 08/29/2017 12:00 AM EST HEMOGRAM Routine 08/28/2017 3:44 AM EST PHOSPHORUS Routine 08/28/2017 3:44 AM EST MAGNESIUM Routine 08/28/2017 3:44 AM EST BASIC METABOLIC PANEL Routine 08/28/2017 3:44 AM EST HEMOGRAM Routine 08/27/2017 4:12 AM EST PHOSPHORUS Routine 08/27/2017 4:12 AM EST MAGNESIUM Routine 08/27/2017 4:12 AM EST BASIC METABOLIC PANEL Routine 08/27/2017 4:12 AM EST HEMOGRAM Routine 08/26/2017 4:34 AM EST PHOSPHORUS Routine 08/26/2017 4:34 AM EST MAGNESIUM Routine 08/26/2017 4:34 AM EST BASIC METABOLIC PANEL Routine 08/26/2017 4:34 AM EST HEMOGRAM Routine 08/25/2017 4:10 PM EST PHOSPHORUS Routine 08/25/2017 4:10 PM EST MAGNESIUM Routine 08/25/2017 4:10 PM EST BASIC METABOLIC PANEL Routine 08/25/2017 4:10 PM EST SURGICAL PATHOLOGY REPORT Routine 08/25/2017 2:31 PM EST SPECIMEN TO PATHOLOGY Routine 08/25/2017 2:31 PM EST @LAPAROSCOPIC ASSISTED COLECTOMY, PARTIAL, REM.TERMINAL ILEUM (WRVU 22.95) Yes 08/25/2017 11:27 AM EST APPENDIX MASS documented in this encounter Results * SCAN DOC: PROMOTIONS EXECUTIVE PRODUCER (08/29/2017 12:00 AM EST) Anatomical Region Laterality Modality Other Narrative 08/29/2017 12:00 AM EST Ordered by an unspecified provider. Scanning Provider MEDIA MGR SCAN EXT O RDR/RSLT * SCAN DOC: PROMOTIONS EXECUTIVE PRODUCER (08/29/2017 12:00 AM EST) Anatomical Region Laterality Modality Other Narrative 08/29/2017 12:00 AM EST Ordered by an unspecified provider. Scanning Provider MEDIA MGR SCAN EXT O RDR/RSLT * SCAN DOC: ECG (08/29/2017 12:00 AM EST) Narrative 08/29/2017 12:00 AM EST Ordered by an unspecified provider. Scanning Provider MEDIA MGR SCAN EXT O RDR/RSLT * Phosphorus (08/28/2017 3:44 AM EST) Phosphorus 3.1 2.5 - 4.5 mg/dL [facility] Blood specimen (specimen) 08/28/2017 3:44 AM EST 08/28/2017 4:11 AM EST Narrative Resulting Agency Comment Spec In Lab Elder Addison MD CHEMISTRY ORDERABL ES Performing Organization Address [facility] Co de Phone Number [facility] [place] [address] * Magnesium (08/28/2017 3:44 AM EST) Magnesium 0.75 0.69 - 1.07 mmol/L [facility] Blood specimen (specimen) 08/28/2017 3:44 AM EST 08/28/2017 4:11 AM EST Narrative Resulting Agency Comment Spec In Lab Elder Addison MD CHEMISTRY ORDERABL ES Performing Organization Address [facility] Co de Phone Number [facility] [place] [address] * (ABNORMAL) Basic Metabolic Panel (non-fasting) (08/28/2017 3:44 AM EST) Glucose 105 65 - 199 mg/dL [facility] Comment:Diabetes: >=200 mg/d L plus symptoms Blood Urea Nitrogen 8(L) 10 - 20 mg/dL [facility] Creatinine 0.75(L) 0.80 - 1.50 mg/dL [facility] Sodium 143 135 - 145 mmol/L [facility] Potassium 3.9 3.5 - 5.0 mmol/L [facility] Comment: Please note: ??Patients with WBC >100,000 may have falsely elevated Potassium levels. ??For accurate Potassium quantification in these patients send serum separator tube (gold top) for subsequent determinations. ??Contact the Clinical Chemistry Laboratory if there are any questions. Chloride 105 98 - 107 mmol/L [facility] Carbon Dioxide 26 22 - 31 mmol/L [facility] Anion Gap 12 5 - 15 mmol/L [facility] Calcium 8.4(L) 8.5 - 10.5 mg/dL [facility] Est Glomerular Filtration Rate >60 >=60 [facility] Comment: The reported eGFR should be multiplied by 1.2 for patients. The MDRD is not an appropriate measure of renal function for patients with body mass extremes or in patients with acute kidney failure. http://Shopdeca/DHnkdep http://Shopdeca/DHMCnkf Blood specimen (specimen) 08/28/2017 3:44 AM EST 08/28/2017 4:11 AM EST Narrative Resulting Agency Comment Spec In Lab Elder Addison MD CHEMISTRY ORDERABL ES Performing Organization Address City/State/[facility] Co de Phone Number [facility] [place] [address] * (ABNORMAL) Hemogram (08/28/2017 3:44 AM EST) White Blood Cell 8.5 4.0 - 9.5 x10(3)/mc L [facility] Red Blood Cell 3.75(L) 4.58 - 5.54 x10(6)/mc L [facility] Hemoglobin 11.3(L) 13.7 - 16.5 gm/dL [facility] Hematocrit 33.0(L) 40.5 - 48.5 % [facility] Mean Cell Volume 88.0 82.9 - 93.1 fL [facility] Mean Cell Hemoglobin 30.1 27.5 - 32.1 pg [facility] Mean Cell Hemoglobin Concentration 34.2 32.0 - 35.7 gm/dL [facility] Platelet 193 145 - 357 x10(3)/mc L [facility] RDW Standard Deviation 37.8 36.0 - 45.0 fL [facility] RDW coefficient of variation 11.8 11.4 - 13.8 % [facility] Mean Platelet Volume 9.4 7.6 - 12.9 fL [facility] NRBC% auto 0.0 % [facility] NRBC Absolute 0.000 0.000 - 0.000 x10(3)/mc L [facility] Blood specimen (specimen) 08/28/2017 3:44 AM EST 08/28/2017 4:11 AM EST Narrative Resulting Agency Comment Spec In Lab Elder Addison MD HEMATOLOGY ORDERAB LES Performing Organization Address City/[facility]/ZIP Co de Phone Number [facility] [place] [address] * (ABNORMAL) Phosphorus (08/27/2017 4:12 AM EST) Phosphorus 2.2(L) 2.5 - 4.5 mg/dL [facility] Blood specimen (specimen) 08/27/2017 4:12 AM EST 08/27/2017 4:35 AM EST Narrative Resulting Agency Comment Spec In Lab Elder Addison MD CHEMISTRY ORDERABL ES Performing Organization Address City/[facility]/ZIP Co de Phone Number [facility] [place] [address] * Magnesium (08/27/2017 4:12 AM EST) Magnesium 0.83 0.69 - 1.07 mmol/L [facility] Blood specimen (specimen) 08/27/2017 4:12 AM EST 08/27/2017 4:35 AM EST Narrative Resulting Agency Comment Spec In Lab Elder Addison MD CHEMISTRY ORDERABL ES [facility] [place] [address] * (ABNORMAL) Basic Metabolic Panel (non-fasting) (08/27/2017 4:12 AM EST) Glucose 112 65 - 199 mg/dL [facility] Comment:Diabetes: >=200 mg/d L plus symptoms Blood Urea Nitrogen 9(L) 10 - 20 mg/dL [facility] Creatinine 0.81 0.80 - 1.50 mg/dL [facility] Sodium 140 135 - 145 mmol/L [facility] Potassium 3.8 3.5 - 5.0 mmol/L [facility] Comment: Please note: ??Patients with WBC >100,000 may have falsely elevated Potassium levels. ??For accurate Potassium quantification in these patients send serum separator tube (gold top) for subsequent determinations. ??Contact the Clinical Chemistry Laboratory if there are any questions. Chloride 104 98 - 107 mmol/L [facility] Carbon Dioxide 28 22 - 31 mmol/L [facility] Anion Gap 8 5 - 15 mmol/L [facility] Calcium 8.3(L) 8.5 - 10.5 mg/dL [facility] Est Glomerular Filtration Rate >60 >=60 [facility] Comment: The reported eGFR should be multiplied by 1.2 for patients. The MDRD is not an appropriate measure of renal function for patients with body mass extremes or in patients with acute kidney failure. http://BrandShield.digitalbox/DHnkdep [email or web address]://BrandShield.digitalbox/DHMCnkf Blood specimen (specimen) 08/27/2017 4:12 AM EST 08/27/2017 4:35 AM EST Narrative Resulting Agency Comment Spec In Lab Elder Addison MD CHEMISTRY ORDERABL ES Performing Organization Address City/[facility]/ZIP Co de Phone Number [facility] [place] [address] * (ABNORMAL) Hemogram (08/27/2017 4:12 AM EST) White Blood Cell 11.8(H) 4.0 - 9.5 x10(3)/mc L [facility] Red Blood Cell 3.87(L) 4.58 - 5.54 x10(6)/mc L [facility] Hemoglobin 11.7(L) 13.7 - 16.5 gm/dL [facility] Hematocrit 33.6(L) 40.5 - 48.5 % [facility] Mean Cell Volume 86.8 82.9 - 93.1 fL [facility] Mean Cell Hemoglobin 30.2 27.5 - 32.1 pg [facility] Mean Cell Hemoglobin Concentration 34.8 32.0 - 35.7 gm/dL [facility] Platelet 177 145 - 357 x10(3)/mc L [facility] RDW Standard Deviation 36.3 36.0 - 45.0 fL [facility] RDW coefficient of variation 11.6 11.4 - 13.8 % [facility] Mean Platelet Volume 9.5 7.6 - 12.9 fL [facility] NRBC% auto 0.0 % [facility] NRBC Absolute 0.000 0.000 - 0.000 x10(3)/mc L [facility] Blood specimen (specimen) 08/27/2017 4:12 AM EST 08/27/2017 4:35 AM EST Narrative Resulting Agency Comment Spec In Lab Elder Addison MD HEMATOLOGY ORDERAB LES [facility] [place] [address] * (ABNORMAL) Phosphorus (08/26/2017 4:34 AM EST) Phosphorus 5.2(H) 2.5 - 4.5 mg/dL [facility] Blood specimen (specimen) 08/26/2017 4:34 AM EST 08/26/2017 4:54 AM EST Narrative Resulting Agency Comment Spec In Lab Elder Addison MD CHEMISTRY ORDERABL ES Performing Organization Address [facility] Co de Phone Number [facility] [place] [address] * Magnesium (08/26/2017 4:34 AM EST) Pathologist [facility] [place] Magnesium 0.77 0.69 - 1.07 mmol/L [facility] Blood specimen (specimen) 08/26/2017 4:34 AM EST 08/26/2017 4:54 AM EST Narrative Resulting Agency Comment Spec In Lab Elder Addison MD CHEMISTRY ORDERABL ES Performing Organization Address [facility] Co de Phone Number [facility] [place] [address] * (ABNORMAL) Basic Metabolic Panel (non-fasting) (08/26/2017 4:34 AM EST) Pathologist [facility] [place] Glucose 115 65 - 199 mg/dL [facility] Comment:Diabetes: >=200 mg/d L plus symptoms Blood Urea Nitrogen 10 10 - 20 mg/dL [facility] Creatinine 0.78(L) 0.80 - 1.50 mg/dL [facility] Sodium 139 135 - 145 mmol/L [facility] Potassium 3.7 3.5 - 5.0 mmol/L [facility] Comment: Please note: ??Patients with WBC >100,000 may have falsely elevated Potassium levels. ??For accurate Potassium quantification in these patients send serum separator tube (gold top) for subsequent determinations. ??Contact the Clinical Chemistry Laboratory if there are any questions. Chloride 102 98 - 107 mmol/L [facility] Carbon Dioxide 28 22 - 31 mmol/L [facility] Anion Gap 9 5 - 15 mmol/L [facility] Calcium 7.8(L) 8.5 - 10.5 mg/dL [facility] Est Glomerular Filtration Rate >60 >=60 [facility] Comment: The reported eGFR should be multiplied by 1.2 for patients. The MDRD is not an appropriate measure of renal function for patients with body mass extremes or in patients with acute kidney failure. http://Shopdeca/DHnkdep http://Shopdeca/DHMCnkf Blood specimen (specimen) 08/26/2017 4:34 AM EST 08/26/2017 4:54 AM EST Narrative Resulting Agency Comment Spec In Lab Elder Addison MD CHEMISTRY ORDERABL ES Performing Organization Address City/State/[facility] Co de Phone Number [facility] [place] [address] * (ABNORMAL) Hemogram (08/26/2017 4:34 AM EST) White Blood Cell 14.1(H) 4.0 - 9.5 x10(3)/mc L [facility] Red Blood Cell 4.03(L) 4.58 - 5.54 x10(6)/mc L [facility] Hemoglobin 12.2(L) 13.7 - 16.5 gm/dL [facility] Hematocrit 34.6(L) 40.5 - 48.5 % [facility] Mean Cell Volume 85.9 82.9 - 93.1 fL [facility] Mean Cell Hemoglobin 30.3 27.5 - 32.1 pg [facility] Mean Cell Hemoglobin Concentration 35.3 32.0 - 35.7 gm/dL [facility] Platelet 189 145 - 357 x10(3)/mc L [facility] RDW Standard Deviation 36.2 36.0 - 45.0 fL [facility] RDW coefficient of variation 11.7 11.4 - 13.8 % [facility] Mean Platelet Volume 9.6 7.6 - 12.9 fL [facility] NRBC% auto 0.0 % [facility] NRBC Absolute 0.000 0.000 - 0.000 x10(3)/mc L [facility] Blood specimen (specimen) 08/26/2017 4:34 AM EST 08/26/2017 4:54 AM EST Narrative Resulting Agency Comment Spec In Lab Elder Addison MD HEMATOLOGY ORDERAB LES Performing Organization Address [facility] Co de Phone Number [facility] [place] [address] * Phosphorus (08/25/2017 4:10 PM EST) Phosphorus 3.4 2.5 - 4.5 mg/dL [facility] Blood specimen (specimen) 08/25/2017 4:10 PM EST 08/25/2017 4:47 PM EST Narrative Resulting Agency Comment Spec In Lab Elder Addison MD CHEMISTRY ORDERABL ES Performing Organization Address [facility] Co de Phone Number [facility] [place] [address] * Magnesium (08/25/2017 4:10 PM EST) Magnesium 0.78 0.69 - 1.07 mmol/L [facility] Blood specimen (specimen) 08/25/2017 4:10 PM EST 08/25/2017 4:47 PM EST Narrative Resulting Agency Comment Spec In Lab Elder Addison MD CHEMISTRY ORDERABL ES Performing Organization Address [facility] Co de Phone Number [facility] [place] [address] * (ABNORMAL) Basic Metabolic Panel (non-fasting) (08/25/2017 4:10 PM EST) Glucose 109 65 - 199 mg/dL [facility] Comment:Diabetes: >=200 mg/d L plus symptoms Blood Urea Nitrogen 11 10 - 20 mg/dL [facility] Creatinine 0.89 0.80 - 1.50 mg/dL [facility] Sodium 144 135 - 145 mmol/L [facility] Potassium 3.7 3.5 - 5.0 mmol/L [facility] Comment: Please note: ??Patients with WBC >100,000 may have falsely elevated Potassium levels. ??For accurate Potassium quantification in these patients send serum separator tube (gold top) for subsequent determinations. ??Contact the Clinical Chemistry Laboratory if there are any questions. Chloride 105 98 - 107 mmol/L [facility] Carbon Dioxide 25 22 - 31 mmol/L [facility] Anion Gap 14 5 - 15 mmol/L [facility] Calcium 8.3(L) 8.5 - 10.5 mg/dL [facility] Est Glomerular Filtration Rate >60 >=60 [facility] Comment: The reported eGFR should be multiplied by 1.2 for patients. The MDRD is not an appropriate measure of renal function for patients with body mass extremes or in patients with acute kidney failure. http://BrandShield.digitalbox/DHnkdep http://Shopdeca/DHMCnkf Blood specimen (specimen) 08/25/2017 4:10 PM EST 08/25/2017 4:47 PM EST Narrative Resulting Agency Comment Spec In Lab Elder Addison MD CHEMISTRY ORDERABL ES [facility] [place] [address] * (ABNORMAL) Hemogram (08/25/2017 4:10 PM EST) White Blood Cell 17.3(H) 4.0 - 9.5 x10(3)/mc L [facility] Red Blood Cell 4.33(L) 4.58 - 5.54 x10(6)/mc L [facility] Hemoglobin 13.3(L) 13.7 - 16.5 gm/dL [facility] Hematocrit 37.5(L) 40.5 - 48.5 % [facility] Mean Cell Volume 86.6 82.9 - 93.1 [facility] Mean Cell Hemoglobin 30.7 27.5 - 32.1 pg [facility] Mean Cell Hemoglobin Concentration 35.5 32.0 - 35.7 gm/dL [facility] Platelet 208 145 - 357 x10(3)/mc L [facility] RDW Standard Deviation 36.8 36.0 - 45.0 [facility] RDW coefficient of variation 11.7 11.4 - 13.8 % [facility] [place] Platelet Volume 9.2 7.6 - 12.9 [facility] NRBC% auto 0.0 % [facility] NRBC Absolute 0.000 0.000 - 0.000 x10(3)/[facility] Blood specimen (specimen) 08/25/2017 4:10 PM EST 08/25/2017 4:47 PM EST Narrative Resulting Agency Comment Spec In Lab Elder Addison MD HEMATOLOGY ORDERAB LES Performing Organization Address City/State/[facility] Co de Phone Number [facility] [place] [address] * Surgical Pathology Report (08/25/2017 2:31 PM EST) Final Diagnosis [id number] ? Location: [facility]; [facility]; A The signing pathologist has (i) examined the relevant preparation(s) for the specimen(s) and (ii) rendered or confirmed the diagnosis(es). . ? Addendum ADDENDUM DISCUSSION Following interdepartmental tumor board (09/14/2017) the staging information for this case was updated to reflect new recommendations for the staging of low grade appendiceal mucinous neoplasms that do not penetrate beyond the muscularis propria. As such the stage is more accurately represented as: pTis(LAMN) N0 Electronically signed by: ??Jesús Elise MD, PhD Verified: ??09/14/2017 ?Pathologist Performed at: ??-[facility] [place] Dept. of Pathology, [place], [place] ? Addendum ADDENDUM DISCUSSION Following interdepartmental consensus, an additional lymph node search was performed, the result of which is documented below: Diagnosis: Twenty seven lymph nodes negative for malignancy (0 / 27). Gross desctription: Lymph nodes: ? (90-95) single intact nodes; (96) one node bisected: (97) one node trisected; (98-99) one node trisected. Electronically signed by: ??Jesús Elise MD, PhD Verified: ??09/07/2017 ?Pathologist Performed at: ??-[facility] [place] Dept. of Pathology, [place], [place] ?Surgical Pathology DIAGNOSIS Ileo right colectomy with mesentery, resection: Low-grade appendiceal mucinous neoplasm, pT1N0. Margins negative for neoplastic epithelium and accelular mucin. The entire appendix was submitted and examined. See synoptic report. Synoptic report: Specimen Parts: ?? terminal ileum, cecum, appendix, ascending colon Specimen ? Procedure: ??Appendectomy and right colectomy Tumor ? Tumor Site: ??Diffusely involving appendix ? Histologic Type: ?? Low-grade appendiceal mucinous neoplasm ? Histologic Grade: ?? G1: Well differentiated ? Tumor Size: ?? 13.2 x 4.3 x 0.2 Centimeters (cm) ? Tumor Deposits: ?? Not identified ? Tumor Extent ?Tumor Extension: ?? Tumor invades submucosa . DIAGNOSIS ? Accessory Findings ?Lymphovascular Invasion: ?? Not identified ?Perineural Invasion: ?? Not identified Margins ? Proximal Margin: ?? Uninvolved by invasive carcinoma ?Status of Mucinous Neoplasm at Proximal Margin: ?Uninvolved by appendiceal ? mucinous neoplasm ? Mesenteric Margin: ?? Uninvolved by invasive carcinoma ?Status of Mucinous Neoplasm at Mesenteric Margin: ?Uninvolved by ? appendiceal mucinous neoplasm ?Distance of Invasive Carcinoma from Closest Mesenteric Margin: ? 0.2 ? Centimeters (cm) Lymph Nodes ? Number of Lymph Nodes Involved: ?0 ? Number of Lymph Nodes Examined: ?1 Pathologic Stage Classification (pTNM, AJCC 8th Edition) ? Primary Tumor (pT): ?? pT1 ? Regional Lymph Nodes (pN): ?? pN0 Additional Findings ? Additional Pathologic Findings: ?? None identified Tumor Block(s): ?? A11-A14, A37, A54, A59-60, Normal Block(s): ?? A1 2016 AJCC 8th Edition CAP Annual Release Electronically signed by: ??Arik TAYLOR PhD, Jesús Zamorano Verified: ??09/03/2017 ?Pathologist Performed at: ??-[facility] [place] Dept. of Pathology, [place], [place] CLINICAL INFORMATION Specimen Submitted: A - Ileo right colectomy with mesentery Clinical History: Appendix mass Clinical Diagnosis: Appendix mass SPECIMEN PROCESSING A - Labeled/Fixative: Ileo right colectomy with mesentery, fresh. SPECIMEN DESCRIPTION Resection Specimen: Received intact, right hemicolectomy including terminal ileum, cecum, appendix, and ascending colon ??. Length/Diameter: 23.1 cm / 4.1 cm. External Architecture: Preserved. Serosa: Glistening, smooth. APPENDIX: 13.2 x 4.3 x 4.2 cm, diffusely enlarged, light pink, smooth serosal surface with a small amount of attached mesoappendiceal adipose tissue. Sectioning reveals a thin-walled, 0.1 cm thick, appendix filled entirely by a thick, semitranslucent, yellow-white mucinous material. The cecal appendiceal orifice does not appear to communicate directly with a mucinous material. Margins: - 9.5 cm from proximal margin. ? - 14.3 cm from distal margin. ? - 0.2 cm from mesoappendiceal soft tissue margin. OTHER Status of residual bowel: Light pink, with the usual folds. Ink Designation: Nearest mesoappendiceal soft tissue margin is inked black Sections/Processing: ?? (A1) account service representative proximal margin, en face; (A2) account service representative distal margin, en face; (A3) account service representative uninvolved mucosa; (A4-A5) cecal appendiceal orifice to edge of mucinous lesion, bisected; (A6) account service representative appendiceal wall to nearest nearest mesoappendiceal adipose/soft . SPECIMEN PROCESSING tissue margin; (A7-A26) Pin Drafting Machine Tender sections of appendiceal/lesional wall ?. (R26) knr Additional sections: Remainder of appendiceal/lesional wall is submitted in cassettes ([id number]). ??The entire appendix has been submitted. (R89) knr 09/14/2017 7:35 AM EDT [facility] COLON STRUCTURE / Unknown 08/25/2017 2:31 PM EST 08/25/2017 2:31 PM EST Elder Addison MD PATHOLOGY/CYTOLOGY ORDERABLES [facility] [place] [address] * Specimen to Pathology (08/25/2017 2:31 PM EST) AP Specimen 08/25/2017 2:31 PM EST 08/25/2017 2:31 PM EST Narrative [facility] - 08/25/2017 2:31 PM EST Specimen requisition ordered. ??Separate Pathology report to follow Elder Addison MD PATHOLOGY/CYTOLOGY ORDERABLES [facility] [place] [address] documented in this encounter Visit Diagnoses Diagnosis Mass of appendix- Primary Other and unspecified diseases of appendix documented in this encounter Administered Medications Inactive Administered Medications - up to 3 most recent administrations Medication Order MAR Action Action Date Dose Rate Site acetaminophen (TYLENOL) tablet 1,000 mg 1,000 mg, Oral, ONCE, 1 dose, On Wed08/25/17 at 1015, Administer with SIP of H2O only., Day of Surgery (Day of Procedure), Routine Given 08/25/2017 10:04 AM EST 1,000 mg acetaminophen (TYLENOL) tablet 1,000 mg 1,000 mg, Oral, EVERY 6 HOURS SCHEDULED, First dose on Wed08/25/17 at 1800, Until Discontinued, Should be used concomitantly if other analgesics are ordered. Do not exceed 4,000 mg in 24 hours, Routine Given 08/28/2017 5:41 AM EST 1,000 mg Given 08/27/2017 5:14 PM EST 1,000 mg Given 08/27/2017 2:50 PM EST 1,000 mg docusate sodium (COLACE) capsule 100 mg 100 mg, Oral, 2 TIMES DAILY, First dose on Wed08/28/17 at 0900, Until Discontinued, Routine enoxaparin (LOVENOX) injection 40 mg 40 mg, Subcutaneous, NIGHTLY, First dose on Wed08/25/17 at 2115, Until Discontinued, Routine Given 08/27/2017 8:30 PM EST 40 mg Given 08/26/2017 8:40 PM EST 40 mg Given 08/25/2017 9:28 PM EST 40 mg fentaNYL (PF) 50mcg/mL injection 25-50 mcg, Intravenous, EVERY 5 MIN PRN, Starting on Wed08/25/17 at 1515, Until Wed08/25/17 at 2040, Pain, Give 25 mcg every 5 minutes PRN for mild to moderate pain (1-5) Give 50 mcg every 5 minutes PRN for moderate to severe pain (6-10). Hold for respiratory rate less than 10 per minute. Maximum dose 250 mcg over one hour. If ordered with hydromorphone or morphine, give hydromorphone or morphine first and use fentanyl for breakthrough pain., PACU Recovery, Routine Given 08/25/2017 5:16 PM EST 5 0 mcg Given 08/25/2017 4:56 PM EST 50 mcg Given 08/25/2017 4:25 PM EST 50 mcg hydrocortisone 1 % cream Topical (Top), 3 TIMES DAILY, First dose on Wed08/25/17 at 2200, Until Discontinued Given 08/26/2017 9:00 PM EST Given 08/25/2017 9:29 PM EST HYDROmorphone (DILAUDID) 1 mg/mL CYLINDER DIE MACHINE HELPER 50 mL Intravenous, CYLINDER DIE MACHINE HELPER ONLY, Starting on Wed08/25/17 at 1645, Until Wed08/27/17 at 1021, Recovery (Recovery-Hospital Unit) New Syringe/Cartridge 08/25/2017 4:31 PM EST 50 mg HYDROmorphone (DILAUDID) injection 0.2-0.4 mg 0.2-0.4 mg, Intravenous, EVERY 5 MIN PRN, Starting on Wed08/25/17 at 1637, Until Wed08/25/17 at 2040, Pain, Give 0.2 mg every 5 minutes PRN for mild to moderate pain (1-5) Give 0.4 mg every 5 minutes PRN for moderate to severe pain (6-10). Hold for respiratory rate less than 10 per minute. Maximum dose 4 mg over one hour. If multiple pain medications are ordered, start with hydromorphone or morphine and use fentanyl for breakthrough pain., PACU Recovery, Routine Given 08/25/2017 6:05 PM EST 0.2 mg Given 08/25/2017 5:56 PM EST 0.4 mg Given 08/25/2017 5:35 PM EST 0.4 mg ketorolac (TORADOL) injection 15 mg 15 mg, Intravenous, EVERY 6 HOURS PRN, Starting on Wed08/25/17 at 1649, Until 08/28/17 at 1226, Pain, Recovery (Recovery-Hospital Unit), Routine Given 08/26/2017 1:30 PM EST 15 mg Given 08/25/2017 4:55 PM EST 15 mg lactated Ringers infusion 1,000 mL 1,000 mL, at 100 mL/hr, Intravenous, CONTINUOUS, Starting on Wed08/25/17 at 1015, Until Wed08/25/17 at 1628, Day of Surgery (Day of Procedure) New Bag 08/25/2017 11:12 AM EST New Bag 08/25/2017 10:32 AM EST 1,000 mLs 100 mL/hr lactated Ringers infusion 1,000 mL 1,000 mL, at 100 mL/hr, Intravenous, CONTINUOUS, Starting on Wed08/25/17 at 1645, Until Kacey 08/26/17 at 1714, Recovery (Recovery-Hospital Unit) New Bag 08/26/2017 10:13 AM EST 1,000 mLs 100 mL/hr New Bag 08/25/2017 4:48 PM EST 1,000 mLs 100 mL/hr lactated Ringers infusion 10 mL/hr, Intravenous, CONTINUOUS, Starting on Wed08/26/17 at 1730, Until Wed08/27/17 at 1021, Recovery (Recovery-Hospital Unit) New Bag 08/26/2017 5:32 PM EST 10 mL/hr 10 mL/hr lidocaine (LIDODERM) 5 % patch 2 patch 2 patch, Transdermal, EVERY 24 HOURS, First dose on Wed08/25/17 at 2100, Until Discontinued, Apply patch(es) for 12 hours, and then remove for 12 hours, Routine Patch Applied 08/27/2017 8:30 PM EST 1 patch 14- Abdomen (Right) Patch Applied 08/26/2017 8:40 PM EST 2 patches 13- Abdomen (Left) Patch Applied 08/25/2017 9:28 PM EST 2 patches 14- Abdomen (Right) lidocaine (LIDODERM) patch REMOVAL Transdermal, EVERY 24 HOURS, First dose on Wed08/26/17 at 0900, Until Discontinued, Remove lidocaine 5 %(700 mg/patch) patch magnesium sulfate 2 g in sterile water 50 mL 2 g, Intravenous, ONCE, 1 dose, On Wed08/26/17 at 0630, Administer over 120 Minutes New Bag 08/26/2017 7:19 AM EST 2 g 25 mL/hr magnesium sulfate 2 g in sterile water 50 mL 2 g, Intravenous, ONCE, 1 dose, On 08/28/17 at 0630, Administer over 120 Minutes New Bag 08/28/2017 6:41 AM EST 2 g 25 mL/hr ondansetron (ZOFRAN) injection 4-8 mg 4-8 mg, Intravenous, EVERY 8 HOURS PRN, Starting on Wed08/25/17 at 2050, Until 08/28/17 at 1226, Nausea, Start with 4mg and if ineffective in 30 minutes, give an additional 4mg If multiple antiemetics are ordered, give ondansetron first. Given 08/26/2017 10:06 AM EST 4 mg ondansetron (ZOFRAN) tablet 4-8 mg 4-8 mg, Oral, EVERY 8 HOURS PRN, Starting on Wed08/25/17 at 2050, Until 08/28/17 at 1226, Nausea, Vomiting, If multiple antiemetics are ordered, use ondansetron first. PO Preferred. If patient unable to take PO, may give IV if ordered. Start with 4mg and if ineffective in 45 minutes, give an additional 4mg. If unable to take PO, may give IV., Routine oxyCODONE (ROXICODONE) immediate release tablet 5 mg 5 mg, Oral, EVERY 4 HOURS PRN, Starting on Wed08/27/17 at 1021, Until 08/28/17 at 1226, Pain, For pain unrelieved by Toradol, Routine potassium phosphate 15 mMol in sodium chloride 0.9% 250 mL 15 mmol, Intravenous, ONCE, 1 dose, On Wed08/27/17 at 1200, Administer over 4 Hours, Administer over 4-6 hours New Bag 08/27/2017 1:39 PM EST 15 mmol prochlorperazine (COMPAZINE) injection 5 mg 5 mg, Intravenous, EVERY 30 MIN PRN, 2 doses, Starting on Wed08/25/17 at 1626, Until Wed08/27/17 at 1021, Nausea, May repeat in 30 minutes if no relief from previous dose. HOLD if patient is sedated. Maximum dose is 40 mg in 24 hours. If multiple antiemetics are ordered, use ondansetron first, prochlorperazine second. Per CYLINDER DIE MACHINE HELPER order., Recovery (Recovery-Hospital Unit), Routine Given 08/25/2017 7:51 PM EST 5 mg sodium chloride 0.9 % flush 5 mL 5 mL, Intravenous, 2 TIMES DAILY, First dose on Wed08/25/17 at 2115, Until Discontinued, Recovery (Recovery-Hospital Unit), Routine Given 08/27/2017 8:30 PM EST 5 mLs Given 08/27/2017 9:00 AM EST 5 mLs Given 08/26/2017 9:00 PM EST 5 mLs documented in this encounter Active and Recently Administered Medications Times are shown in EST. Scheduled Medication Order 08/26/2017 08/27/2017 08/28/2017 acetaminophen (TYLENOL) tablet 1,000 mg 1,000 mg, Oral, EVERY 6 HOURS SCHEDULED, First dose on Wed08/25/17 at 1800, Until Discontinued, Should be used concomitantly if other analgesics are ordered. Do not exceed 4,000 mg in 24 hours, Routine 0054 (Given - Provider: Fiona Baez RN)0718 (Given - Provider: Fiona Baez RN)1156 (Given - Provider: Nakia Jensen RN)1731 (Given - Provider: Nakia Jensen RN)2359 (Given - Provider: Fiona Baez RN) 0600 (Not Given - Provider: Fiona Baez RN - Reason: Patient/family refused)0828 (Given - Provider: Joseph Thornton RN)1450 (Given - Provider: Joseph Thornton, EKRI)1714 (Given - Provider: Hilario Joseph RN) 0000 (Not Given - Provider: Kanwal Cortes RN - Reason: Patient/family refused)0541 (Given - Provider: Kanwal Cortes, KERI) docusate sodium (COLACE) capsule 100 mg 100 mg, Oral, 2 TIMES DAILY, First dose on Wed08/28/17 at 0900, Until Discontinued, Routine 0900 (Due) enoxaparin (LOVENOX) injection 40 mg 40 mg, Subcutaneous, NIGHTLY, First dose on Wed08/25/17 at 2115, Until Discontinued, Routine 2040 (Given - Provider: Fiona Baez RN) 2030 (Given - Provider: Kanwal E Cortes, RN) hydrocortisone 1 % cream Topical (Top), 3 TIMES DAILY, First dose on Wed08/25/17 at 2200, Until Discontinued 0900 (Not Given - Provider: Nakia Jensen RN - Reason: Patient/family refused)1500 (Not Given - Provider: Nakia Jensen RN - Reason: Patient/family refused)2100 (Given - Provider: Fiona Baez RN) 0900 (Not Given - Provider: Joseph Thornton, RN - Reason: Patient/family refused)1500 (Not Given - Provider: Hilario Joseph RN - Reason: Patient/family refused)2100 (Not Given - Provider: Kanwal Cortes RN - Reason: Patient/family refused) 0900 (Due) lidocaine (LIDODERM) 5 % patch 2 patch(Linked Group 1) 2 patch, Transdermal, EVERY 24 HOURS, First dose on Wed08/25/17 at 2100, Until Discontinued, Apply patch(es) for 12 hours, and then remove for 12 hours, Routine 2039 (Patch Applied - Provider: Fiona Baez RN) 2029 (Patch Applied - Provider: Kanwal Cortes RN) lidocaine (LIDODERM) patch REMOVAL(Linked Group 1) Transdermal, EVERY 24 HOURS, First dose on Wed08/26/17 at 0900, Until Discontinued, Remove lidocaine 5 %(700 mg/patch) patch 899 (Patch Removed - Provider: Nakia Jensen RN) 2099 (Patch Removed - Provider: Kanwal Cortes RN) 0900 (Due) magnesium sulfate 2 g in sterile water 50 mL (COMPLETED) 2 g, Intravenous, ONCE, 1 dose, On Wed08/26/17 at 0630, Administer over 120 Minutes 0719 (New Bag - Provider: Fiona Baez RN)0919 (Stopped - Provider: Nakia Jensen RN) magnesium sulfate 2 g in sterile water 50 mL (COMPLETED) 2 g, Intravenous, ONCE, 1 dose, On Wed08/28/17 at 0630, Administer over 120 Minutes 0641 (New Bag - Provider: Kanwal Cortes RN)0841 (Stopped - Provider: Joseph Thornton RN) potassium phosphate 15 mMol in sodium chloride 0.9% 250 mL (COMPLETED) 15 mmol, Intravenous, ONCE, 1 dose, On Wed08/27/17 at 1200, Administer over 4 Hours, Administer over 4-6 hours 1339 (New Bag - Provider: Joseph Thornton, RN)1739 (Stopped - Provider: Hilario Joseph RN) sodium chloride 0.9 % flush 5 mL 5 mL, Intravenous, 2 TIMES DAILY, First dose on Wed08/25/17 at 2115, Until Discontinued, Recovery (Recovery-Hospital Unit), Routine 0900 (Not Given - Provider: Nakia Jensen RN - Reason: Order parameters not met)2100 (Given - Provider: Fiona Baez RN) 0900 (Given - Provider: Joseph Thornton, RN)2030 (Given - Provider: Kanwal Cortes RN) 0900 (Due) Continuous Medication Order 08/26/2017 08/27/2017 08/28/2017 lactated Ringers infusion 1,000 mL (CANCELED) 1,000 mL, at 100 mL/hr, Intravenous, CONTINUOUS, Starting on Wed08/25/17 at 1645, Until Kacey 08/26/17 at 1714, Recovery (Recovery-Hospital Unit) 1013 (New Bag - Provider: Nakia Jensen RN) lactated Ringers infusion (CANCELED) 10 mL/hr, Intravenous, CONTINUOUS, Starting on Kacey 08/26/17 at 1730, Until 08/27/17 at 1021, Recovery (Recovery-Hospital Unit) 1732 (New Bag - Provider: Nakia Jensen RN) 1000 (Stopped - Provider: Joseph Thornton, RN) PRN Medication Order 08/26/2017 08/27/2017 08/28/2017 ketorolac (TORADOL) injection 15 mg 15 mg, Intravenous, EVERY 6 HOURS PRN, Starting on Wed08/25/17 at 1649, Until 08/28/17 at 1226, Pain, Recovery (Recovery-Hospital Unit), Routine 1330 (Given - Provider: Nakia Jensen RN) lidocaine (XYLOCAINE) 10 mg/mL (1 %) injection 3 mg 3 mg (0.3 mL), Subcutaneous, ONCE PRN, 1 dose, Starting on Wed08/25/17 at 2050, Until 08/28/17 at 1226, for discomfort with PIV insertion, Recovery (Recovery-Hospital Unit), Routine naloxone (NARCAN) injection 0.2 mg 0.2 mg, Intravenous, EVERY 1 MIN PRN, Starting on Wed08/25/17 at 2050, Until 08/28/17 at 1226, Opioid Reversal, If respiratory rate less than 6 OR the patient is unable to arouse OR SpO2 is declining, Give for respiratory rate of less than or equal to 6 and patient is heavily sedated or unarousable. May repeat every 60 seconds to increase respiratory rate. DO NOT exceed 2 mg total dose., Recovery (Recovery-Hospital Unit), Routine naloxone (NARCAN) injection 0.2 mg 0.2 mg, Intravenous, EVERY 1 MIN PRN, Starting on Wed08/25/17 at 2050, Until 08/28/17 at 1226, Opioid Reversal, May repeat every 60 seconds to increase respiratory rate. DO NOT exceed 2 mg total dose. Per CYLINDER DIE MACHINE HELPER order., Recovery (Recovery-Hospital Unit), Routine ondansetron (ZOFRAN) injection 4-8 mg(Linked Group 2) 4-8 mg, Intravenous, EVERY 8 HOURS PRN, Starting on Wed08/25/17 at 2050, Until 08/28/17 at 1226, Nausea, Start with 4mg and if ineffective in 30 minutes, give an additional 4mg If multiple antiemetics are ordered, give ondansetron first. 1006 (Given - Provider: Nakia Jensen RN) ondansetron (ZOFRAN) tablet 4-8 mg(Linked Group 2) 4-8 mg, Oral, EVERY 8 HOURS PRN, Starting on Wed08/25/17 at 2050, Until 08/28/17 at 1226, Nausea, Vomiting, If multiple antiemetics are ordered, use ondansetron first. PO Preferred. If patient unable to take PO, may give IV if ordered. Start with 4mg and if ineffective in 45 minutes, give an additional 4mg. If unable to take PO, may give IV., Routine 1006 (See Alternative - Provider: Nakia Jensen RN) oxyCODONE (ROXICODONE) immediate release tablet 5 mg 5 mg, Oral, EVERY 4 HOURS PRN, Starting on Wed08/27/17 at 1021, Until 08/28/17 at 1226, Pain, For pain unrelieved by Toradol, Routine sodium chloride 0.9 % flush 5-20 mL 5-20 mL, Intravenous, EVERY 1 MIN PRN, Starting on Wed08/25/17 at 2050, Until 08/28/17 at 1226, flush, Flush pertains to all indwelling lines. Flush per protocol found in the job aid using the link provided on this medication record., Recovery (Recovery-Hospital Unit), Routine Linked Groups Order Group 1: lidocaine (LIDODERM) 5 % patch 2 patchJump to med 2 patch, Transdermal, EVERY 24 HOURS, First dose on Wed08/25/17 at 2100, Until Discontinued, Apply patch(es) for 12 hours, and then remove for 12 hours, Routine And lidocaine (LIDODERM) patch REMOVALJump to med Transdermal, EVERY 24 HOURS, First dose on Wed08/26/17 at 0900, Until Discontinued, Remove lidocaine 5 %(700 mg/patch) patch Group 2: ondansetron (ZOFRAN) tablet 4-8 mgJump to med 4-8 mg, Oral, EVERY 8 HOURS PRN, Starting on Wed08/25/17 at 2050, Until 08/28/17 at 1226, Nausea, Vomiting, If multiple antiemetics are ordered, use ondansetron first. PO Preferred. If patient unable to take PO, may give IV if ordered. Start with 4mg and if ineffective in 45 minutes, give an additional 4mg. If unable to take PO, may give IV., Routine Or ondansetron (ZOFRAN) injection 4-8 mgJump to med 4-8 mg, Intravenous, EVERY 8 HOURS PRN, Starting on Wed08/25/17 at 2050, Until 08/28/17 at 1226, Nausea, Start with 4mg and if ineffective in 30 minutes, give an additional 4mg If multiple antiemetics are ordered, give ondansetron first. documented in this encounter Care Teams Utility Tech Relationship Specialty Start Date End Date Kenrick Zavala DO [address] [place] [address] PCP - General 02/10/13 08/21/21 documented as of this encounter
--- OUTSIDE RECORDS SUMMARY | 2024-05-26 11:07 | XMS_ITS | Encounter Summary ---
[place] [address] Care Team Providers Care Laborer Drying Department Name Role Phone Kenrick Zavala DO Primary Care Provider [phone] Reason for Visit * Reason Onset Date Comments Abdominal Pain 08/05/2017 Encounter Details Date Type Department Care Team (Late st Contact Info) Description 08/05/2017 Telephone [place] [id number] Janae Khan RN Abdominal Pain Social History Tobacco Use Types Packs/Day Years Used Date Smoking Tobacco: Never Smokeless Tobacco: Never Sex and Gender Information Value Date Recorded Sex Assigned at Male 02/17/2021 6:32 AM EDT Gender Identity Male 09/27/2023 9:31 AM EDT Sexual Orientation Straight 02/17/2021 6: 32 AM EDT documented as of this encounter Miscellaneous Notes * Telephone Encounter - Janae Khan RN - 08/05/2017 9:01 AM EST Mr. Zaman was seen by Dr. 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 He hadn't had any abdominal pain or other complaints prior, but he has been very anxious about everything since meeting with Dr. Addison as he has a possible cancer diagnosis. His calls today at the urging of the pt. He was snow blowing this morning, and then he developed a dull ache on his right side.They wonder if he should go to the ED. Discussed that it is likely musculoskeletal in origin since it began after activity but that the only way to know for sure would be to get evaluated. Discussed that he shouldn't panic yet though - his and his 's anxiety levels are high. Recommended rest, heating pad, Tylenol and/or ibuprofen. If he feels better, then good. If his pain worsens or if he develops nausea, vomiting, fevers, chills, diarrhea, or other changes, then call back. They agree. documented in this encounter Plan of Treatment Not on file documented as of this encounter Visit Diagnoses Not on filedocumented in this encounter Care Teams Laborer Drying Department Relationship Specialty Start Date End Date Kenrick Zavala DO [address] [place] [address] PCP - General 02/10/13 08/21/21 documented as of this encounter
--- OUTSIDE RECORDS SUMMARY | 2024-05-26 11:07 | XMS_ITS | Encounter Summary ---
[place] [address] Care Team Providers Care First Responder Name Role Phone Kenrick Zavala DO Primary Care Provider [phone] Reason for Visit * Auth/Cert Specialty Diagnoses / Procedures Referred By Dianelys núñez Referred To Contact Diagnoses APPENDIX MASS Procedures PRO LAP, APPENDECTOMY LAPAROSCOPIC APPENDECTOMY (WRVU 9.45) Referral ID Status Reason Start Date Expiration Date Visits Re quested Visits Authorized [id number] 1 1 Encounter Details Date Type Department Care Team (Late st Contact Info) Description 08/25/2017 11:24 AM EST Anesthesia Event [place] [address] Lexa Georges MD [facility] [place] [address] Anesthesia Record Procedure Summary Procedure Name Responsible Anesthesiologist Anesthesia Start Time Anesthesia Stop Time @LAPAROSCOPIC ASSISTED COLECTOMY, PARTIAL, REM.TERMINAL ILEUM (WRVU 22.95) (Abdomen) Lexa Georges MD 08/25/17 1124 08/25/17 1556 Events Date Time Event Comment 08/25/2017 1105 1124 AN Verify 1124 Start 1124 An Start Data 1136 An Induction 1138 An Intubation 1140 an jairo now 1142 Anesthesia Ready 1200 Procedure Start 1211 Break/Relief In MARYA RODRIGUEZ NWUMU, RETAIL PHARMACY MANAGER 1236 Break/Relief Out 1530 Procedure Stop 1545 Extubation/LMA Out EtSev=0, reg respirations 1556 an stop data 1556 Recovery or ICU Handoff Cyndee ent care was transferred to the destination unit staff after review of the patient's medical history, current anesthetic/surgical status and plan, according to the Provider Handoff Checklist. Pt to pacu 23 via wheeled stretcher. VSS. Pt exchanging well. Pt resting comfortably. Report given to RN, all questions answered. EIW. 1556 Stop Meds Name Total Midazolam 4 mg fentaNYL 200 mcg IV Lidocaine 40 mg Propofol 380 mg Rocuronium 70 mg PHENYLephrine 720 mcg Ondansetron 8 mg Dexamethasone 8 mg Neostigmine 4 mg Glycopyrrolate 0.7 mg Propofol INF 1,667.25 mg ceFAZolin (ANCEF) 2g in dextrose 5% 100 mL 2 g heparin (Porcine) subcutaneous injection 5,000 Units 5,000 Units Ampicillin-Sulbactam 3 g metroNIDAZOLE (FLAGYL) 500 mg in sodium chloride 0.9% 100 mL 500 mg lactated Ringers infusion 1,000 mL 1,500 mL * Agents Name O2 Air N2O Sevoflurane (et) * Blood No blood administrations on file. Lines, Drains, and Airways Type Details Placement Removal Incision 08/25/17; abdomen; laparoscopic punctures (specify); Multiple trocar sites; 02/23/22 (LDA cleanup utility RA#[id number]); 1715 (LDA cleanup utility RA#[id number]) 08/25/17 0000 by Keely Carrington RN 02/23/22 1715 by Daron Collins Incision 08/25/17; abdomen; 02/23/22 (LDA cleanup utility RA#[id number]); 1715 (LDA cleanup utility RA#[id number]) 08/25/17 0000 by Keely Carrington RN 02/23/22 1715 by Daron Collins (RETIRED) Peripheral IV Line - Single Lumen 08/25/17; 1028; median vein (underside of arm), right; [id number] catheter system; 20 gauge; distraction, intradermal injection, tolerated well, appears comfortable; removed per policy/procedure, site care per policy/procedure, site symptomatic, catheter/device intact; 08/27/17; 1418 08/25/17 1028 by Casandra Lara RN 08/27/17 1418 by Jennifer Lord RN ETT Mask Ventilation: Adjunct (2); ETT Type: Cuffed, Oral; ETT Size: 7.5 mm; Mac Blade: 4; Notes: Asleep, Pre-O2, Stylette; Attempts: 1; Laryngoscopy Grade: 2; Secured at Teeth: 22 cm; Inserted by: dedrick; Removal Date: 08/25/17; Removal Time: 152908/25/17 1143 by Shilpa Dickens CRNA 08/25/17 1530 by Shilpa Dickens CRNA documented in this encounter Social History Tobacco Use Types Packs/Day Years Used Date Smoking Tobacco: Never Smokeless Tobacco: Never Sex and Gender Information Value Date Recorded Sex Assigned at Male 02/17/2021 6:32 AM EDT Gender Identity Male 09/27/2023 9:31 AM EDT Sexual Orientation Straight 02/17/2021 6: 32 AM EDT documented as of this encounter OR Notes * Anesthesia Postprocedure Evaluation - Lexa Georges MD - 08/26/2017 9:38 PM EST [facility] Department of Anesthesiology Post-procedure Note Patient: Demian Zaman Procedure Summary Date Anesthesia Start Anesthesia Stop Room / Location 08/25/17 1124 1556 [facility] OR 26 / [facility] MAIN OR Procedure Diagnosis Surgeon Responsible Provider @LAPAROSCOPIC ASSISTED COLECTOMY, PARTIAL, REM.TERMINAL ILEUM (WRVU 22.95) (N/A Abdomen) (APPENDIX MASS) Elder Addison MD Bertrand, Marc L, MD All Anesthesia Providers: Anesthesiologist: Lexa Georges MD RETAIL PHARMACY MANAGER: Shilpa Dickens CRNA Most Recent Vitals: 08/26/17 1940 BP: 115/67 Pulse: Resp: 14 Temp: 36.7 ??C (98.1 ??F) SpO2: 97% Pain Patient Location: PACU/SD Level of Consciousness: Conscious but Sleepy Pain Management: Pain Being Addressed PONV: None Cardiovascular Status: At Baseline Respiratory Status: At Baseline Postoperative Fluid Status: Intravascular EUvolemia Possible Anesthetic Complications: NONE apparent at time of evaluation Final Primary Anesthesia Type: General (The anesthetic type performed was the same as planned.) Comments: * Anesthesia Preprocedure Evaluation - Lexa Georges MD - 08/24/2017 1:49 PM EST Pre-Anesthesia Evaluation for: Demian Zaman a 36 y.o. male. Procedure(s): LAPAROSCOPIC APPENDECTOMY (WRVU 9.45) Patient Active Problem List Diagnosis ??? Mass of appendix No past medical history on file. No past surgical history on file. Social History Substance Use Topics ??? Smoking status: Never Smoker ??? Smokeless tobacco: Never Used ??? Alcohol use Not on file History Drug Use Not on file No Known Allergies Medications: MAR and/or home medications have been reviewed. Physical Exam: There were no vitals filed for this visit. There is no height or weight on file to calculate BMI. Airway Assessment: Mallampati: II TM distance: >3 FB Neck ROM: full Cardiovascular Assessment: Rhythm: regular Rate: normal Pulmonary Assessment: Dental Assessment: - normal exam Misc Assessment: IV access: Peripheral line Other exam findings: PIV in situ right arm. Runs well w/o complaint. 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 Very anxious about procedure but otherwise healthy. Denies recent URI, f/s/c, GERD, asthma/breathing issues, CP/cardiac Hx, DM or Sz. No prior experience with anesthesia. Adopted - no FHx available. Activity tolerance > 4 METS. NPO status appropriate. Plan: GA/ET, standard monitors. Region - Other Informed Consent: Anesthetic plan and risks discussed with patient. Use of blood products discussed with patient who consented to blood products. Plan discussed with RETAIL PHARMACY MANAGER. PAT Staff Note documented in this encounter Plan of Treatment Not on file documented as of this encounter Visit Diagnoses Not on filedocumented in this encounter Administered Medications Inactive Administered Medications - up to 3 most recent administrations Medication Order MAR Action Action Date Dose Rate Site ampicillin-sulbactam (UNASYN) injection PRN, Starting on Wed08/25/17 at 1207, Until Wed08/25/17 at 1556, Anesthesia Intra-op, Routine Given 08/25/2017 12:07 PM EST 3 g ceFAZolin (ANCEF) 2g in dextrose 5% 100 mL 2 g, Intravenous, ASSOCIATE FINANCIAL REPRESENTATIVE TO O.R., 1 dose, On Wed08/25/17 at 1100, Administer over 30 Minutes, Indication for (Active or Suspected): GI/Intra-abdominal Given 08/25/2017 11:42 AM EST 2 g dexamethasone (DECADRON) injection PRN, Starting on Wed08/25/17 at 1142, Until Wed08/25/17 at 1556, Anesthesia Intra-op, Routine Given 08/25/2017 11:42 AM EST 8 mg fentaNYL 50 mcg/mL multi-dose injection PRN, Starting on Wed08/25/17 at 1136, Until Wed08/25/17 at 1556, Pain, Anesthesia Intra-op, Routine Given 08/25/2017 3:05 PM EST 100 mcg Given 08/25/2017 11:58 AM EST 50 mcg Given 08/25/2017 11:36 AM EST 50 mcg glycopyrrolate (ROBINUL) multi-dose injection PRN, Starting on Wed08/25/17 at 1518, Until Wed08/25/17 at 1556, Anesthesia Intra-op, Routine Given 08/25/2017 3:18 PM EST 0.7 mg heparin (Porcine) subcutaneous injection 5,000 Units 5,000 Units, Subcutaneous, ASSOCIATE FINANCIAL REPRESENTATIVE TO O.R., 1 dose, On Wed08/25/17 at 1100, Routine Given 08/25/2017 11:42 AM EST 5,000 Units lactated Ringers infusion 1,000 mL 1,000 mL, at 100 mL/hr, Intravenous, CONTINUOUS, Starting on Wed08/25/17 at 1015, Until Wed08/25/17 at 1628, Day of Surgery (Day of Procedure) New Bag 08/25/2017 11:12 AM EST New Bag 08/25/2017 10:32 AM EST 1,000 mLs 100 mL/hr lidocaine (PF) (XYLOCAINE) 100 mg/5 mL (2 %) injection PRN, Starting on Wed08/25/17 at 1136, Until Wed08/25/17 at 1556, Anesthesia Intra-op, Routine Given 08/25/2017 11:36 AM EST 40 mg metroNIDAZOLE (FLAGYL) 500 mg in sodium chloride 0.9% 100 mL 500 mg, Intravenous, ASSOCIATE FINANCIAL REPRESENTATIVE TO O.R., 1 dose, On Wed08/25/17 at 1100, Administer over 30 Minutes, Indication for (Active or Suspected): Prophylaxis Given 08/25/2017 11:53 AM EST 500 mg midazolam (PF) (VERSED) 1 mg/mL multi-dose injection PRN, Starting on Wed08/25/17 at 1124, Until Wed08/25/17 at 1556, Sleep, Anesthesia Intra-op, Routine Given 08/25/2017 11:24 AM EST 4 mg neostigmine (BLOXIVERZ) injection PRN, Starting on Wed08/25/17 at 1518, Until Wed08/25/17 at 1556, Anesthesia Intra-op, Routine Given 08/25/2017 3:18 PM EST 4 mg ondansetron (ZOFRAN) injection PRN, Starting on Wed08/25/17 at 1432, Until Wed08/25/17 at 1556, Nausea, Anesthesia Intra-op, Routine Given 08/25/2017 2:32 PM EST 8 mg PHENYLephrine in NS (PF) (KWADWO-SYNEPHRINE) 0.8 mg/10 mL (80 mcg/mL) multi-dose injection Syrg PRN, Starting on Wed08/25/17 at 1314, Until Wed08/25/17 at 1556, Anesthesia Intra-op, Routine Given 08/25/2017 2:51 PM EST 80 mcg Given 08/25/2017 2:13 PM EST 160 mcg Given 08/25/2017 1:55 PM EST 160 mcg propofol (DIPRIVAN) 10 mg/mL bolus injection (Anesthesia) PRN, Starting on Wed08/25/17 at 1136, Until Wed08/25/17 at 1556, Anesthesia Intra-op Given 08/25/2017 2:05 PM EST 100 mg Given 08/25/2017 11:37 AM EST 80 mg Given 08/25/2017 11:36 AM EST 200 mg propofol (DIPRIVAN) infusion CONTINUOUS PRN, Starting on Wed08/25/17 at 1200, Until Wed08/25/17 at 1556, Anesthesia Intra-op, Routine Rate/Dose Change 08/25/2017 2:45 PM EST 150 mcg/kg/min 87.8 mL/hr Rate/Dose Change 08/25/2017 2:00 PM EST 200 mcg/kg/min 117 mL/hr New Bag 08/25/2017 12:00 PM EST 30 mcg/kg/min 17.6 mL/h r rocuronium (ZEMURON) multi-dose injection PRN, Starting on Wed08/25/17 at 1136, Until Wed08/25/17 at 1556, Anesthesia Intra-op, Routine Given 08/25/2017 12:05 PM EST 20 mg Given 08/25/2017 11:36 AM EST 50 mg documented in this encounter Care Teams First Responder Relationship Specialty Start Date End Date Kenrick Zavala DO [address] [place] [address] PCP - General 02/10/13 08/21/21 documented as of this encounter
--- OUTSIDE RECORDS SUMMARY | 2024-05-26 11:07 | XMS_ITS | Encounter Summary ---
Author Organization [facility] Address [facility] [place] [address] Care Team Providers Care Net Developer Contract Name Role Phone Kenrick Zavala DO Primary Care Provider Encounter Details Date Type Department Care Team (Late st Contact Info) Description 07/14/2017 Orders Only Dermatology at [facility] [address] [place] [address] Wen Arriaga MD [facility] [address] [place] [address] Seborrheic dermatitis Social History Tobacco Use Types Packs/Day Years Used Date Smoking Tobacco: Never Smokeless Tobacco: Never Sex and Gender Information Value Date Recorded Sex Assigned at Male 02/17/2021 6:32 AM EDT Gender Identity Male 09/27/2023 9:31 AM EDT Sexual Orientation Straight 02/17/2021 6: 32 AM EDT documented as of this encounter Progress Notes * Wen Arriaga - 07/14/2017 5:42 PM EST Per patient request, [facility] [place], [place] documented in this encounter Plan of Treatment Not on file documented as of this encounter Visit Diagnoses Diagnosis Seborrheic dermatitis Seborrheic dermatitis, unspecified documented in this encounter Care Teams Net Developer Contract Relationship Specialty Start Date End Date Kenrick Zavala DO [address] [place] [address] PCP - General 02/10/13 08/21/21 documented as of this encounter
--- OUTSIDE RECORDS SUMMARY | 2024-05-26 11:07 | XMS_ITS | Encounter Summary ---
Author Organization [facility] Address [facility] [place] [address] Care Team Providers Care Tablet Tester Name Role Phone Kenrick Zavala DO Primary Care Provider Reason for Visit * Auth/Cert Specialty Diagnoses / Procedures Referred By Dianelys núñez Referred To Contact Diagnoses APPENDIX MASS Procedures PRO LAP, APPENDECTOMY LAPAROSCOPIC APPENDECTOMY (WRVU 9.45) Referral ID Status Reason Start Date Expiration Date Visits Re quested Visits Authorized [id number] 1 1 Encounter Details Date Type Department Care Team (Late st Contact Info) Description 08/25/2017 10:26 AM EST - 08/25/2017 12:54 PM EST [place] [id number] Elder Addison MD [facility] [place] [address] @LAPAROSCOPIC ASSISTED COLECTOMY, PARTIAL, REM.TERMINAL ILEUM (WRVU 22.95) Social History Tobacco Use Types Packs/Day Years [...] is a 36 year old man from [place], [place]. He presented to Dr. Zavala for [...] sent to pathology. See photo below. A kgie-lg-zxbz, functional end-to-end ileocolostomy anastomosis was created using a 75 mm ITZEL stapler (blue load) and the common [place] enterotomy was closed in 2 layers with [...] PACU 08/26/17 POD 1: mild nausea, avoided BELL RINGER, started on reg diet 08/27/17 POD 2: return of bowel function, BELL RINGER d/c'd Important Studies and Lab Data: See [...] and given to the patient. Patient Instructions [facility] Department of General Surgery Discharge Instructions [...] with the Surgery nurses. The number is [phone]. - During the night or weekends call the [facility] medart operator at [phone] and ask to speak to the surgery resident education counselor for general surgery. Please note: Your surgeon may not be Bag Washer, especially during the night or on weekends, so be ready to describe yourself and your surgery when you call. Follow up appointments: No future appointments. [x] A request for a follow-up appointment has been made and you should receive information via phone/mail in the next week. If you do not hear anything, please call the clinic at [phone] to confirm or reschedule. Follow up will be scheduled with Dr. Addison in 4 weeks. If you need a prior authorization, please call the General Surgery Clinic nurses [phone] for prior authorizations assistance General Instructions None Follow-up Recommendations for Providers: - Routine post-operative care. CC: Kenrick Zavala, Signed: Kassie Sanabria MD [facility] Surgical Oncology Service Team Pager #[phone] 08/28/2017 7:35 AM documented in this encounter Discharge Instructions * Patient Instructions* Kassie Sanabria MD - 08/27/2017 6:41 PM EST [facility] Department of General Surgery Discharge Instructions [...] with the Surgery nurses. The number is [phone]. - During the night or weekends call the [facility] medart operator at [phone] and ask to speak to the surgery resident education counselor for general surgery. Please note: Your surgeon may not be Bag Washer, especially during the night or on weekends, so be ready to describe yourself and your surgery when you call. Follow up appointments: No future appointments. [x] A request for a follow-up appointment has been made and you should receive information via phone/mail in the next week. If you do not hear anything, please call the clinic at [phone] to confirm or reschedule. Follow up will be scheduled with Dr. Addison in 4 weeks. If you need a prior authorization, please call the General Surgery Clinic nurses [phone] for prior authorizations assistance documented in this [...] Age: 6 1980; 36 y.o. Room/Bed: [address] [place], [place] [address] Today's Date: 08/27/17 ID: Demian Zaman is [...] PACU 08/26/17 POD 1: mild nausea, avoided BELL RINGER, started on reg diet 24 Hour Events/Subjective: -pain controlled off BELL RINGER -nausea resolved -tolerating reg diet -denies flatus [...] -jona tylneol -prn toradol -lidoderm patches -d/c BELL RINGER, add prn oxy # PPX: PPI, IS, lovenox, SCDs # LINES: PIV # DISPO: Floor status, Full Code ALANNA HILL MD 08/27/2017 Surgical Oncology [id number] Surgery attending addendum I saw Demian in the afternoon. He was up walking about. He already passed gas and had a bowel movement. He is tolerating a diet. BELL RINGER was discontinued in the a.m. No concerns on exam. We discussed the plan for possible discharge tomorrow. I will call him once the pathology report isavailable to review. Augustin Addison MD 08/27/17 * Elder Addison MD - 08/26/2017 4:36 PM EST I saw Demian this morning. He was over on the 4 E. cardiac floor [facility] He was resting comfortably in a chair. [...] His pain is well controlled with the BELL RINGER so we will leave that on board for now until he starts taking in some p.o. so we can transition him to oral pain medications. Augustin Addison MD 08/26/2017 4:38 PM * Kassie Sanabria MD - 08/26/2017 8:01 AM EST Surgical Oncology Inpatient Progress Note Patient Name: Demian GILL; Age: 6 1980; 36 y.o. Room/Bed: [address] [place], [place] [address] Today's Date: 08/26/17 ID: Demian Zaman is [...] pain -jona tylneol -prn toradol -lidoderm patches -BELL RINGER # PPX: PPI, IS, lovenox, SCDs # [...] awake and in a lot of pain. BELL RINGER set up, PRN Fentanyl and Dilaudid utilized [...] to void by 0020. MD Junior Notified #[id number]. 2029 Report called to KERI Cagle. 2044 pt out of PACU to room * Yuniel Junoir - 08/25/2017 7:36 PM EST Post-op Check Patient Name: Demian Zaman Patient Age: 36 y.o. Attending Physician: Elder Addison MD Demian Zaman is a 36 [...] plan Yuniel Junior MD 08/25/2017 7:36 PM [id number] documented in this encounter H&P Notes * Elder Addison MD - 08/25/2017 10:54 AM EST Patient Name: Demian Zaman Patient Age: 36 y.o. Birthdate: 1980 Admit date: 08/25/2017 Attending Physician: Elder Addison MD I saw Demian in the [place] area. He is here with his Margaux and his mother. Ok to proceed as planned for laparoscopic appendectomy and exploration with removal of the appendiceal cystic mass. Informed consent was reviewed. There are no changes to my H&P from 08/03/17. Augustin Addison MD 08/25/2017 10:56 AM * Alanna Hill MD - 08/25/2017 10:35 AM EST [facility] Department of General Surgery H&P Note [...] Conf Outcome: Ongoing (Interventions Implemented as Appropriate) 03/03/18 0240 Interdisciplinary Rounds/Family Conf Participants patient;nursing;physician * Plan [...] appendectomy and a jos-colectomy had his dilaudid wireless internet installer discontinued.Patient has had a bowel movement and [...] with scheduled Tylenol. Patient did not use BELL RINGER throughout shift. Abdominal incisions CDI. VSS. PLAN [...] tylenol and PRN toradol, refusing to use BELL RINGER pumps. Ambulated several times around unit. Tolerating small meals, belching but no flatus or BM. at bedside. Abdominal incision C/D/I. PLAN MOVING FORWARD: Ambulated Pass flatus BM INDIVIDUALIZED FALL PREVENTION INTERVENTIONS: Patient-specific fall risk factors per assessment: [current deficits]: Hospital environment, IVs, monitor wires, BELL RINGER pump Assistance [level of assistance required for [...] none -- * Initial Assessments - Sharon Ayala, RN - 08/26/2017 12:31 PM EST Office [...] Care Planning: none written to Fiona.states is [facility] cell [phone] Current Coping/Education/Information Needs: post [facility] :VNA/outpt therapies/IPR/Infusion Suites Current Functional Ability: in pain,SOB,BELL RINGER in use Functional Status Prior to Admission: 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 Social & Family Supports/Community Resources: , sons, parents Behavioral Health History: deniies Substance Use/Abuse: denies Other Pertinent/Service Specific Information: na Health/Prescription Coverage: Primary Insurance: [employer] [place] Secondary Insurance: N/A Prescription Coverage: yes Preferred Pharmacy: [facility] Primary Care Provider: Kenrick Zavala DO [phone] Patient/Caregiver Goals of Treatment: home and follow [...] of care planning. Sharon Ayala RN Pager: [phone] * Plan of Care - Fiona Doyle [...] well controlled with scheduled pain medications and BELL RINGER pump. Denies any SOB. Accepting of care [...] from the original note were not included. [facility] Operative Note Patient Name: Demian Zaman : [id number] MR#: [id number] Case Date: 08/25/2017 Surgeon: Surgeon(s) and Role: [...] sent to pathology. See photo below. A lbep-hh-lmjr, functional end-to-end ileocolostomy anastomosis was created using a 75 mm ITZEL stapler (51.com) and the common [place] enterotomy was closed in 2 layers with [...] Time SPECIMEN TO PATHOLOGY OR 26 ext. 05646 APPENDIX MASS Ileo right colectomy with mesentery [...] where the fascia was grasped with a [place] clamp and then using the [place]as[place] technique [...] We then divided the colon using the [place] stapler (blue load). We then turned our attention back to the ileum or we could clearly see the demarcation from the ligation of the ileocolic and then divided the ileum at a section of healthy ileum approximately 20 cm from the ileocecal valve. This was accomplished with the [place] stapler (white load). The division of the [...] closure: Yes Sterile closure tray used: No Anzjmadyy-geoatkhkn-fbfwmxgiep abdominal cavity wash: Yes Ttqpylgud-ysfnpurjc-yazvngkizl wound wash: Yes Attestation: Case Date: 08/25/2017 I was present and I participated during the entire procedure (does not need to include opening and closing). ELDER ADDISON MD 08/25/2017 * Brief Op Note - Alanna Hill MD - 08/25/2017 3:39 PM EST Brief Operative Note Patient Name: Demian Zaman : [id number] MR#: [id number] Case Date: 08/25/2017 Surgeon: Surgeon(s) and Role: [...] Time SPECIMEN TO PATHOLOGY OR 26 ext. 21117 APPENDIX MASS Ileo right colectomy with mesentery [...] closure: Yes Sterile closure tray used: No Uuouvkrgn-viezvziji-lhjtcuayfj abdominal cavity wash: Yes Elrxqytom-jzivdkrhq-lwoewtifwb wound wash: Yes documented in this encounter Plan of Treatment Not on file documented as of this encounter Procedures Procedure Name Priority Date/Time Associated Diagnosis Comments CORPORATE OPERATIONS COMPLIANCE MANAGER SCAN 08/29/2017 12:00 AM EST CORPORATE OPERATIONS COMPLIANCE MANAGER SCAN 08/29/2017 12:00 AM EST ECG SCAN [...] in this encounter Results * SCAN DOC: CORPORATE OPERATIONS COMPLIANCE MANAGER (08/29/2017 12:00 AM EST) Anatomical Region Laterality Modality Other Narrative 08/29/2017 12:00 AM EST Ordered by an unspecified provider. Scanning Provider MEDIA MGR SCAN EXT O RDR/RSLT * SCAN DOC: CORPORATE OPERATIONS COMPLIANCE MANAGER (08/29/2017 12:00 AM EST) Anatomical Region Laterality [...] EST) Phosphorus 3.1 2.5 - 4.5 mg/dL [facility] Blood specimen (specimen) 08/28/2017 3:44 AM EST 08/28/2017 4:11 AM EST Narrative Resulting Agency Comment Spec In Lab Elder Addison MD CHEMISTRY ORDERABL ES Performing Organization Address [facility] Co de Phone Number [facility] [place] [address] * Magnesium (08/28/2017 3:44 AM EST) Magnesium 0.75 0.69 - 1.07 mmol/L [facility] Blood specimen (specimen) 08/28/2017 3:44 AM EST 08/28/2017 4:11 AM EST Narrative Resulting Agency Comment Spec In Lab Elder Addison MD CHEMISTRY ORDERABL ES Performing Organization Address [facility] Co de Phone Number [facility] [place] [address] * (ABNORMAL) Basic Metabolic Panel (non-fasting) (08/28/2017 3:44 AM EST) Glucose 105 65 - 199 mg/dL [facility] Comment:Diabetes: >=200 mg/d L plus symptoms Blood Urea Nitrogen 8(L) 10 - 20 mg/dL [facility] Creatinine 0.75(L) 0.80 - 1.50 mg/dL [facility] Sodium 143 135 - 145 mmol/L [facility] Potassium 3.9 3.5 - 5.0 mmol/L [facility] Comment: Please note: ??Patients with WBC >100,000 may have falsely elevated Potassium levels. ??For accurate Potassium quantification in these patients send serum separator tube (gold top) for subsequent determinations. ??Contact the Clinical Chemistry Laboratory if there are any questions. Chloride 105 98 - 107 mmol/L [facility] Carbon Dioxide 26 22 - 31 mmol/L [facility] Anion Gap 12 5 - 15 mmol/L [facility] Calcium 8.4(L) 8.5 - 10.5 mg/dL [facility] Est Glomerular Filtration Rate >60 >=60 [facility] Comment: The reported eGFR should be multiplied by 1.2 for patients. The MDRD is not an appropriate measure of renal function for patients with body mass extremes or in patients with acute kidney failure. http://Wix/DHnkdep http://Wix/DHMCnkf Blood specimen (specimen) 08/28/2017 3:44 AM EST 08/28/2017 4:11 AM EST Narrative Resulting Agency Comment Spec In Lab Elder Addison MD CHEMISTRY ORDERABL ES [facility] [place] [address] * (ABNORMAL) Hemogram (08/28/2017 3:44 AM EST) White Blood Cell 8.5 4.0 - 9.5 x10(3)/mc L [facility] Red Blood Cell 3.75(L) 4.58 - 5.54 x10(6)/mc L [facility] Hemoglobin 11.3(L) 13.7 - 16.5 gm/dL [facility] Hematocrit 33.0(L) 40.5 - 48.5 % [facility] Mean Cell Volume 88.0 82.9 - 93.1 fL [facility] Mean Cell Hemoglobin 30.1 27.5 - 32.1 pg [facility] Mean Cell Hemoglobin Concentration 34.2 32.0 - 35.7 gm/dL [facility] Platelet 193 145 - 357 x10(3)/mc L [facility] RDW Standard Deviation 37.8 36.0 - 45.0 fL [facility] RDW coefficient of variation 11.8 11.4 - 13.8 % [facility] Mean Platelet Volume 9.4 7.6 - 12.9 fL [facility] NRBC% auto 0.0 % [facility] NRBC Absolute 0.000 0.000 - 0.000 x10(3)/mc L [facility] Blood specimen (specimen) 08/28/2017 3:44 AM EST 08/28/2017 4:11 AM EST Narrative Resulting Agency Comment Spec In Lab Elder Addison MD HEMATOLOGY ORDERAB LES Performing Organization Address City/[facility]/ZIP Co de Phone Number [facility] [place] [address] * (ABNORMAL) Phosphorus (08/27/2017 4:12 AM EST) Phosphorus 2.2(L) 2.5 - 4.5 mg/dL [facility] Blood specimen (specimen) 08/27/2017 4:12 AM EST 08/27/2017 4:35 AM EST Narrative Resulting Agency Comment Spec In Lab Elder Addison MD CHEMISTRY ORDERABL ES Performing Organization Address City/[facility]/ZIP Co de Phone Number [facility] [place] [address] * Magnesium (08/27/2017 4:12 AM EST) Magnesium 0.83 0.69 - 1.07 mmol/L [facility] Blood specimen (specimen) 08/27/2017 4:12 AM EST 08/27/2017 4:35 AM EST Narrative Resulting Agency Comment Spec In Lab Elder Addison MD CHEMISTRY ORDERABL ES [facility] [place] [address] * (ABNORMAL) Basic Metabolic Panel (non-fasting) (08/27/2017 4:12 AM EST) Glucose 112 65 - 199 mg/dL [facility] Comment:Diabetes: >=200 mg/d L plus symptoms Blood Urea Nitrogen 9(L) 10 - 20 mg/dL [facility] Creatinine 0.81 0.80 - 1.50 mg/dL [facility] Sodium 140 135 - 145 mmol/L [facility] Potassium 3.8 3.5 - 5.0 mmol/L [facility] Comment: Please note: ??Patients with WBC >100,000 may have falsely elevated Potassium levels. ??For accurate Potassium quantification in these patients send serum separator tube (gold top) for subsequent determinations. ??Contact the Clinical Chemistry Laboratory if there are any questions. Chloride 104 98 - 107 mmol/L [facility] Carbon Dioxide 28 22 - 31 mmol/L [facility] Anion Gap 8 5 - 15 mmol/L [facility] Calcium 8.3(L) 8.5 - 10.5 mg/dL [facility] Est Glomerular Filtration Rate >60 >=60 [facility] Comment: The reported eGFR should be multiplied by 1.2 for patients. The MDRD is not an appropriate measure of renal function for patients with body mass extremes or in patients with acute kidney failure. http://[employer]/DHnkdep http://Wix/DHMCnkf Blood specimen (specimen) 08/27/2017 4:12 AM EST 08/27/2017 4:35 AM EST Narrative Resulting Agency Comment Spec In Lab Elder Addison MD CHEMISTRY ORDERABL ES [facility] [place] [address] * (ABNORMAL) Hemogram (08/27/2017 4:12 AM EST) White Blood Cell 11.8(H) 4.0 - 9.5 x10(3)/mc L [facility] Red Blood Cell 3.87(L) 4.58 - 5.54 x10(6)/mc L [facility] Hemoglobin 11.7(L) 13.7 - 16.5 gm/dL [facility] Hematocrit 33.6(L) 40.5 - 48.5 % [facility] Mean Cell Volume 86.8 82.9 - 93.1 fL [facility] Mean Cell Hemoglobin 30.2 27.5 - 32.1 pg [facility] Mean Cell Hemoglobin Concentration 34.8 32.0 - 35.7 gm/dL [facility] Platelet 177 145 - 357 x10(3)/mc L [facility] RDW Standard Deviation 36.3 36.0 - 45.0 [facility] RDW coefficient of variation 11.6 11.4 - 13.8 % [facility] Mean Platelet Volume 9.5 7.6 - 12.9 fL [facility] NRBC% auto 0.0 % [facility] NRBC Absolute 0.000 0.000 - 0.000 x10(3)/mc L [facility] Blood specimen (specimen) 08/27/2017 4:12 AM EST 08/27/2017 4:35 AM EST Narrative Resulting Agency Comment Spec In Lab Elder Addison MD HEMATOLOGY ORDERAB LES [facility] [place] [address] * (ABNORMAL) Phosphorus (08/26/2017 4:34 AM EST) Phosphorus 5.2(H) 2.5 - 4.5 mg/dL [facility] Blood specimen (specimen) 08/26/2017 4:34 AM EST 08/26/2017 4:54 AM EST Narrative Resulting Agency Comment Spec In Lab Elder Addison MD CHEMISTRY ORDERABL ES Performing Organization Address [facility] Co de Phone Number [facility] [place] [address] * Magnesium (08/26/2017 4:34 AM EST) Pathologist [facility] Magnesium 0.77 0.69 - 1.07 mmol/L [facility] Blood specimen (specimen) 08/26/2017 4:34 AM EST 08/26/2017 4:54 AM EST Narrative Resulting Agency Comment Spec In Lab Elder Addison MD CHEMISTRY ORDERABL ES Performing Organization Address [facility] de Phone Number [facility] [place] [address] * (ABNORMAL) Basic Metabolic Panel (non-fasting) (08/26/2017 4:34 AM EST) Glucose 115 65 - 199 mg/dL [facility] Comment:Diabetes: >=200 mg/d L plus symptoms Blood Urea Nitrogen 10 10 - 20 mg/dL [facility] Creatinine 0.78(L) 0.80 - 1.50 mg/dL [facility] Sodium 139 135 - 145 mmol/L [facility] Potassium 3.7 3.5 - 5.0 mmol/L [facility] Comment: Please note: ??Patients with WBC >100,000 may have falsely elevated Potassium levels. ??For accurate Potassium quantification in these patients send serum separator tube (gold top) for subsequent determinations. ??Contact the Clinical Chemistry Laboratory if there are any questions. Chloride 102 98 - 107 mmol/L [facility] Carbon Dioxide 28 22 - 31 mmol/L [facility] Anion Gap 9 5 - 15 mmol/L [facility] Calcium 7.8(L) 8.5 - 10.5 mg/dL [facility] Est Glomerular Filtration Rate >60 >=60 [facility] Comment: The reported eGFR should be multiplied by 1.2 for patients. The MDRD is not an appropriate measure of renal function for patients with body mass extremes or in patients with acute kidney failure. http://Wix/DHnkdep http://Wix/DHMCnkf Blood specimen (specimen) 08/26/2017 4:34 AM EST 08/26/2017 4:54 AM EST Narrative Resulting Agency Comment Spec In Lab Elder Addison MD CHEMISTRY ORDERABL ES Performing Organization Address City/State/[facility] Co de Phone Number [facility] [place] [address] * (ABNORMAL) Hemogram (08/26/2017 4:34 AM EST) White Blood Cell 14.1(H) 4.0 - 9.5 x10(3)/mc L [facility] Red Blood Cell 4.03(L) 4.58 - 5.54 x10(6)/mc L [facility] Hemoglobin 12.2(L) 13.7 - 16.5 gm/dL [facility] Hematocrit 34.6(L) 40.5 - 48.5 % [facility] Mean Cell Volume 85.9 82.9 - 93.1 fL [facility] Mean Cell Hemoglobin 30.3 27.5 - 32.1 pg [facility] Mean Cell Hemoglobin Concentration 35.3 32.0 - 35.7 gm/dL [facility] Platelet 189 145 - 357 x10(3)/mc L [facility] RDW Standard Deviation 36.2 36.0 - 45.0 fL [facility] RDW coefficient of variation 11.7 11.4 - 13.8 % [facility] Mean Platelet Volume 9.6 7.6 - 12.9 fL [facility] NRBC% auto 0.0 % [facility] NRBC Absolute 0.000 0.000 - 0.000 x10(3)/mc L [facility] Blood specimen (specimen) 08/26/2017 4:34 AM EST 08/26/2017 4:54 AM EST Narrative Resulting Agency Comment Spec In Lab Elder Addison MD HEMATOLOGY ORDERAB LES Performing Organization Address [facility] Co de Phone Number [facility] [place] [address] * Phosphorus (08/25/2017 4:10 PM EST) Phosphorus 3.4 2.5 - 4.5 mg/dL [facility] Blood specimen (specimen) 08/25/2017 4:10 PM EST 08/25/2017 4:47 PM EST Narrative Resulting Agency Comment Spec In Lab Elder Addison MD CHEMISTRY ORDERABL ES Performing Organization Address [facility] Phone Number [facility] [place] [address] * Magnesium (08/25/2017 4:10 PM EST) Magnesium 0.78 0.69 - 1.07 mmol/L [facility] LABORATORY Blood specimen (specimen) 08/25/2017 4:10 PM EST 08/25/2017 4:47 PM EST Narrative Resulting Agency Comment Spec In Lab Elder Addison MD CHEMISTRY ORDERABL ES Performing Organization Address [facility] Co de Phone Number [facility] [place] [address] * (ABNORMAL) Basic Metabolic Panel (non-fasting) (08/25/2017 4:10 PM EST) Glucose 109 65 - 199 mg/dL [facility] Comment:Diabetes: >=200 mg/d L plus symptoms Blood Urea Nitrogen 11 10 - 20 mg/dL [facility] Creatinine 0.89 0.80 - 1.50 mg/dL [facility] Sodium 144 135 - 145 mmol/L [facility] Potassium 3.7 3.5 - 5.0 mmol/L [facility] Comment: Please note: ??Patients with WBC >100,000 may have falsely elevated Potassium levels. ??For accurate Potassium quantification in these patients send serum separator tube (gold top) for subsequent determinations. ??Contact the Clinical Chemistry Laboratory if there are any questions. Chloride 105 98 - 107 mmol/L [facility] Carbon Dioxide 25 22 - 31 mmol/L [facility] Anion Gap 14 5 - 15 mmol/L [facility] Calcium 8.3(L) 8.5 - 10.5 mg/dL [facility] Est Glomerular Filtration Rate >60 >=60 [facility] Comment: The reported eGFR should be multiplied by 1.2 for patients. The MDRD is not an appropriate measure of renal function for patients with body mass extremes or in patients with acute kidney failure. http://Wix/DHnkdep http://Wix/DHMCnkf Blood specimen (specimen) 08/25/2017 4:10 PM EST 08/25/2017 4:47 PM EST Narrative Resulting Agency Comment Spec In Lab Elder Addison MD CHEMISTRY ORDERABL ES [facility] [place] [address] * (ABNORMAL) Hemogram (08/25/2017 4:10 PM EST) White Blood Cell 17.3(H) 4.0 - 9.5 x10(3)/mc L [facility] Red Blood Cell 4.33(L) 4.58 - 5.54 x10(6)/mc L [facility] Hemoglobin 13.3(L) 13.7 - 16.5 gm/dL [facility] Hematocrit 37.5(L) 40.5 - 48.5 % [facility] Mean Cell Volume 86.6 82.9 - 93.1 fL [facility] Mean Cell Hemoglobin 30.7 27.5 - 32.1 pg [facility] Mean Cell Hemoglobin Concentration 35.5 32.0 - 35.7 gm/dL [facility] Platelet 208 145 - 357 x10(3)/mc L [facility] RDW Standard Deviation 36.8 36.0 - 45.0 [facility] LAB[facility] RDW coefficient of variation 11.7 11.4 - 13.8 % [facility] Mean Platelet Volume 9.2 7.6 - 12.9 [facility] LAB[facility] NRBC% auto 0.0 % [facility] NRBC Absolute 0.000 0.000 - 0.000 x10(3)/ L [facility] Blood specimen (specimen) 08/25/2017 4:10 PM EST 08/25/2017 4:47 PM EST Narrative Resulting Agency Comment Spec In Lab Elder Addison MD HEMATOLOGY ORDERAB LES [facility] [place] [address] * Surgical Pathology Report (08/25/2017 2:31 PM EST) Final Diagnosis [id number] ? Location: [facility]; [facility]; A The signing pathologist has [...] MD, PhD Verified: ??09/14/2017 ?Pathologist Performed at: ??-[facility] [place], [place], [place] ? Addendum ADDENDUM DISCUSSION Following interdepartmental [...] MD, PhD Verified: ??09/07/2017 ?Pathologist Performed at: ??-[facility] Dept. of Pathology, [place], [place] ?Surgical Pathology DIAGNOSIS Ileo right colectomy [...] Jesús Zamorano Verified: ??09/03/2017 ?Pathologist Performed at: ??-[facility] Dept. of Pathology, [place], [place] CLINICAL INFORMATION Specimen Submitted: A - [...] margin is inked black Sections/Processing: ?? (A1) internet sales representative proximal margin, en face; (A2) internet sales representative distal margin, en face; (A3) internet sales representative uninvolved mucosa; (A4-A5) cecal appendiceal orifice to edge of mucinous lesion, bisected; (A6) internet sales representative appendiceal wall to nearest nearest mesoappendiceal adipose/soft . SPECIMEN PROCESSING tissue margin; (A7-A26) Weight Guesser sections of appendiceal/lesional wall ?. (R26) knr Additional sections: Remainder of appendiceal/lesional wall is submitted in cassettes ([id number]). ??The entire appendix has been submitted. (R89) knr 09/14/2017 7:35 AM EDT [facility] COLON STRUCTURE / Unknown 08/25/2017 2:31 PM EST 08/25/2017 2:31 PM EST Elder Addison MD PATHOLOGY/CYTOLOGY ORDERABLES [facility] [place] [address] * Specimen to Pathology (08/25/2017 2:31 PM EST) AP Specimen 08/25/2017 2:31 PM EST 08/25/2017 2:31 PM EST Narrative [facility] - 08/25/2017 2:31 PM EST Specimen requisition ordered. ??Separate Pathology report to follow Elder Addison MD PATHOLOGY/CYTOLOGY ORDERABLES Performing Organization Address City/[facility]/ZIP [place] [address] documented in this encounter Visit Diagnoses Not [...] Given 08/27/2017 2:50 PM EST 1,000 mg bacitracin injection ONCE PRN, Starting on Wed08/25/17 at 1441, Until 08/28/17 at 1226, Intra-Operative (Intra-Procedure), Routine Given 08/25/2017 2:41 PM EST 50,000 Units 19- Surgical Site BUpivacaine (PF) (MARCAINE) 0.25 % (2.5 mg/mL) injection ONCE PRN, Starting on Wed08/25/17 at 1524, Until 08/28/17 at 1226, Intra-Operative (Intra-Procedure), Routine Given 08/25/2017 3:24 PM EST 23 mLs 19- Surgical Site docusate sodium (COLACE) capsule 100 mg 100 mg, Oral, 2 TIMES DAILY, First dose on 08/28/17 at 0900, Until Discontinued, Routine enoxaparin (LOVENOX) injection 40 mg 40 mg, Subcutaneous, NIGHTLY, First dose on Wed08/25/17 at 2115, Until Discontinued, Routine Given 08/27/2017 8:30 PM EST 40 mg Given 08/26/2017 8:40 PM EST 40 mg Given 08/25/2017 9:28 PM EST 40 mg hydrocortisone 1 % cream Topical (Top), 3 TIMES DAILY, First dose on Wed08/25/17 at 2200, Until Discontinued Given 08/26/2017 9:00 PM EST Given 08/25/2017 9:29 PM EST ketorolac (TORADOL) injection 15 mg 15 mg, Intravenous, EVERY 6 HOURS PRN, Starting on Wed08/25/17 at 1649, Until 08/28/17 at 1226, Pain, Recovery (Recovery-Hospital Unit), Routine Given 08/26/2017 1:30 PM EST 15 mg Given 08/25/2017 4:55 PM EST 15 mg lidocaine (LIDODERM) 5 % patch 2 patch [...] Discontinued, Remove lidocaine 5 %(700 mg/patch) patch neomycin-polymyxin B (NEOSPORIN) irrigation solution ONCE PRN, Starting on Wed08/25/17 at 1442, Until 08/28/17 at 1226, Intra-Operative (Intra-Procedure) Given 08/25/2017 2:42 PM EST 1 mL 19- Surgical Site ondansetron (ZOFRAN) injection 4-8 mg 4-8 mg, [...] Toradol, Routine sodium chloride 0.9 % flush 5 mL [...] Fiona Baez RN)1156 (Given - Provider: Nakia Jensen, KERI)1731 (Given - Provider: Nakia Jensen RN)2359 (Given - Provider: Fiona Baez RN) 0600 (Not Given - Provider: Fiona Baez RN - Reason: Patient/family refused)0828 (Given - Provider: Joseph Thornton, KERI)1450 (Given - Provider: Joseph Thornton RN)1714 (Given - Provider: Hilario Joseph RN) 0000 (Not Given - Provider: Kanwal Cortes RN - Reason: Patient/family refused)0541 (Given - Provider: Kanwal Cortes RN) docusate sodium (COLACE) capsule 100 mg 100 mg, Oral, 2 TIMES DAILY, First dose on Wed08/28/17 at 0900, Until Discontinued, Routine 09 (Due) enoxaparin (LOVENOX) injection 40 mg 40 mg, Subcutaneous, NIGHTLY, First dose on Wed08/25/17 at 2115, Until Discontinued, Routine 2039 (Given - Provider: Fiona Baez RN) 2030 (Given - Provider: Kanwal Cortes, KERI) hydrocortisone 1 % cream Topical (Top), 3 TIMES DAILY, First dose on Wed08/25/17 at 2200, Until Discontinued 09 (Not Given - Provider: Nakia Jensen RN - Reason: Patient/family refused)1500 (Not Given - Provider: Nakia Jensen RN - Reason: Patient/family refused)2100 (Given - Provider: Fiona Baez RN) 0900 (Not Given - Provider: Joseph Thornton RN - Reason: Patient/family refused)1500 (Not Given [...] (Patch Applied - Provider: Fiona Baez RN) 2030 (Patch Applied - Provider: Kanwal Cortes RN) lidocaine (LIDODERM) patch REMOVAL(Linked Group 1) Transdermal, EVERY 24 HOURS, First dose on Wed08/26/17 at 0900, Until Discontinued, Remove lidocaine 5 %(700 mg/patch) patch 09 (Patch Removed - Provider: Nakia Jensen RN) 2100 (Patch Removed - Provider: Kanwal Cortes RN) 0900 (Due) magnesium sulfate 2 g in sterile water 50 mL (COMPLETED) 2 g, Intravenous, ONCE, 1 dose, On Kacey 08/26/17 at 0630, Administer over 120 Minutes 0719 (New Bag - Provider: Fiona Baez RN)0919 (Stopped - Provider: Nakia Jensen RN) magnesium sulfate 2 g in sterile water 50 mL (COMPLETED) 2 g, Intravenous, ONCE, 1 dose, On Wed08/28/17 at 0630, Administer over 120 Minutes 0641 (New Bag - Provider: Kanwal Cortes, RN)0841 (Stopped - Provider: Joseph Thornton, RN) potassium phosphate 15 mMol in sodium chloride 0.9% 250 mL (COMPLETED) 15 mmol, Intravenous, ONCE, 1 dose, On Wed08/27/17 at 1200, Administer over 4 Hours, Administer over 4-6 hours 1339 (New Bag - Provider: Joseph Thornton, RN)1739 (Stopped - Provider: Hliario Joseph RN) sodium chloride 0.9 % flush 5 mL 5 mL, Intravenous, 2 TIMES DAILY, First dose on Wed08/25/17 at 2115, Until Discontinued, Recovery (Recovery-Hospital Unit), Routine 0900 (Not Given - Provider: Nakia Jensen RN - Reason: Order parameters not met)2100 (Given - Provider: Fiona Baez RN) 0900 (Given - Provider: oJseph Thornton, RN)2030 (Given - Provider: Kanwal Cortes, KERI) 0900 (Due) Continuous Medication Order 08/26/2017 08/27/2017 08/28/2017 lactated Ringers infusion 1,000 mL (CANCELED) 1,000 mL, at 100 mL/hr, Intravenous, CONTINUOUS, Starting on Wed08/25/17 at 1645, Until Kacey 08/26/17 at 1714, Recovery (Recovery-Hospital Unit) 1013 (New Bag - Provider: Nakia Jensen RN) lactated Ringers infusion (CANCELED) 10 mL/hr, Intravenous, CONTINUOUS, Starting on Kacey 08/26/17 at 1730, Until Wed08/27/17 at 1021, Recovery (Recovery-Hospital Unit) 1732 (New Bag - Provider: Nakia Jensen RN) 1000 (Stopped - Provider: Joseph Thornton, RN) PRN Medication Order 08/26/2017 08/27/2017 08/28/2017 ketorolac (TORADOL) injection 15 mg 15 mg, Intravenous, EVERY 6 HOURS PRN, Starting on Wed08/25/17 at 1649, Until 08/28/17 at 1226, Pain, Recovery (Recovery-Hospital Unit), Routine 1330 (Given - Provider: Nakia Jensen, RN) lidocaine (XYLOCAINE) 10 mg/mL (1 %) [...] NOT exceed 2 mg total dose. Per BELL RINGER order., Recovery (Recovery-Hospital Unit), Routine ondansetron (ZOFRAN) injection 4-8 mg(Linked Group 2) 4-8 mg, Intravenous, EVERY 8 HOURS PRN, Starting on Wed08/25/17 at 2050, Until 08/28/17 at 1226, Nausea, Start with 4mg and if ineffective in 30 minutes, give an additional 4mg If multiple antiemetics are ordered, give ondansetron first. 1006 (Given - Provider: Nakia Jensen, RN) ondansetron (ZOFRAN) tablet 4-8 mg(Linked Group [...] Transdermal, EVERY 24 HOURS, First dose on Kacey 08/26/17 at 0900, Until Discontinued, Remove lidocaine 5 [...] first. documented in this encounter Care Teams Tablet Tester Relationship Specialty Start Date End Date Kenrick Zavala DO [address] [place] [address] PCP - General 02/10/13 08/21/21 documented as of this encounter
--- OUTSIDE RECORDS SUMMARY | 2024-05-26 11:07 | XMS_ITS | Encounter Summary ---
Author Organization [facility] [place] [address] Care Team Providers Care Farm Equipment Operator Name Role Phone Kenrick Zavala DO Primary Care Provider Reason for Visit * Reason Comments Skin Check Encounter Details Date Type Department Care Team (Late st Contact Info) Description 08/28/2013 1:20 PM EST Office Visit Dermatology at [facility] [address] [place] [phone] America Troncoso MD [facility] [address] [place] [address] Seborrheic dermatitis (Primary Dx) Discharge Disposition: Home Social History Tobacco Use Types Packs/Day Years Used Date Smoking Tobacco: Never Sex and Gender Information Value Date Recorded Sex Assigned at Male 02/17/2021 6:32 AM EDT Gender Identity Male 09/27/2023 9:31 AM EDT Sexual Orientation Straight 02/17/2021 6: 32 AM EDT documented as of this encounter Progress Notes * Eliezer Patton III, MD - 08/28/2013 8:49 PM EST I directly supervised Dr. Troncoso during this office visit. Dr. Troncoso presented the history and physical exam to me. I then saw and examined this patient with Dr. Troncoso. We reviewed the history and pertinent details and I confirmed the physical findings. I agree with the details of the history and physical exam as documented in Dr. Troncoso's note. ELIEZER PATTON III, MD Staff Physician * America Troncoso MD - 08/28/2013 1:28 PM EST DERMATOLOGY - NEW PATIENT NOTE Demian Zaman Date of service: 08/28/2013 : 1980 Dermatology Resident Note: America Troncoso MD Chief Problem: Chief Complaint Patient presents with ??? Skin Check Mr. Demian Zaman is a 32 y.o. male. This is a new patient to me. Seen at the request of Self specifically for the evaluation and management of the above problem. HPI: Mr. Zaman presents for evaluation of red spots on his nose, voodoo and in his [place] present for approximately three years. Patient reports that the spots come and go, but never fully resolve. Theyare asymptomatic, but if he lets them get too dry, they will flake and become tender. Rash is limited to his face. He was told by his PCP that this was infection two years ago, and given an unknown pr escription cream which was ineffective. No history of psoriasis or eczema. Current therapy: Dermalex OTC psoriasis cream. Patient notes he freitas easily and has been using SPF 30-40 in the sun. No other concerns today. Past Skin History: acne Medical History: There is no problem list on file for this patient. Medications: No current outpatient prescriptions on file. Allergies: No Known Allergies Family History: No family h/o melanoma, or Non Melanoma Skin Cancer No family h/o atopy, psoriasis, or other skin disease Review of Systems: General: Feels well Skin: As per HPI; no other skin concerns Examination: Constitutional: Patient was alert, well-appearing and in no noticeable distress. Skin: An abbreviated skin exam was performed. This includes: face and scalp Specific skin findings: 1. [place] scaly papules overlying erythematous patches on temples, nasolabial folds, and mental crease. Diagnosis/Assessment/Treatment Plan: 1. Seborrheic dermatitis: discussed diagnosis with patient and counseled on chronic nature of condition. Reviewed that treatment is aimed at control rather than cure. Will start with ketoconazole BIDwith desonide BID PRN. Discussed using the desonide BID for 2-3 weeks, then take a week off. ?? Rx: Ketoconazole 2% cream applied twice daily to affected areas of face. ?? Rx: Desonide 0.05% cream twice daily as needed. If Desonide is ineffective, consider Elidel. Reviewed potential side effects of rodent exterminator topical steroid application including skin atrophy, striae, ulceration, and acne/rosacea if applied to the face. Advised against contact with eyes as can contribute to cataracts and glaucoma. If not improved in a few weeks, will consider adding Elidel for rodent exterminator use. RTC PRN. Instructed to call for questions, concerns. America Troncoso MD Resident in Dermatology [facility] Patient seen and evaluated with staff distribution dispatcher: Eliezer Patton MD Section of Dermatology [facility] Note initiated by: CHAKA SCHOFIELD LPN: I am documenting this encounter acting as the scribe for and in the presence of Dr. America Troncoso MD I performed the above scribed service and agree with the accuracy of the documentation in this encounter. A copy of this report has been sent to the referring provider either by electronic messaging or by fax. documented in this encounter Plan of Treatment Not on file documented as of this encounter Visit Diagnoses Diagnosis Seborrheic dermatitis- Primary Seborrheic dermatitis, unspecified documented in this encounter Care Teams Farm Equipment Operator Relationship Specialty Start Date End Date Kenrick Zavala DO [address] [place] [address] PCP - General 02/10/13 08/21/21 documented as of this encounter
--- OUTSIDE RECORDS SUMMARY | 2024-05-26 11:07 | XMS_ITS | Encounter Summary ---
[place] [address] Care Team Providers Care Exterminator Name Role Phone Kenrick Zavala DO Primary Care Provider [phone] Reason for Visit * Reason Onset Date Comments Other 09/01/2017 Encounter Details Date Type Department Care Team (Late st Contact Info) Description 09/01/2017 Telephone [place] [phone] Racquel Escalante, RN Other Social History Tobacco Use Types Packs/Day Years Used Date Smoking Tobacco: Never Smokeless Tobacco: Never Sex and Gender Information Value Date Recorded Sex Assigned at Male 02/17/2021 6:32 AM EDT Gender Identity Male 09/27/2023 9:31 AM EDT Sexual Orientation Straight 02/17/2021 6: 32 AM EDT documented as of this encounter Miscellaneous Notes * Telephone Encounter - Racquel Escalante, RN - 09/01/2017 1:33 PM EST Images from the original note were not included. Nursing Triage - Phone Note DATE OF CALL: 09/01/2017 TIME OF CALL: 1:34 PM PATIENT DATE OF : 1980 CALLER: PT to the General surgery clinic Learning Needs Assessment Reviewed: Yes SUBJECTIVE - Telephone call to follow up with patient PERTINENT PAST MEDICAL HISTORY: Pt is s/p Cosigned by: Elder Addison MD at 08/25/2017 ??4:43 PM []Hide copied text []Hover for attribution information Brief Operative Note ?? Patient Name: Demian Zaman : [id number] MR#: [id number] ?? Case Date: 08/25/2017 ?? Surgeon: Surgeon(s) and Role: * Elder Addison MD - Primary * Emma Chaidez MD - Resident-Surgeon Chief ?? Preoperative diagnosis: APPENDIX MASS ?? Postoperative diagnosis: APPENDIX MASS ?? Procedure(s) (LRB): @LAPAROSCOPIC ASSISTED COLECTOMY, PARTIAL, REM.TERMINAL ILEUM (WRVU 22.95) (N/A) NURSING OBJECTIVE/ASSESSMENT: Called to patient's home no answer and it won't allow me to leave a message: INTERVENTION/PLAN/ FOLLOW UP: continue to call If your symptoms do not improve, or they worsen, report to your local emergency department. CALLER AGREES: Yes PCP: Kenrick Zavala DO documented in this encounter Plan of Treatment Not on file documented as of this encounter Visit Diagnoses Not on filedocumented in this encounter Care Teams Exterminator Relationship Specialty Start Date End Date Kenrick Zavala DO [address] [place] [address] PCP - General 02/10/13 08/21/21 documented as of this encounter
--- OUTSIDE RECORDS SUMMARY | 2024-05-26 11:07 | XMS_ITS | Encounter Summary ---
Author Organization [facility] Address [facility] [place] [address] Care Team Providers Care Net Mender Name Role Phone Kenrick Zavala DO Primary Care Provider Encounter Details Date Type Department Care Team (Late st Contact Info) Description 07/14/2017 Telephone Dermatology at [facility] [address] [place] [phone] Wen Arriaga MD [facility] [address] ELIJ[address] [place] [address] Social History Tobacco Use Types Packs/Day Years Used Date Smoking Tobacco: Never Smokeless Tobacco: Never Sex and Gender Information Value Date Recorded Sex Assigned at Male 02/17/2021 6:32 AM EDT Gender Identity Male 09/27/2023 9:31 AM EDT Sexual Orientation Straight 02/17/2021 6: 32 AM EDT documented as of this encounter Miscellaneous Notes * Telephone Encounter - Maur Valverde R - 07/14/2017 2:31 PM EST Demian contacted us to request that his prescriptions for ketoconazole (NIZORAL) 2 % Cream and desonide (DESOWEN) 0.05 % Cream be sent to the [facility] in [place], [place]. Thank you, Francie documented in this encounter Plan of Treatment Not on file documented as of this encounter Visit Diagnoses Not on filedocumented in this encounter Care Teams Net Mender Relationship Specialty Start Date End Date Kenrick Zavala DO [address] [place] [address] PCP - General 02/10/13 08/21/21 documented as of this encounter
--- OUTSIDE RECORDS SUMMARY | 2024-05-26 11:07 | XMS_ITS | Encounter Summary ---
Author Organization [facility] [place] [address] Care Team Providers Care Investigation Division Lieutenant Name Role Phone Kenrick Zavala DO Primary Care Provider Encounter Details Date Type Department Care Team (Late st Contact Info) Description 07/27/2017 11:58 AM EST - 07/27/2017 11:59 PM EST Hospital Encounter [facility]iology [facility] at [facility] [place] [address] Kenrick Zavala DO [address] [place], [place] [id number] Nocturnal enuresis Discharge Disposition: Home Social History Tobacco Use [...] Procedure Name Priority Date/Time Associated Diagnosis Comments REQUEST FOR 2ND READ CT ABDOMEN AND PELVIS Routine 07/27/2017 11:58 AM EST Nocturnal enuresis documented in this encounter Results * (ABNORMAL) Request For 2nd Read CT Abdomen & Pelvis (07/27/2017 11:58 AM EST) Anatomical Region Laterality Modality Abdomen, Pelvis SO Impressions 07/27/2017 5:27 PM EST 1. ??Normal kidneys, ureters and bladder. 2. ??UNEXPECTED FINDING: Cystic mass in the right lower quadrant, and given the failure to identify the appendix and the lack of history of appendectomy, primary consideration is a mucocele. Recommend gastroenterology/surgical consultation. Findings discussed with Dr. Zavala by Dr. Galicia on July 27, 2017 at 1400 via telephone. Preliminary report signed by: Bill Galicia at 07/27/2017 2:46 PM I have personally reviewed the image(s) and the residents interpretation and agree with the findings, Ness Duke at 07/27/2017 5:27 PM Narrative 07/27/2017 5:27 PM EST EXAMINATION: REQUEST FOR 2ND READ CT ABDOMEN AND PELVIS CLINICAL HISTORY: NOCTURNAL ENURESIS; NOCTURNAL ENURESIS; What Modality is the exam? CT Scan; Body Part (please add comments as necessary): ABD/PELV; I believe a reinterpretation of this exam may alter care of Patient. Yes TECHNIQUE: CT of the abdomen and pelvis was performed using a urogram protocol, prior to and following an unknown volume of intravenous contrast. Exam was performed at [facility] on 07/26/2017 COMPARISON: None FINDINGS: Right kidney and ureter: No calculi, hydronephrosis or hydroureter. No renal lesions. No filling defect or abnormal wall thickening in the collecting system. Left kidney and ureter: No calculi, hydronephrosis or hydroureter. 4 mm hypodense lower pole lesion which is too small to characterize further. No filling defect or abnormal wall thickening in the collecting system. Urinary bladder: Normal, no calculi, or visible mass. Lower chest: Normal. Liver: Normal size and enhancement. No lesion. Bile ducts: Nondilated. Gallbladder: No calcified gallstones. Normal caliber wall. Pancreas: Normal. Spleen: Normal. Adrenals: Normal. Vasculature: No aneurysm. Portal, splenic and superior mesenteric veins are patent. Lymph Nodes: No enlarged lymph nodes. Bowel: No dilated loops of small bowel. No [...] fluid collection. No mesenteric nodularity or inflammation. Abdominal wall: Normal. Reproductive organs: Prostate is normal. Osseous structures: No suspicious lesions. Resulting Agency Comment Unexpected Finding Procedure Note Ness Duke MD - 07/27/2017 EXAMINATION: REQUEST FOR 2ND READ CT ABDOMEN AND PELVIS CLINICAL HISTORY: NOCTURNAL ENURESIS; NOCTURNAL ENURESIS; What Modality isthe exam? CT Scan; Body Part (please add comments as necessary): ABD/PELV; Ibelieve a reinterpretation of this exam may alter care of Patient. Yes TECHNIQUE: CT of the abdomen and pelvis was performed using a urogramprotocol, prior to and following an unknown volume of intravenous contrast. Examwas performed at [facility] on 07/26/2017 COMPARISON: None FINDINGS: Right kidney and ureter: No calculi, hydronephrosis or hydroureter. Norenal lesions. No filling defect or abnormal wall thickening in the collectingsystem. Left kidney and ureter: No calculi, hydronephrosis or hydroureter. 4 mm hypodense lower pole lesion which is too small to characterize further.No filling defect or abnormal wall thickening in the collecting system. Urinary bladder: Normal, no calculi, or visible mass. Lower chest: Normal. Liver: Normal size and enhancement. No lesion. Bile ducts: Nondilated. Gallbladder: No calcified gallstones. Normal caliber wall. Pancreas: Normal. Spleen: Normal. Adrenals: Normal. Vasculature: No aneurysm. Portal, splenic and superior mesenteric veinsare patent. Lymph Nodes: No enlarged lymph nodes. Bowel: No dilated loops of small bowel. No normal appendix is seen andno surgical material to suggest appendectomy. A tubular, low attenuation(21 Hounsfield units), partially inferiorly calcified structure with mildmural enhancement however no thick mott in the right lower quadrant [id number] x 4.7 x 4.6 cm. A possible origin of the appendix from the cecal pole isseen on series 16, image 599. There are multiple calcifications along thedependent and nondependent mott. No adjacent inflammation. The terminal ileum abuts thebut is normal without adjacent inflammation. Peritoneum and mesentery: No ascites, free air, or loculated fluidcollection. No mesenteric nodularity or inflammation. Abdominal wall: Normal. Reproductive organs: Prostate is normal. Osseous structures: No suspicious lesions. IMPRESSION 1. Normal kidneys, ureters and bladder. 2. 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 Recommend gastroenterology/surgical consultation. Findings discussed with Dr. Zavala by Dr. Galicia on July 27, 2017 [id number] via telephone. Preliminary report signed by: Bill Galicia at 07/27/2017 2:46 PM I have personally reviewed the image(s) and the residents interpretationand agree with the findings, Ness Duke at 07/27/2017 5:27 PM Kenrick Zavala DO IMG OUTSIDE INTERPRE TATION ORDERABLES documented in this encounter Visit Diagnoses Diagnosis Nocturnal enuresis documented in this encounter Care Teams Investigation Division Lieutenant Relationship Specialty Start Date End Date Kenrick Zavala DO [address] [place] [address] [address] PCP - General 02/10/13 08/21/21 documented as of this encounter
== END 2024-05-26 11:04 | disposition home or self-care (01) ==
LOC: LBO 11:03
PROVIDERS: PCP Physician Assistant; Visit Provider Internal Medicine Cardiovascular Disease
DX: I10 Essential (primary) hypertension (principal)
CPT/HCPCS: 36415; 80048

== ENCOUNTER 2024-06-08 08:02 | Outpatient (CLI) | payer BC, SELFPAY ==
[2024-06-08 08:51] LABS: Anion Gap 9.8 mmol/L (3-11); BUN 15 mg/dL (7-18); CO2 26.2 mmol/L (21.0-32.0); CREATININE 1.1 mg/dL (0.70-1.30); Calcium 8.8 mg/dL (8.5-10.1); Chloride 107 mmol/L (98-107); Estimated GFR 85.95 (mL/min/1.73m2); Glucose 129 mg/dL (74-106); Potassium 3.8 mmol/L (3.5-5.1); Sodium 143 mmol/L (136-145)
== END 2024-06-08 08:03 | disposition home or self-care (01) ==
LOC: LBO 08:03
PROVIDERS: PCP Physician Assistant; Visit Provider Internal Medicine Cardiovascular Disease
DX: I10 Essential (primary) hypertension (principal)
CPT/HCPCS: 36415; 80048